=== PATIENT | female | born 1940 | race Caucasian/White ===

== ENCOUNTER → 2017-09-12 | Outpatient (CLI) | payer MEDICARE, OTHER ==
[~2017-09-12] MED LIST: ACET-2267 PO; AMIN1TAB PO; AMIT25TA9; AMOX-97 PO; ASPI-586 PO; ATOR40TA70 PO; CLOP75TA28 PO; FLT05NA16; METO-272; METO-352 PO; PILO5TAB PO; PRD50T PO; RANI150T15 PO; RIVA20TA PO; RNT150T PO; [UNRECOGNIZED DRUG - OTHER]
[2017-09-12 07:18] LABS: MEAN PLATELET VOLUME 9.1 FL (7.4-10.4); RED BLOOD COUNT 3.9 10^6/uL (4.35-5.85); WHITE BLOOD COUNT 9.9 10^3/uL (4.3-11.0)
[2017-09-12 07:42] LABS: ALANINE AMINOTRANSFERASE 10 U/L (0-55); ALBUMIN 3.8 GM/DL (3.2-4.5); ANION GAP 8 MMOL/L (5-14); ASPARTATE AMINO TRANSFERASE 17 U/L (5-34); BILIRUBIN,DIRECT 0.3 MG/DL (0.0-0.3); BILIRUBIN,INDIRECT 0.5 MG/DL; BILIRUBIN,TOTAL 0.8 MG/DL (0.1-1.0); BLOOD UREA NITROGEN 14 MG/DL (7-18); BUN/CREATININE RATIO 19; CALCIUM 9.1 MG/DL (8.5-10.1); CARBON DIOXIDE 27 MMOL/L (21-32); CHLORIDE 101 MMOL/L (98-107); CHOLESTEROL 182 MG/DL (< 200); CREATININE SERUM 0.72 MG/DL (0.60-1.30); GFR ESTIMATED > 60; GLUCOSE 86 MG/DL (70-105); MAGNESIUM 2.1 MG/DL (1.8-2.4); POTASSIUM 4.1 MMOL/L (3.6-5.0); SODIUM 136 MMOL/L (135-145); TOTAL PROTEIN 6.6 GM/DL (6.4-8.2); TRIGLYCERIDES 79 MG/DL (<150); VLDL CHOLESTEROL 16 MG/DL (5-40)
[2017-09-12 07:43] LABS: DIRECT LDL 98 MG/DL (1-129)
--- NOTE | 2017-09-12 07:44 | Diagnostic Imaging Report ---
INDICATION: Dyspnea. History of emphysema. COMPARISON: 10/09/2015 FINDINGS: Two views of the chest were obtained. The heart size is normal. The pulmonary vessels appear unremarkable. There is no pneumothorax, mediastinal widening or pleural fluid demonstrated. There are chronic findings of COPD with flattening of diaphragms. Nodular density at the right lung base is unchanged and likely represents a nipple shadow. No new or acute pulmonary parenchymal abnormality is suspected. The osseous structures appear unremarkable. IMPRESSION: Chronic findings of COPD. No acute or new cardiopulmonary abnormality seen compared to the prior study. Dictated by: Dictated on workstation # [id number]
== END ==
LOC: RAD 06:55
PROVIDERS: ATTEND Nurse Practitioner Family
DX: J43.9 Emphysema, unspecified (principal)
CPT/HCPCS: 36415; 71020; 80053; 80061; 80076; 83735; 84439; 84443; 85027

== ENCOUNTER → 2017-09-12 | Outpatient (CLI) | payer MEDICARE, OTHER | LOC: LAB 06:58 | PROVIDERS: ATTEND Internal Medicine Cardiovascular Disease | DX: R31.9 Hematuria, unspecified (principal); I48.91 Unspecified atrial fibrillation ==

== ENCOUNTER → 2017-09-19 | Outpatient (CLI) | payer MEDICARE, OTHER | LOC: RT 08:00 | PROVIDERS: ATTEND Nurse Practitioner Family | DX: J43.9 Emphysema, unspecified (principal); R06.00 Dyspnea, unspecified | CPT/HCPCS: 94060; 94726; 94729 ==

== ENCOUNTER → 2017-10-11 | Outpatient (CLI) | payer MEDICARE, OTHER ==
--- NOTE | 2017-10-11 13:35 | Diagnostic Imaging Report ---
PA and lateral views of the chest. INDICATION: Dyspnea. COPD. FINDINGS: The lungs are hyperinflated. There is a stable 8 mm calcified nodule in the right lung base. This is likely related to an old granuloma. Similarly a left lung base nodule is also stable from old exams. No focal consolidation. The heart size is normal. No effusion or pneumothorax. The mediastinum and thai appear unremarkable. IMPRESSION: COPD. No acute process. Dictated by: Dictated on workstation # [id number]
== END ==
LOC: RAD 08:59
PROVIDERS: ATTEND Nurse Practitioner Family
DX: J44.9 Chronic obstructive pulmonary disease, unspecified (principal)
CPT/HCPCS: 71020

== ENCOUNTER → 2018-03-06 | Outpatient (CLI) | payer MEDICARE, OTHER ==
[~2018-03-06] MED LIST changes: -RANI150T15 PO; +RANI150T46 PO
== END ==
LOC: LAB 08:43
PROVIDERS: ATTEND Family Medicine
DX: R19.7 Diarrhea, unspecified (principal)
CPT/HCPCS: 87045; 87046; 87324; 87449; 89055

== ENCOUNTER → 2018-03-15 | Outpatient (CLI) | payer MEDICARE, OTHER ==
[~2018-03-15] MED LIST changes: +CATHETER FLUSH 10 ML SYR IV PRN
--- NOTE | 2018-03-15 16:03 | Diagnostic Imaging Report ---
INDICATION: Chronic diarrhea and abdominal pain. EXAMINATION: The patient was administered 5.5 mCi technetium 99m Choletec and imaging over the abdomen was performed. FINDINGS: At one hour the patient ingested 8 ounces of Ensure and gallbladder ejection fraction was calculated. There is homogeneous uptake of activity by the liver. There appears to be prompt excretion of activity into the common duct and gallbladder. Normal passage of activity into the small bowel is identified. Gallbladder ejection fraction is calculated to be 78%. IMPRESSION: Normal HIDA scan and gallbladder ejection fraction. Dictated by: Dictated on workstation # [id number]
== END ==
LOC: CARD 11:31
PROVIDERS: ATTEND Family Medicine
DX: K52.9 Noninfective gastroenteritis and colitis, unspecified (principal)
CPT/HCPCS: 78227

== ENCOUNTER → 2018-04-03 | Outpatient (CLI) | payer MEDICARE, OTHER ==
[~2018-04-03] MED LIST changes: -CATHETER FLUSH 10 ML SYR IV PRN
--- NOTE | 2018-04-03 17:45 | Diagnostic Imaging Report ---
INDICATION: Foot itching. Three views of each foot were obtained. FINDINGS: There is no fracture or dislocation. Joint spaces well maintained. Articular surfaces appear smooth. IMPRESSION: Negative right and left foot. Dictated by: Dictated on workstation # [id number]
== END ==
LOC: RAD 13:00
PROVIDERS: ATTEND Family Medicine
DX: L29.8 Other pruritus (principal); Z87.2 Personal history of diseases of the skin and subcutaneous tissue

== ENCOUNTER → 2018-04-25 | Outpatient (CLI) | payer MEDICARE, OTHER | LOC: CARD 08:25 | PROVIDERS: ATTEND Nurse Practitioner Family | DX: I48.91 Unspecified atrial fibrillation (principal) | CPT/HCPCS: 93005 ==

== ENCOUNTER → 2018-06-20 | Outpatient (CLI) | payer MEDICARE, OTHER ==
--- NOTE | 2018-06-20 08:31 | Diagnostic Imaging Report ---
INDICATION: Postmenopausal screening for osteoporosis FINDINGS: This scan is considered osteopenic according to the World Health Organization guidelines. This indicates an increased risk of fracture. Treatment is advised. A followup DEXA in one year is recommended. Please refer to the detailed Bone Density report faxed separately from this report. IMPRESSION: Osteopenia with a slight increased fracture risk. Dictated by: Dictated on workstation # [id number]
--- NOTE | 2018-06-20 08:59 | Diagnostic Imaging Report ---
INDICATION: Routine screening. No prior mammograms are available for comparison. 2-D and 3-D bilateral screening mammography was performed with a Computer Aided Detection (CAD) system. FINDINGS: Both breasts are heterogeneously dense, limiting the sensitivity of mammography. There are benign parenchymal and vascular calcifications bilaterally. No mass or malignant appearing microcalcifications are seen. The axillae are unremarkable. IMPRESSION: No mammographic features suspicious for malignancy are identified. ACR BI-RADS Category 2: Benign findings. Result letter will be mailed to the patient. Note: At least 10% of breast cancer is not imaged by mammography. Dictated by: Dictated on workstation # [id number]
== END ==
LOC: RAD 07:43
PROVIDERS: ATTEND Family Medicine
DX: Z12.31 Encounter for screening mammogram for malignant neoplasm of breast (principal); Z13.820 Encounter for screening for osteoporosis; M85.88 Other specified disorders of bone density and structure, other site; M81.0 Age-related osteoporosis without current pathological fracture; Z78.0 Asymptomatic menopausal state
CPT/HCPCS: 77067; 77080

== ENCOUNTER 2018-08-17 12:02 | Observation (INO) | payer MEDICARE, OTHER ==
[~2018-08-17] VITALS: Ht 160 cm; Wt 47.6 kg
[2018-08-17] VITALS (8 sets, daily range): BP systolic 99–157; BP diastolic 45–98
[2018-08-17 12:28] LABS: BASOPHILS # (AUTO) 0.1 10^3/uL (0.0-0.1); BASOPHILS % (AUTO) 1 % (0-10); EOSINOPHILS # (AUTO) 0.2 10^3/uL (0.0-0.3); EOSINOPHILS % (AUTO) 2 % (0-10); HEMATOCRIT 35 % (35-52); HEMOGLOBIN 12.1 G/DL (11.5-16.0); LYMPHOCYTES # (AUTO) 1.7 X 10^3 (1.0-4.0); LYMPHOCYTES % (AUTO) 21 % (12-44); MEAN CORPUSCULAR HEMOGLOBIN 34 PG (25-34); MEAN CORPUSCULAR HGB CONC 35 G/DL (32-36); MEAN CORPUSCULAR VOLUME 96 FL (80-99); MONOCYTES # (AUTO) 0.8 X 10^3 (0.0-1.0); MONOCYTES % (AUTO) 10 % (0-12); NEUTROPHILS # (AUTO) 5.6 X 10^3 (1.8-7.8); NEUTROPHILS % (AUTO) 67 % (42-75); PLATELET COUNT 332 10^3/uL (130-400); RED BLOOD COUNT 3.61 10^6/uL (4.35-5.85); RED CELL DISTRIBUTION WIDTH 13.2 % (10.0-14.5); WHITE BLOOD COUNT 8.4 10^3/uL (4.3-11.0)
[2018-08-17] MEDS ORDERED: NIFE30TA2 (12:32)
[2018-08-17 12:38] LABS: INR 3.3 (0.8-1.4)
[2018-08-17 12:47] LABS: ALANINE AMINOTRANSFERASE 9 U/L (0-55); ALBUMIN 4.2 GM/DL (3.2-4.5); ALKALINE PHOSPHATASE 64 U/L (40-136); BILIRUBIN,TOTAL 0.6 MG/DL (0.1-1.0); BUN/CREATININE RATIO 14; CALCIUM 9.4 MG/DL (8.5-10.1); CARBON DIOXIDE 22 MMOL/L (21-32); CHLORIDE 97 MMOL/L (98-107); CREATININE SERUM 0.79 MG/DL (0.60-1.30); GFR ESTIMATED > 60; GLUCOSE 115 MG/DL (70-105); SODIUM 130 MMOL/L (135-145); TOTAL PROTEIN 6.9 GM/DL (6.4-8.2)
[2018-08-17 12:54] LABS: MYOGLOBIN SERUM 32.4 NG/ML (10.0-92.0)
--- NOTE | 2018-08-17 12:57 | Diagnostic Imaging Report ---
Indication: Dyspnea. Comparison: 10/11/2017. Discussion: Single portable upright view of the chest was obtained. Underlying COPD is stable. Scarring within the lung apices is stable. Stable normal heart size. Antecedent granulomatous disease is again noted, benign. No focal consolidation, pleural fluid, or pneumothorax. No osseous abnormality. Impression: 1. Stable changes of chronic lung disease. Dictated by: Dictated on workstation # [id number]
[2018-08-17] MEDS ORDERED: ASPIRIN 81 MG CHEW (CHILDREN'S ASA) PO ONE (13:00)
--- NOTE | 2018-08-17 13:00 | ED Chest Pain ---
General Chief Complaint: Cardiac/General Problems Stated Complaint: LOW HEART RATE,CARDIOVERSION YESTERDAY,HX OF A-FIB Nursing Triage Note: TO ROOM CONCERN REPORTS HR HAS BEEN IN 50'S OVER HER LOW HEART RATE. REPORTS SHE HAD A CARDIOVERSION AT [facility] YESTERDAY FOR A FIB. Nursing Sepsis Screen: No Definite Risk Source: patient, family, old records Exam Limitations: no limitations History of Present Illness Date Seen by Provider: Aug 17, 2018 Time Seen by Provider: 12:13 Initial Comments This 78 year old woman with history of atrial fibrillation presents to the ER after having electrocardioversion therapy at [facility] yesterday. She reports heart rates in the 40's and 50's overnight as well as some chest heaviness. She denies coronary artery disease. She is anticoagulated but has not taken aspirin. Her monitor worker is Dr. Argueta in [place]. Her primary care provider is Sadie Maria. She had a cardioversion in May as well. She is noted to have sinus rhythm with frequent PVCs on the monitor. Allergies and Home Medications Allergies Coded Allergies: Penicillins (Verified Allergy, Unknown, 10/09/15) fluticasone (Verified Allergy, Unknown, 10/09/15) lactase (Verified Allergy, Unknown, 10/09/15) Home Medications Acetaminophen 500 Mg Tablet, 500 MG PO Q6H, (Reported) Aspirin 81 Mg Tablet.dr, 81 MG PO DAILY, (Reported) Atorvastatin Calcium 40 Mg Tablet, 40 MG PO DAILY, (Reported) Clopidogrel Bisulfate 75 Mg Tablet, 75 MG PO DAILY, (Reported) Metoprolol Succinate 50 Mg Tab.er.24h, 50 MG PO DAILY, (Reported) Pilocarpine HCl 5 Mg Tablet, 5 MG PO TID, (Reported) Ranitidine HCl 150 Mg Tablet, 150 MG PO BID, (Reported) Rivaroxaban 20 Mg Tablet, 20 MG PO DAILY Prescribed by: GERONIMO HUGHES on 10/09/15 8468 Patient Home Medication List Home Medication List Reviewed: Yes Review of Systems Review of Systems Constitutional: no symptoms reported EENTM: No Symptoms Reported Respiratory: No Symptoms Reported Cardiovascular: See HPI Gastrointestinal: No Symptoms Reported Genitourinary: No Symptoms Reported Musculoskeletal: no symptoms reported Skin: no symptoms reported Psychiatric/Neurological: No Symptoms Reported Endocrine: No Symptoms Reported Hematologic/Lymphatic: See HPI Past Umrnvga-Kvcvcr-Wmklwl Hx Past Med/Social Hx: Reviewed and Corrections made Patient Social History Alcohol Use: Regular Use Alcohol Beverage of Choice: Beer Recreational Drug Use: No Smoking Status: Never a Smoker Former Smoker, Quit: Nov 15, 1979 Recent Foreign Travel: No Contact w/Someone Who Travel: No Recent Infectious Disease Expo: No Seasonal Allergies Seasonal Allergies: No Past Medical History Surgeries: Yes Eye Surgery, Orthopedic Respiratory: Yes COPD Currently Using CPAP: No Currently Using BIPAP: No Cardiac: Yes Atrial Fibrillation, Hypertension, Peripheral Vascular, Valvular Heart Disease Neurological: Yes TIA : No 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 0.2oz. 46.309116vh; 19.1 BMI Method:Stated General Appearance: No Apparent Distress, Thin HEENT: PERRL/EOMI, Normal ENT Inspection Neck: Normal Inspection Respiratory: Lungs Clear, Normal Breath Sounds, No Accessory Muscle Use, No Respiratory Distress Cardiovascular: No Edema, No Murmur, Irregularly Irregular Gastrointestinal: Non Tender, Soft Extremity: Normal Inspection, No Pedal Edema Neurologic/Psychiatric: Alert, Oriented x3, No Motor/Sensory Deficits, Normal Mood/Affect, child adolescent psychiatrist II-XII Norm as Tested Skin: Normal Color, Warm/Dry Progress/Results/Core Measures Results/Orders Lab Results Laboratory Tests Test 08/17/18 12:16 Range/Units White Blood Count 8.4 4.3-11.0 10^3/uL Red Blood Count 3.61 L 4.35-5.85 10^6/uL Hemoglobin 12.1 11.5-16.0 G/DL Hematocrit 35 35-52 % Mean Corpuscular Volume 96 80-99 FL Mean Corpuscular Hemoglobin 34 25-34 PG Mean Corpuscular Hemoglobin Concent 35 32-36 G/DL Red Cell Distribution Width 13.2 10.0-14.5 % Platelet Count 332 130-400 10^3/uL Mean Platelet Volume 9.0 7.4-10.4 FL Neutrophils (%) (Auto) 67 42-75 % Lymphocytes (%) (Auto) 21 12-44 % Monocytes (%) (Auto) 10 0-12 % Eosinophils (%) (Auto) 2 0-10 % Basophils (%) (Auto) 1 0-10 % Neutrophils # (Auto) 5.6 1.8-7.8 X 10^3 Lymphocytes # (Auto) 1.7 1.0-4.0 X 10^3 Monocytes # (Auto) 0.8 0.0-1.0 X 10^3 Eosinophils # (Auto) 0.2 0.0-0.3 10^3/uL Basophils # (Auto) 0.1 0.0-0.1 10^3/uL Prothrombin Time 34.0 H 12.2-14.7 SEC INR Comment 3.3 H 0.8-1.4 Activated Partial Thromboplast Time 72 H 24-35 SEC Sodium Level 130 L 135-145 MMOL/L Potassium Level 4.0 3.6-5.0 MMOL/L Chloride Level 97 L 98-107 MMOL/L Carbon Dioxide Level 22 21-32 MMOL/L Anion Gap 11 5-14 MMOL/L Blood Urea Nitrogen 11 7-18 MG/DL Creatinine 0.79 0.60-1.30 MG/DL Estimat Glomerular Filtration Rate > 60 BUN/Creatinine Ratio 14 Glucose Level 115 H 70-105 MG/DL Calcium Level 9.4 8.5-10.1 MG/DL Corrected Calcium 9.2 8.5-10.1 MG/DL Magnesium Level 2.0 1.8-2.4 MG/DL Total Bilirubin 0.6 0.1-1.0 MG/DL Aspartate Amino Transf (AST/SGOT) 23 5-34 U/L Alanine Aminotransferase (ALT/SGPT) 9 0-55 U/L Alkaline Phosphatase 64 40-136 U/L Myoglobin 32.4 10.0-92.0 NG/ML Troponin I < 0.30 <0.30 NG/ML Total Protein 6.9 6.4-8.2 GM/DL Albumin 4.2 3.2-4.5 GM/DL Free Thyroxine 1.12 0.70-1.48 NG/DL TSH [place] Testing 0.33 L 0.35-4.94 UIU/ML My Orders Orders - GERONIMO TORRES MD Cbc With Automated Diff (08/17/18 12:22) Magnesium (08/17/18 12:22) Chest 1 View, Ap/Pa Only (08/17/18 12:22) Cardiac Profile 1 (08/17/18 12:22) Comprehensive Metabolic Panel (08/17/18 12:22) Myoglobin Serum (08/17/18 12:22) Protime With Inr (08/17/18 12:22) Partial Thromboplastin Time (08/17/18 12:22) O2 (08/17/18 12:22) Monitor-Rhythm Ecg Trace Only (08/17/18 12:22) Lipid Panel (08/18/18 06:00) Saline Lock/Iv-Start (08/17/18 12:22) Thyroid Analyzer (08/17/18 12:22) Aspirin Chewable Tablet (Baby Aspirin Ch (08/17/18 13:00) Free T4 (Free Thyroxine) (08/17/18 12:16) Medications Given in ED Current Medications Medications Dose Ordered Sig/Dawit Route Start Time Stop Time Status Last Admin Dose Admin Aspirin 324 mg ONCE ONCE PO 08/17/18 13:00 08/17/18 13:01 DC 08/17/18 13:07 324 MG Vital Signs/I&O 08/17/18 08/17/18 12:02 12:50 Temp 98.0 Pulse 52 56 Resp 18 18 B/P (MAP) 129/82 (98) 114/45 (68) Pulse Ox 100 96 O2 Delivery Room Air Room Air Blood Pressure Mean: 68 Progress Progress Note : Progress Note Workup was largely unremarkable. She has mild hyponatremia. She continued to have frequent PVCs throughout her ER stay. Aspirin was given. Case was discussed with Dr. Metzger who believes patient should be admitted for observation. He requested an echocardiogram in the morning and continuation of her home medications. Patient was offered the choice to transfer to her primary cardiology team versus admission at [facility]. She much prefers admission to [facility]. Initial ECG Impression Date: Aug 17, 2018 Initial ECG Impression Time: 12:05 Initial ECG Rate: 68 Comment Sinus rhythm with frequent PVCs. No overt ST elevation or depression. No abnormal intervals or axis deviation. Diagnostic Imaging Diagonstic Imaging: Xray Plain Films/CT/US/NM/MRI: chest Comments Chest x-ray viewed by me and report reviewed. See report below: NAME: DAWSON MARQUEZ [facility] REC#: [id number] PT STATUS: REG ER : 1940 PHYSICIAN: GERONIMO TORRES MD ADMIT DATE: 08/17/18/ER Draft Date of Exam:08/17/18 CHEST 1 VIEW, AP/PA ONLY Indication: Dyspnea. Comparison: 10/11/2017. Discussion: Single portable upright view of the chest was obtained. Underlying COPD is stable. Scarring within the lung apices is stable. Stable normal heart size. Antecedent granulomatous disease is again noted, benign. No focal consolidation, pleural fluid, or pneumothorax. No osseous abnormality. Impression: 1. Stable changes of chronic lung disease. Dictated on workstation # [id number] Dict: 08/17/18 1251 Trans: 08/17/18 [address] [facility] [phone] Interpreted by: SHAILA BLOUNT MD Departure Communication (Admissions) Time/Spoke to Admitting Phy: 13:26 Dr. De La Vega Time/Spoke to Consulting Phy: 13:15 Dr. Metzger Impression Primary Impression: Chest pain Qualified Codes: R07.9 - Chest pain, unspecified Additional Impressions: Frequent PVCs Hyponatremia History of atrial fibrillation Disposition: ADMITTED INPATIENT Condition: Stable Admissions Decision to Admit Reason: Admit from ER (General) Decision to Admit/Date: Aug 17, 2018 Time/Decision to Admit Time: 13:15 Departure-Patient Inst. Referrals: SADIE MARIA MD (PCP/Family) Primary Care Physician GERONIMO TORRES MD Aug 17, 2018 13:00
[2018-08-17 13:06] LABS: TSH (THYROID ANALYZER) 0.33 UIU/ML (0.35-4.94)
[2018-08-17 13:39] LABS: FREE T4 (FREE THYROXINE) 1.12 NG/DL (0.70-1.48)
[2018-08-17] MEDS ORDERED: LOSARTAN 50 MG (COZAAR) TAB PO SCH (14:38)
[2018-08-17] MEDS: NS IV 1000 ML 1,000 ML IV SCH (14:39)
[2018-08-17] MEDS ORDERED: NIFEdipine ER 30 MG (PROCARDIA XL) TAB PO SCH (14:41)
[2018-08-17] MEDS ORDERED: ACETAMINOPHEN 325 MG TABLET PO PRN (14:45)
[2018-08-17] MEDS ORDERED: SOTA80TA PO (14:46)
[2018-08-17] MEDS ORDERED: LOSA50TA7 PO (14:46)
[2018-08-17] MEDS ORDERED: ARTHRITIS PAIN RELIEF PO PRN (15:45)
[2018-08-17] MEDS ORDERED: RIVAROXABAN 20 MG TABLET (XARELTO) PO SCH (17:00)
[2018-08-17] MEDS: SOTALOL 80 MG (BETAPACE) TAB PO SCH (20:01)
[2018-08-18] VITALS (7 sets, daily range): BP systolic 105–139; BP diastolic 53–71
[2018-08-18] MEDS: NS IV 1000 ML 1,000 ML IV SCH ×2 (00:32→07:53)
[2018-08-18 03:52] LABS: BASOPHILS % (AUTO) 1 % (0-10); EOSINOPHILS # (AUTO) 0.2 10^3/uL (0.0-0.3); EOSINOPHILS % (AUTO) 3 % (0-10); HEMATOCRIT 33 % (35-52); LYMPHOCYTES # (AUTO) 1.4 X 10^3 (1.0-4.0); LYMPHOCYTES % (AUTO) 26 % (12-44); MEAN CORPUSCULAR HEMOGLOBIN 33 PG (25-34); MEAN CORPUSCULAR HGB CONC 34 G/DL (32-36); MEAN CORPUSCULAR VOLUME 98 FL (80-99); MEAN PLATELET VOLUME 9.6 FL (7.4-10.4); MONOCYTES # (AUTO) 0.6 X 10^3 (0.0-1.0); MONOCYTES % (AUTO) 10 % (0-12); NEUTROPHILS # (AUTO) 3.3 X 10^3 (1.8-7.8); NEUTROPHILS % (AUTO) 61 % (42-75); PLATELET COUNT 235 10^3/uL (130-400); RED BLOOD COUNT 3.32 10^6/uL (4.35-5.85); RED CELL DISTRIBUTION WIDTH 13.2 % (10.0-14.5); WHITE BLOOD COUNT 5.5 10^3/uL (4.3-11.0)
[2018-08-18 04:09] LABS: BUN/CREATININE RATIO 12; CALCIUM 8.8 MG/DL (8.5-10.1); CARBON DIOXIDE 20 MMOL/L (21-32); CHLORIDE 108 MMOL/L (98-107); CHOLESTEROL 150 MG/DL (< 200); GFR ESTIMATED > 60; GLUCOSE 85 MG/DL (70-105); HDL CHOLESTEROL 49 MG/DL (40-60); POTASSIUM 3.9 MMOL/L (3.6-5.0); SODIUM 137 MMOL/L (135-145); TRIGLYCERIDES 74 MG/DL (<150); VLDL CHOLESTEROL 15 MG/DL (5-40)
[2018-08-18] MEDS: SOTALOL 80 MG (BETAPACE) TAB PO SCH (07:52)
--- NOTE | 2018-08-18 08:46 | History & Physical-Hospitalist ---
History of Present Illness HPI/Chief Complaint This is a 78-year-old white female with a history of atrial fibrillation status post cardioversion on Sunday one day prior to this presentation. This was done at [place] by Dr. Yuen The cardioversion was successful with nondenominational of sinus rhythm however the patient never felt right after it occurred. Sunday morning she woke up and was so dizzy she couldn't stand up straight and kept nearly passing out. She checked her blood pressure and pulse at home and her pulse was found to be in the 30s. Here in the emergency room she was found to be in sinus bradycardia with multiple PVCs. She relates some of her symptoms it would appear to the Procardia. This morning she is feeling much better with a stable blood pressure and a pulse around 59. Source: patient Exam Limitations: no limitations Date Seen 08/18/18 Time Seen by a Provider: 08:00 Attending Physician Edith De La Vega MD PCP Sadie Maria MD Referring Physician Date of Admission Aug 17, 2018 at 13:57 Home Medications & Allergies Home Medications Reviewed patient Home Medication Reconciliation performed by pharmacy medication reconciliations a&p technician and/or nursing. Patients Allergies have been reviewed. Allergies Allergies Coded Allergies Penicillins (Verified Allergy, Unknown, 10/09/15) fluticasone (Verified Allergy, Unknown, 10/09/15) lactase (Verified Allergy, Unknown, 10/09/15) Past Nitybvw-Iuqqyt-Frrpjs Hx Past Med/Social Hx: Reviewed Nursing Past Med/Soc Hx, Reviewed and Corrections made Patient Social History Marrital Status: single, cohabiting Employed/Student: employed ([employer] in [place]) Alcohol Use: Regular Use Number of Drinks Today: AA Alcohol Beverage of Choice: Beer (2-3 a day) Recreational Drug Use: No Smoking Status: Former Smoker Former Smoker, Quit: Nov 15, 1979 Physical Abuse Screen: No Sexual Abuse: No Recent Foreign Travel: No Contact w/other who traveled: No Recent Infectious Disease Expo: No Immunizations Up To Date Date of Pneumonia Vaccine: Aug 17, 2017 Date of Influenza Vaccine: Jul 14, 2018 Seasonal Allergies Seasonal Allergies: No Past Medical History Surgeries: Eye Surgery, Orthopedic Currently Using CPAP: No Currently Using BIPAP: No Cardiac: Atrial Fibrillation, Hypertension, Peripheral Vascular, Valvular Heart Disease Neurological: Neuropathy, TIA : No 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: No Menopausal Musculoskeletal: Rheumatoid Arthritis HEENT: Cataract History of Blood Disorders: No Adverse Reaction to Blood Burroughs: No Family History Reviewed Nursing Family Hx No Pertinent Family Hx Review of Systems Constitutional: dizziness, weakness EENTM: dental problems, other (Dry mouth) Respiratory: no symptoms reported Cardiovascular: palpitations Gastrointestinal: no symptoms reported, dysphagia Genitourinary: no symptoms reported Musculoskeletal: muscle stiffness Skin: dryness Physical Exam Physical Exam Vital Signs Vital Signs - First Documented 08/17/18 12:02 Temp 98.0 Pulse 52 Resp 18 B/P (MAP) 129/82 (98) Pulse Ox 100 O2 Delivery Room Air Capillary Refill : Less Than 3 Seconds Height, Weight, BMI Height: 5'3.00" Weight: 105lbs. 0.0oz. 47.694679rz; 18.3 BMI Method:Stated General Appearance: No Apparent Distress, WD/WN, Thin Eyes: Bilateral Eye Normal Inspection HEENT: Other (Dentures upper and lower dry mouth) Neck: Normal Inspection, Non Tender, Supple Respiratory: Chest Non Tender, Lungs Clear, Normal Breath Sounds, No Accessory Muscle Use, No Respiratory Distress Cardiovascular: Regular Rate, Rhythm, No Gallop, Systolic Murmur (High pitched 2/6), Extra Beats Gastrointestinal: Normal Bowel Sounds, No Organomegaly, No Pulsatile Mass, Non Tender, Soft Rectal: Deferred Back: Normal Inspection, No CVA Tenderness, No Vertebral Tenderness Extremity: Normal Capillary Refill, Normal Inspection, Normal Range of Motion, Non Tender, No Calf Tenderness, No Pedal Edema Neurologic/Psychiatric: Alert, Oriented x3, No Motor/Sensory Deficits, Normal Mood/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 Imaging: Reviewed Imaging Report Assessment/Plan Admission Diagnosis Bradycardia Dizziness History of a A. fib status post cardioversion Valvular heart disease Hypertension by history Scleroderma Dysphagia most likely secondary to scleroderma Peripheral neuropathy possible orthostasis The patient's Procardia's been held she's been continued on her sotalol pulse and blood pressure adequate we'll check orthostatics blood pressures and discharge planning per Dr. Ortiz. Admission Status: Observation Clinical Quality Measures DVT/VTE Risk/Contraindication: Risk Factor Score Per Nursin RFS Level Per Nursing on Admit: 1=Low/No VTE PPX Copy Copies To 1: SADIE MARIA MD, KATHLEEN M MD Aug 18, 2018 08:46
[2018-08-18] MEDS ORDERED: LOSARTAN 50 MG (COZAAR) TAB PO SCH (09:00)
[2018-08-18] MEDS ORDERED: ASPIRIN E.C. 81 MG (ECOTRIN) TAB PO SCH (09:00)
[2018-08-18] MEDS ORDERED: NIFEdipine ER 30 MG (PROCARDIA XL) TAB PO SCH (09:00)
--- NOTE | 2018-08-18 11:32 | Consultation-Cardiology ---
HPI-Cardiology Cardiology Consultation: Date of Consultation 08/18/18 Time Seen by a Provider: 11:00 Date of Admission Attending Physician Edith De La Vega MD Admitting Physician Sadie Maria MD Consulting Physician SABINO MIN MD, MA, FACP, FACC, FSCAI, CCDS HPI: Chief Complaint: CC: Low heart rate and chest discomfort 78 yo woman who underwent elec CV for A Fib with Dr Yuen at [facility] on 08/16/18. Presented to ER at this [facility] on 08/17/18 because she felt her heart rate was low. In addition, she had had a feeling of some vague chest discomfort since the elec CV. This persisted for over 24 hours and gradually faded away. Nothing made it worse or better. It was mild, burning/pressure-like, nonradiating, never experienced before and w/o recurrence. Feels good at the time of my exam and wishes to go home. Denies shortness of breath or palp or syncope or leg swelling Review of Systems-Cardiology Review of Systems Constitutional: malaise, tiredness; No weight loss, No weight gain Eyes: No vision change Ears/Nose/Throat: No ear discharge, No nasal drainage Respiratory: As described under HPI Cardiovascular: As described under HPI Gastrointestinal: No constipation, No diarrhea, No nausea, No vomiting; other ( chronic mild dysphagia) Genitourinary: No dysuria, No hematuria Musculoskeletal: back pain (chronic) Skin: No rash on exposed areas, No ulcerations on exposed areas Psychiatric/Neurological: No seizure, No focal weakness, No syncope Hematologic: No bleeding abnormalities PBC-Eiegur-Akekho Hx Patient Social History Marrital Status: single, cohabiting Employed/Student: employed ([employer] in [place]) Alcohol Use: Regular Use Recreational Drug Use: No Smoking Status: Former Smoker Recent Foreign Travel: No Recent Infectious Disease Expo: No Hospitalization with Isolation: Denies Physical Abuse Screen: No Sexual Abuse: No Immunizations Up To Date Date of Pneumonia Vaccine: Aug 17, 2017 Date of Influenza Vaccine: Jul 14, 2018 Past Medical History PMH As described under Assessment. Family Medical History Family Medical History: She does not report any fam h/o early CAD or SCD Allergies and Home Medications Allergies Coded Allergies: Penicillins (Verified Allergy, Unknown, 10/09/15) fluticasone (Verified Allergy, Unknown, 10/09/15) lactase (Verified Allergy, Unknown, 10/09/15) Home Medications Acetaminophen 500 Mg Tablet, 500 MG PO Q6H, (Reported) Losartan Potassium 50 Mg Tablet, 50 MG PO DAILY, (Reported) Rivaroxaban 20 Mg Tablet, 20 MG PO DAILY Prescribed by: GERONIMO HUGHES on 10/09/15 1556 Sotalol HCl 80 Mg Tablet, 80 MG PO BID, (Reported) Patient Home Medication List Home Medication List Reviewed: Yes Physical Exam-Cardiology Physical Exam Vital Signs/I&O 08/18/18 08/18/18 08/18/18 08/18/18 01:08 03:38 04:00 07:00 Temp 98.0 Pulse 46 59 65 Resp 17 B/P (MAP) 128/70 (89) Pulse Ox 98 99 O2 Delivery Room Air Room Air 08/18/18 08/18/18 08/18/18 08/18/18 08:00 08:00 12:00 12:00 Temp 98.7 98.2 Pulse 73 62 62 Resp 20 18 B/P (MAP) 105/53 (70) 132/71 (91) 132/71 (91) Pulse Ox 98 98 98 O2 Delivery Room Air Room Air Room Air 08/18/18 08/18/18 08/18/18 12:00 12:16 12:18 Pulse 60 60 59 Resp 18 B/P (MAP) 139/66 (90) 139/66 128/68 (88) Pulse Ox 98 98 O2 Delivery Room Air Room Air 08/18/18 00:00 Intake Total 300 ml Balance 300 ml Capillary Refill : Less Than 3 Seconds Constitutional: AAO x 3, well-developed, other (thin appearing) HEENT: PERRL, EOMI, oral hygience is good; No xanthelasmas are seen Neck: carotid pulses are 2 + bilaterally, with good upstrokes Respiratory: No accessory muscle use; other (good bilat air entry) Cardiovascular: regular rate-rhythm, S1 and S2, systolic murmur (soft NOAH at card base) Gastrointestinal: No tender; soft; No guarding, No rebound; audible bowel sounds Extremities: No clubbing, No cyanosis, No significant edema Neurologic/Psychiatric: oriented x 3, grossly intact, power is 5/5 both on sides Skin: No rash on exposed areas, No ulcerations on exposed areas Data Review Labs Laboratory Tests 08/17/18 20:15: Troponin I < 0.30 08/18/18 03:00: White Blood Count 5.5, Red Blood Count 3.32L, Hemoglobin 11.0L, Hematocrit 33L, Mean Corpuscular Volume 98, Mean Corpuscular Hemoglobin 33, Mean Corpuscular Hemoglobin Concent 34, Red Cell Distribution Width 13.2, Platelet Count 235, Mean Platelet Volume 9.6, Neutrophils (%) (Auto) 61, Lymphocytes (%) (Auto) 26, Monocytes (%) (Auto) 10, Eosinophils (%) (Auto) 3, Basophils (%) (Auto) 1, Neutrophils # (Auto) 3.3, Lymphocytes # (Auto) 1.4, Monocytes # (Auto) 0.6, Eosinophils # (Auto) 0.2, Basophils # (Auto) 0.0, Sodium Level 137, Potassium Level 3.9, Chloride Level 108H, Carbon Dioxide Level 20L, Anion Gap 9, Blood Urea Nitrogen 7, Creatinine 0.60, Estimat Glomerular Filtration Rate > 60, BUN/ Creatinine Ratio 12, Glucose Level 85, Calcium Level 8.8, Triglycerides Level 74 , Cholesterol Level 150, LDL Cholesterol Direct 92, VLDL Cholesterol 15, HDL Cholesterol 49 Laboratory Tests 08/17/18 12:16 08/18/18 03:00 A/P-Cardiology Assessment/Admission Diagnosis PAF, s/p elec cardioversion at [facility] on 08/16/18. Currently exhibiting NSR with PVCs Bradycardia, essentially asymptomatic No evidence of ACS during this admission Echo of 08/18/18: LVEF 65-70%, grade 3 diastolic dysfunction of LV, mild ( peak grad 25, mean grad 16, valve area 1.2 sq cm), mild AI, mod to severe TR, MAC w/o MS Mod pulm htn (see echo results above) H/o scleroderma with a h/o dysphagia Reports a recent stress test with Dr Yuen in [place] and states she was told it was normal Discussion and Recomendations * I had a detailed discussion with her regarding her CV issues * We advised f/u with her regular stock puller, but she wishes to establish f/u locally. We will try to assist her with that * We have advised return to ER in case of recurrent symptoms or new symptoms Clinical Quality Measures DVT/VTE Risk/Contraindication: Risk Factor Score Per Nursin RFS Level Per Nursing on Admit: 1=Low/No VTE PPX SABINO MIN MD FACP [facility] CCDS Aug 18, 2018 11:32
== END 2018-08-18 13:12 | disposition home or self-care (01) ==
LOC: EDUNIT# 12:02 → ER 12:03 → UNDOADMOB 13:57 → ICU 13:57 → UNDODISOB 08-18 13:15
PROVIDERS: ADMIT Internal Medicine; ATTEND Internal Medicine
DX: R00.1 Bradycardia, unspecified (principal); I48.0 Paroxysmal atrial fibrillation; I27.20 Pulmonary hypertension, unspecified; M34.9 Systemic sclerosis, unspecified; R13.10 Dysphagia, unspecified; Z87.891 Personal history of nicotine dependence; Z79.899 Other long term (current) drug therapy; Z79.82 Long term (current) use of aspirin; J44.9 Chronic obstructive pulmonary disease, unspecified; I10 Essential (primary) hypertension; I73.9 Peripheral vascular disease, unspecified; M06.9 Rheumatoid arthritis, unspecified; E87.1 Hypo-osmolality and hyponatremia
CPT/HCPCS: 36415; 71045; 80048; 80053; 80061; 83735; 83874; 84439; 84443; 84484; 85025; 85610; 85730; 93005; 93041; 93306

== ENCOUNTER → 2019-01-10 | Outpatient (CLI) | payer MEDICARE, OTHER ==
[~2019-01-10] MED LIST changes: +LOSA50TA63 PO; +NIFE30TA2; +SOTA80TA PO
--- NOTE | 2019-01-10 10:58 | Diagnostic Imaging Report ---
INDICATION: Aspiration. TIME OF EXAM: 10:26 AM Correlation is made with prior chest from 08/17/2018. FINDINGS: The heart size is stable. Lungs appear to be clear of acute infiltrates. No effusion or pneumothorax is identified. No definite radiopaque foreign bodies are seen. There is some hyperinflation consistent with COPD. IMPRESSION: No acute feature is detected. Dictated by: Dictated on workstation # [id number]
== END ==
LOC: RAD 10:13
PROVIDERS: ATTEND Family Medicine
DX: T17.920A Food in respiratory tract, part unspecified causing asphyxiation, initial encounter (principal)
CPT/HCPCS: 71046

== ENCOUNTER 2019-06-06 18:04 | Emergency (ER) | payer MEDICARE, OTHER | END 2019-06-06 20:41 | disposition home or self-care (01) | LOC: ER 18:04 ==

== ENCOUNTER 2019-06-10 11:35 | Day surgery (SDC) | payer MEDICARE, OTHER ==
[2019-06-10] VITALS (9 sets, daily range): BP systolic 146–183; BP diastolic 88–109
[~2019-06-10] VITALS: Ht 160 cm; Wt 51.7 kg
[~2019-06-10 11:35] MED LIST changes: +RANI-613 PO; -RANI150T46 PO; -RIVA20TA PO; +RIVA20TA2 PO; -SOTA80TA PO; +STL80T PO
[2019-06-10] MEDS ORDERED: NS IV 1000 ML 1,000 ML ONE (12:00)
[2019-06-10] MEDS ORDERED: LIDOCAINE 1% INJ 20 ML 20 ML VIAL ONE (12:00)
[2019-06-10] MEDS ORDERED: HEParin (CATH LAB) 2,000 ML IV ONE (12:01)
[2019-06-10] MEDS ORDERED: NS IV 1000 ML 1,000 ML IV SCH ×2 (12:02→14:16)
[2019-06-10 12:28] LABS: HEMOGLOBIN 12.8 G/DL (11.5-16.0); MEAN PLATELET VOLUME 9.2 FL (7.4-10.4); RED CELL DISTRIBUTION WIDTH 12.3 % (10.0-14.5); WHITE BLOOD COUNT 6.7 10^3/uL (4.3-11.0)
[2019-06-10 12:39] LABS: INR 1.8 (0.8-1.4); PROTHROMBIN TIME PATIENT 21.6 SEC (12.2-14.7)
[2019-06-10] MEDS ORDERED: GABA800T10 PO (12:44)
[2019-06-10] MEDS ORDERED: RIVA20TA PO (12:44)
[2019-06-10] MEDS ORDERED: DOCU100C37 PO (12:48)
[2019-06-10] MEDS ORDERED: DIPH25CA79 PO (12:48)
[2019-06-10] MEDS ORDERED: ASPI-586 PO (12:48)
[2019-06-10] MEDS ORDERED: ACET-2650 PO (12:48)
[2019-06-10 12:50] LABS: ALANINE AMINOTRANSFERASE < 6 U/L (0-55); ALBUMIN 4.3 GM/DL (3.2-4.5); ALKALINE PHOSPHATASE 83 U/L (40-136); BILIRUBIN,TOTAL 0.6 MG/DL (0.1-1.0); BUN/CREATININE RATIO 13; CALCIUM 9.4 MG/DL (8.5-10.1); CARBON DIOXIDE 24 MMOL/L (21-32); CHLORIDE 104 MMOL/L (98-107); CHOLESTEROL 191 MG/DL (< 200); CREATININE SERUM 0.72 MG/DL (0.60-1.30); GFR ESTIMATED > 60; GLUCOSE 81 MG/DL (70-105); HDL CHOLESTEROL 55 MG/DL (40-60); POTASSIUM 4.2 MMOL/L (3.6-5.0); SODIUM 139 MMOL/L (135-145); TOTAL PROTEIN 7.3 GM/DL (6.4-8.2); TRIGLYCERIDES 76 MG/DL (<150); VLDL CHOLESTEROL 15 MG/DL (5-40)
[2019-06-10] MEDS ORDERED: LOSA50TA63 PO (12:51)
--- NOTE | 2019-06-10 12:52 | NUR ---
SPOKE WITH PT WELL GOING THRU THE EXTERNAL MED HISTORY TO COMPLETE THE MED REC. PT WAS ABLE TO TELL HER ALL HER MEDICATIONS ALONG WITH HOW SHE TAKES EACH ONE. OTC MEDS: ACETAMINOPHEN 650M TAB PRN ASPIRIN 81M TAB DAILY DIPHENDYDRAMINE 25M HS PRN DOCUSATE 100M DAILY PRN
[2019-06-10] MEDS ORDERED: MIDAZOLAM 5 MG/5 ML (VERSED) VIAL ONE (13:29)
[2019-06-10] MEDS ORDERED: fentaNYL INJECTION 100 MCG/2 ML AMP ONE (13:30)
--- NOTE | 2019-06-10 13:53 | Cardiac Procedure Note-CS/ASA ---
Pre-Procedure Note Pre-Op Procedure Note H&P Reviewed The H&P was reviewed, patient examined and no changes noted. Date H&P Reviewed: Jun 10, 2019 Time H&P Reviewed: 13:53 Conscious Sedation Pre-Proced Time 13:53 ASA Score 3 For ASA 3 and 4: Consider anesthesia and medical clearance. Also, for patients with a history of failed moderate sedation consider anesthesia. Airway Lungs Heart ASA score ASA 1: a normal healthy patient ASA 2: a patient with a mild systemic disease (mid diabetes, controlled hypertension, obesity ASA 3: a patient with a severe systemic disease that limits activity (angina, COPD, prior Myocardial infarction) ASA 4: a patient with an incapacitating disease that is a constant threat to life (CHF, renal failure) ASA 5: a moribund patient not expected to survive 24 hrs. (ruptured aneurysm) ASA 6: a declared brain- patient whose organs are being harvested. For emergent operations, add the letter E after the classification Mallampati Classification Grade 2 Sedation Plan Analgesia, Amnesia, Plan communicated to team members, Discussed options with patient/fam, Discussed risks with patient/fam The patient is an appropriate candidate to undergo the planned procedure, sedation, and anesthesia. The patient immediately re-assessed prior to indication. SABINO MIN MD FACP FAC CCDS Jun 10, 2019 13:53
--- NOTE | 2019-06-10 14:20 | CARDIAC CATHETERIZATION ---
DATE OF SERVICE: 06/10/2019 CARDIAC CATHETERIZATION REPORT INDICATIONS: The patient is an 79-year-old lady, who has multiple coronary artery disease risk factors and who has been experiencing chest discomfort that is suggestive of new onset of angina pectoris. Cardiac catheterization was carried out today after having obtained an informed consent. PROCEDURE IN DETAIL: She was brought to the cardiac catheterization laboratory in a fasting state. Right groin was prepared and draped in the usual sterile fashion. Lidocaine 1% was used for local anesthesia. Modified Seldinger technique was used to advance a 5-Kazakh sheath in the right femoral artery, 5-Kazakh JL4 catheter was used for left coronary angiography, 5-Kazakh JR4 catheter for right coronary angiography, 5-Kazakh pigtail catheter was used for left heart catheterization and left ventricular angiography. The pigtail catheter was pulled back and then removed. Angiography of the right femoral artery was carried out through the sheath. Mynx was used to achieve hemostasis. She tolerated the procedure well. HEMODYNAMICS: Left ventricular end-diastolic pressure following coronary angiography was 13 mmHg. There was no significant pressure gradient on pullback across the aortic valve. Ascending aortic pressure was 149/87 with a mean of 111 mmHg. CORONARY ANGIOGRAPHY: Coronary calcification is seen. Left main coronary artery does not exhibit significant obstructive disease. Left anterior descending and left circumflex arteries have mild plaques. Right coronary artery is dominant and has mild plaques. LEFT VENTRICULAR ANGIOGRAPHY: Left ventricular angiography was carried out in the right anterior oblique projection. Global left ventricular systolic function is normal. No distinct regional wall motion abnormality was seen in this view. Ejection fraction is approximately 65%. There is mitral annular calcification seen. CONCLUSIONS: 1. Angiographically mild coronary artery disease. 2. Normal global left ventricular systolic function with ejection fraction of 65%. 3. Left ventricular end-diastolic pressure at the top limit of normal. DISCUSSION AND RECOMMENDATIONS: Based on results of the study, it appears appropriate to continue a conservative approach. Risk factor modification has been reviewed and outpatient followup is advised. Job ID: [id number] DocumentID: [id number] Dictated Date: 06/10/2019 14:09:06 Sharepoint Analyst Date: 06/10/2019 14:19:34 Dictated By: SABINO MIN MD, MA, FACP, FACC,
[2019-06-10] MEDS ORDERED: PRAV20TA PO (14:21)
--- NOTE | 2019-06-10 14:22 | Discharge Inst-Cardiology ---
Discharge Inst-Cardiac Problems Reviewed?: Yes Discharge Medications New Medications: Pravastatin Sodium (Pravachol) 20 Mg Tablet 20 MG PO HS for 30 Days, #30 TAB 5 Refills Continued Medications: Acetaminophen (Tylenol Arthritis) 650 Mg Tablet.er 650 MG PO Q8H PRN for PAIN-MILD, TAB Aspirin (Aspir 81) 81 Mg Tablet.dr 81 MG PO DAILY, TAB Diphenhydramine HCl (Benadryl) 25 Mg Capsule 25 MG PO HS PRN for INSOMNIA, CAP Docusate Sodium (Docusate Sodium) 100 Mg Capsule 100 MG PO DAILY PRN for CONSTIPATION-1ST LINE, CAP Gabapentin (Gabapentin) 800 Mg Tablet 800 MG PO HS Losartan Potassium (Losartan Potassium) 50 Mg Tablet 50 MG PO DAILY Rivaroxaban (Xarelto) 20 Mg Tablet 20 MG PO 1000 Sotalol HCl (Sotalol) 80 Mg Tablet 80 MG PO BID SABINO MIN MD FACP [facility] CCDS Jun 10, 2019 14:22
--- NOTE | 2019-06-10 14:23 | Discharge Inst-Post CATH ---
Discharge Inst-CATH/EP Problems Reviewed?: Yes Post Cardiac Cath/EP D/C Inst Follow Up/Plan F/u with Dr Metzger in 2 weeks ACTIVITY * Go Home directly and rest. * Limit activity of the leg (or wrist if it was used) for 7 days including aerobics, swimming, jogging, bicycling, etc. * Restrict stair-climbing for 7 days if possible, if not, climb up with your non-cath leg, then bring together on the same step. * Avoid lifting, pushing, pulling or excessive movement of the affected extremity for 7 days. * Customary sexual activity may be resumed after 2 days-use caution not to use a position that strains or causes pain to the affected extremity. * No driving for 24 hours. * NO SMOKING. * Avoid straining for bowel movements for 7 days. * Gentle walking on level ground is allowed. * Returning to work will depend on the type of procedure and the results. Your doctor will discuss this with you. CALL YOUR DOCTOR FOR ANY OF THE FOLLOWING: *If bleeding from the puncture site occurs- Apply gentle pressure to site with clean cloth and call your doctor or EMS. * If a knot or lump forms under the skin, increases in size, or causes pain. * If bruising appears to be worsening or moving further down your leg instead of disappearing. * Temperature above 101 F. CARE OF YOUR GROIN INCISION; * Bruising or purple discoloration of the skin near the puncture site is common. * You may shower only, no bathtub bathing for 5 days. Be careful to avoid slipping as your leg may feel stiff. * If a closure device was used on your femoral artery, please see the attached guide regarding care of the device and your leg. * Leave dressing on FOR 24 hours. CARE OF YOUR WRIST INCISION; * Bruising or purple discoloration of the skin near the puncture site is common. * You may shower. * DO NOT submerge wrist. * Leave dressing on FOR 24 hours. SABINO METZGER MD FACP [facility] CCDS Jun 10, 2019 14:23
[2019-06-10] MEDS ORDERED: PATIENT MAY USE OWN MEDS, ALL PO SCH (14:30)
--- NOTE | 2019-06-10 14:35 | NUR ---
PATIENT STATES NO ALLERGIES
[2019-06-10] MEDS ORDERED: amLODIPine 10 MG (NORVASC) TAB PO NR (16:00)
--- NOTE | 2019-06-10 17:05 | NUR ---
DR MIN NOTIFIED OF B/P. NO FURTHER ORDERS. STATED OK TO D/C. Addendum: 06/10/19 at 1706 by FELECIA ORR RN Amended: Links added.
== END 2019-06-10 17:50 | disposition home or self-care (01) ==
LOC: CATH 11:35 → SDC 14:35 → CATH 17:50
PROVIDERS: ATTEND Internal Medicine Cardiovascular Disease
DX: I25.10 Atherosclerotic heart disease of native coronary artery without angina pectoris (principal); I48.91 Unspecified atrial fibrillation; I65.29 Occlusion and stenosis of unspecified carotid artery; I27.0 Primary pulmonary hypertension; M79.89 Other specified soft tissue disorders; J44.9 Chronic obstructive pulmonary disease, unspecified; Z87.891 Personal history of nicotine dependence; Z79.01 Long term (current) use of anticoagulants; Z79.82 Long term (current) use of aspirin; Z79.899 Other long term (current) drug therapy; Z82.49 Family history of ischemic heart disease and other diseases of the circulatory system; Z83.6 Family history of other diseases of the respiratory system; Z84.0 Family history of diseases of the skin and subcutaneous tissue
CPT/HCPCS: 36415; 80053; 80061; 85027; 85610; 85730; 87081; 93458

== ENCOUNTER 2019-06-21 08:05 | Emergency (ER) | payer MEDICARE, OTHER ==
[~2019-06-21] VITALS: Ht 160 cm; Wt 50.8 kg
[~2019-06-21 08:05] MED LIST changes: +ACET-2650 PO; +DIPH25CA79 PO; +DOCU100C37 PO; +GABA800T10 PO; +PRAV20TA PO; +RIVA20TA PO
--- NOTE | 2019-06-21 08:51 | ED Integumentary General ---
General Chief Complaint: Skin/Wound Problems Stated Complaint: RECENT HEART CATH,BLEEDING FROM WOUND,DIZZINESS Nursing Triage Note: PT AMBULATED TO ROOM 5 PT CO OF R GROIN AREA OOZING BLOOD FROM HEART CATH APPROX 11DAYS AGO PT DENIES PAIN. PT HAS BRUISING NOTED ON R GROIN AREA AND UPPER THIGH FROM HEART CATH. NO SWELLING NOTED. Source: patient Exam Limitations: no limitations (TERE CRUZ MD) History of Present Illness Date Seen by Provider: Jun 21, 2019 Time Seen by Provider: 08:46 Initial Comments This 79-year-old white female presents with bleeding from her right femoral artery catheterization site following a cardiac catheterization a week ago. The patient had noted some bruising to the medial aspect of her thigh but had not had any bleeding from the catheterization site until this morning. The patient stated that she bled approximately an eyedrop are full during her shower. Patient has noted raised blister to the area of the catheterization puncture site. The patient's bleeding was self-limited. She is back on her L Aquinas for her A. fib. The procedure was done by Dr. Metzger. (TERE CRUZ MD) Allergies and Home Medications Allergies Coded Allergies: No Known Drug Allergies (Unverified , 06/10/19) Home Medications Acetaminophen 650 Mg Tablet.er, 650 MG PO Q8H PRN for PAIN-MILD, (Reported) Aspirin 81 Mg Tablet.dr, 81 MG PO DAILY, (Reported) Diphenhydramine HCl 25 Mg Capsule, 25 MG PO HS PRN for INSOMNIA, (Reported) Docusate Sodium 100 Mg Capsule, 100 MG PO DAILY PRN for CONSTIPATION-1ST LINE, (Reported) Gabapentin 800 Mg Tablet, 800 MG PO HS, (Reported) Losartan Potassium 50 Mg Tablet, 50 MG PO DAILY, (Reported) Pravastatin Sodium 20 Mg Tablet, 20 MG PO HS Prescribed by: SABINO METZGER on 06/10/19 1421 Rivaroxaban 20 Mg Tablet, 20 MG PO 1000, (Reported) Sotalol HCl 80 Mg Tablet, 80 MG PO BID, (Reported) Patient Home Medication List Home Medication List Reviewed: Yes (TERE CRUZ MD) Review of Systems Review of Systems Constitutional: No chills, No fever EENTM: no symptoms reported Respiratory: no symptoms reported Cardiovascular: no symptoms reported; No chest pain, No palpitations Gastrointestinal: No abdominal pain, No nausea, No vomiting Genitourinary: no symptoms reported Musculoskeletal: No back pain Skin: see HPI Psychiatric/Neurological: No Symptoms Reported Endocrine: No Symptoms Reported Hematologic/Lymphatic: No Symptoms Reported (TERE CRUZ MD) Past Vklpeic-Fesfqb-Yxtphe Hx Past Med/Social Hx: Reviewed Nursing Past Med/Soc Hx (TERE CRUZ MD) Patient Social History Alcohol Use: Regular Use Number of Drinks Today: 0 Alcohol Beverage of Choice: Beer Recreational Drug Use: No Smoking Status: Never a Smoker Type Used: Cigarettes Former Smoker, Quit: Nov 15, 1979 2nd Hand Smoke Exposure: Yes (1979 QUITE) Recent Foreign Travel: No Contact w/Someone Who Travel: No Recent Infectious Disease Expo: No Physical Abuse: No Sexual Abuse: No (TERE CRUZ MD) Immunizations Up To Date Date of Pneumonia Vaccine: Aug 17, 2017 Date of Influenza Vaccine: Jul 14, 2018 (TERE CRUZ MD) Seasonal Allergies Seasonal Allergies: No (TERE CRUZ MD) Past Medical History Surgeries: Yes Eye Surgery, Orthopedic Respiratory: Yes COPD Currently Using CPAP: No Currently Using BIPAP: No Cardiac: Yes Atrial Fibrillation, Hypertension, Peripheral Vascular, Valvular Heart Disease Neurological: Yes Neuropathy, TIA 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 Disorders: 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 Genitourinary: No Gastrointestinal: Yes (dysphagia) Gastroesophageal Reflux Musculoskeletal: Yes (scleroderma) Rheumatoid Arthritis Endocrine: No Cataract Cancer: No Psychosocial: No Integumentary: Yes (SCLERODERMA) Blood Disorders: No Adverse Reaction/Blood Tranf: No (TERE CRUZ MD) Family Medical History No Pertinent Family Hx (TERE CRUZ MD) Physical Exam Vital Signs Vital Signs - First Documented 06/21/19 08:05 Temp 97.8 Pulse 84 Resp 22 B/P (MAP) 144/85 (104) Pulse Ox 99 (CASSANDRA DUNN MD) Vital Signs Capillary Refill : Less Than 3 Seconds (TERE CRUZ MD) General Appearance: WD/WN, no apparent distress HEENT: normal ENT inspection Neck: full range of motion, normal inspection Cardiovascular: irregularly irregular Respiratory: lungs clear, normal breath sounds Gastrointestinal: normal bowel sounds, non tender Back: normal inspection Extremities: other (there is bruising present to the medial aspect of the right thigh. There is a raised blister lesion to the catheterization insertion site in the right groin.) Neurologic/Psychiatric: no motor/sensory deficits, alert, normal mood/affect Skin: ecchymosis (Ecchymosis to the medial right thigh. Raised blister at the catheter insertion site in the right groin) (TERE CRUZ MD) Progress/Results/Core Measures Results/Orders My Orders Orders - CASSANDRA DUNN MD Vancomycin Injection (Vancomycin Injecti (06/21/19 11:30) Vancomycin Injection (Vancomycin Injecti (06/21/19 12:00) (CASSANDRA DUNN MD) Vital Signs/I&O 06/21/19 08:05 Temp 97.8 Pulse 84 Resp 22 B/P (MAP) 144/85 (104) Pulse Ox 99 (CASSANDRA DUNN MD) Blood Pressure Mean: 104 Progress Progress Note : Time: 08:50 Progress Note I performed a bedside ultrasound the patient's right groin catheter insertion site. I do not see any evidence of a pulsatile mass in the area. However I do not feel that my exam was adequate. I consulted who recommended a formal ultrasound. He is contacting the r and d lab technician to see a this would be possible today on Sunday. Dr. Dunn was kind enough to assume care at 9:[address] Dao is working on getting the r and d lab technician to evaluate the patient. (TERE CRUZ MD) Departure Communication (Admissions) [id number] Dr. Dao has completed his exam. The ultrasound showed no evidence of pseudoaneurysm or arterial leak. This is therefore most likely a liquefying hematoma. She will be given a gram of vancomycin IV here and dismissed on Keflex. She is to see SABINO Moses in the office on Sunday. (CASSANDRA DUNN MD) Impression Primary Impression: right groin hematoma post cardiac angiography one week Disposition: 01 HOME, SELF-CARE Condition: Stable/Unchanged Departure-Patient Inst. Decision time for Depature: 11:30 (CASSANDRA DUNN MD) Referrals: DIXIE HERRERA MD (PCP/Family) Primary Care Physician Add. Discharge Instructions: All discharge instructions reviewed with patient and/or family. Voiced un derstanding. Take Keflex as directed. Call SABINO Moses's office Sunday morning for an appointment on Sunday. TERE CRUZ MD Jun 21, 2019 08:51 CASSANDRA DUNN MD Jun 21, 2019 11:19
--- NOTE | 2019-06-21 10:00 | NUR ---
DR SANTIAGO HERE TO SEE PT
--- NOTE | 2019-06-21 10:09 | Consultation-Cardiology ---
HPI-Cardiology Cardiology Consultation: Date of Consultation 06/21/19 Date of Admission Attending Physician Admitting Physician Sadie Maria MD Consulting Physician David RODRIGUEZ MD HPI: Time Seen by a Provider: 09:45 Chief Complaint: Bleeding at the cardiac catheterization access site This is a 79-year-old female who follows with Dr. Metzger as an outpatient. She has history of atrial fibrillation on sotalol, oral anticoagulation. She had recent coronary angiography through the right femoral artery one week ago. She noted some bruising on the medial aspect of her thigh. This morning she had a very slight bleeding from the site of catheterization. There is also a blister. No further bleeding. She denies any other cardiac complaints including chest pain, shortness of breath, syncope or near syncope. Review of Systems-Cardiology Review of Systems Constitutional: As described under HPI; No As described under HPI, No no symptoms reported, No chills, No fever, No lightheadedness Eyes: No As described under HPI, No no symptoms reported, No blindness, No blurred vision, No contact lenses, No drainage, No decreased acuity, No foreign body sensation, No pain, No vision change Ears/Nose/Throat: No As described under HPI, No no symptoms reported, No chronic hearing loss, No ear discharge, No ear pain, No nasal drainage, No ulcerations Respiratory: No no symptoms reported; As described under HPI; No As described under HPI, No cough, No orthopnea, No shortness of breath, No SOB with excertion Cardiovascular: No no symptoms reported; As described under HPI; No As described under HPI, No chest pain, No edema, No irregular heart rate, No lightheadedness, No palpitations Gastrointestinal: No no symptoms reported, No As described under HPI, No abdomen distended, No abdominal pain, No blood streaked bowels, No constipation, No diarrhea, No nausea, No vomiting, No stool coloration changes Genitourinary: No As described under HPI, No burning, No dysuria, No discharge, No frequency, No flank pain, No hematuria, No urgency : Yes : No Musculoskeletal: As describe under HPI Skin: As described under HPI; No rash, No skin related problems, No ulcerations Psychiatric/Neurological: No anxiety, No depression, No seizure, No focal weakness, No syncope Hematologic: No bleeding abnormalities IHT-Npadid-Yorexl Hx Patient Social History Alcohol Use: Regular Use Recreational Drug Use: No Smoking Status: Never a Smoker Type Used: Cigarettes 2nd Hand Smoke Exposure: Yes (1979 QUITE) Recent Foreign Travel: No Recent Infectious Disease Expo: No Hospitalization with Isolation: Denies Immunizations Up To Date Date of Pneumonia Vaccine: Aug 17, 2017 Date of Influenza Vaccine: Jul 14, 2018 Past Medical History PMH As described under Assessment. Family Medical History Family Medical History: She does not report any fam h/o early CAD or SCD Allergies and Home Medications Allergies Coded Allergies: No Known Drug Allergies (Unverified , 06/10/19) Home Medications Acetaminophen 650 Mg Tablet.er, 650 MG PO Q8H PRN for PAIN-MILD, (Reported) Aspirin 81 Mg Tablet.dr, 81 MG PO DAILY, (Reported) Diphenhydramine HCl 25 Mg Capsule, 25 MG PO HS PRN for INSOMNIA, (Reported) Docusate Sodium 100 Mg Capsule, 100 MG PO DAILY PRN for CONSTIPATION-1ST LINE, (Reported) Gabapentin 800 Mg Tablet, 800 MG PO HS, (Reported) Losartan Potassium 50 Mg Tablet, 50 MG PO DAILY, (Reported) Pravastatin Sodium 20 Mg Tablet, 20 MG PO HS Prescribed by: SABINO METZGER on 06/10/19 1421 Rivaroxaban 20 Mg Tablet, 20 MG PO 1000, (Reported) Sotalol HCl 80 Mg Tablet, 80 MG PO BID, (Reported) Patient Home Medication List Home Medication List Reviewed: Yes Physical Exam-Cardiology Physical Exam Vital Signs/I&O 06/21/19 08:05 Temp 97.8 Pulse 84 Resp 22 B/P (MAP) 144/85 (104) Pulse Ox 99 Capillary Refill : Less Than 3 Seconds Constitutional: appears stated age, AAO x 3; No apparent distress; well- developed, well-nourished HEENT: PERRL; No discharge; hearing is well preserved, oral hygience is good; No ulceration, No xanthelasmas are seen Neck: No carotid bruit; carotid pulses are 2 + bilaterally Respiratory: No accessory muscle use, No respiratory distress, No chest tender, No chest expansion is symmetric; chest is bilaterally symmetric; No lungs clear to percussion; lungs clear to auscultation; No crackles, No rhonchi, No rales, No stridor, No wheezing, No pleural rub, No other Cardiovascular: No regular rate-rhythm; irregularly irregular; No extra beats, No parasternal heave is noted, No JVD, No edema, No bradycardia, No tachycardia, No point of maximal impulse, No cardiac thrills are palpable; S1 and S2; No gallop/S3, No gallop/S4, No diastolic murmur; systolic murmur; No friction rub, No click, No other Gastrointestinal: No tender; soft; No round, No distended, No pulsatile mass, No organomegaly, No guarding, No rebound, No tenderness, No hernia, No mass; audible bowel sounds; No abnormal bowel sounds, No abdominal bruits, No spleenomegaly, No other Rectal: deferred Extremities: other (mild bruising right lower extremity, induration and slight swelling right groin. pustule. No bruit auscultated.); No clubbing, No cyanosis; no lower extremity edema bilateral; No significant edema; wound Neurologic/Psychiatric: no motor/sensory deficits, alert, normal mood/affect, oriented x 3, power is 5/5 both on sides Skin: normal color; No rash, No ulcerations A/P-Cardiology Assessment/Admission Diagnosis Recent cardiac catheterization, Mild bleeding from the cardiac catheterization access site, Persistent atrial fibrillation, Infected pustule at the site of cath access Plan This is a 79-year-old lady who had recent cardiac catheterization a week ago from right femoral artery. She is complaining of mild bruising of the right lower extremity, mild bleeding from the site of the right femoral access as well as pustule. There is no bruit however there is an induration, mild swelling and pustule. I performed a bedside ultrasound on the right groin which showed a small hematoma but no pseudoaneurysm or AV fistula. I have recommended vancomycin 1 g in the ER followed by Keflex 500 mg 3 times a day for 5 days. No further bleeding. She can continue oral anticoagulation and follow with Dr. Metzger/[facility] on Sunday. Persistent atrial fibrillation, on sotalol, Eliquis. Hypertension, continue outpatient medication. Hyperlipidemia, continue pravastatin. Thank you for your consultation. Please call me if you have any questions. Adams Rodriguez MD, FACP, FACC, FSCAI, FHRS, CCDS Interventional Cardiology Cardiac Electrophysiology Vascular Medicine and Endovascular Interventions David RODRIGUEZ MD Jun 21, 2019 10:09
[2019-06-21] MEDS ORDERED: VANCOMYCIN INJECTION 1,000 MG in NS (IVPB) 250 ML IV SCH (11:30)
[2019-06-21] MEDS ORDERED: VANCOMYCIN INJECTION 1,000 MG in NS (IVPB) 250 ML IV NR (12:00)
[2019-06-21] MEDS ORDERED: CEPH500C PO (12:25)
[2019-06-21 12:46] VITALS: BP 144/85
== END 2019-06-21 12:48 | disposition home or self-care (01) ==
LOC: EDUNIT# 08:06 → ER 08:08
DX: I97.630 Postprocedural hematoma of a circulatory system organ or structure following a cardiac catheterization (principal); M79.81 Nontraumatic hematoma of soft tissue; I48.91 Unspecified atrial fibrillation; J44.9 Chronic obstructive pulmonary disease, unspecified; I10 Essential (primary) hypertension; I73.9 Peripheral vascular disease, unspecified; G62.9 Polyneuropathy, unspecified; K21.9 Gastro-esophageal reflux disease without esophagitis; M06.9 Rheumatoid arthritis, unspecified; Z86.73 Personal history of transient ischemic attack (TIA), and cerebral infarction without residual deficits; Z95.9 Presence of cardiac and vascular implant and graft, unspecified; Z79.82 Long term (current) use of aspirin; Z87.891 Personal history of nicotine dependence
CPT/HCPCS: 96365

== ENCOUNTER 2019-08-06 10:35 | Outpatient (RCR) | payer MEDICARE, OTHER ==
[~2019-08-06 10:35] MED LIST changes: +CEPH500C PO
== END 2019-08-06 11:35 | disposition home or self-care (01) ==
PROVIDERS: ATTEND Family Medicine
DX: M34.9 Systemic sclerosis, unspecified (principal); R53.1 Weakness

== ENCOUNTER 2019-10-01 09:16 | Outpatient (RCR) | payer MEDICARE, OTHER ==
--- NOTE | 2019-10-01 10:11 | NUR ---
Pt came for Pulmonary Rehab evaluation; during walk test, pt had to stop and rest several times. She stated due to SOA and a little dizzy. Later she stated she was having left sided chest pain (sharp), while walking. Pt states she has chronic a-fibb; I asked how long this pain has been there; she stated it started earlier this past week with exertion. Pt's BP 100/50; I asked pt if she would like to go to Emergency Room; she declined. I did instruct pt to contact her level vial grinder, Dr. Metzger, to follow up with him about new symptom, she stated she would. I also instructed pt to go to E.R if symptoms persist or worsen, she stated she would. Pt rested, pain went away (she states its only with exertion). I instructed pt that we would need medical clearance from physician before starting exercise; pt to follow up with Dr. Metzger.
[2019-10-28 08:30] VITALS: BP 130/60
[2019-10-28 09:30] VITALS: BP 97/56
[2019-10-30 09:15] VITALS: BP 100/40
[2019-10-30 10:10] VITALS: BP 90/40
[2019-11-04 09:00] VITALS: BP 100/60
[2019-11-04 10:30] VITALS: BP 128/60
[2019-11-06 09:25] VITALS: BP 110/60
[2019-11-06 10:28] VITALS: BP 120/60
[2019-11-07] MEDS ORDERED: DOXY100T2 PO (17:09)
[2019-11-11 09:20] VITALS: BP 120/50
[2019-11-11 10:00] VITALS: BP 96/62
[2019-11-13 09:20] VITALS: BP 130/60
[2019-11-13 10:18] VITALS: BP 140/60
[2019-11-18 09:25] VITALS: BP 110/74
[2019-11-18 10:30] VITALS: BP 120/60
[2019-11-20 09:17] VITALS: BP 120/64
[2019-11-20 10:20] VITALS: BP 130/60
[2019-11-25 10:35] VITALS: BP 120/60
[2019-11-25 10:40] VITALS: BP 140/60
[2019-11-27 09:30] VITALS: BP 150/50
[2019-11-27 10:45] VITALS: BP 120/60
[2019-12-02 09:25] VITALS: BP 128/60
[2019-12-02 10:26] VITALS: BP 120/50
[2019-12-04 09:10] VITALS: BP 120/60
[2019-12-04 10:14] VITALS: BP 116/70
[2019-12-09 09:00] VITALS: BP 102/63
[2019-12-09 10:22] VITALS: BP 150/60
[2019-12-23 09:15] VITALS: BP 120/80
[2019-12-23 10:40] VITALS: BP 120/60
[2019-12-30 09:25] VITALS: BP 110/50
[2019-12-30 10:20] VITALS: BP 110/50
[2020-01-01 09:10] VITALS: BP 100/50
[2020-01-01 09:40] VITALS: BP 115/60
== END 2019-12-30 | disposition home or self-care (01) ==
LOC: PULM 09:16
PROVIDERS: ATTEND Nurse Practitioner Family
DX: J44.9 Chronic obstructive pulmonary disease, unspecified (principal)
CPT/HCPCS: 99211

== ENCOUNTER → 2019-10-20 | Outpatient (CLI) | payer MEDICARE, OTHER ==
[~2019-10-20] MED LIST changes: +CATHETER FLUSH 10 ML SYR IV PRN; +HOLD METFORMIN - RECEIVED CONTRAST 20 ML VIAL IV SCH; +IOHEXOL 350 MG/ML 100 ML (OMNIPAQUE 350) VIAL IV ONE; +NS 100 ML (IVPB) BAG IV ONE
[2019-10-20 14:10] LABS: BUN/CREATININE RATIO 16; CREATININE SERUM 0.76 MG/DL (0.60-1.30); GFR ESTIMATED > 60
--- NOTE | 2019-10-20 15:26 | Diagnostic Imaging Report ---
PROCEDURE: CT chest with contrast only. TECHNIQUE: Multiple contiguous axial images were obtained through the chest after administration of intravenous contrast. Auto Exposure Controls were utilized during the CT exam to meet ALARA standards for radiation dose reduction. INDICATION: Thyroid issues and right shoulder pain. COMPARISON: Correlation is made with a prior CT chest study from 03/24/2015. FINDINGS: No axillary lymphadenopathy is detected. No mediastinal or hilar lymphadenopathy is detected. No pericardial fluid is identified. There is a trace right pleural effusion. No discrete noncalcified parenchymal mass is identified. There is some scarring versus atelectasis in the posteromedial right lower lobe. The upper abdomen is unremarkable. The bony structures are nonacute. Central airways are patent. IMPRESSION: Right lower lobe scarring or atelectasis. No parenchymal mass or infiltrate is seen. No thoracic lymphadenopathy is identified. Note is made of trace right pleural effusion. Dictated by: Dictated on workstation # [id number]
--- NOTE | 2019-10-20 15:44 | NUR ---
PT CAME FOR PFT; PHYSICIAN DID ORDER A POST BRONCHODILATOR TX. PT STATED SHE DID NOT WANT TO TAKE TX, DUE TO REACTION IN PAST TO ALBUTEROL (LIGHTHEADEDNESS, DIZZY, AND WEAKNESS). ALBUTEROL WAS NOT GIVEN PER PTS REFUSAL.
== END ==
LOC: RAD 13:32
PROVIDERS: ATTEND Nurse Practitioner Family
DX: J43.8 Other emphysema (principal); I48.0 Paroxysmal atrial fibrillation; J30.9 Allergic rhinitis, unspecified; M34.9 Systemic sclerosis, unspecified
CPT/HCPCS: 36415; 71260; 82565; 84520

== ENCOUNTER → 2019-10-23 | Outpatient (CLI) | payer MEDICARE, OTHER ==
[~2019-10-23] MED LIST changes: -CATHETER FLUSH 10 ML SYR IV PRN; -HOLD METFORMIN - RECEIVED CONTRAST 20 ML VIAL IV SCH; -IOHEXOL 350 MG/ML 100 ML (OMNIPAQUE 350) VIAL IV ONE; -NS 100 ML (IVPB) BAG IV ONE
[2019-10-23 09:40] LABS: ALANINE AMINOTRANSFERASE 15 U/L (0-55); ALKALINE PHOSPHATASE 94 U/L (40-136); BILIRUBIN,TOTAL 0.6 MG/DL (0.1-1.0); BUN/CREATININE RATIO 14; CALCIUM 9.3 MG/DL (8.5-10.1); CARBON DIOXIDE 22 MMOL/L (21-32); CHLORIDE 99 MMOL/L (98-107); CREATININE SERUM 0.74 MG/DL (0.60-1.30); GFR ESTIMATED > 60; GLUCOSE 105 MG/DL (70-105); POTASSIUM 5.2 MMOL/L (3.6-5.0); SODIUM 131 MMOL/L (135-145); TOTAL PROTEIN 7.1 GM/DL (6.4-8.2)
[2019-10-23 10:00] LABS: FREE T4 (FREE THYROXINE) 0.99 NG/DL (0.70-1.48)
== END ==
LOC: LAB 08:44
PROVIDERS: ATTEND Nurse Practitioner Family
DX: E05.90 Thyrotoxicosis, unspecified without thyrotoxic crisis or storm (principal)
CPT/HCPCS: 36415; 80053; 84439; 84480

== ENCOUNTER 2019-11-07 14:49 | Emergency (ER) | payer MEDICARE, OTHER ==
[~2019-11-07] VITALS: Ht 160 cm; Wt 50.0 kg
[2019-11-07 15:27] LABS: BASOPHILS % (AUTO) 0 % (0-10); EOSINOPHILS % (AUTO) 0 % (0-10); HEMATOCRIT 34 % (35-52); HEMOGLOBIN 11.3 G/DL (11.5-16.0); LYMPHOCYTES # (AUTO) 0.4 X 10^3 (1.0-4.0); LYMPHOCYTES % (AUTO) 3 % (12-44); MEAN CORPUSCULAR HEMOGLOBIN 31 PG (25-34); MEAN CORPUSCULAR HGB CONC 34 G/DL (32-36); MEAN CORPUSCULAR VOLUME 93 FL (80-99); MEAN PLATELET VOLUME 8.7 FL (7.4-10.4); MONOCYTES # (AUTO) 0.3 X 10^3 (0.0-1.0); MONOCYTES % (AUTO) 3 % (0-12); NEUTROPHILS # (AUTO) 10.8 X 10^3 (1.8-7.8); NEUTROPHILS % (AUTO) 94 % (42-75); PLATELET COUNT 461 10^3/uL (130-400); RED CELL DISTRIBUTION WIDTH 12.3 % (10.0-14.5); WHITE BLOOD COUNT 11.5 10^3/uL (4.3-11.0)
--- NOTE | 2019-11-07 15:35 | ED Cardiac General ---
History of Present Illness General Chief Complaint: Cardiac/General Problems Stated Complaint: FEELS LIKE A-FIB Nursing Triage Note: PT PRESENTS TO ED FROM HOME WITH COMPLAINTS OF PALPITATIONS, TACHYCARDIA, BILATERAL ANKLE SWEELING, AND HYPERTENSION X 1 WEEK. PT REPROTS SHE THINKS THE STERIODS SHE RECIEVED ON 11/04/2019 MAY HAVE CAUSED SOME OF HER S/S. PT ALSO REPORTS SHE WAS RECENTLY TAKEN OF HER LOSARTAN WELL. Source: patient Exam Limitations: no limitations History of Present Illness Date Seen by Provider: Nov 07, 2019 Time Seen by Provider: 14:52 Initial Comments This 79-year-old woman presents to the emergency room anxious about her cardiac health. She has recently been experiencing increased swelling of her lower extremities which improved by the time of arrival to the ER. She also has had increased blood pressure with blood pressure 154/88 at home. She reports her heart rate was 116. She is known history of atrial fibrillation and is on Xarelto. She noted dyspnea on exertion today as well. She reports Dr. Metzger recently discontinued her losartan. She was also recently treated with a steroid taper by her reconciliation accountant. She is afebrile and has no chest pain. Review of chart notes a cardiac catheter in May of last year demonstrating mild coronary artery disease and ejection fraction of 60 percent. She does take methimazole for hyperthyroidism. Allergies and Home Medications Allergies Coded Allergies: No Known Drug Allergies (Unverified , 06/10/19) Home Medications Acetaminophen 650 Mg Tablet.er, 650 MG PO Q8H PRN for PAIN-MILD, (Reported) Aspirin 81 Mg Tablet.dr, 81 MG PO DAILY, (Reported) Cephalexin 500 Mg Capsule, 500 MG PO 3 times a day Prescribed by: CASSANDRA DUNN on 06/21/19 1225 Diphenhydramine HCl 25 Mg Capsule, 25 MG PO HS PRN for INSOMNIA, (Reported) Docusate Sodium 100 Mg Capsule, 100 MG PO DAILY PRN for CONSTIPATION-1ST LINE, (Reported) Doxycycline Hyclate 100 Mg Tablet, 100 MG PO BID Prescribed by: GERONIMO HUGHES on 11/07/19 1709 Gabapentin 800 Mg Tablet, 800 MG PO HS, (Reported) Losartan Potassium 50 Mg Tablet, 50 MG PO DAILY, (Reported) Pravastatin Sodium 20 Mg Tablet, 20 MG PO HS Prescribed by: SABINO METZGER on 06/10/19 1421 Rivaroxaban 20 Mg Tablet, 20 MG PO 1000, (Reported) Sotalol HCl 80 Mg Tablet, 80 MG PO BID, (Reported) Patient Home Medication List Home Medication List Reviewed: Yes Review of Systems Review of Systems Constitutional: no symptoms reported EENTM: No Symptoms Reported Respiratory: See HPI Cardiovascular: See HPI Gastrointestinal: No Symptoms Reported Genitourinary: No Symptoms Reported Musculoskeletal: no symptoms reported Skin: no symptoms reported Psychiatric/Neurological: No Symptoms Reported Endocrine: No Symptoms Reported Hematologic/Lymphatic: No Symptoms Reported Past Eshvamo-Odrnhk-Jqmuxo Hx Past Med/Social Hx: Reviewed Nursing Past Med/Soc Hx Patient Social History Alcohol Use: Occasionally Uses Number of Drinks Today: AA Alcohol Beverage of Choice: Beer Recreational Drug Use: No Smoking Status: Former Smoker Type Used: Cigarettes Former Smoker, Quit: Nov 15, 1979 2nd Hand Smoke Exposure: Yes (1979) Recent Foreign Travel: No Contact w/Someone Who Travel: No Recent Infectious Disease Expo: No Immunizations Up To Date Date of Pneumonia Vaccine: Jul 02, 2019 Date of Influenza Vaccine: Jun 26, 2019 Seasonal Allergies Seasonal Allergies: No Past Medical History Surgeries: Yes Eye Surgery, Orthopedic Respiratory: Yes COPD Currently Using CPAP: No Currently Using BIPAP: No Cardiac: Yes Atrial Fibrillation, Hypertension, Peripheral Vascular, Valvular Heart Disease Neurological: Yes Neuropathy, TIA 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 Disorders: No APPEALS REPRESENTATIVE History: Menopausal Genitourinary: No Gastrointestinal: Yes (dysphagia) Gastroesophageal Reflux Musculoskeletal: Yes (scleroderma) Rheumatoid Arthritis Endocrine: Yes Hyperthyroidism Cataract Cancer: No Psychosocial: No Integumentary: Yes (SCLERODERMA) Blood Disorders: No Adverse Reaction/Blood Tranf: No Family Medical History No Pertinent Family Hx Physical Exam Vital Signs Vital Signs - First Documented 11/07/19 11/07/19 15:06 17:21 Temp 37.3 Pulse 96 Resp 20 B/P (MAP) 161/95 (117) Pulse Ox 99 O2 Delivery Room Air Capillary Refill : Less Than 3 Seconds Height, Weight, BMI Height: 5'3.00" Weight: 112lbs. 0.0oz. 50.099264uv; 19.00 BMI Method:Stated General Appearance: WD/WN, Anxious, Thin HEENT: PERRL/EOMI, Normal ENT Inspection Neck: Normal Inspection Respiratory: Lungs Clear, Normal Breath Sounds, No Accessory Muscle Use, No Respiratory Distress Cardiovascular: No Edema, No Murmur, Normal Peripheral Pulses, Irregularly Irregular Extremity: Normal Inspection, Non Tender, No Pedal Edema Neurologic/Psychiatric: Alert, Oriented x3, No Motor/Sensory Deficits, vinyl hanger II- XII Norm as Tested, Other (mildly anxious) Skin: Normal Color, Warm/Dry Progress/Results/Core Measures Results/Orders Lab Results Laboratory Tests Test 11/07/19 15:14 Range/Units White Blood Count 11.5 H 4.3-11.0 10^3/uL Red Blood Count 3.60 L 4.35-5.85 10^6/uL Hemoglobin 11.3 L 11.5-16.0 G/DL Hematocrit 34 L 35-52 % Mean Corpuscular Volume 93 80-99 FL Mean Corpuscular Hemoglobin 31 25-34 PG Mean Corpuscular Hemoglobin Concent 34 32-36 G/DL Red Cell Distribution Width 12.3 10.0-14.5 % Platelet Count 461 H 130-400 10^3/uL Mean Platelet Volume 8.7 7.4-10.4 FL Neutrophils (%) (Auto) 94 H 42-75 % Lymphocytes (%) (Auto) 3 L 12-44 % Monocytes (%) (Auto) 3 0-12 % Eosinophils (%) (Auto) 0 0-10 % Basophils (%) (Auto) 0 0-10 % Neutrophils # (Auto) 10.8 H 1.8-7.8 X 10^3 Lymphocytes # (Auto) 0.4 L 1.0-4.0 X 10^3 Monocytes # (Auto) 0.3 0.0-1.0 X 10^3 Eosinophils # (Auto) 0.0 0.0-0.3 10^3/uL Basophils # (Auto) 0.0 0.0-0.1 10^3/uL Neutrophils % (Manual) 92 % Lymphocytes % (Manual) 5 % Monocytes % (Manual) 3 % Eosinophils % (Manual) 0 % Basophils % (Manual) 0 % Band Neutrophils 0 % Blood Morphology Comment NORMAL Sodium Level 130 L 135-145 MMOL/L Potassium Level 4.7 3.6-5.0 MMOL/L Chloride Level 96 L 98-107 MMOL/L Carbon Dioxide Level 23 21-32 MMOL/L Anion Gap 11 5-14 MMOL/L Blood Urea Nitrogen 14 7-18 MG/DL Creatinine 0.74 0.60-1.30 MG/DL Estimat Glomerular Filtration Rate > 60 BUN/Creatinine Ratio 19 Glucose Level 138 H 70-105 MG/DL Calcium Level 9.3 8.5-10.1 MG/DL Corrected Calcium 9.4 8.5-10.1 MG/DL Magnesium Level 1.9 1.6-2.4 MG/DL Total Bilirubin 0.5 0.1-1.0 MG/DL Aspartate Amino Transf (AST/SGOT) 21 5-34 U/L Alanine Aminotransferase (ALT/SGPT) 12 0-55 U/L Alkaline Phosphatase 95 40-136 U/L Troponin I < 0.028 <0.028 NG/ML Total Protein 7.2 6.4-8.2 GM/DL Albumin 3.9 3.2-4.5 GM/DL Thyroid Stimulating Hormone (TSH) 0.03 L 0.35-4.94 UIU/ML Free Thyroxine 1.36 0.70-1.48 NG/DL My Orders Orders - GERONIMO TORRES MD Ekg Tracing (11/07/19 14:52) Monitor-Rhythm Ecg Trace Only (11/07/19 14:52) Cbc With Automated Diff (11/07/19 15:13) Comprehensive Metabolic Panel (11/07/19 15:13) Magnesium (11/07/19 15:13) Thyroid Stimulating Hormone (11/07/19 15:13) Troponin I (11/07/19 15:13) Free T4 (Free Thyroxine) (11/07/19 15:13) Chest 1 View, Ap/Pa Only (11/07/19 15:13) Manual Differential (11/07/19 15:14) Doxycycline Hyclate Tablet (Vibramycin T (11/07/19 17:15) Vital Signs/I&O 11/07/19 11/07/19 15:06 17:21 Temp 37.3 Pulse 96 88 Resp 20 11 B/P (MAP) 161/95 (117) 146/76 Pulse Ox 99 97 O2 Delivery Room Air 2 Blood Pressure Mean: 117 Progress Progress Note : Progress Note Workup was relatively benign. Blood pressure was stable and within normal limits for most measurements. There was some question of infiltrate on the chest x-ray. There is no overt failure. Patient's lower extremity edema and actually improved prior to coming to the ER. Because of the questionable infiltrate on chest x-ray, doxycycline was initiated as an addition to her steroids as part of her COPD exacerbation treatment. Patient was given reassurance about her heart rate and blood pressure. Initial ECG Impression Date: Nov 07, 2019 Initial ECG Impression Time: 15:05 Initial ECG Rate: 91 Initial ECG Rhythm: A Fib/Flutter Initial ECG Impression: Atrial Fibrillation Comment Atrial fibrillation with no ST elevation or depression. Rate controlled. Departure Impression Primary Impression: Hypertension Qualified Codes: I10 - Essential (primary) hypertension Additional Impressions: Pulmonary infiltrate Hyperthyroidism Atrial fibrillation Qualified Codes: I48.91 - Unspecified atrial fibrillation Disposition: 01 HOME, SELF-CARE Condition: Stable Departure-Patient Inst. Decision time for Depature: 17:07 Referrals: DIXIE HERRERA MD (PCP/Family) Primary Care Physician Patient Instructions: Atrial Fibrillation Add. Discharge Instructions: Continue your usual medications as previously prescribed. Complete doxycycline as prescribed. Follow-up with your primary care provider next week. Elevate your feet when you experience swelling. Avoid checking your blood pressure too often as this may induce anxiety about high blood pressure. Return to the emergency room if you have worsening symptoms despite these measures. All discharge instructions reviewed with patient and/or family. Voiced understanding. Scripts Doxycycline Hyclate (Doxycycline Hyclate) 100 Mg Tablet 100 MG PO BID, #20 TAB 0 Refills Prov: GERONIMO TORRES MD 11/07/19 Copy Copies To 1: SABINO METZGER MD [facility] CCDS Copies To 2: DIXIE HERRERA MD, JOSHUA T MD Nov 07, 2019 15:35
[2019-11-07 15:42] LABS: ALANINE AMINOTRANSFERASE 12 U/L (0-55); ALBUMIN 3.9 GM/DL (3.2-4.5); ALKALINE PHOSPHATASE 95 U/L (40-136); BILIRUBIN,TOTAL 0.5 MG/DL (0.1-1.0); BUN/CREATININE RATIO 19; CALCIUM 9.3 MG/DL (8.5-10.1); CARBON DIOXIDE 23 MMOL/L (21-32); CHLORIDE 96 MMOL/L (98-107); CREATININE SERUM 0.74 MG/DL (0.60-1.30); GFR ESTIMATED > 60; GLUCOSE 138 MG/DL (70-105); MAGNESIUM 1.9 MG/DL (1.6-2.4); POTASSIUM 4.7 MMOL/L (3.6-5.0); SODIUM 130 MMOL/L (135-145); TOTAL PROTEIN 7.2 GM/DL (6.4-8.2)
[2019-11-07 15:48] LABS: BAND NEUTROPHILS 0 %; BASOPHILS % (MANUAL) 0 %; EOSINOPHILS % (MANUAL) 0 %; LYMPHOCYTES % (MANUAL) 5 %; MONOCYTES % (MANUAL) 3 %; NEUTROPHILS % (MANUAL) 92 %; RBC MORPH NORMAL
[2019-11-07 16:04] LABS: FREE T4 (FREE THYROXINE) 1.36 NG/DL (0.70-1.48)
--- NOTE | 2019-11-07 16:48 | Diagnostic Imaging Report ---
INDICATION: Tachycardia, palpitations, and hypertension. Frontal chest obtained at 3:27 p.m. and is compared to 06/06/2019. FINDINGS: Heart is borderline in size. There is some mild bibasilar atelectasis versus infiltrate. There are small bilateral pleural effusions, left greater than right. There is no pneumothorax. IMPRESSION: Cardiomegaly. Mild bibasilar atelectatic change versus infiltrate with small bilateral pleural effusions, left greater than right. Dictated by: Dictated on workstation # [id number]
[2019-11-07] MEDS ORDERED: DOXY100T2 PO (17:09)
[2019-11-07] MEDS ORDERED: DOXYCYCLINE 100 MG (VIBRAMYCIN) TABLET PO ONE (17:15)
[2019-11-07 17:21] VITALS: BP 146/76
== END 2019-11-07 17:21 | disposition home or self-care (01) ==
LOC: EDUNIT# 14:49 → ER 14:50
DX: I10 Essential (primary) hypertension (principal); R91.8 Other nonspecific abnormal finding of lung field; E05.90 Thyrotoxicosis, unspecified without thyrotoxic crisis or storm; I48.91 Unspecified atrial fibrillation; J44.9 Chronic obstructive pulmonary disease, unspecified; G62.9 Polyneuropathy, unspecified; K21.9 Gastro-esophageal reflux disease without esophagitis; M06.9 Rheumatoid arthritis, unspecified; Z86.73 Personal history of transient ischemic attack (TIA), and cerebral infarction without residual deficits; Z79.01 Long term (current) use of anticoagulants; Z79.82 Long term (current) use of aspirin; Z87.891 Personal history of nicotine dependence; Z77.22 Contact with and (suspected) exposure to environmental tobacco smoke (acute) (chronic)
CPT/HCPCS: 36415; 71045; 80053; 83735; 84439; 84443; 84484; 85007; 85027; 93005; 93041

== ENCOUNTER → 2019-11-11 | Outpatient (CLI) | payer MEDICARE, OTHER ==
[~2019-11-11] MED LIST changes: +DOXY100T2 PO
== END ==
LOC: LAB 13:04
PROVIDERS: ATTEND Nurse Practitioner Family
DX: E04.2 Nontoxic multinodular goiter (principal)
CPT/HCPCS: 36415; 84480

== ENCOUNTER 2020-03-21 14:30 | Emergency (ER) | payer MEDICARE, OTHER ==
[~2020-03-21] VITALS: Ht 165 cm; Wt 60.0 kg
--- NOTE | 2020-03-21 15:02 | ED Syncope ---
General Chief Complaint: Dizziness/Syncope Stated Complaint: WEAKNESS Nursing Triage Note: THE PT IS ASSISTED TO THE ROOM BY WHEELCHAIR. NO DISTRESS SEEN ON ARRIVAL. LOC IS NORMAL FOR THE PT. THE PT C/O GENERALIZED WEAKNESS. History of Present Illness Date Seen by Provider: Mar 21, 2020 Time Seen by Provider: 14:40 Initial Comments 79-year-old female presents for neuropathy in bilateral upper and lower extremities. She's had this for multiple years, her PCP recently stopped her Gabapentin and started her on Lyrica, she had an allergic reaction to the Lyrica and had to stop it. She is not taking any medication for the neuropathy and it has gotten worse. She feels weak and dizzy at times. She reports eating and drinking. She lives alone but her son assists her, as needed. She sees her PCP regularly, up to 2 times a week. She denies any falls, she uses a walker for ambulation Timing/Prior Episodes: Recent History Symptoms Prior to Episode: None Precipitating Factors: None Loss of Consciousness: No Loss of Consciousness Current Symptoms: No Blurred Vision, No Chest Pain, No Diaphoresis; Dizziness; No Headache, No Injury; Lightheadedness; No Loss of Bladder Control, No Loss of Bowel Control, No Motionless, No Nausea; Pale; No Shallow/Rapid Breathing, No Weak/Absent Pulse; Weakness (generalized) Allergies and Home Medications Allergies Coded Allergies: No Known Drug Allergies (Unverified , 06/10/19) Home Medications Acetaminophen 650 Mg Tablet.er, 650 MG PO Q8H PRN for PAIN-MILD, (Reported) Aspirin 81 Mg Tablet.dr, 81 MG PO DAILY, (Reported) Cephalexin 500 Mg Capsule, 500 MG PO 3 times a day Prescribed by: CASSANDRA DUNN on 06/21/19 1225 Diphenhydramine HCl 25 Mg Capsule, 25 MG PO HS PRN for INSOMNIA, (Reported) Docusate Sodium 100 Mg Capsule, 100 MG PO DAILY PRN for CONSTIPATION-1ST LINE, (Reported) Doxycycline Hyclate 100 Mg Tablet, 100 MG PO BID Prescribed by: GERONIMO HUGHES on 11/07/19 1709 Gabapentin 800 Mg Tablet, 800 MG PO HS, (Reported) Losartan Potassium 50 Mg Tablet, 50 MG PO DAILY, (Reported) Pravastatin Sodium 20 Mg Tablet, 20 MG PO HS Prescribed by: SABINO MIN on 06/10/19 1421 Rivaroxaban 20 Mg Tablet, 20 MG PO 1000, (Reported) Sotalol HCl 80 Mg Tablet, 80 MG PO BID, (Reported) Patient Home Medication List Home Medication List Reviewed: Yes Review of Systems Constitutional: see HPI; No fever; malaise, weakness; No weight gain, No weight loss EENTM: see HPI, no symptoms reported Respiratory: no symptoms reported, see HPI; No cough, No dyspnea on exertion, No short of breath Cardiovascular: no symptoms reported, see HPI; No chest pain, No palpitations Gastrointestinal: no symptoms reported, see HPI Genitourinary: no symptoms reported, see HPI Musculoskeletal: see HPI, muscle weakness (and numbness UEs and LEs) Skin: no symptoms reported, see HPI All Other Systems Reviewed Negative Unless Noted: Yes Past Vizyomq-Vefkev-Chucll Hx Past Med/Social Hx: Reviewed Nursing Past Med/Soc Hx Patient Social History Alcohol Beverage of Choice: Beer Type Used: Cigarettes Former Smoker, Quit: Nov 15, 1979 2nd Hand Smoke Exposure: Yes (1979 QUITE) Recent Foreign Travel: No Contact w/Someone Who Travel: No Recent Infectious Disease Expo: No Immunizations Up To Date Date of Pneumonia Vaccine: Jul 02, 2019 Date of Influenza Vaccine: Jun 26, 2019 Seasonal Allergies Seasonal Allergies: No Past Medical History Surgeries: Yes Eye Surgery, Orthopedic Respiratory: Yes COPD Currently Using CPAP: No Currently Using BIPAP: No Cardiac: Yes Atrial Fibrillation, Hypertension, Peripheral Vascular, Valvular Heart Disease Neurological: Yes Neuropathy, TIA 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 Disorders: 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 0.0oz. [id number]; 22.00 BMI Method:Stated General Appearance: No Apparent Distress, WD/WN HEENT: PERRL/EOMI, TMs Normal, Normal ENT Inspection, Pharynx Normal Neck: Full Range of Motion, Normal Inspection, Non Tender, Supple Cardiovascular: Regular Rate, Rhythm, No Edema, Normal Peripheral Pulses, Diastolic Murmur, Systolic Murmur (III/) Respiratory: Chest Non Tender, Lungs Clear, Normal Breath Sounds, No Respiratory Distress Gastrointestinal: Normal Bowel Sounds, Non Tender, Soft Back: Normal Inspection, No CVA Tenderness, No Vertebral Tenderness Extremities: Normal Capillary Refill, Normal Inspection, Normal Range of Motion, No Pedal Edema Neurologic/Psychiatric: Alert, Oriented x3, No Motor/Sensory Deficits, Normal Mood/Affect, global lead II-XII Norm as Tested Cranial Nerves: Normal Hearing, Normal Speech, PERRL Coordination/Gait: Normal Finger to Nose Motor/Sensory: No Motor Deficit, No Sensory Deficit Skin: Normal Color, Warm/Dry Progress/Results/Core Measures Results/Orders Lab Results Laboratory Tests Test 03/21/20 15:15 03/21/20 15:30 Range/Units White Blood Count 7.8 4.3-11.0 10^3/uL Red Blood Count 3.59 L 4.35-5.85 10^6/uL Hemoglobin 11.8 11.5-16.0 G/DL Hematocrit 33 L 35-52 % Mean Corpuscular Volume 93 80-99 FL Mean Corpuscular Hemoglobin 33 25-34 PG Mean Corpuscular Hemoglobin Concent 35 32-36 G/DL Red Cell Distribution Width 12.8 10.0-14.5 % Platelet Count 234 130-400 10^3/uL Mean Platelet Volume 9.3 7.4-10.4 FL Neutrophils (%) (Auto) 85 H 42-75 % Lymphocytes (%) (Auto) 6 L 12-44 % Monocytes (%) (Auto) 8 0-12 % Eosinophils (%) (Auto) 1 0-10 % Basophils (%) (Auto) 0 0-10 % Neutrophils # (Auto) 6.6 1.8-7.8 X 10^3 Lymphocytes # (Auto) 0.5 L 1.0-4.0 X 10^3 Monocytes # (Auto) 0.6 0.0-1.0 X 10^3 Eosinophils # (Auto) 0.0 0.0-0.3 10^3/uL Basophils # (Auto) 0.0 0.0-0.1 10^3/uL Neutrophils % (Manual) 87 % Lymphocytes % (Manual) 6 % Monocytes % (Manual) 6 % Eosinophils % (Manual) 1 % Blood Morphology Comment NORMAL Sodium Level 124 *L 135-145 MMOL/L Potassium Level 4.3 3.6-5.0 MMOL/L Chloride Level 92 L 98-107 MMOL/L Carbon Dioxide Level 21 21-32 MMOL/L Anion Gap 11 5-14 MMOL/L Blood Urea Nitrogen 8 7-18 MG/DL Creatinine 0.66 0.60-1.30 MG/DL Estimat Glomerular Filtration Rate > 60 BUN/Creatinine Ratio 12 Glucose Level 100 70-105 MG/DL Calcium Level 8.6 8.5-10.1 MG/DL Corrected Calcium 8.7 8.5-10.1 MG/DL Total Bilirubin 0.6 0.1-1.0 MG/DL Aspartate Amino Transf (AST/SGOT) 23 5-34 U/L Alanine Aminotransferase (ALT/SGPT) 8 0-55 U/L Alkaline Phosphatase 64 40-136 U/L Troponin I < 0.028 <0.028 NG/ML Total Protein 6.5 6.4-8.2 GM/DL Albumin 3.9 3.2-4.5 GM/DL TSH Dimmit Testing 0.85 0.35-4.94 UIU/ML Urine Color YELLOW Urine Clarity CLEAR Urine pH 7.5 5-9 Urine Specific [place] 1.010 L 1.016-1.022 Urine Protein NEGATIVE NEGATIVE Urine Glucose (UA) NEGATIVE NEGATIVE Urine Ketones NEGATIVE NEGATIVE Urine Nitrite NEGATIVE NEGATIVE Urine Bilirubin NEGATIVE NEGATIVE Urine Urobilinogen 1.0 < = 1.0 MG/DL Urine Leukocyte Esterase NEGATIVE NEGATIVE Urine RBC (Auto) NEGATIVE NEGATIVE Urine RBC NONE /HPF Urine WBC 0-2 /HPF Urine Squamous Epithelial Cells 2-5 /HPF Urine Crystals NONE /LPF Urine Bacteria TRACE /HPF Urine Casts NONE /LPF Urine Mucus NEGATIVE /LPF Urine Culture Indicated NO My Orders Orders - HERO SALEH Cbc With Automated Diff (03/21/20 14:45) Comprehensive Metabolic Panel (03/21/20 14:45) Ua Culture If Indicated (03/21/20 14:45) Ekg Tracing (03/21/20 14:45) Thyroid Analyzer (03/21/20 14:47) Troponin I (03/21/20 14:47) Ed Iv/Invasive Line Start (03/21/20 15:05) Ns Iv 500 Ml (Sodium Chloride 0.9%) (03/21/20 15:05) Manual Differential (03/21/20 15:15) Medications Given in ED Current Medications Medications Dose Ordered Sig/Dawit Route Start Time Stop Time Status Last Admin Dose Admin Sodium Chloride 500 ml @ 0 mls/hr Q0M ONCE IV 03/21/20 15:05 03/21/20 15:06 DC 03/21/20 15:45 500 MLS/HR Vital Signs/I&O 03/21/20 03/21/20 14:50 16:40 Temp 36.6 37.7 Pulse 70 70 Resp 18 18 B/P (MAP) 200/75 (116) 190/77 Pulse Ox 97 Blood Pressure Mean: 116 Progress Progress Note : Time: 14:40 Progress Note Patient seen and evaluated, will obtain labs, normal saline half a liter per IV, and EKG. 1520 lab results discussed with the patient. She is not on diuretics to explain the low sodium. She does not feel like she is having polyuria. She's not increased her water intake.IV fluids infusing. 1600 Discharge instructions and return precautions discussed. Initial ECG Impression Date: Mar 21, 2020 Initial ECG Impression Time: 15:20 Initial ECG Rate: 65 Initial ECG Rhythm: Normal Sinus Initial ECG Intervals: Normal Initial ECG Intervals SD 182; QRSD 91; QT 455; QTc 474 [place] P 76; QRS 15; T 61 Initial ECG Impression: Normal Initial ECG Comparisson: Unchanged Departure Impression Primary Impression: Peripheral neuropathy Qualified Codes: G62.9 - Polyneuropathy, unspecified Additional Impressions: Syncope Qualified Codes: R55 - Syncope and collapse Hyponatremia Disposition: 01 HOME, SELF-CARE Condition: Improved Departure-Patient Inst. Decision time for Depature: 16:00 Referrals: DIXIE MARIA MD (PCP/Family) Primary Care Physician Patient Instructions: Hyponatremia (DC) Add. Discharge Instructions: Use small amounts of salt on your foods. Limit your water intake, 4-6 oz every 2 hours, while awake. Follow up with Dr. Maria in 4-5 days, to have your labs checked and discuss medications for your neuropathy. Return to the Emergency Dept for new, urgent health care needs. All discharge instructions reviewed with patient and/or family. Voiced understanding. Copy Copies To 1: DIXIE MARIA MD, AMY ARNP Mar 21, 2020 15:02
[2020-03-21] MEDS ORDERED: NS IV 500 ML 500 ML IV ONE (15:05)
[2020-03-21 15:22] LABS: BASOPHILS % (AUTO) 0 % (0-10); EOSINOPHILS % (AUTO) 1 % (0-10); HEMATOCRIT 33 % (35-52); HEMOGLOBIN 11.8 G/DL (11.5-16.0); LYMPHOCYTES # (AUTO) 0.5 X 10^3 (1.0-4.0); LYMPHOCYTES % (AUTO) 6 % (12-44); MEAN CORPUSCULAR HEMOGLOBIN 33 PG (25-34); MEAN CORPUSCULAR HGB CONC 35 G/DL (32-36); MEAN CORPUSCULAR VOLUME 93 FL (80-99); MEAN PLATELET VOLUME 9.3 FL (7.4-10.4); MONOCYTES # (AUTO) 0.6 X 10^3 (0.0-1.0); MONOCYTES % (AUTO) 8 % (0-12); NEUTROPHILS # (AUTO) 6.6 X 10^3 (1.8-7.8); NEUTROPHILS % (AUTO) 85 % (42-75); PLATELET COUNT 234 10^3/uL (130-400); RED CELL DISTRIBUTION WIDTH 12.8 % (10.0-14.5); WHITE BLOOD COUNT 7.8 10^3/uL (4.3-11.0)
[2020-03-21 15:33] LABS: ALBUMIN 3.9 GM/DL (3.2-4.5); CHLORIDE 92 MMOL/L (98-107); POTASSIUM 4.3 MMOL/L (3.6-5.0)
[2020-03-21 15:34] LABS: CALCIUM 8.6 MG/DL (8.5-10.1)
[2020-03-21 15:35] LABS: GLUCOSE 100 MG/DL (70-105); TOTAL PROTEIN 6.5 GM/DL (6.4-8.2)
[2020-03-21 15:36] LABS: CARBON DIOXIDE 21 MMOL/L (21-32)
[2020-03-21 15:37] LABS: BILIRUBIN,TOTAL 0.6 MG/DL (0.1-1.0)
[2020-03-21 15:38] LABS: SODIUM 124 MMOL/L (135-145)
[2020-03-21 15:39] LABS: ALKALINE PHOSPHATASE 64 U/L (40-136); CREATININE SERUM 0.66 MG/DL (0.60-1.30); GFR ESTIMATED > 60
[2020-03-21 15:40] LABS: BUN/CREATININE RATIO 12
[2020-03-21 15:42] LABS: ALANINE AMINOTRANSFERASE 8 U/L (0-55)
[2020-03-21 15:52] LABS: BILIRUBIN,URINE NEGATIVE (NEGATIVE); CLARITY,URINE CLEAR; COLOR,URINE YELLOW; GLUCOSE, URINE (UA) NEGATIVE (NEGATIVE); KETONES,URINE NEGATIVE (NEGATIVE); LEUKOCYTE ESTERASE ,URINE NEGATIVE (NEGATIVE); NITRITE,URINE NEGATIVE (NEGATIVE); PH,URINE 7.5 (5-9); PROTEIN,URINE NEGATIVE (NEGATIVE)
[2020-03-21 15:53] LABS: EOSINOPHILS % (MANUAL) 1 %; LYMPHOCYTES % (MANUAL) 6 %; MONOCYTES % (MANUAL) 6 %; NEUTROPHILS % (MANUAL) 87 %; RBC MORPH NORMAL
[2020-03-21 16:00] LABS: BACTERIA,URINE TRACE /HPF; WBC,URINE 0-2 /HPF
[2020-03-21 16:03] LABS: TSH (THYROID ANALYZER) 0.85 UIU/ML (0.35-4.94)
[2020-03-21 16:40] VITALS: BP 190/77
[2020-03-22] MEDS ORDERED: TRM50T PO (12:23)
== END 2020-03-21 16:41 | disposition home or self-care (01) ==
LOC: EDUNIT# 14:30 → ER 14:30
DX: G62.9 Polyneuropathy, unspecified (principal); R55 Syncope and collapse; E87.1 Hypo-osmolality and hyponatremia; I10 Essential (primary) hypertension; I48.91 Unspecified atrial fibrillation; Z86.73 Personal history of transient ischemic attack (TIA), and cerebral infarction without residual deficits; Z79.82 Long term (current) use of aspirin; Z79.01 Long term (current) use of anticoagulants; Z87.891 Personal history of nicotine dependence
CPT/HCPCS: 36415; 80053; 81000; 84443; 84484; 85007; 85027; 93005

== ENCOUNTER 2020-03-22 07:25 | Emergency (ER) | payer MEDICARE, OTHER ==
[~2020-03-22] VITALS: Ht 160 cm; Wt 60.0 kg
[2020-03-22] MEDS ORDERED: NS IV 500 ML 500 ML IV ONE (07:55)
[2020-03-22] MEDS ORDERED: FAMOTIDINE 20MG/2ML IV (PEPCID) IV STA (07:55)
[2020-03-22] MEDS ORDERED: PANTOPRAZOLE 40 MG (PROTONIX) VIAL IV ONE (08:00)
[2020-03-22 08:06] LABS: BASOPHILS % (AUTO) 0 % (0-10); EOSINOPHILS % (AUTO) 0 % (0-10); HEMATOCRIT 37 % (35-52); HEMOGLOBIN 12.6 G/DL (11.5-16.0); LYMPHOCYTES # (AUTO) 0.5 X 10^3 (1.0-4.0); LYMPHOCYTES % (AUTO) 6 % (12-44); MEAN CORPUSCULAR HEMOGLOBIN 32 PG (25-34); MEAN CORPUSCULAR HGB CONC 35 G/DL (32-36); MEAN CORPUSCULAR VOLUME 93 FL (80-99); MEAN PLATELET VOLUME 9.2 FL (7.4-10.4); MONOCYTES # (AUTO) 0.6 X 10^3 (0.0-1.0); MONOCYTES % (AUTO) 8 % (0-12); NEUTROPHILS # (AUTO) 6.8 X 10^3 (1.8-7.8); NEUTROPHILS % (AUTO) 85 % (42-75); PLATELET COUNT 275 10^3/uL (130-400)
[2020-03-22 08:09] LABS: ALBUMIN 4.1 GM/DL (3.2-4.5); CHLORIDE 95 MMOL/L (98-107); POTASSIUM 4.3 MMOL/L (3.6-5.0); SODIUM 126 MMOL/L (135-145)
[2020-03-22 08:10] LABS: CALCIUM 8.9 MG/DL (8.5-10.1)
[2020-03-22 08:11] LABS: GLUCOSE 116 MG/DL (70-105); TOTAL PROTEIN 6.9 GM/DL (6.4-8.2)
[2020-03-22 08:12] LABS: CARBON DIOXIDE 23 MMOL/L (21-32)
[2020-03-22 08:13] LABS: BILIRUBIN,TOTAL 0.5 MG/DL (0.1-1.0)
[2020-03-22 08:14] LABS: ALKALINE PHOSPHATASE 64 U/L (40-136)
[2020-03-22 08:15] LABS: CREATININE SERUM 0.67 MG/DL (0.60-1.30); GFR ESTIMATED > 60
[2020-03-22] MEDS ORDERED: ONDANSETRON 4 MG/2 ML (SDV) Z0FRAN IVP ONE (08:15)
[2020-03-22 08:16] LABS: BUN/CREATININE RATIO 13
[2020-03-22 08:18] LABS: ALANINE AMINOTRANSFERASE 9 U/L (0-55)
--- NOTE | 2020-03-22 08:19 | ED General ---
General Chief Complaint: General Problems/Pain Stated Complaint: WEAKNESS Nursing Triage Note: PT TO RM 6 BY WHEELCHAIR WITH COMPLAINT OF WEAKNESS, GAS, AND DIFFICULTY EATING. STATES HAS BEEN GOING ON FOR MONTHS. WAS SEEN HERE YESTERDAY. Nursing Sepsis Screen: No Definite Risk Source of Information: Patient Exam Limitations: No Limitations History of Present Illness Date Seen by Provider: Mar 22, 2020 Time Seen by Provider: 07:49 Initial Comments Here with report of weakness and numbness and tingling of hands and legs. Also had difficulty with eating and states that she can't really eat well because her stomach hurts. Reports acid in her stomach. Seen yesterday for the same and workup revealed hyponatremia. Patient was given IV fluid and did a little better at discharge. Patient states that she got worse overnight especially since midnight. She states that her weakness and the numbness of her hands and legs was so bad that she started taking Tylenol every 2 hours starting at midnight. She states that she took 500 mg each time. She does not know the total dose. Previously on gabapentin and then changed to Lyrica. She had adverse reaction to Lyrica and stop that. She is unsure what that reaction was. Follows with Dr. Maria. Has not talked to her about this recently. Denies fever or chills. Timing/Duration: 1 Week, Getting Worse Severity: Moderate Modifying Factors: improves with Other (no relieving factors) Associated Systoms: No Chest Pain, No Cough, No Fever/Chills, No Shortness of Air; Weakness Allergies and Home Medications Allergies Coded Allergies: pregabalin (Verified Allergy, Unknown, 03/22/20) Home Medications Acetaminophen 650 Mg Tablet.er, 650 MG PO Q8H PRN for PAIN-MILD, (Reported) Aspirin 81 Mg Tablet.dr, 81 MG PO DAILY, (Reported) Cephalexin 500 Mg Capsule, 500 MG PO 3 times a day Prescribed by: CASSANDRA DUNN on 06/21/19 1225 Diphenhydramine HCl 25 Mg Capsule, 25 MG PO HS PRN for INSOMNIA, (Reported) Docusate Sodium 100 Mg Capsule, 100 MG PO DAILY PRN for CONSTIPATION-1ST LINE, (Reported) Doxycycline Hyclate 100 Mg Tablet, 100 MG PO BID Prescribed by: GERONIMO HUGHES on 11/07/19 1709 Gabapentin 800 Mg Tablet, 800 MG PO HS, (Reported) Losartan Potassium 50 Mg Tablet, 50 MG PO DAILY, (Reported) Pravastatin Sodium 20 Mg Tablet, 20 MG PO HS Prescribed by: SABINO MIN on 06/10/19 1421 Rivaroxaban 20 Mg Tablet, 20 MG PO 1000, (Reported) Sotalol HCl 80 Mg Tablet, 80 MG PO BID, (Reported) Patient Home Medication List Home Medication List Reviewed: Yes Review of Systems Review of Systems Constitutional: see HPI; No chills, No fever; malaise, weakness EENTM: No nose congestion, No throat pain Respiratory: No cough, No short of breath Cardiovascular: No chest pain, No edema Gastrointestinal: abdominal pain; No diarrhea; heartburn, nausea; No vomiting Genitourinary: No dysuria, No pain Musculoskeletal: No back pain; muscle weakness; No neck pain Skin: no symptoms reported Psychiatric/Neurological: Anxiety, Depressed, Weakness All Other Systems Reviewed Negative Unless Noted: Yes Past Ipzrrba-Vwnxlq-Yafcgv Hx Past Med/Social Hx: Reviewed Nursing Past Med/Soc Hx Patient Social History Alcohol Use: Denies Use Number of Drinks Today: AA Alcohol Beverage of Choice: Beer Recreational Drug Use: No Smoking Status: Former Smoker Type Used: Cigarettes Former Smoker, Quit: Nov 15, 1979 2nd Hand Smoke Exposure: Yes (1979) Recent Foreign Travel: No Contact w/Someone Who Travel: No Recent Infectious Disease Expo: No Immunizations Up To Date Tetanus Booster (TDap): Unknown Date of Pneumonia Vaccine: Jul 02, 2019 Date of Influenza Vaccine: Jun 26, 2019 Seasonal Allergies Seasonal Allergies: No Past Medical History Surgeries: Yes Eye Surgery, Orthopedic Respiratory: Yes COPD Currently Using CPAP: No Currently Using BIPAP: No Cardiac: Yes Atrial Fibrillation, Hypertension, Peripheral Vascular, Valvular Heart Disease Neurological: Yes Neuropathy, TIA 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 Genitourinary: No Gastrointestinal: Yes (dysphagia) Gastroesophageal Reflux Musculoskeletal: Yes (scleroderma) Rheumatoid Arthritis Endocrine: Yes Hyperthyroidism Cataract Cancer: No Psychosocial: No Integumentary: Yes (SCLERODERMA) Blood Disorders: No Adverse Reaction/Blood Tranf: No Family Medical History Reviewed Nursing Family Hx No Pertinent Family Hx Physical Exam Vital Signs Vital Signs - First Documented 03/22/20 07:35 Temp 36.6 Pulse 60 Resp 16 B/P (MAP) 173/62 (99) Pulse Ox 97 O2 Delivery Room Air Capillary Refill : Less Than 3 Seconds Height, Weight, BMI Height: 5'3.00" Weight: 112lbs. 0.0oz. 50.553903xm; 23.00 BMI Method:Stated General Appearance: Anxious, Mild Distress, Thin HEENT: PERRL/EOMI, Pharynx Normal Neck: Non Tender, Supple Respiratory: Lungs Clear, Normal Breath Sounds Cardiovascular: No Edema, Systolic Murmur (/6) Gastrointestinal: Non Tender, Soft Back: Normal Inspection, No CVA Tenderness, No Vertebral Tenderness Extremity: Normal Range of Motion, Non Tender Neurologic/Psychiatric: Alert, Oriented x3 Skin: Normal Color, Warm/Dry Progress/Results/Core Measures Suspected Sepsis Recent Fever Within 48 Hours: No Infection Criteria Present: None New/Unexplained Altered Menta: No Sepsis Screen: No Definite Risk SIRS Temperature: Pulse: 60 Respiratory Rate: 16 Laboratory Tests 03/22/20 07:48: White Blood Count 8.0 Blood Pressure 173 /62 Mean: 99 Laboratory Tests 03/22/20 07:48: Creatinine 0.67, Platelet Count 275, Total Bilirubin 0.5 Results/Orders Lab Results Laboratory Tests Test 03/22/20 07:48 03/22/20 09:39 Range/Units White Blood Count 8.0 4.3-11.0 10^3/uL Red Blood Count 3.94 L 4.35-5.85 10^6/uL Hemoglobin 12.6 11.5-16.0 G/DL Hematocrit 37 35-52 % Mean Corpuscular Volume 93 80-99 FL Mean Corpuscular Hemoglobin 32 25-34 PG Mean Corpuscular Hemoglobin Concent 35 32-36 G/DL Red Cell Distribution Width 13.0 10.0-14.5 % Platelet Count 275 130-400 10^3/uL Mean Platelet Volume 9.2 7.4-10.4 FL Neutrophils (%) (Auto) 85 H 42-75 % Lymphocytes (%) (Auto) 6 L 12-44 % Monocytes (%) (Auto) 8 0-12 % Eosinophils (%) (Auto) 0 0-10 % Basophils (%) (Auto) 0 0-10 % Neutrophils # (Auto) 6.8 1.8-7.8 X 10^3 Lymphocytes # (Auto) 0.5 L 1.0-4.0 X 10^3 Monocytes # (Auto) 0.6 0.0-1.0 X 10^3 Eosinophils # (Auto) 0.0 0.0-0.3 10^3/uL Basophils # (Auto) 0.0 0.0-0.1 10^3/uL Neutrophils % (Manual) 85 % Lymphocytes % (Manual) 6 % Monocytes % (Manual) 6 % Eosinophils % (Manual) 3 % Basophils % (Manual) 0 % Blood Morphology Comment NORMAL Sodium Level 126 L 135-145 MMOL/L Potassium Level 4.3 3.6-5.0 MMOL/L Chloride Level 95 L 98-107 MMOL/L Carbon Dioxide Level 23 21-32 MMOL/L Anion Gap 8 5-14 MMOL/L Blood Urea Nitrogen 9 7-18 MG/DL Creatinine 0.67 0.60-1.30 MG/DL Estimat Glomerular Filtration Rate > 60 BUN/Creatinine Ratio 13 Glucose Level 116 H 70-105 MG/DL Calcium Level 8.9 8.5-10.1 MG/DL Corrected Calcium 8.8 8.5-10.1 MG/DL Total Bilirubin 0.5 0.1-1.0 MG/DL Aspartate Amino Transf (AST/SGOT) 21 5-34 U/L Alanine Aminotransferase (ALT/SGPT) 9 0-55 U/L Alkaline Phosphatase 64 40-136 U/L C-Reactive Protein High Sensitivity 0.16 0.00-0.50 MG/DL Total Protein 6.9 6.4-8.2 GM/DL Albumin 4.1 3.2-4.5 GM/DL Salicylates Level < 5.0 L 5.0-20.0 MG/DL Acetaminophen Level 19 10-30 UG/ML Urine Color YELLOW Urine Clarity CLEAR Urine pH 6.5 5-9 Urine Specific [place] 1.010 L 1.016-1.022 Urine Protein NEGATIVE NEGATIVE Urine Glucose (UA) NEGATIVE NEGATIVE Urine Ketones NEGATIVE NEGATIVE Urine Nitrite NEGATIVE NEGATIVE Urine Bilirubin NEGATIVE NEGATIVE Urine Urobilinogen 0.2 < = 1.0 MG/DL Urine Leukocyte Esterase NEGATIVE NEGATIVE Urine RBC (Auto) TRACE-I NEGATIVE Urine RBC 0-2 /HPF Urine WBC NONE /HPF Urine Squamous Epithelial Cells 2-5 /HPF Urine Crystals NONE /LPF Urine Bacteria TRACE /HPF Urine Casts NONE /LPF Urine Mucus NEGATIVE /LPF Urine Culture Indicated NO My Orders Orders - JOVANA PALMA MD Cbc With Automated Diff (03/22/20 07:55) Comprehensive Metabolic Panel (03/22/20 07:55) Hs C Reactive Protein (03/22/20 07:55) Ua Culture If Indicated (03/22/20 07:55) Ed Iv/Invasive Line Start (03/22/20 07:55) Ns Iv 500 Ml (Sodium Chloride 0.9%) (03/22/20 07:55) Famotidine Injection (Pepcid Injection) (03/22/20 07:55) Pantoprazole Injection (Protonix Injecti (03/22/20 08:00) Ondansetron Injection (Zofran Injectio (03/22/20 08:15) Manual Differential (03/22/20 07:48) Acetaminophen (03/22/20 08:13) Salicylate (03/22/20 08:13) Ketorolac Injection (Toradol Injection) (03/22/20 11:04) Tramadol Tablet (Ultram Tablet) (03/22/20 11:15) Medications Given in ED Current Medications Medications Dose Ordered Sig/Dawit Route Start Time Stop Time Status Last Admin Dose Admin Ondansetron HCl 4 mg ONCE ONCE IVP 03/22/20 08:15 03/22/20 08:16 DC 03/22/20 08:08 4 MG Pantoprazole 40 mg ONCE ONCE IV 03/22/20 08:00 03/22/20 08:01 DC 03/22/20 08:06 40 MG Sodium Chloride 500 ml @ 0 mls/hr Q0M ONCE IV 03/22/20 07:55 03/22/20 07:57 DC 03/22/20 08:05 0 MLS/HR Vital Signs/I&O 03/22/20 07:35 Temp 36.6 Pulse 60 Resp 16 B/P (MAP) 173/62 (99) Pulse Ox 97 O2 Delivery Room Air Capillary Refill : Less Than 3 Seconds Blood Pressure Mean: 99 Progress Note : Progress Note Seen and evaluated. IV, labs, UA, and will saline 500 mL bolus, Zofran 4 mg IV, Pepcid 20 mg IV and Protonix 40 mg IV ordered. Monitor patient. We will check Tylenol and aspirin levels given her report of taking Tylenol every 2 hours. 1116: Toradol 15 mg IV and tramadol 50 mg by mouth given. 1210: Patient states that she is actually doing much better. She was able to stand with assistance and I did walk her several steps and she states that she is actually feeling better. I did talk with the patient's son. She has had problems with eating and stomach upset recently. I do believe the Protonix and Pepcid that was given earlier have helped. We discussed options for her including [id number] omeprazole which she will initiate for the next 2 weeks. They are going to try to find a new doctor here in town and he has 3 names that they are working on. I will write for prescription for tramadol as well as the recommendation for omeprazole and Tylenol as needed for pain. He was in agreement and appreciative of the evaluation and plan. Patient also and agreement with plan. Discharged home with return precautions. Patient verbalize understanding of instructions and agreement with plan. Departure Impression Primary Impression: Peripheral neuropathy Qualified Codes: G62.9 - Polyneuropathy, unspecified Additional Impression: Epigastric pain Disposition: HOME, SELF-CARE Condition: Improved Departure-Patient Inst. Decision time for Depature: 12:19 Referrals: TERE LEHMAN MD, HOLLY A MD STEVENS, RACHEL L MD (PCP/Family) Primary Care Physician KAYCE RACHEL MD Patient Instructions: Acid Reflux and Gastroesophageal Reflux Disease in Adults, Peripheral Neuropathy Add. Discharge Instructions: All discharge instructions reviewed with patient and/or family. Voiced understanding. You may take Tylenol/acetaminophen 500 mg every 6 hours as needed for pain. You may take the prescribed pain medicine every 6 hours as needed for pain but only take that if you are in more significant pain. You should continue with instructions related to the low sodium as discussed yesterday and drinking 1 Gatorade a day will likely help those symptoms quite a bit. You may take over- the-counter omeprazole 20 mg 1 tablet daily for the next 2 weeks and then reevaluate further need based on symptoms after that. Discussed this with your doctor. Return for worse pain, fever, vomiting, weakness, breathing problems or other concerns as needed. Scripts Tramadol HCl (Tramadol HCl) 50 Mg Tablet 50 MG PO Q6H PRN for PAIN-MODERATE (5-7) for 7 Days, #20 TAB 0 Refills Prov: JOVANA PALMA MD 03/22/20 JOVANA PALMA MD Mar 22, 2020 08:19
[2020-03-22 08:31] LABS: ACETAMINOPHEN 19 UG/ML (10-30); SALICYLATE < 5.0 MG/DL (5.0-20.0)
[2020-03-22 08:38] LABS: BASOPHILS % (MANUAL) 0 %; EOSINOPHILS % (MANUAL) 3 %; LYMPHOCYTES % (MANUAL) 6 %; MONOCYTES % (MANUAL) 6 %; NEUTROPHILS % (MANUAL) 85 %; RBC MORPH NORMAL
[2020-03-22 09:50] LABS: BILIRUBIN,URINE NEGATIVE (NEGATIVE); CLARITY,URINE CLEAR; COLOR,URINE YELLOW; GLUCOSE, URINE (UA) NEGATIVE (NEGATIVE); KETONES,URINE NEGATIVE (NEGATIVE); LEUKOCYTE ESTERASE ,URINE NEGATIVE (NEGATIVE); NITRITE,URINE NEGATIVE (NEGATIVE); PH,URINE 6.5 (5-9); PROTEIN,URINE NEGATIVE (NEGATIVE)
[2020-03-22 10:08] LABS: BACTERIA,URINE TRACE /HPF; RBC,URINE 0-2 /HPF
[2020-03-22] MEDS ORDERED: KETOROLAC 30 MG/ML VIAL IVP STA (11:04)
[2020-03-22] MEDS ORDERED: TRM50T PO (12:23)
[2020-03-22 12:57] VITALS: BP 145/59
== END 2020-03-22 12:57 | disposition home or self-care (01) ==
LOC: EDUNIT# 07:25 → ER 07:26
DX: G62.9 Polyneuropathy, unspecified (principal); R10.13 Epigastric pain; I48.91 Unspecified atrial fibrillation; I10 Essential (primary) hypertension; I73.9 Peripheral vascular disease, unspecified; K21.9 Gastro-esophageal reflux disease without esophagitis; Z86.73 Personal history of transient ischemic attack (TIA), and cerebral infarction without residual deficits; Z88.8 Allergy status to other drugs, medicaments and biological substances; Z79.82 Long term (current) use of aspirin; Z87.891 Personal history of nicotine dependence; Z79.01 Long term (current) use of anticoagulants
CPT/HCPCS: 36415; 80053; 80329; 81000; 85007; 85027; 86141

== ENCOUNTER 2020-03-24 05:32 | Inpatient (IN) | payer MEDICARE, OTHER ==
[~2020-03-24] VITALS: Ht 165 cm; Wt 60.5 kg
[~2020-03-24 05:32] MED LIST changes: +TRM50T PO
[2020-03-24] MEDS ORDERED: LACTATED RINGERS 1,000 ML IV ONE ×2 (05:34→05:45)
[2020-03-24] MEDS ORDERED: ONDANSETRON 4 MG/2 ML (SDV) Z0FRAN IVP ONE (05:45)
[2020-03-24 05:54] LABS: BASOPHILS % (AUTO) 0 % (0-10); EOSINOPHILS % (AUTO) 0 % (0-10); HEMATOCRIT 34 % (35-52); HEMOGLOBIN 12.2 G/DL (11.5-16.0); LYMPHOCYTES # (AUTO) 0.4 X 10^3 (1.0-4.0); LYMPHOCYTES % (AUTO) 3 % (12-44); MEAN CORPUSCULAR HEMOGLOBIN 32 PG (25-34); MEAN CORPUSCULAR HGB CONC 36 G/DL (32-36); MEAN CORPUSCULAR VOLUME 91 FL (80-99); MEAN PLATELET VOLUME 9.2 FL (7.4-10.4); MONOCYTES # (AUTO) 0.8 X 10^3 (0.0-1.0); MONOCYTES % (AUTO) 8 % (0-12); NEUTROPHILS # (AUTO) 9.5 X 10^3 (1.8-7.8); NEUTROPHILS % (AUTO) 89 % (42-75); PLATELET COUNT 265 10^3/uL (130-400); RED CELL DISTRIBUTION WIDTH 12.7 % (10.0-14.5); WHITE BLOOD COUNT 10.7 10^3/uL (4.3-11.0)
[2020-03-24 06:21] LABS: BILIRUBIN,URINE NEGATIVE (NEGATIVE); CLARITY,URINE CLEAR; COLOR,URINE YELLOW; GLUCOSE, URINE (UA) NEGATIVE (NEGATIVE); KETONES,URINE 1+ (NEGATIVE); LEUKOCYTE ESTERASE ,URINE NEGATIVE (NEGATIVE); NITRITE,URINE NEGATIVE (NEGATIVE); PROTEIN,URINE NEGATIVE (NEGATIVE)
[2020-03-24] MEDS ORDERED: NS IV 1000 ML 1,000 ML IV SCH (06:36)
[2020-03-24] MEDS ORDERED: NS IV 1000 ML 1,000 ML ONE (06:36)
[2020-03-24 06:40] LABS: BACTERIA,URINE NEGATIVE /HPF; SQUAMOUS EPITHELIAL CELL,UR 0-2 /HPF
[2020-03-24 06:41] LABS: GRANULAR CASTS,URINE RARE /LPF
[2020-03-24] MEDS ORDERED: RT-ALBUTEROL INHALER HFA (VENTOLIN HFA) 8 GM IH PRN ×2 (06:45→12:30)
[2020-03-24 06:49] LABS: INR 3.2 (0.8-1.4); PROTHROMBIN TIME PATIENT 34.3 SEC (12.2-14.7)
[2020-03-24 07:07] LABS: ALBUMIN 4.1 GM/DL (3.2-4.5)
[2020-03-24 07:08] LABS: CHLORIDE 87 MMOL/L (98-107); POTASSIUM 3.9 MMOL/L (3.6-5.0)
[2020-03-24 07:09] LABS: AMYLASE 38 U/L (25-125); CALCIUM 8.6 MG/DL (8.5-10.1)
[2020-03-24 07:10] LABS: GLUCOSE 105 MG/DL (70-105); TOTAL PROTEIN 6.8 GM/DL (6.4-8.2)
[2020-03-24 07:11] LABS: CARBON DIOXIDE 22 MMOL/L (21-32)
[2020-03-24 07:12] LABS: BILIRUBIN,TOTAL 0.7 MG/DL (0.1-1.0)
[2020-03-24 07:13] LABS: ALKALINE PHOSPHATASE 69 U/L (40-136)
[2020-03-24 07:14] LABS: CREATININE SERUM 0.61 MG/DL (0.60-1.30); GFR ESTIMATED > 60
[2020-03-24 07:15] LABS: BUN/CREATININE RATIO 15
[2020-03-24 07:17] LABS: ALANINE AMINOTRANSFERASE 12 U/L (0-55); MAGNESIUM 1.6 MG/DL (1.6-2.4); SODIUM 121 MMOL/L (135-145)
[2020-03-24 07:18] LABS: LIPASE 7 U/L (8-78)
[2020-03-24] MEDS ORDERED: RX-ALBUTEROL INHALER (PROAIR) 8.5 GM IH ONE (07:34)
[2020-03-24] MEDS ORDERED: HOLD METFORMIN - RECEIVED CONTRAST 20 ML VIAL IV SCH (07:45)
[2020-03-24] MEDS ORDERED: IOHEXOL 350 MG/ML 100 ML (OMNIPAQUE 350) VIAL IV ONE (07:45)
[2020-03-24] MEDS ORDERED: fentaNYL INJECTION 100 MCG/2 ML AMP IVP ONE (07:45)
[2020-03-24] MEDS ORDERED: NS 100 ML (IVPB) BAG IV ONE (07:45)
--- NOTE | 2020-03-24 07:50 | NUR ---
PT TESTED FOR COVID.
--- NOTE | 2020-03-24 08:20 | ED General ---
General Chief Complaint: Abdominal/GI Problems Stated Complaint: WEAKNESS,BURNING URINATION Nursing Triage Note: BIBA for diffuse abdominal pain; seen twice this week for same sx. No relief from home meds. Reports constipation and absence of passing gas with nausea. Nursing Sepsis Screen: No Definite Risk Source of Information: Patient, EMS, Family, Old Records Exam Limitations: No Limitations History of Present Illness Date Seen by Provider: Mar 24, 2020 Time Seen by Provider: 05:34 Initial Comments This 79-year-old woman presents to the emergency room with complaints of abdominal pain and weakness. She has been seen in the emergency room on March 21 and for dysuria, weakness, hyponatremia, and GI complaints. Symptoms are worse today. Pain is more intense now and she complains of no bowel movement or flatus for several days. She is afebrile. She does report a new cough in recent days and chronic shortness of breath. Allergies and Home Medications Allergies Coded Allergies: pregabalin (Verified Allergy, Unknown, 03/22/20) Home Medications Acetaminophen 325 Mg Tablet, 325-650 MG PO Q6H PRN for PAIN-MODERATE (5-7), (Reported) Amiodarone HCl 200 Mg Tablet, 200 MG PO BID, (Reported) Amlodipine Besylate 5 Mg Tablet, 5 MG PO DAILY, (Reported) Aspirin 81 Mg Tablet.dr, 81 MG PO DAILY, (Reported) Gabapentin 800 Mg Tablet, 800 MG PO HS, (Reported) Levothyroxine Sodium 50 Mcg Tablet, 50 MCG PO DAILY, (Reported) Losartan Potassium 100 Mg Tablet, 100 MG PO DAILY, (Reported) Polyethylene Glycol 3350 17 Gm Powd.pack, 17 GM PO DAILY PRN for CONSTIPATION- 2ND LINE, (Reported) Pravastatin Sodium 20 Mg Tablet, 20 MG PO HS, (Reported) Pregabalin 50 Mg Capsule, 50 MG PO BID, (Reported) Rivaroxaban 20 Mg Tablet, 20 MG PO DAILY, (Reported) Tramadol HCl 50 Mg Tablet, 50 MG PO Q6H PRN for PAIN-MODERATE (5-7), (Reported) Patient Home Medication List Home Medication List Reviewed: Yes Review of Systems Review of Systems Constitutional: see HPI, weakness EENTM: no symptoms reported Respiratory: see HPI, cough, short of breath Cardiovascular: no symptoms reported Gastrointestinal: see HPI, abdominal pain, nausea Genitourinary: see HPI Musculoskeletal: no symptoms reported Skin: no symptoms reported Psychiatric/Neurological: No Symptoms Reported Hematologic/Lymphatic: No Symptoms Reported Immunological/Allergic: no symptoms reported Past Eaztkmx-Nlatzu-Hnhyvd Hx Past Med/Social Hx: Reviewed Nursing Past Med/Soc Hx Patient Social History Alcohol Use: Denies Use Number of Drinks Today: AA Alcohol Beverage of Choice: Beer Recreational Drug Use: No Type Used: Cigarettes Former Smoker, Quit: Nov 15, 1979 2nd Hand Smoke Exposure: Yes (1979 QUITE) Recent Foreign Travel: No Contact w/Someone Who Travel: No Recent Infectious Disease Expo: No Physical Abuse: No Sexual Abuse: No Mistreated: No Fear: No Immunizations Up To Date Tetanus Booster (TDap): Unknown Date of Pneumonia Vaccine: Jul 02, 2019 Date of Influenza Vaccine: Jun 26, 2019 Seasonal Allergies Seasonal Allergies: No Past Medical History Surgeries: Yes Eye Surgery, Orthopedic Respiratory: Yes COPD Currently Using CPAP: No Currently Using BIPAP: No Cardiac: Yes Atrial Fibrillation, Hypertension, Peripheral Vascular, Valvular Heart Disease Neurological: Yes Neuropathy, TIA 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 Genitourinary: No Gastrointestinal: Yes (dysphagia) Gastroesophageal Reflux Musculoskeletal: Yes (scleroderma) Rheumatoid Arthritis Endocrine: Yes Hyperthyroidism Cataract Cancer: No Psychosocial: No Integumentary: Yes (SCLERODERMA) Blood Disorders: No Adverse Reaction/Blood Tranf: No Family Medical History No Pertinent Family Hx Physical Exam Vital Signs Vital Signs - First Documented 03/24/20 03/24/20 06:04 12:00 Temp 36.6 Pulse 67 Resp 16 B/P (MAP) 180/67 (104) Pulse Ox 93 O2 Delivery Room Air O2 Flow Rate 2.00 Capillary Refill : Less Than 3 Seconds Height, Weight, BMI Height: 5'3.00" Weight: 112lbs. 0.0oz. 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 Norm as Tested Skin: Normal Color, Warm/Dry Focused Exam Lactate Level 03/24/20 05:57: Lactic Acid Level 1.24 Lactic Acid Level Progress/Results/Core Measures Suspected Sepsis Recent Fever Within 48 Hours: No Infection Criteria Present: None New/Unexplained Altered Menta: No Sepsis Screen: No Definite Risk SIRS Temperature: Pulse: 67 Respiratory Rate: 16 Laboratory Tests 03/24/20 05:36: White Blood Count 10.7 Blood Pressure 180 /67 Mean: 104 03/24/20 05:57: Lactic Acid Level 1.24 Laboratory Tests 03/24/20 05:36: Platelet Count 265 03/24/20 06:13: Creatinine 0.61, INR Comment 3.2H, Total Bilirubin 0.7 Results/Orders Lab Results Laboratory Tests Test 03/24/20 05:36 03/24/20 05:49 03/24/20 05:57 03/24/20 06:12 Range/Units White Blood Count 10.7 4.3-11.0 10^3/uL Red Blood Count 3.77 L 4.35-5.85 10^6/uL Hemoglobin 12.2 11.5-16.0 G/DL Hematocrit 34 L 35-52 % Mean Corpuscular Volume 91 80-99 FL Mean Corpuscular Hemoglobin 32 25-34 PG Mean Corpuscular Hemoglobin Concent 36 32-36 G/DL Red Cell Distribution Width 12.7 10.0-14.5 % Platelet Count 265 130-400 10^3/uL Mean Platelet Volume 9.2 7.4-10.4 FL Neutrophils (%) (Auto) 89 H 42-75 % Lymphocytes (%) (Auto) 3 L 12-44 % Monocytes (%) (Auto) 8 0-12 % Eosinophils (%) (Auto) 0 0-10 % Basophils (%) (Auto) 0 0-10 % Neutrophils # (Auto) 9.5 H 1.8-7.8 X 10^3 Lymphocytes # (Auto) 0.4 L 1.0-4.0 X 10^3 Monocytes # (Auto) 0.8 0.0-1.0 X 10^3 Eosinophils # (Auto) 0.0 0.0-0.3 10^3/uL Basophils # (Auto) 0.0 0.0-0.1 10^3/uL B-Type Natriuretic Peptide 189.5 H <100.0 PG/ML Urine Color YELLOW Urine Clarity CLEAR Urine pH 7.0 5-9 Urine Specific Mccarr 1.015 L 1.016-1.022 Urine Protein NEGATIVE NEGATIVE Urine Glucose (UA) NEGATIVE NEGATIVE Urine Ketones 1+ H NEGATIVE Urine Nitrite NEGATIVE NEGATIVE Urine Bilirubin NEGATIVE NEGATIVE Urine Urobilinogen 1.0 < = 1.0 MG/DL Urine Leukocyte Esterase NEGATIVE NEGATIVE Urine RBC (Auto) NEGATIVE NEGATIVE Urine RBC NONE /HPF Urine WBC NONE /HPF Urine Squamous Epithelial Cells 0-2 /HPF Urine Crystals NONE /LPF Urine Bacteria NEGATIVE /HPF Urine Casts PRESENT /LPF Urine Granular Casts RARE /LPF Urine Mucus NEGATIVE /LPF Urine Culture Indicated NO Lactic Acid Level 1.24 0.50-2.00 MMOL/L C-Reactive Protein High Sensitivity 0.24 0.00-0.50 MG/DL Test 03/24/20 06:13 03/24/20 07:50 03/24/20 16:15 Range/Units Prothrombin Time 34.3 H 12.2-14.7 SEC INR Comment 3.2 H 0.8-1.4 Activated Partial Thromboplast Time 49 H 24-35 SEC Sodium Level 121 *L 123 *L 135-145 MMOL/L Potassium Level 3.9 3.6-5.0 MMOL/L Chloride Level 87 L 98-107 MMOL/L Carbon Dioxide Level 22 21-32 MMOL/L Anion Gap 12 5-14 MMOL/L Blood Urea Nitrogen 9 7-18 MG/DL Creatinine 0.61 0.60-1.30 MG/DL Estimat Glomerular Filtration Rate > 60 BUN/Creatinine Ratio 15 Glucose Level 105 70-105 MG/DL Calcium Level 8.6 8.5-10.1 MG/DL Corrected Calcium 8.5 8.5-10.1 MG/DL Magnesium Level 1.6 1.6-2.4 MG/DL Total Bilirubin 0.7 0.1-1.0 MG/DL Aspartate Amino Transf (AST/SGOT) 25 5-34 U/L Alanine Aminotransferase (ALT/SGPT) 12 0-55 U/L Alkaline Phosphatase 69 40-136 U/L Total Protein 6.8 6.4-8.2 GM/DL Albumin 4.1 3.2-4.5 GM/DL Amylase Level 38 25-125 U/L Lipase 7 L 8-78 U/L Coronavirus (COVID-19)(PCR) Negative Negative Thyroid Stimulating Hormone (TSH) 1.17 0.35-4.94 UIU/ML Micro Results Microbiology 03/24/20 Influenza Types A,B Antigen (TATY) - Final, Complete My Orders Orders - GERONIMO TORRES MD Ns Iv 1000 Ml (Sodium Chloride 0.9%) (03/24/20 06:36) Ns Iv 1000 Ml (Sodium Chloride 0.9%) (03/24/20 06:36) Albuterol Inhaler (Ventolin Hfa) (03/24/20 06:45) Ct Chest/Abdomen/Pelvis W (03/24/20 07:29) Iohexol Injection (Omnipaque 350 Mg/Ml 1 (03/24/20 07:45) Received Contrast (Hold Metformin- Contr (03/24/20 07:45) Ns (Ivpb) (Sodium Chloride 0.9% Ivpb Bag (03/24/20 07:45) Fentanyl Injection (Sublimaze Injection (03/24/20 07:45) Rx-Albuterol Inhaler (Rx-Proair) (03/24/20 07:34) Influenza A And B Antigens (03/24/20 07:36) Hs C Reactive Protein (03/24/20 07:36) Coronavirus Sars-Cov-2 So 2018 (03/24/20 07:36) Medications Given in ED Current Medications Medications Dose Ordered Sig/Dawit Route Start Time Stop Time Status Last Admin Dose Admin Fentanyl Citrate 25 mcg ONCE ONCE IVP 03/24/20 07:45 03/24/20 07:46 DC 03/24/20 07:50 25 MCG Iohexol 100 ml ONCE ONCE IV 03/24/20 07:45 03/24/20 07:46 DC 03/24/20 08:27 80 ML Sodium Chloride 100 ml ONCE ONCE IV 03/24/20 07:45 03/24/20 07:46 DC 03/24/20 08:28 80 ML Vital Signs/I&O 03/24/20 03/24/20 03/24/20 03/24/20 12:00 12:12 12:55 13:03 Temp 36.1 Pulse 70 70 64 Resp 15 22 B/P (MAP) 134/90 200/87 Pulse Ox 98 97 O2 Delivery Nasal Cannula Nasal Cannula Nasal Cannula O2 Flow Rate 2.00 2.00 2.00 03/24/20 16:00 Temp 36.7 Pulse 70 Resp 20 B/P (MAP) 172/70 (104) Pulse Ox 97 O2 Delivery Nasal Cannula O2 Flow Rate 1.00 Capillary Refill : Less Than 3 Seconds Blood Pressure Mean: 104 Progress Note : Time: 09:28 Progress Note This 79-year-old woman was worked up extensively and found to have hyponatremia. A liter of IV normal saline is being provided. She was found to be hypoxic and nasal cannula oxygen was provided. CT demonstrated pleural effusions. No source of infection was identified. There was some question about gallbladder disease on the CT scan but CRP and WBC do not suggest infection. Patient is also not febrile. Patient did report a new cough and hall virus testing and influenza testing were performed. MDI was given for wheezing. ECG Initial ECG Impression Date: Mar 24, 2020 Initial ECG Impression Time: 06:13 Initial ECG Rate: 68 Initial ECG Rhythm: Normal Sinus Initial ECG Intervals: Normal Initial ECG Impression: Normal Comment Normal sinus rhythm with no ST elevation or depression. No abnormal intervals or axis deviation. Diagnostic Imaging Diagonstic Imaging: CT Plain Films/CT/US/NM/MRI: chest, abdomen, pelvis Comments CT chest, abdomen and pelvis viewed by me and report reviewed. See report below: NAME: DAWSON MARQUEZ [facility] REC#: [id number] PT STATUS: REG ER : 1940 PHYSICIAN: GERONIMO TORRES MD ADMIT DATE: 03/24/20/ER Signed Date of Exam:03/24/20 CT CHEST/ABDOMEN/PELVIS W PROCEDURE: CT chest, abdomen, and pelvis with contrast. TECHNIQUE: Multiple contiguous axial images were obtained through the chest, abdomen, and pelvis after the administration of intravenous contrast. Auto Exposure Controls were utilized during the CT exam to meet ALARA standards for radiation dose reduction. INDICATION: Weakness, urinary tract infection. COMPARISON: 10/20/2019. FINDINGS: No significant adenopathy within the chest. Moderate background vascular calcifications. No aneurysmal dilatation of the thoracic aorta. The heart is mildly enlarged. No significant pericardial effusion. Moderate dependently layering pleural effusions are noted bilaterally with adjacent atelectasis. Mild background emphysematous changes. No pneumothorax. The trachea is patent. No acute osseous abnormality within the chest. Calcified hepatic granuloma; otherwise, the liver is unremarkable. Calcified splenic granuloma; otherwise, the spleen is unremarkable. The adrenal glands are unremarkable. The gallbladder is mildly distended. There is suggestion of possible gallbladder wall thickening. The pancreas is unremarkable. The kidneys are unremarkable. Advanced vascular calcifications within the abdominal aorta and its branch vessels without aneurysmal dilatation of the abdominal aorta. The appendix is unremarkable. A Ogden catheter is present within the decompressed urinary bladder. The uterus and adnexal structures are unremarkable for age. No bowel obstruction or pneumatosis. No significant adenopathy, free air, or free fluid within the abdomen or pelvis. Scattered osseous degenerative changes without acute osseous abnormality. IMPRESSION: Moderate sized bilateral pleural effusions with adjacent atelectasis. Questionable gallbladder wall thickening. If there is clinical concern for the gallbladder or for acute cholecystitis, a right upper quadrant ultrasound would be recommended. Mild background emphysematous changes. Evidence of chronic granulomatous disease. Additional findings as above. Dictated by: Dictated on workstation # [id number] Dict: 03/24/2040 Trans: 03/24/20 0851 [id number] Interpreted by: OCTAVIO CLARKE MD Electronically signed by: OCTAVIO CLARKE MD 03/24/20 0851 Departure Communication (Admissions) Time/Spoke to Admitting Phy: 09:46 Dr. Tinsley Impression Primary Impression: Generalized abdominal pain Additional Impressions: Hyponatremia Hypoxia Pleural effusion Hypertension Qualified Codes: I10 - Essential (primary) hypertension Cough COPD exacerbation Disposition: ADMITTED INPATIENT Condition: Improved Admissions Decision to Admit Reason: Admit from ER (General) Decision to Admit/Date: Mar 24, 2020 Time/Decision to Admit Time: 06:30 Departure-Patient Inst. Referrals: DIXIE HERRERA MD (PCP/Family) Primary Care Physician Copy Copies To 1: DIXIE HERRERA MD, JOSHUA T MD Mar 24, 2020 08:20
--- NOTE | 2020-03-24 08:50 | Diagnostic Imaging Report ---
PROCEDURE: CT chest, abdomen, and pelvis with contrast. TECHNIQUE: Multiple contiguous axial images were obtained through the chest, abdomen, and pelvis after the administration of intravenous contrast. Auto Exposure Controls were utilized during the CT exam to meet ALARA standards for radiation dose reduction. INDICATION: Weakness, urinary tract infection. COMPARISON: 10/20/2019. FINDINGS: No significant adenopathy within the chest. Moderate background vascular calcifications. No aneurysmal dilatation of the thoracic aorta. The heart is mildly enlarged. No significant pericardial effusion. Moderate dependently layering pleural effusions are noted bilaterally with adjacent atelectasis. Mild background emphysematous changes. No pneumothorax. The trachea is patent. No acute osseous abnormality within the chest. Calcified hepatic granuloma; otherwise, the liver is unremarkable. Calcified splenic granuloma; otherwise, the spleen is unremarkable. The adrenal glands are unremarkable. The gallbladder is mildly distended. There is suggestion of possible gallbladder wall thickening. The pancreas is unremarkable. The kidneys are unremarkable. Advanced vascular calcifications within the abdominal aorta and its branch vessels without aneurysmal dilatation of the abdominal aorta. The appendix is unremarkable. A Ogden catheter is present within the decompressed urinary bladder. The uterus and adnexal structures are unremarkable for age. No bowel obstruction or pneumatosis. No significant adenopathy, free air, or free fluid within the abdomen or pelvis. Scattered osseous degenerative changes without acute osseous abnormality. IMPRESSION: Moderate sized bilateral pleural effusions with adjacent atelectasis. Questionable gallbladder wall thickening. If there is clinical concern for the gallbladder or for acute cholecystitis, a right upper quadrant ultrasound would be recommended. Mild background emphysematous changes. Evidence of chronic granulomatous disease. Additional findings as above. Dictated by: Dictated on workstation # [id number]
--- NOTE | 2020-03-24 10:46 | NUR ---
[facility] STATES THAT 4TH FLOOR HAS TO CALL IN STAFF BEFORE PT CAN GO UP STAIRS.
--- NOTE | 2020-03-24 10:52 | NUR ---
REPORT CALLED TO TI ET SHE STATES SHE WILL CALL WHEN THE OTHER STAFF ARRIVES.
--- NOTE | 2020-03-24 11:03 | NUR ---
PT NOTIFIED OF PENDING ADMIT AND THAT I WILL TAKE HER UPSTAIRS WHEN MORE STAFF ARRIVE.
--- NOTE | 2020-03-24 12:10 | NUR ---
Dawson Marquez admitted to room 425-1, with an admitting diagnosis of hyponatremia, on 03/24/20 from AM via , accompanied by .DAWSON MARQUEZ introduced to surroundings, call light, bed controls, phone, TV, temperature control, lights, meal times, smoking policy, visitor policy, side rail policy, bathrooms and showers. Patient Rights given to patient in the handbook.DAWSON MARQUEZ verbalizes understanding that [facility] is not responsible for the loss or damage to any personal effects or valuables that are kept in the patients posession during their hospitalization. DAWSON MARQUEZ verbalizes understanding of Interdisciplinary Patient Education. Patient and/or family were informed about the Rapid Response Team and its purpose.
[2020-03-24 12:12] VITALS: BP 200/87
[2020-03-24] MEDS ORDERED: ONDANSETRON 4 MG/2 ML (SDV) Z0FRAN IV PRN ×2 (12:30→17:00)
--- NOTE | 2020-03-24 12:58 | NUR ---
Patient's blood pressure rechecked at this time, 177/76
[2020-03-24] MEDS: NS IV 1000 ML 1,000 ML IV SCH ×3 (13:24→20:28)
[2020-03-24] MEDS ORDERED: LEVO-129 PO (15:38)
[2020-03-24] MEDS ORDERED: LOSA100T57 PO (15:38)
[2020-03-24] MEDS ORDERED: PRAV20TA3 PO (15:38)
[2020-03-24] MEDS ORDERED: POLY17PO6 PO (15:38)
[2020-03-24] MEDS ORDERED: TRAM50TA3 PO (15:38)
[2020-03-24] MEDS ORDERED: ACET325T49 PO (15:38)
[2020-03-24] MEDS ORDERED: AMIO200T4 PO (15:38)
[2020-03-24] MEDS ORDERED: PREG50CA65 PO (15:47)
[2020-03-24] MEDS ORDERED: AMLO5TAB9 PO (15:47)
--- NOTE | 2020-03-24 15:47 | NUR ---
NURSE NOTIFIED ME THAT THERE WAS A MED LIST ON THE CLEAN AREA OUTSIDE OF THE PATIENTS ROOM- I WENT OVER THE LIST AND WENT THRU THE EXT MED HISTORY TO COMPLETE THE MED REC THERE WERE MEDICATIONS LISTED ON THE LIST (PROAIR AND TRELEGY) THAT [facility] DOES NOT HAVE ON FILE. I TRIED TO CALL THE PATIENTS ROOM PHONE 3X AND CALLED THE CELL PHONE # WE HAVE ON FILE AND GOT NO ANSWER FROM EITHER. I AM LEAVING THOSE 2 OFF THE MED REC UNTIL I CAN SPEAK WITH THE PT. OTC MEDS: ASPIRIN 81 TYLENOL MIRALAX Addendum: 03/25/20 at 1453 by LAURA MUKHERJEE CPhT I WAS ABLE TO SPEAK WITH THE PT, SHE LET ME KNOW I SHOULD CONTACT HER SON (MARILIN) HE TAKES CARE OF ALL HER MEDICATIONS. EVERYTHING I HAD ON THE MED REC WAS CORRECT AND MARILIN LET ME KNOW SHE DOES NOT USE THE INHALERS Addendum: 03/25/20 at 1456 by LAURA MUKHERJEE CPhT ALSO THE PT IS NOT TAKING LYRICA- SHE HAD AN ALLERGIC REACTION
[2020-03-24 16:00] VITALS: BP 172/70
--- NOTE | 2020-03-24 16:33 | NUR ---
LAB NOTIFIED THIS RN OF CRITICAL SODIUM OF [address] DIAMOND NOTIFIED AT 1634. NO FURTHER ORDERS AT THIS TIME.
[2020-03-24] MEDS ORDERED: ONDANSETRON 4 MG (ZOFRAN) ORAL DISSOLVE TAB PO PRN (17:00)
[2020-03-24] MEDS ORDERED: polyethylene glycoL POWDER 17 GM (MIRALAX) PACK PO PRN (17:00)
[2020-03-24] MEDS ORDERED: MELATONIN 3 MG TABLET PO PRN (17:00)
[2020-03-24] MEDS ORDERED: ACETAMINOPHEN 325 MG TABLET PO PRN (17:00)
[2020-03-24] MEDS ORDERED: ANTACID SUSP 30 ML UDC (MYLANTA) PO PRN (17:00)
[2020-03-24] MEDS ORDERED: hydrALAZINE (APESOLINE) 20 MG/ML VIAL IV PRN (17:15)
[2020-03-24 20:00] VITALS: BP 122/66
[2020-03-24] MEDS: SENNOSIDES 8.6 MG (SENOKOT) TAB PO SCH (20:27)
[2020-03-24] MEDS: AMIODARONE 200 MG (CORDARONE) TAB PO SCH (20:27)
[2020-03-24] MEDS: DOCUSATE SODIUM 100 MG (COLACE) CAP PO SCH (20:27)
--- NOTE | 2020-03-24 20:56 | History & Physical-Hospitalist ---
History of Present Illness HPI/Chief Complaint Jazmine Finley is an 79 year old female with PMH HTN, HLD, CAD, hypothyroidism, paroxysmal atrial fibrillation on Xarelto, who presented with weakness. She reports that her weakness has been going on for months. She reports that she has been feeling more short of breath lately. She also reports cough. She denies any fevers and chills. She denies any orthopnea and PND. She feels like she is not strong enough to return home. She denies abdominal pain. She reports nausea, but no vomiting. She reports palpitations. She denies leg swelling. She reports that she has been having "sodium problems recently". Source: patient Exam Limitations: no limitations Date Seen 03/24/20 Time Seen by a Provider: 16:00 Attending Physician Chyna Diamond MD PCP Sadie Maria MD Referring Physician Date of Admission Mar 24, 2020 at 10:00 Home Medications & Allergies Home Medications Reviewed patient Home Medication Reconciliation performed by pharmacy medication reconciliations marine electronics technician and/or nursing. Patients Allergies have been reviewed. Allergies Allergies Coded Allergies pregabalin (Verified Allergy, Unknown, 03/22/20) Past Dycbann-Icqmsi-Iwvume Hx Past Med/Social Hx: Reviewed Nursing Past Med/Soc Hx Patient Social History Alcohol Use: Denies Use Number of Drinks Today: AA Alcohol Beverage of Choice: Beer Recreational Drug Use: No Former Smoker, Quit: Nov 15, 1979 Type Used: Cigarettes 2nd Hand Smoke Exposure: Yes (1979 QUITE) Recent Foreign Travel: No Contact w/other who traveled: No Recent Infectious Disease Expo: No Immunizations Up To Date Tetanus Booster (TDap): Unknown Date of Pneumonia Vaccine: Mar 24, 2018 Date of Influenza Vaccine: Jun 26, 2019 Seasonal Allergies Seasonal Allergies: No Past Medical History Surgeries: Eye Surgery, Orthopedic Currently Using CPAP: No Currently Using BIPAP: No Cardiac: Atrial Fibrillation, Hypertension, Peripheral Vascular, Valvular Heart Disease Neurological: Neuropathy, TIA 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: No Menopausal Gastrointestinal: Gastroesophageal Reflux Musculoskeletal: Rheumatoid Arthritis Endocrine: Hyperthyroidism HEENT: Cataract History of Blood Disorders: No Adverse Reaction to Blood Burroughs: No Family History No Pertinent Family Hx Review of Systems Constitutional: weakness EENTM: no symptoms reported Respiratory: cough, short of breath Cardiovascular: palpitations Gastrointestinal: nausea Genitourinary: no symptoms reported Musculoskeletal: no symptoms reported Skin: no symptoms reported Psychiatric/Neurological: No Symptoms Reported Physical Exam Physical Exam Vital Signs Vital Signs - First Documented 03/24/20 03/24/20 06:04 12:00 Temp 36.6 Pulse 67 Resp 16 B/P (MAP) 180/67 (104) Pulse Ox 93 O2 Delivery Room Air O2 Flow Rate 2.00 Capillary Refill : Less Than 3 Seconds Height, Weight, BMI Height: 5'3.00" Weight: 112lbs. 0.0oz. 50.558503ty; 17.85 BMI Method:Stated General Appearance: No Apparent Distress, Chronically ill HEENT: PERRL/EOMI, Pharynx Normal Neck: Normal Inspection, Supple Respiratory: No Respiratory Distress, Decreased Breath Sounds Cardiovascular: Regular Rate, Rhythm, No Edema, Systolic Murmur (Blowing) Gastrointestinal: Normal Bowel Sounds, Non Tender, Soft Extremity: Normal Inspection, Non Tender, No Pedal Edema Neurologic/Psychiatric: Alert, Oriented x3, No Motor/Sensory Deficits, Normal Mood/Affect Skin: Normal Color, Warm/Dry Results Results/Procedures Labs Laboratory Tests 03/24/20 05:36 03/24/20 06:13 03/24/20 16:15 Patient resulted labs reviewed. Imaging: Reviewed Imaging Report Assessment/Plan Admission Diagnosis Hyponatremia Admission Status: Inpatient Order (span 2 midnights) Reason for Inpatient Admission: Hyponatremia and weakness requiring further treatment and likely placement Assessment and Plan Hyponatremia -Hypovolemic vs euvolemic -Started on normal saline, continue -Sodium 121 on arrival, repeat increased to 123 -Urine studies pending -TSH normal -Fluid restriction 1L -Repeat BMP tomorrow morning Pleural effusions Systolic murmur -CT with moderate bilateral pleural effusions -BNP 189 -Obtain echocardiogram HTN -Continue amlodipine and losartan AFib -Continue amiodarone and Xarelto Hypothyroidism -Continue Synthroid DVT Prophylaxis: already receiving therapeutic anticoagulation Diagnosis/Problems Diagnosis/Problems (1) Hyponatremia Status: Acute (2) Pleural effusion Status: Acute (3) Hypertension Status: Acute Qualifiers: Hypertension type: essential hypertension Qualified Codes: I10 - Essential (primary) hypertension (4) Atrial fibrillation Status: Acute Clinical Quality Measures DVT/VTE Risk/Contraindication: Risk Factor Score Per Nursin RFS Level Per Nursing on Admit: 4+=Very High CHYNA DIAMOND MD Mar 24, 2020 20:56
[2020-03-24] MEDS ORDERED: NON-FORMULARY MEDICATION 1 EA EA (Pravastatin Sodium 20 MG) PO SCH (21:00)
[2020-03-25 00:47] VITALS: BP 128/62
[2020-03-25] MEDS: NS IV 1000 ML 1,000 ML IV SCH ×2 (03:08→11:04)
[2020-03-25 04:35] VITALS: BP 136/63
[2020-03-25] MEDS: LEVOTHYROXINE 50 MCG (LEVOTHROID) TAB PO SCH (06:02)
[2020-03-25 07:28] LABS: BASOPHILS % (AUTO) 0 % (0-10); EOSINOPHILS % (AUTO) 0 % (0-10); HEMATOCRIT 32 % (35-52); HEMOGLOBIN 11.2 G/DL (11.5-16.0); LYMPHOCYTES # (AUTO) 0.4 X 10^3 (1.0-4.0); LYMPHOCYTES % (AUTO) 4 % (12-44); MEAN CORPUSCULAR HEMOGLOBIN 33 PG (25-34); MEAN CORPUSCULAR HGB CONC 35 G/DL (32-36); MEAN CORPUSCULAR VOLUME 93 FL (80-99); MEAN PLATELET VOLUME 9.3 FL (7.4-10.4); MONOCYTES # (AUTO) 0.8 X 10^3 (0.0-1.0); MONOCYTES % (AUTO) 8 % (0-12); NEUTROPHILS # (AUTO) 8.3 X 10^3 (1.8-7.8); NEUTROPHILS % (AUTO) 88 % (42-75); PLATELET COUNT 248 10^3/uL (130-400); RED CELL DISTRIBUTION WIDTH 12.9 % (10.0-14.5); WHITE BLOOD COUNT 9.5 10^3/uL (4.3-11.0)
[2020-03-25] MEDS: LOSARTAN 100 MG (COZAAR) TABLET PO SCH (07:31)
[2020-03-25] MEDS: ASPIRIN E.C. 81 MG (ECOTRIN) TAB PO SCH (07:31)
[2020-03-25] MEDS: DOCUSATE SODIUM 100 MG (COLACE) CAP PO SCH ×2 (07:31→20:44)
[2020-03-25] MEDS: AMIODARONE 200 MG (CORDARONE) TAB PO SCH ×2 (07:32→20:44)
[2020-03-25] MEDS: RIVAROXABAN 20 MG TABLET (XARELTO) PO SCH (07:34)
[2020-03-25] MEDS: SENNOSIDES 8.6 MG (SENOKOT) TAB PO SCH ×2 (07:35→20:44)
[2020-03-25 07:45] VITALS: BP 179/77
[2020-03-25 08:00] LABS: BUN/CREATININE RATIO 9; CALCIUM 7.9 MG/DL (8.5-10.1); CARBON DIOXIDE 19 MMOL/L (21-32); CHLORIDE 101 MMOL/L (98-107); CREATININE SERUM 0.56 MG/DL (0.60-1.30); GFR ESTIMATED > 60; GLUCOSE 84 MG/DL (70-105); MAGNESIUM 2.3 MG/DL (1.6-2.4); POTASSIUM 3.8 MMOL/L (3.6-5.0); SODIUM 131 MMOL/L (135-145)
[2020-03-25 08:13] LABS: BAND NEUTROPHILS 0 %; BASOPHILS % (MANUAL) 0 %; EOSINOPHILS % (MANUAL) 0 %; LYMPHOCYTES % (MANUAL) 4 %; MONOCYTES % (MANUAL) 7 %; NEUTROPHILS % (MANUAL) 89 %; RBC MORPH NORMAL
[2020-03-25] MEDS ORDERED: hydrALAZINE (APRESOLINE) 25 MG TAB PO ONE (08:30)
[2020-03-25] MEDS ORDERED: amLODIPine 5 MG (NORVASC) TAB PO SCH (09:00)
--- NOTE | 2020-03-25 10:12 | Physical Therapy Evaluation ---
PT Evaluation-General Medical Diagnosis Admission Date Mar 24, 2020 at 10:00 Medical Diagnosis: abdominal pain/ hyponatremia Onset Date: Mar 24, 2020 Therapy Diagnosis Therapy Diagnosis: debility Height/Weight Height (Feet): 5 Height (Inches): 3.00 Weight (Pounds): 112 Weight (Ounces): 0.0 Precautions Precautions/Isolations: Fall Prevention, Standard Precautions Weight Bear Status Right Lower Extremity: Right Weight Bearing/Tolerated Left Lower Extremity: Left Weight Bearing/Tolerated Referral Physician: Alvina Reason for Referral: Evaluation/Treatment Medical History Pertinent Medical History: Atrial Fib, CAD, COPD, HTN, PVD, Rheumatoid Arthritis Current History ER secondary to abdominal pain Reviewed History: Yes Social History Home: Single Level Current Living Status: Alone Entry Into Home: Stairs With Railing PT Steps Into Home: 3 Prior Prior Level of Function SCALE: Activities may be completed with or without assistive devices. 2-Lriumwurwr-kcpzrec completes the activity by him/herself with no assistance from a helper. 5-Set-up or Clean-up Assistance-helper sets up or cleans up; patient completes activity. [place] assists only prior to or following the activity. 4-Supervision or Touching Assistance-helper provides verbal cues and/or touching/steadying and/or contact guard assistance as patient completes activity. Assistance may be provided throughout the activity or intermittently. 3-Partial/Moderate Assistance-helper does LESS THAN HALF the effort. [place] lifts, holds or supports trunk or limbs, but provides less than half the effort. 2-Substantial/Maximal Assistance-helper does MORE THAN HALF the effort. [place] lifts or holds trunk or limbs and provides more than half the effort. 5-Abnzimtml-fvqgrg does ALL the effort. Patient does none of the effort to complete the activity. Or, the assistance of 2 or more helpers is required for the patient to complete the activity. If activity was not attempted, code reason: 7-Patient Refused. 9-Not Applicable-not attempted and the patient did not perform the activity before the current illness, exacerbation or injury. 10-Not Attempted due to Environmental Limitations-(lack of equipment, weather restraints, etc.). 88-Not Attempted due to Medical Conditions or Safety Concerns. Bed Mobility: 6 Transfers (B,C,W/C): 6 Gait: 6 Stairs: 6 Indoor Mobility (Ambulation): Independent Stairs: Independent Prior Devices Use: Walker PT Evaluation-Current Subjective Patient agrees to PT. She reports she if feeling better today. Pain Numeric Pain Scale: 0-No Pain Location: No Pain Reported Objective Patient Orientation: Person, Time, Situation Attachments: IV ROM/Strength ROM Lower Extremities bilateral LE WFL Strength Lower Extremities 3+5 grossly bilateral LE Integumentary/Posture Integumentary refer to nursing notes Bladder Incontinence: Yes Posture WFL Neuromuscular (Tone, Coordination, Reflexes) grossly intact Sensory Vision: Wears Glasses Hearing: Impaired Sensation Right Lower Extremit: Intact Sensation Left Lower Extremity: Intact Transfers Roll Left to Right (QC): 5 Lying to Sitting/Side of Bed(Q: 5 Sit to Stand (QC): 5 Chair/Gqu-cj-Mazah Xfer(QC): 5 Toilet Transfer (QC): 5 Gait Does the Patient Walk?: Yes Mode of Locomotion: Walk Anticipated Mode of Locomotion: Walk Walk 10 feet (QC): 5 Walk 50 ft with 2 Turns(QC): 5 Walk 150 ft (QC): 5 Distance: 300' Gait Assistive Device: FWW Comments/Gait Description slow, steady with no deviation Wheelchair Training Does the Pt Use a Wheelchair?: No Balance Sitting Static: Normal Sitting Dynamic: Normal Standing Static: Good Standing Dynamic: Good Assessment/Needs 79 y.o. female, will be seen short term by skilled PT to address functional strength and mobility to improve current LOF to safely return to home at maximum LOF. Rehab Potential: Fair PT Short Term Goals Short Term Goals Time Frame: Mar 27, 2020 Roll Left & Right: 6 Sit to lyin Lying to sitting on side of be: 6 Sit to stand: 6 Chair/dsu-ju-edegk transfer: 6 Toilet transfer: 6 Walk 10 feet: 6 Walk 50 feet with two turns: 6 Walk 150 feet: 6 PT Plan Problem List Problem List: Activity Tolerance, Functional Strength, Balance, Gait Treatment/Plan Treatment Plan: Continue Plan of Care Treatment Plan: Bed Mobility, Education, Functional Activity Leon, Functional Strength, Gait, Safety, Therapeutic Exercise, Transfers Treatment Duration: Mar 27, 2020 Frequency: 3 times per week Estimated Hrs Per Day: .25 hour per day Patient and/or Family Agrees t: Yes Discharge Recommendations Therapy Discharge Recommendati: Post Acute PT (home health) Time/GCodes Time In: 921 Time Out: 951 Total Billed Treatment Time: 30 Total Billed Treatment 1 visit EVModC 15 min FA 15 min CONNOR KNOX PT Mar 25, 2020 10:12
--- NOTE | 2020-03-25 11:07 | NUR ---
"RD ASSESSMENT PMHx: HTN; HLD; CAD; hypothyroidism; afib; GERD; RA PT INTERACTION: Pt was awake and pleasant during consult for MST score. Pt states current appetite is good, though it was poor prior to admit. Note avg PO intake 25% x2meal, per chart review. Pt states following a regular diet at home, and has some issues with swallowing food. Pt states some recent issues with nausea and constipation, and that her last BM was 6/8. Note pt currently on bowel regimen of colace BID; and senna BID, per chart review. Pt states no recent wt changes. Note recent 4# wt gain x5mon, per chart review. Note unable to fully visually assess pt as pt was covered in blankets. Note pt has BMI 19.1, which at her age is classified as Underweight. Though pt has low BMI, given diet hx and wt hx, pt does not meet criteria for malnutrition per ASPEN guidelines. ABNORMAL NUTRITION-RELATED LAB VALUES LOW: Na 131; BUN 5; cr 0.56; Ca 7.9 HIGH: Est. kcal needs: 6587-4029 kcal | 30-35 kcal/kg Est. Pro needs: 52-62 g Pro | 1.0-1.2 g Pro/kg PES STATEMENT: Inadequate oral intake (NI-2.1) related to nausea | constipation as evidenced by pt interview | avg PO intake 25% x2meal Underweight (NC-3.1) related to inadequate energy intake as evidenced by BMI 19.1 INTERVENTION: Continue with current diet order of Clear Liquid diet. Encouraged pt to eat when able. Cannot recommend nutrition supplementation at this time, due to fluid restriction. Will continue to follow and reassess as pt needs, intake, and status change. MONITOR/EVALUATE: PO Intake; Plan of Care; Hydration Status; Weight Status; Lab Values Ross Awad, MS, RD, LD"
--- NOTE | 2020-03-25 11:21 | Progress Note - Hospitalist ---
Subjective HPI/CC On Admission Date Seen by Provider: Mar 25, 2020 Time Seen by Provider: 09:50 Jazmine Finley is an 79 year old female with PMH HTN, HLD, CAD, hypothyroidism, paroxysmal atrial fibrillation on Xarelto, who presented with weakness. She reports that her weakness has been going on for months. She reports that she has been feeling more short of breath lately. She also reports cough. She denies any fevers and chills. She denies any orthopnea and PND. She feels like she is not strong enough to return home. She denies abdominal pain. She reports nausea, but no vomiting. She reports palpitations. She denies leg swelling. She reports that she has been having "sodium problems recently". Subjective/Events-last exam She reports that she is feeling better today. She reports having some confusion. She says that her weakness is better. She denies any shortness of breath or cough. She denies any fevers or chills. She denies any chest pain. She has no other complaints or concerns. When asked if she had been told about a heart murmur, she is aware of this and says that her teletype mechanic had talked about replacing one of her heart valves but it was not severe enough to need the procedure at that point. Focused Exam Lactate Level 03/24/20 05:57: Lactic Acid Level 1.24 Objective Exam Vital Signs Vital Signs Date Time Temp Pulse Resp B/P (MAP) Pulse Ox O2 Delivery O2 Flow Rate FiO2 03/25/20 08:24 Nasal Cannula 2.00 03/25/20 08:00 98 03/25/20 07:45 36.9 68 20 179/77 (111) Capillary Refill : Less Than 3 SecondsLess Than 3 Seconds General Appearance: No Apparent Distress, Chronically ill Respiratory: Lungs Clear, Normal Breath Sounds, No Respiratory Distress Cardiovascular: Regular Rate, Rhythm, No Edema, No Murmur Gastrointestinal: Normal Bowel Sounds, Non Tender, Soft Extremity: Normal Inspection, Non Tender, No Pedal Edema Neurologic/Psychiatric: Alert, Normal Mood/Affect, Motor Weakness Skin: Normal Color, Warm/Dry Results/Procedures Lab Laboratory Tests 03/24/20 16:15 03/25/20 07:16 Patient resulted labs reviewed. Imaging: Reviewed Imaging Report Assessment/Plan Assessment and Plan Assess & Plan/Chief Complaint Hyponatremia -Appears to be mainly hypovolemic with good response to fluid resuscitation -Sodium 121 on arrival, improved to 131 today -Urine studies pending -TSH normal -Fluid restriction 1L -Continue normal saline at decreased rate Pleural effusions Systolic murmur, likely aortic stenosis -CT with moderate bilateral pleural effusions -BNP 189 -Obtain echocardiogram HTN -Continue losartan -Increase amlodipine -Add hydralazine AFib -Continue amiodarone and Xarelto Hypothyroidism -Continue Synthroid DVT Prophylaxis: already receiving therapeutic anticoagulation Diagnosis/Problems Diagnosis/Problems (1) Hyponatremia Status: Acute (2) Pleural effusion Status: Acute (3) Hypertension Status: Acute Qualifiers: Hypertension type: essential hypertension Qualified Codes: I10 - Essential (primary) hypertension (4) Atrial fibrillation Status: Acute (5) Debility Status: Acute Clinical Quality Measures DVT/VTE Risk/Contraindication: Risk Factor Score Per Nursin RFS Level Per Nursing on Admit: 4+=Very High CHYNA DIAMOND MD Mar 25, 2020 11:21
[2020-03-25] MEDS: amLODIPine 5 MG (NORVASC) TAB PO SCH (11:23)
--- NOTE | 2020-03-25 11:23 | NUR ---
LOWER DOSE WAS GIVEN TO ADD TO THIS AM DOSE TO EQUAL DESIRED DOSE OF 10 MG
--- NOTE | 2020-03-25 11:34 | NUR ---
IRF Evaluation Order received to evaluate patient for the ARU. Chart review complete and it appears patient is completing bed mobility, transferring and ambulating (300ft, RW) with set-up/SBA; therefore, patient does not require intensive therapies. Dr. Tinsley notified of denial. Thank you for this referral.
--- NOTE | 2020-03-25 12:15 | Occupational Therapy Eval ---
OT Evaluation-General/PLF Medical Diagnosis Admission Date Mar 24, 2020 at 10:00 Medical Diagnosis: abdominal pain/ hyponatremia Onset Date: Mar 24, 2020 Therapy Diagnosis Therapy Diagnosis: Weakness Height/Weight Height (Feet): 5 Height (Inches): 3.00 Weight (Pounds): 112 Weight (Ounces): 0.0 Precautions Precautions/Isolations: Fall Prevention, Standard Precautions Referral Physician: Alvina Referral Reason: Activity Tolerance, Self Care, Evaluation/Treatment, Strengthening/ROM Medical History Pertinent Medical History: Atrial Fib, CAD, COPD, GERD, HTN, PVD, Rheumatoid Arthritis Reviewed History: Yes Social History Home: Single Level Current Living Status: Alone Entry Into Home: Stairs With Railing Steps Into Home: 3 ADL-Prior Level of Function SCALE: Activities may be completed with or without assistive devices. 1-Noevkumzws-azljjds completes the activity by him/herself with no assistance f rom a helper. 5-Set-up or Clean-up Assistance-helper sets up or cleans up; patient completes activity. [place] assists only prior to or following the activity. 4-Supervision or Touching Assistance-helper provides verbal cues and/or touching/steadying and/or contact guard assistance as patient completes activity. Assistance may be provided throughout the activity or intermittently. 3-Partial/Moderate Assistance-helper does LESS THAN HALF the effort. [place] lifts, holds or supports trunk or limbs, but provides less than half the effort. 2-Substantial/Maximal Assistance-helper does MORE THAN HALF the effort. [place] lifts or holds trunk or limbs and provides more than half the effort. 7-Bndofkebu-twlafb does ALL the effort. Patient does none of the effort to complete the activity. Or, the assistance of 2 or more helpers is required for the patient to complete the activity. If activity was not attempted, code reason: 7-Patient Refused. 9-Not Applicable-not attempted and the patient did not perform the activity before the current illness, exacerbation or injury. 10-Not Attempted due to Environmental Limitations-(lack of equipment, weather restraints, etc.). 88-Not Attempted due to Medical Conditions or Safety Concerns. ADL PLOF Comments Pt. reports that she was receiving in home therapy, but no other services. Pt. states that she is getting set up for 24 hour care, and has paperwork to fill out. When OT asks what this means, she is able to verbalize that she has the "insurance" for someone to cook and clean for her. Pt. slightly confused. 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 Reports that she was independent with daily skills. She has a 4 wheeled walker, but would like a 2 wheeled walker. Self Care: Independent (per pt.) Functional Cognition: Unknown DME/Equipment: Bath Chair, Shower OT Current Status Subjective Pt. reports no pain, but that she is weak. Appearance Pt. up in chair. Agrees to work with OT. Mental Status/Objective Patient Orientation: Person, Place Attachments: IV, Oxygen Current Glasses/Contacts: Yes Hand Dominance: Right Upper Extremity ROM WFL with limitation at shoulder level. ADL-Treatment Shower/Bathe Self (QC): 4 (CGA in stance and cues for sequencing for sponge bath. Declined showering stating she wasn't ready yet. OT washed hair with shampoo cap.) On/Off Footwear (QC): 4 (SBA to doff/don slipper socks.) Other Treatments Pt. requires cues to sequence next step during tasks. Requires encouragement. Becomes slightly confused after bathing and attempts to put sock on nasal ca nnula. Pt. catches herself and states, "now why do I do that?" Pt. is in chair with feet elevated and warm blankets applied. All needs met. Education OT Patient Education: Correct positioning, Modified ADL techniques, Progress toward Goal/Update tx plan, Purpose of tx/functional activities, Reviewed precautions, Rehab process, Transfer techniques Teaching Recipient: Patient Teaching Methods: Demonstration, Discussion Response to Teaching: Verbalize Understanding, Return Demonstration, Reinforcement Needed OT [facility] Goals Cinder Crusher Operator Goals Time Frame: Apr 01, 2020 Eating (QC): 6 Oral Hygiene (QC): 6 Toileting Hygiene (QC): 4 Shower/Bathe Self (QC): 4 Upper Body Dressing (QC): 5 Lower Body Dressing (QC): 5 On/Off Footwear (QC): 5 Additional Goals: 1-Demonstrate ADL Tasks, 2-Verbalize Understanding, 3-ImproveStrength/Leon 1=Demonstrate adherence to instructed precautions during ADL tasks. 2=Patient will verbalize/demonstrate understanding of assistive devices/modifications for ADL. 3=Patient will improve strength/tolerance for activity to enable patient to perform ADL's. OT Education/Plan Problem List/Assessment Assessment: Decreased Activ Tolerance, Impaired I ADL's, Impaired Self-Care Skills Discharge Recommendations Plan/Recommendations: Continue POC Therapy Discharge Recommendati: Post Acute OT Treatment Plan/Plan of Care Treatment,Training & Education: Yes Patient would benefit from OT for education, treatment and training to promote independence in ADL's, mobility, safety and/or upper extremity function for ADL's. Plan of Care: ADL Retraining, Functional Mobility, UE Funct Exercise/Act Treatment Duration: Apr 01, 2020 Frequency: 5 times per week Estimated Hrs Per Day: .25 hour per day Agreement: Yes Rehab Potential: Fair Time/GCodes Start Time: 10:05 Stop Time: 10:35 Total Time Billed (hr/min): 30 Billed Treatment Time 1, EVM x 15minutes, ADL x 15minutes MORRIS WHITE OT Mar 25, 2020 12:15
--- NOTE | 2020-03-25 12:18 | NUR ---
HYDRALAZINE 25 MG GIVEN FOR INCREASED BLOOD PRESSURE.
[2020-03-25 12:47] VITALS: BP 186/76
[2020-03-25] MEDS: hydrALAZINE (APRESOLINE) 25 MG TAB PO SCH ×2 (14:31→22:04)
[2020-03-25] MEDS ORDERED: AMLO10TA7 PO (14:32)
--- NOTE | 2020-03-25 14:37 | D/C HH Face to Face Order ---
D/C Face to Face Orders Reconcile Patient Problems Problems Reviewed?: Yes Instructions for Patient Via PHARMAJET, Patient Instructions/FollowUp: Take medications as prescribed. Participate in therapies. Follow-up with your primary care physician. Physician to follow Patient: Sadie Maria Discharge Diet for Home: No Restrictions Patient Data-Allergies,Ht & Wt Patient Allergies: Coded Allergies: pregabalin (Verified Allergy, Unknown, 03/22/20) Height (Feet): 5 Height (Inches): 3.00 Weight (Pounds): 112 Weight (Ounces): 0.0 Home Health Need/Face to Face Date of Face to Face: Mar 25, 2020 Clinical Findings: Generalized weakness and fatigue, Muscle weakness I have seen Pt oujj-qn-njlb: Yes Discharged To: Home Diagnosis/Conditions: Hyponatremia, Debility Problems/Diagnosis/Condition: (1) Debility Patient is Homebound due to: Muscle weakness Homebound Status Due to the above stated illness, injury or surgical procedure (medical condition or diagnosis) and associated clinical findings, the patient is homebound because of his/her inability to leave home except with aid of a supportive device and/or person AND leaving the home requires a considerable and taxing effort or is medically contraindicated. Pt req the following assistanc: Aid of another person Home Health Nursing Orders Home Health Services Order: Nursing Services, Digital Pre Press Operator-Evaluate & Treat, Physical Therapy-Evaluate & Treat Home Health Infusion Therapy Line Start Date: Mar 24, 2020 Therapy Orders Therapy Orders: OT (must have SN or PT order), Physical Therapy Therapy Specific Orders: Gait training, Increase strength/endurance Certify Stmt I certify that this patient is under my care and that I, a nurse practitioner or a physician; a logistics assistant working with me, had a face to face encounter that - meets the physician face to face encounter requirements with this patient as dated. CHYNA DIAMOND MD Mar 25, 2020 14:37
--- NOTE | 2020-03-25 14:47 | NUR ---
CM DISCHARGE PLANNING: Patient will likely discharge to home tomorrow with home health care. Visited with patient about this POC. She reports that she would like to be able to stay at the hospital because of the level of support she is receiving here. She reports that she still feels slightly dizzy. We discussed senior living facilities et this choice was offered to her as a second option. She reports that she does not want to do that. She is in agreement for HHC when she is discharged from the hospital.
--- NOTE | 2020-03-25 15:32 | NUR ---
Pt is Quaker. provided prayer margi Communion and notified Fr Mcknight for anointing.
[2020-03-25 15:53] VITALS: BP 143/90
[2020-03-25 19:43] VITALS: BP 136/86
[2020-03-26] VITALS: BP 142/57
[2020-03-26] MEDS: NS IV 1000 ML 1,000 ML IV SCH (00:45)
[2020-03-26 04:00] VITALS: BP 161/61
[2020-03-26] MEDS: LEVOTHYROXINE 50 MCG (LEVOTHROID) TAB PO SCH (06:11)
[2020-03-26] MEDS: hydrALAZINE (APRESOLINE) 25 MG TAB PO SCH ×2 (06:17→13:32)
[2020-03-26] MEDS: BISACODYL 10 MG SUPP (DULCOLAX) PR PRN ×2 (06:18→08:26)
[2020-03-26 08:00] VITALS: BP 175/81
--- NOTE | 2020-03-26 08:14 | NUR ---
CM FINALIZED DISCHARGE PLAN: Patient will likely discharge to home today with [facility]. She has elected [facility] for her home health care needs. She requests Physical et Occupational therapies d/t continued weakness. She also reports that she is constipated this morning et is hopeful for an enema so that her bowels will be cleared before she goes home. She denies any other needs or concerns at this time. She has been in communication with her son et has notified him of dismissal today. I left a message on his cell phone yesterday evening but have not had a return phone call from him.
[2020-03-26] MEDS: ASPIRIN E.C. 81 MG (ECOTRIN) TAB PO SCH (08:26)
[2020-03-26] MEDS: amLODIPine 5 MG (NORVASC) TAB PO SCH (08:26)
[2020-03-26] MEDS: DOCUSATE SODIUM 100 MG (COLACE) CAP PO SCH (08:26)
[2020-03-26] MEDS: LOSARTAN 100 MG (COZAAR) TABLET PO SCH (08:26)
[2020-03-26] MEDS: RIVAROXABAN 20 MG TABLET (XARELTO) PO SCH (08:26)
[2020-03-26] MEDS: SENNOSIDES 8.6 MG (SENOKOT) TAB PO SCH (08:26)
[2020-03-26] MEDS: AMIODARONE 200 MG (CORDARONE) TAB PO SCH (08:27)
--- NOTE | 2020-03-26 10:05 | Physical Therapy Daily Note ---
PT Daily Note-Current Subjective Patient agrees to PT. Mental Status Patient Orientation: Person, Time, Situation Attachments: IV Transfers SCALE: Activities may be completed with or without assistive devices. 0-Sxlqpnivuc-zxtbmsr completes the activity by him/herself with no assistance from a helper. 5-Set-up or Clean-up Assistance-helper sets up or cleans up; patient completes activity. [place] assists only prior to or following the activity. 4-Supervision or Touching Assistance-helper provides verbal cues and/or touching/steadying and/or contact guard assistance as patient completes activity. Assistance may be provided throughout the activity or intermittently. 3-Partial/Moderate Assistance-helper does LESS THAN HALF the effort. [place] lifts, holds or supports trunk or limbs, but provides less than half the effort. 2-Substantial/Maximal Assistance-helper does MORE THAN HALF the effort. [place] lifts or holds trunk or limbs and provides more than half the effort. 9-Mcyebivub-swhcbc does ALL the effort. Patient does none of the effort to complete the activity. Or, the assistance of 2 or more helpers is required for the patient to complete the activity. If activity was not attempted, code reason: 7-Patient Refused. 9-Not Applicable-not attempted and the patient did not perform the activity before the current illness, exacerbation or injury. 10-Not Attempted due to Environmental Limitations-(lack of equipment, weather restraints, etc.). 88-Not Attempted due to Medical Conditions or Safety Concerns. Roll Left & Right (QC): 6 Lying to Sitting/Side of Bed(Q: 6 Sit to Stand (QC): 6 Chair/Szf-ct-Rgmva Xfer(QC): 6 Weight Bearing Right Lower Extremity: Right Weight Bearing/Tolerated Left Lower Extremity: Left Weight Bearing/Tolerated Gait Training Does the Patient Walk?: Yes Distance: 600' Walk 10 feet (QC): 6 Walk 50 ft with 2 Turns(QC): 6 Walk 150 ft (QC): 6 Gait Assistive Device: FWW safe and functional with no deviation Assessment Patient is up in recliner with warm blanket for comfort. Patient is currently at independent PLOF with all gross motor skills. PT to dismiss patient from services and nursing to continue with ambulating in hallway PRN. PT Short Term Goals Short Term Goals Time Frame: Mar 27, 2020 Roll Left & Right: 6 Sit to lyin Lying to sitting on side of be: 6 Sit to stand: 6 Chair/qbo-ek-cexsr transfer: 6 Toilet transfer: 6 Walk 10 feet: 6 Walk 50 feet with two turns: 6 Walk 150 feet: 6 PT Plan Treatment/Plan Treatment Plan: Discontinue PT, goals met Treatment Plan: Bed Mobility, Education, Functional Activity Leon, Functional Strength, Gait, Safety, Therapeutic Exercise, Transfers Treatment Duration: Mar 27, 2020 Frequency: 3 times per week Estimated Hrs Per Day: .25 hour per day Patient and/or Family Agrees t: Yes Time/GCodes Time In: 943 Time Out: 956 Total Billed Treatment Time: 13 Total Billed Treatment 1 visit FA 13 min CONNOR KNOX PT Mar 26, 2020 10:05
[2020-03-26 10:46] LABS: CHLORIDE 102 MMOL/L (98-107); POTASSIUM 3.5 MMOL/L (3.6-5.0); SODIUM 132 MMOL/L (135-145)
[2020-03-26 10:47] LABS: CALCIUM 8.1 MG/DL (8.5-10.1)
[2020-03-26 10:48] LABS: GLUCOSE 94 MG/DL (70-105)
[2020-03-26 10:49] LABS: CARBON DIOXIDE 22 MMOL/L (21-32)
[2020-03-26 10:52] LABS: BUN/CREATININE RATIO 10; GFR ESTIMATED > 60
--- NOTE | 2020-03-26 11:07 | Occupational Ther Daily Note ---
OT Current Status-Daily Note Subjective Pt seated in recliner, agreeable to OT Tx. Pt reports she doesn't think her AC is working at home and states concerns. ADL-Treatment Therapy Code Descriptions/Definitions Functional [place] Measure: 0=Not Assessed/NA 4=Minimal Assistance 1=Total Assistance 5=Supervision or Setup 2=Maximal Assistance 6=Modified [place] 3=Moderate Assistance 7=Complete IndependenceSCALE: Activities may be completed with or without assistive devices. 3-Bitgcccsng-ppjbkji completes the activity by him/herself with no assistance from a helper. 5-Set-up or Clean-up Assistance-helper sets up or cleans up; patient completes activity. [place] assists only prior to or following the activity. 4-Supervision or Touching Assistance-helper provides verbal cues and/or touching/steadying and/or contact guard assistance as patient completes activi ty. Assistance may be provided throughout the activity or intermittently. 3-Partial/Moderate Assistance-helper does LESS THAN HALF the effort. [place] lifts, holds or supports trunk or limbs, but provides less than half the effort. 2-Substantial/Maximal Assistance-helper does MORE THAN HALF the effort. [place] lifts or holds trunk or limbs and provides more than half the effort. 4-Bqwtcssri-dimutm does ALL the effort. Patient does none of the effort to complete the activity. Or, the assistance of 2 or more helpers is required for the patient to complete the activity. If activity was not attempted, code reason: 7-Patient Refused. 9-Not Applicable-not attempted and the patient did not perform the activity before the current illness, exacerbation or injury. 10-Not Attempted due to Environmental Limitations-(lack of equipment, weather restraints, etc.). 88-Not Attempted due to Medical Conditions or Safety Concerns. Oral Hygiene (QC): 4 (Pt able to brush dentures with set up. Min verbal cues for sequencing.) Other Treatment Pt seated in recliner, agreeable to OT Tx with focus on ADLS. OT gathered ADL supplies and set up on tray table. Pt washed her face with set up at recliner level, then brushed her dentures. Pt required min verbal cues for sequencing of task. OT cleaned up post ADL tx. Pt seated in recliner, call light in reach and all needs met post tx. Education OT Patient Education: Correct positioning, Energy conservation, Exercise program, Modified ADL techniques, Progress toward Goal/Update tx plan, Purpose of tx/functional activities Teaching Recipient: Patient Teaching Methods: Discussion Response to Teaching: Verbalize Understanding OT Fdc Goals Fdc Goals Time Frame: Apr 01, 2020 Eating (QC): 6 Oral Hygiene (QC): 6 Toileting Hygiene (QC): 4 Shower/Bathe Self (QC): 4 Upper Body Dressing (QC): 5 Lower Body Dressing (QC): 5 On/Off Footwear (QC): 5 Additional Goals: 1-Demonstrate ADL Tasks, 2-Verbalize Understanding, 3- ImproveStrength/Leon 1=Demonstrate adherence to instructed precautions during ADL tasks. 2=Patient will verbalize/demonstrate understanding of assistive devices/modifications for ADL. 3=Patient will improve strength/tolerance for activity to enable patient to perform ADL's. OT Education/Plan Problem List/Assessment Assessment: Decreased Activ Tolerance, Decreased UE Strength, Impaired I ADL's, Impaired Self-Care Skills Discharge Recommendations Plan/Recommendations: Continue POC Treatment Plan/Plan of Care Patient would benefit from OT for education, treatment and training to promote independence in ADL's, mobility, safety and/or upper extremity function for ADL's. Plan of Care: ADL Retraining, Functional Mobility, UE Funct Exercise/Act Treatment Duration: Apr 01, 2020 Frequency: 5 times per week Estimated Hrs Per Day: .25 hour per day Agreement: Yes Rehab Potential: Fair Time/GCodes Start Time: 10:25 Stop Time: 10:38 Total Time Billed (hr/min): 13 Billed Treatment Time 1, ADL WAQAR DEL CID OT Mar 26, 2020 11:07
[2020-03-26 11:55] VITALS: BP 175/81
[2020-03-26 12:03] VITALS: BP 148/65
--- NOTE | 2020-03-26 14:37 | Discharge Summary ---
Discharge Summary Hospital Course Was the Problem List Reviewed?: Yes Problems/Dx: (1) Hyponatremia Status: Acute (2) Pleural effusion Status: Acute (3) Hypertension Status: Acute Qualifiers: Qualified Codes: I10 - Essential (primary) hypertension (4) Atrial fibrillation Status: Acute (5) Debility Status: Acute (6) Aortic stenosis Qualifiers: Qualified Codes: I35.0 - Nonrheumatic aortic (valve) stenosis Hospital Course Date of Admission: Mar 24, 2020 at 10:00 Admission Diagnosis : hyponatremia Family Physician/Provider: Sadie Maria MD Date of Discharge: 03/26/20 Discharge Diagnosis: hyponatremia Hospital Course: Jazmine Finley is an 79-year-old female who presented with weakness and was admitted with hyponatremia. Her sodium on arrival is 121. She was started on IV fluid resuscitation with normal saline and her sodium level improved. On discharge her sodium level increased to 132. Her hyponatremia was thought to be due to hypovolemia. Her CT scan on arrival showed bilateral pleural effusions. She did not require any supplemental oxygen. Her workup revealed moderate to severe aortic stenosis by echocardiogram. This was a known finding and she follows with Dr. Yuen in [place]. She should follow-up with her director physical a couple weeks. She plans to establish care with a new primary care physician, Dr. De Paz. Labs and Pending Lab Test: Laboratory Tests 03/26/20 05:29: Glucometer 89 03/26/20 10:30: Sodium Level 132L, Potassium Level 3.5L, Chloride Level 102, Carbon Dioxide Level 22, Anion Gap 8, Blood Urea Nitrogen 6L, Creatinine 0.60, Estimat Glomerular Filtration Rate > 60, BUN/Creatinine Ratio 10, Glucose Level 94, Calcium Level 8.1L Microbiology 03/24/20 Influenza Types A,B Antigen (TATY) - Final, Complete 03/24/20 Blood Culture - Preliminary, Resulted No growth Home Meds Active Amlodipine Besylate 10 Mg Tablet 10 Mg PO DAILY 90 Days Reported Miralax (Polyethylene Glycol 3350) 17 Gm Powd.pack 17 Gm PO DAILY PRN Pravastatin Sodium 20 Mg Tablet 20 Mg PO HS Amiodarone HCl 200 Mg Tablet 200 Mg PO BID Euthyrox (Levothyroxine Sodium) 50 Mcg Tablet 50 Mcg PO DAILY Losartan Potassium 100 Mg Tablet 100 Mg PO DAILY Tramadol HCl 50 Mg Tablet 50 Mg PO Q6H PRN Acetaminophen 325 Mg Tablet 325-650 Mg PO Q6H PRN Aspir 81 (Aspirin) 81 Mg Tablet. 81 Mg PO DAILY Xarelto (Rivaroxaban) 20 Mg Tablet 20 Mg PO DAILY Gabapentin 800 Mg Tablet 800 Mg PO HS Assessment/Pt Instructions Take medications as prescribed. Follow-up with your director physical for urinary aortic stenosis. Establish care with a new primary care physician, Dr. De Paz. Discharge Planning: <30 minutes discharge planning Discharge Instructions Discharge Diet: No Restrictions Activity as Tolerated: Yes Discharge Physical Examination Vital Signs Vital Signs Date Time Temp Pulse Resp B/P (MAP) Pulse Ox O2 Delivery O2 Flow Rate FiO2 03/26/20 13:02 76 03/26/20 12:03 36.5 19 148/65 (92) 95 Room Air 03/26/20 11:43 2.00 General Appearance: No Apparent Distress, Chronically ill HEENT: PERRL/EOMI, Pharynx Normal Respiratory: Lungs Clear, Normal Breath Sounds, No Respiratory Distress Cardiovascular: Regular Rate, Rhythm, Systolic Murmur Gastrointestinal: Normal Bowel Sounds, Non Tender, Soft Extremity: Normal Inspection, Non Tender, No Pedal Edema Skin: Normal Color, Warm/Dry Neurologic/Psychiatric: Alert, Oriented x3, Normal Mood/Affect, Motor Weakness Allergies: Coded Allergies: pregabalin (Verified Allergy, Unknown, 03/22/20) Copy Copies To 1: BRIA DE PAZ MD Discharge Summary Date of Admission Mar 24, 2020 at 10:00 Date of Discharge Mar 26, 2020 at 14:22 Discharge Date: Mar 26, 2020 Discharge Time: 14:22 Admission Diagnosis Hyponatremia Discharge Diagnosis Hyponatremia (1) Hyponatremia Status: Acute (2) Pleural effusion Status: Acute (3) Hypertension Status: Acute Qualifiers: Qualified Codes: I10 - Essential (primary) hypertension (4) Atrial fibrillation Status: Acute (5) Debility Status: Acute Clinical Quality Measures DVT/VTE Risk/Contraindication: Risk Factor Score Per Nursin RFS Level Per Nursing on Admit: 4+=Very High CHYNA DIAMOND MD Mar 26, 2020 14:37
== END 2020-03-26 14:22 | disposition home health service (06) | DRG 641 ==
LOC: EDUNIT# 05:32 → ER 05:34 → 4TH 10:00
PROVIDERS: ADMIT Internal Medicine; ATTEND Internal Medicine
DX: E87.1 Hypo-osmolality and hyponatremia (principal); J90 Pleural effusion, not elsewhere classified; J44.1 Chronic obstructive pulmonary disease with (acute) exacerbation; E86.1 Hypovolemia; I35.0 Nonrheumatic aortic (valve) stenosis; I10 Essential (primary) hypertension; E78.5 Hyperlipidemia, unspecified; I25.10 Atherosclerotic heart disease of native coronary artery without angina pectoris; I48.0 Paroxysmal atrial fibrillation; E03.9 Hypothyroidism, unspecified; R09.02 Hypoxemia; K59.00 Constipation, unspecified; I73.9 Peripheral vascular disease, unspecified; G62.9 Polyneuropathy, unspecified; K21.9 Gastro-esophageal reflux disease without esophagitis; R13.10 Dysphagia, unspecified; M34.9 Systemic sclerosis, unspecified; M06.9 Rheumatoid arthritis, unspecified; Z79.01 Long term (current) use of anticoagulants; Z87.891 Personal history of nicotine dependence; Z86.73 Personal history of transient ischemic attack (TIA), and cerebral infarction without residual deficits
CPT/HCPCS: 36415; 71260; 74177; 80048; 80053; 80329; 81000; 82150; 82570; 82962; 83605; 83690; 83735; 83880; 83935; 84295; 84300; 84443; 85007; 85025; 85027; 85610; 85730; 86141; 87040; 87635; 87804; 93005; 93041; 93306; 96361; 96374; 96375

== ENCOUNTER 2020-05-10 14:10 | Inpatient (IN) | payer MEDICARE, OTHER ==
[~2020-05-10] VITALS: Ht 160 cm; Wt 72.3 kg
[2020-05-10] VITALS (18 sets, daily range): BP systolic 61–153; BP diastolic 23–56
[~2020-05-10 14:10] MED LIST changes: +ACET325T49 PO; +AMIO200T4 PO; +AMLO10TA7 PO; +AMLO5TAB9 PO; +LEVO-129 PO; +LOSA100T57 PO; +POLY17PO6 PO; +PRAV20TA3 PO; +PREG50CA65 PO; +TRAM50TA3 PO
--- NOTE | 2020-05-10 14:23 | ED General ---
General Stated Complaint: AMS Source of Information: EMS, Longterm Records Exam Limitations: No Limitations History of Present Illness Date Seen by Provider: May 10, 2020 Time Seen by Provider: 14:20 Initial Comments To ER by EMS from [facility] with reports of altered mental status and hypoxia. She was fine at lunchtime, up walking around and ate lunch normally. Nursing staff found all or in her room minimally responsive with a brief period of apnea. EMS arrived and found oxygen saturation to be 60% on room air, she was placed on a nonrebreather with increased to 100%. She just finished antibiotics for a pneumonia 2-3 days ago. Follow-up with Dr. Argueta from cardiology in [place] in regards to moderate to severe aortic stenosis. history of atrial fibrillation for which she is on Eliquis. COPD, recurrent right pleural effusion. Timing/Duration: 1-2 Days Severity: Moderate Associated Systoms: Shortness of Air Allergies and Home Medications Allergies Coded Allergies: pregabalin (Verified Allergy, Unknown, 03/22/20) Home Medications Acetaminophen 325 Mg Tablet, 325-650 MG PO Q6H PRN for PAIN-MODERATE (5-7), (Reported) Amiodarone HCl 200 Mg Tablet, 200 MG PO BID, (Reported) Amlodipine Besylate 10 Mg Tablet, 10 MG PO DAILY Prescribed by: CHYNA DIAMOND on 03/25/20 1432 Aspirin 81 Mg Tablet.dr, 81 MG PO DAILY, (Reported) Gabapentin 800 Mg Tablet, 800 MG PO HS, (Reported) Levothyroxine Sodium 50 Mcg Tablet, 50 MCG PO DAILY, (Reported) Losartan Potassium 100 Mg Tablet, 100 MG PO DAILY, (Reported) Polyethylene Glycol 3350 17 Gm Powd.pack, 17 GM PO DAILY PRN for CONSTIPATION- 2ND LINE, (Reported) Pravastatin Sodium 20 Mg Tablet, 20 MG PO HS, (Reported) Rivaroxaban 20 Mg Tablet, 20 MG PO DAILY, (Reported) Tramadol HCl 50 Mg Tablet, 50 MG PO Q6H PRN for PAIN-MODERATE (5-7), (Reported) Patient Home Medication List Home Medication List Reviewed: Yes Review of Systems Review of Systems Constitutional: see HPI EENTM: see HPI Respiratory: see HPI, dyspnea on exertion, short of breath Cardiovascular: no symptoms reported Genitourinary: no symptoms reported Musculoskeletal: no symptoms reported Skin: no symptoms reported Psychiatric/Neurological: No Symptoms Reported Hematologic/Lymphatic: No Symptoms Reported Past Pdisrgj-Lcfiwi-Qjlbri Hx Patient Social History Alcohol Beverage of Choice: Beer Type Used: Cigarettes Former Smoker, Quit: Nov 15, 1979 2nd Hand Smoke Exposure: Yes (1979 QUITE) Immunizations Up To Date Tetanus Booster (TDap): Unknown Date of Pneumonia Vaccine: Mar 24, 2018 Date of Influenza Vaccine: Jun 26, 2019 Seasonal Allergies Seasonal Allergies: No Past Medical History Surgeries: Yes Eye Surgery, Orthopedic Respiratory: Yes COPD Currently Using CPAP: No Currently Using BIPAP: No Cardiac: Yes Atrial Fibrillation, Hypertension, Peripheral Vascular, Valvular Heart Disease Neurological: Yes Neuropathy, TIA 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 Disorders: No FUR DRUMMER History: Menopausal Genitourinary: No Gastrointestinal: Yes (dysphagia) Gastroesophageal Reflux Musculoskeletal: Yes (scleroderma) Rheumatoid Arthritis Endocrine: Yes Hyperthyroidism Cataract Cancer: No Psychosocial: No Integumentary: Yes (SCLERODERMA) Blood Disorders: No Adverse Reaction/Blood Tranf: No Family Medical History No Pertinent Family Hx Physical Exam Vital Signs Vital Signs - First Documented 05/10/20 14:12 Temp 36.5 Pulse 72 Resp 38 B/P (MAP) 153/56 (88) Pulse Ox 100 O2 Delivery Non Rebreather O2 Flow Rate 10.00 Capillary Refill : Height, Weight, BMI Height: 5'3.00" Weight: 112lbs. 0.0oz. 50.300546kx; 17.85 BMI Method:Stated General Appearance: Chronically ill, Moderate Distress (moaning, tachypneic), Severe Distress Eyes: Bilateral Eye Normal Inspection, Bilateral Eye PERRL HEENT: PERRL/EOMI Neck: Full Range of Motion, Normal Inspection Respiratory: No Accessory Muscle Use, No Respiratory Distress, Crackles Cardiovascular: Regular Rate, Rhythm, Normal Peripheral Pulses Gastrointestinal: Normal Bowel Sounds, Non Tender, Soft Extremity: Normal Capillary Refill, Pedal Edema (2+ bilateral lower extremities) Focused Exam Lactate Level 05/10/20 14:20: Lactic Acid Level Laboratory Tests Test 05/10/20 14:20 Progress/Results/Core Measures Suspected Sepsis SIRS Temperature: Pulse: Respiratory Rate: Laboratory Tests 05/10/20 14:20: White Blood Count 12.5H Blood Pressure / Mean: 05/10/20 14:20: Laboratory Tests 05/10/20 14:20: Platelet Count 545H Results/Orders Lab Results Laboratory Tests Test 05/10/20 14:20 Range/Units White Blood Count 12.5 H 4.3-11.0 10^3/uL Red Blood Count 2.63 L 4.35-5.85 10^6/uL Hemoglobin 8.2 L 11.5-16.0 G/DL Hematocrit 25 L 35-52 % Mean Corpuscular Volume 94 80-99 FL Mean Corpuscular Hemoglobin 31 25-34 PG Mean Corpuscular Hemoglobin Concent 33 32-36 G/DL Red Cell Distribution Width 14.1 10.0-14.5 % Platelet Count 545 H 130-400 10^3/uL Mean Platelet Volume 8.7 7.4-10.4 FL Neutrophils (%) (Auto) 74 42-75 % Lymphocytes (%) (Auto) 14 12-44 % Monocytes (%) (Auto) 11 0-12 % Eosinophils (%) (Auto) 1 0-10 % Basophils (%) (Auto) 0 0-10 % Neutrophils # (Auto) 9.3 H 1.8-7.8 X 10^3 Lymphocytes # (Auto) 1.7 1.0-4.0 X 10^3 Monocytes # (Auto) 1.4 H 0.0-1.0 X 10^3 Eosinophils # (Auto) 0.1 0.0-0.3 10^3/uL Basophils # (Auto) 0.0 0.0-0.1 10^3/uL My Orders Orders - ADY WIGGINS APRN Cbc With Automated Diff (05/10/20 14:17) Comprehensive Metabolic Panel (05/10/20 14:17) Protime With Inr (05/10/20 14:17) Ct Head Wo (05/10/20 14:17) Chest 1 View, Ap/Pa Only (05/10/20 14:17) Blood Culture (05/10/20 14:17) Lactic Acid Analyzer (05/10/20 14:17) BNP (05/10/20 14:17) Ekg Tracing (05/10/20 14:17) Ua Culture If Indicated (05/10/20 14:17) Morphine Injection (Morphine Injection (05/10/20 14:28) Palliative Care Consult (05/10/20 14:32) Vital Signs/I&O 05/10/20 14:12 Temp 36.5 Pulse 72 Resp 38 B/P (MAP) 153/56 (88) Pulse Ox 100 O2 Delivery Non Rebreather O2 Flow Rate 10.00 Capillary Refill : Departure Communication (Admissions) 1430-spoke with the patient's son about wishes given her distress and possible need for ventilator but her advanced age and multiple comorbidities. Advised him that if she goes on the ventilator she will not likely come off of it. All are comfortable he'll be here to see her shortly. Impression Primary Impression: Respiratory distress Additional Impression: Aortic stenosis Qualified Codes: I35.0 - Nonrheumatic aortic (valve) stenosis Disposition: ADMITTED INPATIENT Condition: Critical Admissions Decision to Admit Reason: Admit from ER (General) Decision to Admit/Date: May 10, 2020 Time/Decision to Admit Time: 14:32 Departure-Patient Inst. Referrals: DIXIE HERRERA MD (PCP/Family) Primary Care Physician ADY WIGGINS APRN May 10, 2020 14:22
[2020-05-10] MEDS ORDERED: morphine INJ 10 MG/ML 1ML (SYR OR VIAL) IVP STA ×4 (14:28→16:28)
[2020-05-10 14:35] LABS: BASOPHILS % (AUTO) 0 % (0-10); EOSINOPHILS # (AUTO) 0.1 10^3/uL (0.0-0.3); EOSINOPHILS % (AUTO) 1 % (0-10); HEMATOCRIT 25 % (35-52); HEMOGLOBIN 8.2 G/DL (11.5-16.0); LYMPHOCYTES # (AUTO) 1.7 X 10^3 (1.0-4.0); LYMPHOCYTES % (AUTO) 14 % (12-44); MEAN CORPUSCULAR HEMOGLOBIN 31 PG (25-34); MEAN CORPUSCULAR HGB CONC 33 G/DL (32-36); MEAN CORPUSCULAR VOLUME 94 FL (80-99); MEAN PLATELET VOLUME 8.7 FL (7.4-10.4); MONOCYTES # (AUTO) 1.4 X 10^3 (0.0-1.0); MONOCYTES % (AUTO) 11 % (0-12); NEUTROPHILS # (AUTO) 9.3 X 10^3 (1.8-7.8); NEUTROPHILS % (AUTO) 74 % (42-75); PLATELET COUNT 545 10^3/uL (130-400); RED CELL DISTRIBUTION WIDTH 14.1 % (10.0-14.5); WHITE BLOOD COUNT 12.5 10^3/uL (4.3-11.0)
[2020-05-10 14:46] LABS: BILIRUBIN,URINE NEGATIVE (NEGATIVE); CLARITY,URINE CLEAR; COLOR,URINE YELLOW; GLUCOSE, URINE (UA) NEGATIVE (NEGATIVE); KETONES,URINE NEGATIVE (NEGATIVE); LEUKOCYTE ESTERASE ,URINE TRACE (NEGATIVE); NITRITE,URINE NEGATIVE (NEGATIVE); PROTEIN,URINE NEGATIVE (NEGATIVE)
[2020-05-10 14:50] LABS: ALBUMIN 3.1 GM/DL (3.2-4.5); CHLORIDE 96 MMOL/L (98-107); INR 2.8 (0.8-1.4); POTASSIUM 4.1 MMOL/L (3.6-5.0); PROTHROMBIN TIME PATIENT 29.5 SEC (12.2-14.7); SODIUM 128 MMOL/L (135-145)
[2020-05-10 14:51] LABS: CALCIUM 8.2 MG/DL (8.5-10.1)
[2020-05-10 14:52] LABS: GLUCOSE 186 MG/DL (70-105)
[2020-05-10 14:53] LABS: TOTAL PROTEIN 5.8 GM/DL (6.4-8.2)
[2020-05-10 14:54] LABS: BILIRUBIN,TOTAL 0.5 MG/DL (0.1-1.0); CARBON DIOXIDE 18 MMOL/L (21-32)
[2020-05-10 14:56] LABS: ALKALINE PHOSPHATASE 113 U/L (40-136); CREATININE SERUM 0.77 MG/DL (0.60-1.30); GFR ESTIMATED > 60
[2020-05-10 14:57] LABS: BUN/CREATININE RATIO 16
[2020-05-10 14:59] LABS: ALANINE AMINOTRANSFERASE 37 U/L (0-55)
[2020-05-10 15:01] LABS: AMORPHOUS SEDIMENT,UR FEW AMOR URATES /LPF; BACTERIA,URINE TRACE /HPF; WBC,URINE 0-2 /HPF
[2020-05-10] MEDS ORDERED: HOLD METFORMIN - RECEIVED CONTRAST 20 ML VIAL IV SCH (15:30)
[2020-05-10] MEDS ORDERED: IOHEXOL 350 MG/ML 100 ML (OMNIPAQUE 350) VIAL IV ONE (15:30)
[2020-05-10] MEDS ORDERED: CATHETER FLUSH 10 ML SYR IV PRN (15:30)
--- NOTE | 2020-05-10 15:49 | History & Physical-Hospitalist ---
History of Present Illness HPI/Chief Complaint Pt is an 79yoCF with a PMH of aortic stenosis, COPD, CAD with recent stenting, HTN, HLD, hypothyroidism, paroxysmal atrial fibrillation on chronic anticoagulation who presented to the ER due to hypoxia. She is unable to provide much history and onlyanswered a few yes or no questions for me. She told me she was sick and that she was not having pain. Otherwise all history obtained from family and records. She was apparently in her normal state this morning (ambulatory and alert and oriented x4). She spoke to her son and then had lunch. Sometime after lunch they found her in her room minimallyresponsive. There was c oncern for an episode of apnea as well. EMS was summoned and she was found to have oxygen saturations in the 60%. She was placed on a nonrebreather which brought her oxygen saturations up. She was taken for CT head as she is on Xarelto. Source: patient Date Seen 05/10/20 Time Seen by a Provider: 15:40 Attending Physician Mimi Marrufo Rachel L MD Referring Physician Date of Admission Home Medications & Allergies Home Medications Reviewed patient Home Medication Reconciliation performed by pharmacy medication reconciliations pm technician and/or nursing. Patients Allergies have been reviewed. Allergies Allergies Coded Allergies pregabalin (Verified Allergy, Unknown, 03/22/20) Past Ftfondu-Vinveh-Qamgae Hx Past Med/Social Hx: Reviewed Nursing Past Med/Soc Hx Patient Social History Alcohol Use: Denies Use Alcohol Beverage of Choice: Beer Recreational Drug Use: No Smoking Status: Former Smoker Former Smoker, Quit: Nov 15, 1979 Type Used: Cigarettes 2nd Hand Smoke Exposure: Yes (1979 QUITE) Recent Foreign Travel: No Contact w/other who traveled: No Recent Infectious Disease Expo: No Immunizations Up To Date Tetanus Booster (TDap): Unknown Date of Pneumonia Vaccine: Mar 24, 2018 Date of Influenza Vaccine: Jun 26, 2019 Seasonal Allergies Seasonal Allergies: No Past Medical History Surgeries: Eye Surgery, Orthopedic Currently Using CPAP: No Currently Using BIPAP: No Cardiac: Atrial Fibrillation, Hypertension, Peripheral Vascular, Valvular Heart Disease Neurological: Neuropathy, TIA 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: No Menopausal Gastrointestinal: Gastroesophageal Reflux Musculoskeletal: Rheumatoid Arthritis Endocrine: Hyperthyroidism HEENT: Cataract History of Blood Disorders: No Adverse Reaction to Blood Burroughs: No Family History No Pertinent Family Hx Physical Exam Physical Exam Vital Signs Vital Signs - First Documented 05/10/20 05/10/20 14:12 20:00 Temp 36.5 Pulse 72 Resp 38 B/P (MAP) 153/56 (88) Pulse Ox 100 O2 Delivery Non Rebreather O2 Flow Rate 10.00 FiO2 50 Capillary Refill : Less Than 3 Seconds Height, Weight, BMI Height: 5'3.00" Weight: 112lbs. 0.0oz. 50.503297ta; 23.00 BMI Method:Stated Results Results/Procedures Labs Laboratory Tests 05/12/20 03:30 05/13/20 03:29 05/13/20 16:25 Patient resulted labs reviewed. Assessment/Plan Admission Diagnosis Acute Hypoxic Respiratory Failure Admission Status: Inpatient Order (span 2 midnights) Reason for Inpatient Admission: see below Assessment and Plan Acute Hypoxic Respiratory Failure Recently treated pneumonia Etiology unclear at this time CT Head pending CT Chest/Abd/Pelvis ordered Troponin pending Procal pending CAD Aortic Stenosis Son reports she recently had a stent placed by Dr Yuen Will need to resume DAPT when CT results back COPD Resume home inhalers MAT protocol Anemia New onset Hemoglobin 11-12 last month MIMI MARRUFO MD May 10, 2020 15:49
[2020-05-10] MEDS ORDERED: PANTOPRAZOLE 40 MG (PROTONIX) VIAL IV ONE (16:30)
--- NOTE | 2020-05-10 16:33 | Diagnostic Imaging Report ---
INDICATION: Shortness of air. COMPARISON: 11/07/2019 FINDINGS: Single frontal radiographic view of the chest was obtained and demonstrates mild bibasilar pleural effusions. There is asymmetric prominent opacity within the right base, which is partially obscured, but measures 3.8 cm in diameter. There is no pneumothorax on either side. Cardiac silhouette and pulmonary vasculature are within normal limits. Calcified aortic atherosclerosis is noted. Osseous structures show no gross acute abnormalities. IMPRESSION: 1. Persistent mild bilateral pleural effusions. 2. Asymmetric rounded atelectasis versus partially obscured mass in the right base. Dictated by: Dictated on workstation # [id number]
--- OUTSIDE RECORDS SUMMARY | 2020-05-10 16:36 | XMS REPORT | Continuity of Care Document ---
Demographics Preferred Language Unknown Marital Status Unknown Adventist Affiliation Unknown Race Unknown Ethnic Group Unknown Author Organization Unknown Address Unknown Phone Unavailable Allergies Active Description Code Type Severity Reaction Onset Reported/Identified Relationship to Patient Clinical Status Yes ALBUTEROL SULFATE SEVERE DIZZINESS Yes ALBUTEROL SULFATE SEVERE SEVERE Yes DICYCLOMINE SEVERE OTHER Yes DICYCLOMINE SEVERE SEVERE Yes FLONASE ALLERGY RELIEF UNKNOWN UNKNOWN Yes PENICILLINS UNKNOWN UNKNOWN Yes PREDNISONE UNKNOWN DIZZINESS Yes PREDNISONE UNKNOWN UNKNOWN Yes [id number] REDUCTASE INHIBITORS UNKNOWN GI PROBLEMS - DIARRH Yes [id number] REDUCTASE INHIBITORS UNKNOWN UNKNOWN Yes fluticasone [id number] Drug Aller gy Unknown N/A 10/09/2015 Yes Lactase [id number] Drug Allergy Unknown N/A 10/09/2015 Yes Penicillins [id number] Drug Aller gy Unknown N/A 10/09/2015 Yes No Known Drug Allergies [id number] Drug Allergy Unknown N/A 06/10/2019 Yes pregabalin [id number] Drug Allerg y Unknown N/A 03/22/2020 Medications There is no data. Problems Date Dx Coded Attending Type Code Diagnosis Diagnosed By 09/13/1134 DIXIE HERRERA MD Ot M34.9 SYSTEMIC SCLEROSIS, UNSPECIFIED 09/13/1134 DIXIE HERRERA MD Ot R53.1 WEAKNESS 09/25/2010 Ot 784.2 09/25/2010 Ot 786.50 09/25/2010 Ot 789.06 09/25/2010 Ot E946.6 11/20/2014 Ot 285.9 11/20/2014 Ot 401.9 11/20/2014 Ot 786.09 11/20/2014 Ot 401.9 11/20/2014 Ot 786.09 11/24/2014 Ot 285.9 11/24/2014 Ot 401.9 11/24/2014 Ot 786.09 11/24/2014 Ot 401.9 11/24/2014 Ot 786.09 01/08/2015 Ot 787.20 02/03/2015 CHRYSTALBAKAYLIE DO, MICHAEL D Ot 780.79 02/03/2015 DEFSYLVIABAKAYLIE DO, MICHAEL D Ot 786.05 02/03/2015 TARANFENBAUGH DO, MICHAEL D Ot 786.50 03/13/2015 DEFFENBAUGH DO, MICHAEL D Ot 780.79 03/13/2015 DEFFENBAUGH DO, MICHAEL D Ot 786.05 03/13/2015 CHRYSTALBAUGH DO, MICHAEL D Ot 786.50 03/13/2015 TARANFENBAUGH DO, MICHAEL D Ot 787.99 03/24/2015 Ot 285.9 03/24/2015 Ot 401.9 03/24/2015 Ot 786.09 03/24/2015 Ot 401.9 03/24/2015 Ot 786.09 03/24/2015 CHRYSTALBAKAYLIE DO, MICHAEL D Ot 440.20 03/24/2015 Ot 787.20 03/24/2015 CHRYSTALBAKAYLIE DO, MICHAEL D Ot 780.79 03/24/2015 TARANFENBAUGH DO, MICHAEL D Ot 786.05 03/24/2015 TARANFENBAUGH DO, MICHAEL D Ot 786.50 03/24/2015 TARANFENBAUGH DO, MICHAEL D Ot 780.79 03/24/2015 CHRYSTALBAUGH DO, MICHAEL D Ot 786.05 03/24/2015 TARANFENBAUGH DO, MICHAEL D Ot 786.50 03/24/2015 CHRYSTALBAUGH DO, MICHAEL D Ot 787.99 03/29/2015 CHRYSTALBAKAYLIE DO, MICHAEL D Ot 780.79 03/29/2015 CHRYSTALBAKAYLIE DO, MICHAEL D Ot 786.05 03/29/2015 TARANFENBAUGH DO, MICHAEL D Ot 786.50 04/15/2015 SILVIANO SHRESTHA DO Ot 492. 8 04/15/2015 SILVIANO SHRESTHA DO Ot 710. 1 05/31/2015 YELENA MA MD Ot 710. 1 05/31/2015 YELENA MA MD Ot 786. 05 10/04/2015 Ot 285.9 10/04/2015 Ot 401.9 10/04/2015 Ot 786.09 10/04/2015 Ot 401.9 10/04/2015 Ot 786.09 10/04/2015 KEVIN DO, MICHAEL D Ot 440.20 10/04/2015 Ot 787.20 10/04/2015 KEVIN DO, MICHAEL D Ot 780.79 10/04/2015 KEVIN DO, MICHAEL D Ot 786.05 10/04/2015 KEVIN DO, MICHAEL D Ot 786.50 10/04/2015 KEVIN DO, MICHAEL D Ot 780.79 10/04/2015 KEVIN DO, MICHAEL D Ot 786.05 10/04/2015 KEVIN DO, MICHAEL D Ot 786.50 10/04/2015 KEVIN DO, MICHAEL D Ot 787.99 10/04/2015 SILVIANO SHRESTHA DO Ot 492. 8 10/04/2015 SILVIANO SHRESTHA DO Ot 710. 1 10/04/2015 YELENA MA MD Ot 710. 1 10/04/2015 YELENA MA MD Ot 786. 05 10/09/2015 GERONIMO TORRES MD Ot F17.211 NICOTINE DEPENDENCE, CIGARETTES, IN [place] 10/09/2015 GERONIMO TORRES MD Ot I48.91 UNSPECIFIED ATRIAL FIBRILLATION 10/09/2015 GERONIMO TORRES MD Ot M34.9 SYSTEMIC SCLEROSIS, UNSPECIFIED 10/09/2015 GERONIMO TORRES MD Ot R07.89 OTHER CHEST PAIN 10/09/2015 GERONIMO TORRES MD Ot R20.2 PARESTHESIA OF SKIN 10/09/2015 GERONIMO TORRES MD Ot Z79.02 COUNSELOR/ART THERAPIST (CURRENT) USE OF ANTITHROMBOTI 10/09/2015 GERONIMO TORRES MD Ot Z79.82 COUNSELOR/ART THERAPIST (CURRENT) USE OF ASPIRIN 10/24/2015 SANDRA DOMINGUEZ MD Ot G45. 9 TRANSIENT CEREBRAL ISCHEMIC ATTACK, UNSP 10/24/2015 SANDRA DOMINGUEZ MD Ot Z79. 01 COUNSELOR/ART THERAPIST (CURRENT) USE OF ANTICOAGULANT 10/26/2015 DIXIE HERRERA MD Ot M34.9 12/01/2015 LYDIA CHAVARRIA, TANK Lee Ot R07.9 03/06/2016 DIXIE HERRERA MD Ot M62.81 MUSCLE WEAKNESS (GENERALIZED) 03/06/2016 JAVIER CHAVARRIA, DIXIE L Ot M79.604 PAIN IN RIGHT LEG 03/06/2016 JAVIER CHAVARRIA, DIXIE Ybarra Ot M79.605 PAIN IN LEFT LEG 03/09/2016 JAVIER CHAVARRIA, DIXIE Ybarra Ot M62.81 MUSCLE WEAKNESS (GENERALIZED) 03/09/2016 JAVIER CHAVARRIA, DIXIE Ybarra Ot M79.604 PAIN IN RIGHT LEG 03/09/2016 JAVIER CHAVARRIA, DIXIE Ybarra Ot M79.605 PAIN IN LEFT LEG 08/07/2017 DIXIE HERRERA A 401.0 MALIGNANT ESSENTIAL HYPERTENSION 08/07/2017 DIXIE HERRERA A I10 ESSENTIAL (PRIMARY) HYPERTENSION 08/07/2017 DIXIE HERRERA W 272.4 OTHER AND UNSPECIFIED HYPERLIPIDEMIA 08/07/2017 DIXIE HERRERA A 401.0 MALIGNANT ESSENTIAL HYPERTENSION 08/07/2017 DIXIE HERRERA W E78.5 HYPERLIPIDEMIA, UNSPECIFIED 08/07/2017 DIXIE HERRERA A I10 ESSENTIAL (PRIMARY) HYPERTENSION 08/07/2017 DIXIE HERRERA W 272.4 OTHER AND UNSPECIFIED HYPERLIPIDEMIA 08/07/2017 DIXIE HERRERA A 401.0 MALIGNANT ESSENTIAL HYPERTENSION 08/07/2017 DIXIE HERRERA W 427.31 ATRIAL FIBRILLATION 08/07/2017 DIXIE HERRERA W E78.5 HYPERLIPIDEMIA, UNSPECIFIED 08/07/2017 DIXIE HERRERA A I10 ESSENTIAL (PRIMARY) HYPERTENSION 08/07/2017 DIXIE HERRERA W I48.0 PAROXYSMAL ATRIAL FIBRILLATION 08/07/2017 W 272.4 OTHE R AND UNSPECIFIED HYPERLIPIDEMIA 08/07/2017 A 401.0 FIOR GNANT ESSENTIAL HYPERTENSION 08/07/2017 W 427.31 ATR IAL FIBRILLATION 08/07/2017 W 696.1 OTHE R PSORIASIS 08/07/2017 W 715.16 OST EOARTHROSIS, LOCALIZED, PRIMARY, INVOLVING LOWER LEG 08/07/2017 W E78.5 HYPE RLIPIDEMIA, UNSPECIFIED 08/07/2017 A I10 ESSENT IAL (PRIMARY) HYPERTENSION 08/07/2017 W I48.0 PARO XYSMAL ATRIAL FIBRILLATION 08/07/2017 W L40.0 PSOR IASIS VULGARIS 08/07/2017 W M17.11 UNI LATERAL PRIMARY OSTEOARTHRITIS, RIGHT KNEE 08/07/2017 DIXIE HERRERA W 272.4 OTHER AND UNSPECIFIED HYPERLIPIDEMIA 08/07/2017 DIXIE HERRERA A 401.0 MALIGNANT ESSENTIAL HYPERTENSION 08/07/2017 CHRIS HERRERAHEL Doretha 427.31 ATRIAL FIBRILLATION 08/07/2017 CHRIS HERRERAARIANNA Coyne E78.5 HYPERLIPIDEMIA, UNSPECIFIED 08/07/2017 DIXIE HERRERA I10 ESSENTIAL (PRIMARY) HYPERTENSION 08/07/2017 DIXIE HERRERA Doretha I48.0 PAROXYSMAL ATRIAL FIBRILLATION 09/12/2017 MICHAEL BROWN DO Ot 440.20 ATHEROSCLEROSIS MCGRATH ARTERIES EXTREMIT 09/12/2017 Ot 787.20 DYS PHAGIA, UNSPECIFIED 09/12/2017 KEVIN BOWERS MICHAEL D Ot 780.79 OTH MALAISE FATIGUE 09/12/2017 JENNY BROWN DORY D Ot 786.05 SHORTNESS OF BREATH 09/12/2017 JENNY BROWN DORY D Ot 786.50 CHEST PAIN NOS 09/12/2017 JENNY BROWN DORY D Ot 780.79 OTH MALAISE FATIGUE 09/12/2017 JENNY BROWN DORY D Ot 786.05 SHORTNESS OF BREATH 09/12/2017 KEVIN BOWERS MICHAEL D Ot 786.50 CHEST PAIN NOS 09/12/2017 KEVIN BOWERS MICHAEL D Ot 787.99 OTHER GI SYSTEM SYMPTOMS 09/12/2017 SILVIANO SHRESTHA DO Ot 492. 8 EMPHYSEMA NEC 09/12/2017 SILVIANO SHRESTHA DO Ot 710. 1 SYSTEMIC SCLEROSIS 09/12/2017 YELENA MA MD Ot 710. 1 SYSTEMIC SCLEROSIS 09/12/2017 YELENA MA MD Ot 786. 05 SHORTNESS OF BREATH 09/12/2017 DIXIE HERRERA MD Ot M34.9 SYSTEMIC SCLEROSIS, UNSPECIFIED 09/12/2017 LYDIA CHAVARRIA, TANK Lee Ot R07.9 CHEST PAIN, UNSPECIFIED 09/12/2017 CRYS HUMPHREY APRN Ot E78.2 MIXED HYPERLIPIDEMIA 09/12/2017 CRYS HUMPHREY APRN Ot I49.9 CARDIAC ARRHYTHMIA, UNSPECIFIED 09/13/2017 PRECIOUS ARROYO DO Ot I48.91 UNSPECIFIED ATRIAL FIBRILLATION 09/13/2017 PRECIOUS ARROYO DO Ot R31 .9 HEMATURIA, UNSPECIFIED 10/05/2017 KAM, CRYS E TURN SEWER Ot J43.9 EMPHYSEMA, UNSPECIFIED 10/10/2017 KAM, CRYS E TURN SEWER Ot J43.9 EMPHYSEMA, UNSPECIFIED 10/10/2017 KAM, CRYS E TURN SEWER Ot R06.00 DYSPNEA, UNSPECIFIED 10/31/2017 A 564.1 IRRI TABLE BOWEL SYNDROME 10/31/2017 A K58.9 IRRI TABLE BOWEL SYNDROME WITHOUT DIARRHEA 11/01/2017 KAM, CRYS E TURN SEWER Ot J44.9 CHRONIC OBSTRUCTIVE PULMONARY DISEASE, U 01/04/2018 KAM, CRYS E TURN SEWER Ot J43.9 EMPHYSEMA, UNSPECIFIED 01/04/2018 KAM, CRYS E TURN SEWER Ot R06.00 DYSPNEA, UNSPECIFIED 01/08/2018 KAM, CRYS E TURN SEWER Ot J43.9 EMPHYSEMA, UNSPECIFIED 01/08/2018 KAM, CRYS E TURN SEWER Ot R06.00 DYSPNEA, UNSPECIFIED 01/15/2018 KAM, CRYS E TURN SEWER Ot J43.9 EMPHYSEMA, UNSPECIFIED 01/15/2018 KAM, CRYS E TURN SEWER Ot R06.00 DYSPNEA, UNSPECIFIED 01/17/2018 KAM, CRYS E TURN SEWER Ot J43.9 EMPHYSEMA, UNSPECIFIED 01/17/2018 KAM, CRYS E TURN SEWER Ot R06.00 DYSPNEA, UNSPECIFIED 01/22/2018 KAM, CRYS E TURN SEWER Ot J43.9 EMPHYSEMA, UNSPECIFIED 01/22/2018 KAM, CRYS E TURN SEWER Ot R06.00 DYSPNEA, UNSPECIFIED 01/24/2018 KAM, CRYS E TURN SEWER Ot J43.9 EMPHYSEMA, UNSPECIFIED 01/24/2018 KAM, CRYS E TURN SEWER Ot R06.00 DYSPNEA, UNSPECIFIED 01/29/2018 KAM, CRYS E TURN SEWER Ot J43.9 EMPHYSEMA, UNSPECIFIED 01/29/2018 KAM, CRYS E TURN SEWER Ot R06.00 DYSPNEA, UNSPECIFIED 01/31/2018 KAM, CRYS E TURN SEWER Ot J43.9 EMPHYSEMA, UNSPECIFIED 01/31/2018 KAM, CRYS E TURN SEWER Ot R06.00 DYSPNEA, UNSPECIFIED 01/31/2018 KAM, CRYS E TURN SEWER Ot J43.9 EMPHYSEMA, UNSPECIFIED 01/31/2018 KAM, CRYS E TURN SEWER Ot R06.00 DYSPNEA, UNSPECIFIED 02/07/2018 KAM, CRYS E TURN SEWER Ot J43.9 EMPHYSEMA, UNSPECIFIED 02/07/2018 KAM, CRYS E TURN SEWER Ot R06.00 DYSPNEA, UNSPECIFIED 02/12/2018 KAM CRYS E TURN SEWER Ot J43.9 EMPHYSEMA, UNSPECIFIED 02/12/2018 KAM CRYS E TURN SEWER Ot R06.00 DYSPNEA, UNSPECIFIED 02/24/2018 KAM CRYS E TURN SEWER Ot J43.9 EMPHYSEMA, UNSPECIFIED 02/24/2018 KAM CRYS E TURN SEWER Ot R06.00 DYSPNEA, UNSPECIFIED 02/25/2018 KAM CRYS E TURN SEWER Ot J43.9 EMPHYSEMA, UNSPECIFIED 02/25/2018 KAM CRYS E TURN SEWER Ot R06.00 DYSPNEA, UNSPECIFIED 03/05/2018 JAVIER, DIXIE W 401.0 MALIGNANT ESSENTIAL HYPERTENSION 03/05/2018 HERRERA, DIXIE A 787.91 DIARRHEA 03/05/2018 HERRERA, DIXIE W I10 ESSENTIAL (PRIMARY) HYPERTENSION 03/05/2018 HERRERA, DIXIE A R19.7 DIARRHEA, UNSPECIFIED 03/05/2018 HERRERA, DIXIE W 244.9 UNSPECIFIED HYPOTHYROIDISM 03/05/2018 HERRERA, DIXIE W 401.0 MALIGNANT ESSENTIAL HYPERTENSION 03/05/2018 HERRERA, DIXIE A 787.91 DIARRHEA 03/05/2018 HERRERA, DIXIE W E03.9 HYPOTHYROIDISM, UNSPECIFIED 03/05/2018 HERRERA, DIXIE W I10 ESSENTIAL (PRIMARY) HYPERTENSION 03/05/2018 HERRERA, DIXIE A R19.7 DIARRHEA, UNSPECIFIED 03/05/2018 HERRERA, DIXIE W 244.9 UNSPECIFIED HYPOTHYROIDISM 03/05/2018 HERRERA, DIXIE W 401.0 MALIGNANT ESSENTIAL HYPERTENSION 03/05/2018 HERRERA, DIXIE A 787.91 DIARRHEA 03/05/2018 HERRERA, DIXIE W E03.9 HYPOTHYROIDISM, UNSPECIFIED 03/05/2018 HERRERA, DIXIE W I10 ESSENTIAL (PRIMARY) HYPERTENSION 03/05/2018 HERRERA, DIXIE A R19.7 DIARRHEA, UNSPECIFIED 03/05/2018 W 244.9 UNSP ECIFIED HYPOTHYROIDISM 03/05/2018 W 401.0 FIOR GNANT ESSENTIAL HYPERTENSION 03/05/2018 A 787.91 CATY RRHEA 03/05/2018 W E03.9 HYPO THYROIDISM, UNSPECIFIED 03/05/2018 W I10 ESSENT IAL (PRIMARY) HYPERTENSION 03/05/2018 A R19.7 DIAR JACOBO, UNSPECIFIED 03/05/2018 JAVIER, DIXIE W 244.9 UNSPECIFIED HYPOTHYROIDISM 03/05/2018 HERRERA, DIXIE W 401.0 MALIGNANT ESSENTIAL HYPERTENSION 03/05/2018 HERRERA, DIXIE A 787.91 DIARRHEA 03/05/2018 HERRERA, DIXIE W E03.9 HYPOTHYROIDISM, UNSPECIFIED 03/05/2018 HERRERA, DIXIE W I10 ESSENTIAL (PRIMARY) HYPERTENSION 03/05/2018 HERRERA, DIXIE A R19.7 DIARRHEA, UNSPECIFIED 03/06/2018 HERRERA, DIXIE A 787.91 DIARRHEA 03/06/2018 HERRERA, DIXIE A R19.7 DIARRHEA, UNSPECIFIED 03/06/2018 HERRERA, DIXIE A 787.91 DIARRHEA 03/06/2018 HERRERA, DIXIE A R19.7 DIARRHEA, UNSPECIFIED 03/07/2018 JAVIER CHAVARRIA, DIXIE L Ot R19.7 DIARRHEA, UNSPECIFIED 03/18/2018 JAVIER CHAVARRIA, DIXIE L Ot K52.9 NONINFECTIVE GASTROENTERITIS AND COLITIS 03/27/2018 JAVIER CHAVARRIA, DIXIE L Ot R19.7 DIARRHEA, UNSPECIFIED 04/02/2018 HERRERA, DIXIE A 696.1 OTHER PSORIASIS 04/02/2018 HERRERA, DIXIE W 729.5 PAIN IN LIMB 04/02/2018 HERRERA, DIXIE W 782.3 EDEMA 04/02/2018 HERRERA, DIXIE A L40.0 PSORIASIS VULGARIS 04/02/2018 HERRERA, DIXIE W M79.673 PAIN IN UNSPECIFIED FOOT 04/02/2018 HERRERA, DIXIE W R60.0 LOCALIZED EDEMA 04/02/2018 JAVIER DIXIE A 696.1 OTHER PSORIASIS 04/02/2018 JAVIER DIXIE W 729.5 PAIN IN LIMB 04/02/2018 HERRERA, DIXIE W 782.3 EDEMA 04/02/2018 HERRERA, DIXIE W 787.91 DIARRHEA 04/02/2018 HERRERA, DIXIE W K52.9 NONINFECTIVE GASTROENTERITIS AND COLITIS, UNSPECIFIED 04/02/2018 DIXIE HERRERA A L40.0 PSORIASIS VULGARIS 04/02/2018 DIXIE HERRERA W M79.673 PAIN IN UNSPECIFIED FOOT 04/02/2018 DIXIE HERRERA W R60.0 LOCALIZED EDEMA 04/02/2018 DIXIE HERRERA A 696.1 OTHER PSORIASIS 04/02/2018 CHRIS HERRERAHEL W 729.5 PAIN IN LIMB 04/02/2018 CHRIS HERRERAHEL W 782.3 EDEMA 04/02/2018 JAVIER, DIXIE W 787.91 DIARRHEA 04/02/2018 DIXIE HERRERA W K52.9 NONINFECTIVE GASTROENTERITIS AND COLITIS, UNSPECIFIED 04/02/2018 DIXIE HERRERA A L40.0 PSORIASIS VULGARIS 04/02/2018 DIXIE HERRERA W M79.673 PAIN IN UNSPECIFIED FOOT 04/02/2018 DIXIE HERRERA W R60.0 LOCALIZED EDEMA 04/02/2018 DIXIE HERRERA A 696.1 OTHER PSORIASIS 04/02/2018 DIXIE HERRERA W 729.5 PAIN IN LIMB 04/02/2018 CHRIS HERRERAHEL W 782.3 EDEMA 04/02/2018 JAVIER, DIXIE W 787.91 DIARRHEA 04/02/2018 CHRIS HERRERAHEL W 794.5 NONSPECIFIC ABNORMAL RESULTS OF FUNCTION STUDY OF THYROID 04/02/2018 DIXIE HERRERA W K52.9 NONINFECTIVE GASTROENTERITIS AND COLITIS, UNSPECIFIED 04/02/2018 DIXIE HERRERA A L40.0 PSORIASIS VULGARIS 04/02/2018 DIXIE HERRERA W M79.673 PAIN IN UNSPECIFIED FOOT 04/02/2018 DIXIE HERRERA W R60.0 LOCALIZED EDEMA 04/02/2018 DIXIE HERRERA W R94.6 ABNORMAL RESULTS OF THYROID FUNCTION STUDIES 04/02/2018 A 696.1 OTHE R PSORIASIS 04/02/2018 W 729.5 PAIN IN LIMB 04/02/2018 W 782.3 EDEMA 04/02/2018 W 787.91 CATY RRHEA 04/02/2018 W 794.5 NONS PECIFIC ABNORMAL RESULTS OF FUNCTION STUDY OF THYROID 04/02/2018 W K52.9 GALILEO NFECTIVE GASTROENTERITIS AND COLITIS, UNSPECIFIED 04/02/2018 A L40.0 PSOR IASIS VULGARIS 04/02/2018 W M79.673 PA IN IN UNSPECIFIED FOOT 04/02/2018 W R60.0 LOCA LIZED EDEMA 04/02/2018 W R94.6 ABNO RMAL RESULTS OF THYROID FUNCTION STUDIES 04/02/2018 CHRIS HERRERAHEL A 696.1 OTHER PSORIASIS 04/02/2018 DIXIE HERRERA W 729.5 PAIN IN LIMB 04/02/2018 DIXIE HERRERA W 782.3 EDEMA 04/02/2018 DIXIE HERRERA W 787.91 DIARRHEA 04/02/2018 DIXIE HERRERA W 794.5 NONSPECIFIC ABNORMAL RESULTS OF FUNCTION STUDY OF THYROID 04/02/2018 DIXIE HERRERA W K52.9 NONINFECTIVE GASTROENTERITIS AND COLITIS, UNSPECIFIED 04/02/2018 HERRERACHRISDIXIE A L40.0 PSORIASIS VULGARIS 04/02/2018 DIXIE HERRERA W M79.673 PAIN IN UNSPECIFIED FOOT 04/02/2018 CHRIS HERRERAHEL W R60.0 LOCALIZED EDEMA 04/02/2018 DIXIE HERRERA W R94.6 ABNORMAL RESULTS OF THYROID FUNCTION STUDIES 04/04/2018 DIXIE HERRERA MD L Ot L29.8 OTHER PRURITUS 04/04/2018 DIXIE HERRERA MD L Ot Z87.2 PERSONAL HISTORY OF DISEASES OF THE SKIN 04/05/2018 DIXIE HERRERA MD L Ot K52.9 NONINFECTIVE GASTROENTERITIS AND COLITIS 04/23/2018 DIXIE HERRERA MD L Ot L29.8 OTHER PRURITUS 04/23/2018 DIXIE HERRERA MD L Ot Z87.2 PERSONAL HISTORY OF DISEASES OF THE SKIN 04/30/2018 CRYS JACKSON TURN SEWER Ot I48.91 UNSPECIFIED ATRIAL FIBRILLATION 05/08/2018 W 356.9 UNSP ECIFIED IDIOPATHIC PERIPHERAL NEUROPATHY 05/08/2018 A 427.32 ATR IAL FLUTTER 05/08/2018 W 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 05/08/2018 A 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 ROBINA ATRIAL FIBRILLATION 06/04/2018 W 272.4 OTHE R AND UNSPECIFIED HYPERLIPIDEMIA 06/04/2018 W 401.0 FIOR GNANT ESSENTIAL HYPERTENSION 06/04/2018 W 427.31 ATR IAL FIBRILLATION 06/04/2018 W E78.5 HYPE RLIPIDEMIA, UNSPECIFIED 06/04/2018 W I10 ESSENT IAL (PRIMARY) HYPERTENSION 06/04/2018 W I48.0 PARO XYSMAL ATRIAL FIBRILLATION 06/21/2018 DIXIE HERRERA MD Ot M81.0 AGE-RELATED OSTEOPOROSIS W/O CURRENT PAT 06/21/2018 DIXIE HERRERA MD Ot M85.88 OT DISRD OF BONE DENSITY AND STRUCTURE, 06/21/2018 DIXIE HERRERA MD Ot Z12.31 ENCNTR SCREEN MAMMOGRAM FOR MALIGNANT NE 06/21/2018 DIXIE HERRERA MD Ot Z13.820 ENCOUNTER FOR SCREENING FOR OSTEOPOROSIS 06/21/2018 DIXIE HERRERA MD Ot Z78.0 ASYMPTOMATIC MENOPAUSAL STATE 06/26/2018 DIXIE HERRERA MD Ot M81.0 AGE-RELATED OSTEOPOROSIS W/O CURRENT PAT 06/26/2018 DIXIE HERRERA MD Ot M85.88 OT DISRD OF BONE DENSITY AND STRUCTURE, 06/26/2018 DIXIE HERRERA MD Ot Z12.31 ENCNTR SCREEN MAMMOGRAM FOR MALIGNANT NE 06/26/2018 DIXIE HERRERA MD Ot Z13.820 ENCOUNTER FOR SCREENING FOR OSTEOPOROSIS 06/26/2018 DIXIE HERRERA MD Ot Z78.0 ASYMPTOMATIC MENOPAUSAL STATE 07/10/2018 DIXIE HERRERA MD Ot M81.0 AGE-RELATED OSTEOPOROSIS W/O CURRENT PAT 07/10/2018 DIXIE HERRERA MD Ot M85.88 OT DISRD OF BONE DENSITY AND STRUCTURE, 07/10/2018 DIXIE HERRERA MD Ot Z12.31 ENCNTR SCREEN MAMMOGRAM FOR MALIGNANT NE 07/10/2018 DIXIE HERRERA MD Ot Z13.820 ENCOUNTER FOR SCREENING FOR OSTEOPOROSIS 07/10/2018 DIXIE HERRERA MD Ot Z78.0 ASYMPTOMATIC MENOPAUSAL STATE 07/22/2018 W 427.32 ATR IAL FLUTTER 07/22/2018 W 496 CHRONI C AIRWAY OBSTRUCTION, NOT ELSEWHERE CLASSIFIED 07/22/2018 W 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 ATRIAL FIBRILLATION 07/22/2018 W 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, UNSPECIFIED 08/17/2018 MICHAEL BROWN DO Ot 440.20 ATHEROSCLEROSIS MCGRATH ARTERIES EXTREMIT 08/17/2018 Ot 787.20 DYS PHAGIA, UNSPECIFIED 08/17/2018 KEVIN BOWERSJENNYRY D Ot 780.79 OTH MALAISE FATIGUE 08/17/2018 DEFFENBAKAYLIE BOWERS, MICHAEL D Ot 786.05 SHORTNESS OF BREATH 08/17/2018 DEFFENBAKAYLIE DOJENNYRY D Ot 786.50 CHEST PAIN NOS 08/17/2018 TARANFENBAKAYLIE DOJENNYRY D Ot 780.79 OTH MALAISE FATIGUE 08/17/2018 TARANFENBAKAYLIE DOJENNYRY D Ot 786.05 SHORTNESS OF BREATH 08/17/2018 DEFFENBAUGH DO, MICHAEL D Ot 786.50 CHEST PAIN NOS 08/17/2018 TARANFENBAJENNY LOTT DORY D Ot 787.99 OTHER GI SYSTEM SYMPTOMS 08/17/2018 SILVIANO SHRESTHA DO Ot 492. 8 EMPHYSEMA NEC 08/17/2018 SILVIANO SHRESTHA DO Ot 710. 1 SYSTEMIC SCLEROSIS 08/17/2018 ANIL CHAVARRIA, YELENA Romero Ot 710. 1 SYSTEMIC SCLEROSIS 08/17/2018 ANIL CHAVARRIA, YELENA Romero Ot 786. 05 SHORTNESS OF BREATH 08/17/2018 JAVIER CHAVARRIA, DIXIE Ybarra Ot M34.9 SYSTEMIC SCLEROSIS, UNSPECIFIED 08/17/2018 LYDIA CHAVARRIA, TANK Lee Ot R07.9 CHEST PAIN, UNSPECIFIED 08/17/2018 CRYS HUMPHREY TURN SEWER Ot J43.9 EMPHYSEMA, UNSPECIFIED 08/17/2018 CRYS HUMPHREY TURN SEWER Ot R06.00 DYSPNEA, UNSPECIFIED 08/17/2018 CRYS HUMPHREY TURN SEWER Ot J43.9 EMPHYSEMA, UNSPECIFIED 08/17/2018 LANGEVIN DO, PRECIOUS Ot I48.91 UNSPECIFIED ATRIAL FIBRILLATION 08/17/2018 LANGEVIN DO, PRECIOUS Ot R31 .9 HEMATURIA, UNSPECIFIED 08/17/2018 CRYS HUMPHREY TURN SEWER Ot J44.9 CHRONIC OBSTRUCTIVE PULMONARY DISEASE, U 08/17/2018 CRYS HUMPHREY APRN Ot J43.9 EMPHYSEMA, UNSPECIFIED 08/17/2018 CRYS HUMPHREY APRN Ot R06.00 DYSPNEA, UNSPECIFIED 08/17/2018 JAVIER CHAVARRIA, DIXIE Ybarra Ot R19.7 DIARRHEA, UNSPECIFIED 08/17/2018 JAVIER CHAVARRIA, DIXIE Ybarra Ot K52.9 NONINFECTIVE GASTROENTERITIS AND COLITIS 08/17/2018 DIXIE HERRERA MD Ot L29.8 OTHER PRURITUS 08/17/2018 DIXIE HERRERA MD, Ot Z87.2 PERSONAL HISTORY OF DISEASES OF THE SKIN 08/17/2018 CRYS JACKSON VIC Ot I48.91 UNSPECIFIED ATRIAL FIBRILLATION 08/17/2018 DIXIE HERRERA MD Ot M81.0 AGE-RELATED OSTEOPOROSIS W/O CURRENT PAT 08/17/2018 DIXIE HERRERA MD, Ot M85.88 OTH DISRD OF BONE DENSITY AND STRUCTURE, 08/17/2018 DIXIE HERRERA MD Ot Z12.31 ENCNTR SCREEN MAMMOGRAM FOR MALIGNANT NE 08/17/2018 DIXIE HERRERA MD, Ot Z13.820 ENCOUNTER FOR SCREENING FOR OSTEOPOROSIS 08/17/2018 DIXIE HERRERA MD Ot Z78.0 ASYMPTOMATIC MENOPAUSAL STATE 08/18/2018 SUMMER SCHULER MD Ot E87.1 HYPO-OSMOLALITY AND HYPONATREMIA 08/18/2018 SUMMER SCHULER MD Ot I10 ESSENTIAL (PRIMARY) HYPERTENSION 08/18/2018 SUMMER SCHULER MD Ot I27.20 PULMONARY HYPERTENSION, UNSPECIFIED 08/18/2018 SUMMER SCHULER MD Ot I48.0 PAROXYSMAL ATRIAL FIBRILLATION 08/18/2018 SUMMER SCHULER MD Ot I73.9 PERIPHERAL VASCULAR DISEASE, UNSPECIFIED 08/18/2018 SUMMER SCHULER MD Ot J44.9 CHRONIC OBSTRUCTIVE PULMONARY DISEASE, U 08/18/2018 SUMMER SCHULER MD Ot M06.9 RHEUMATOID ARTHRITIS, UNSPECIFIED 08/18/2018 SUMMER SCHULER MD, Ot M34.9 SYSTEMIC SCLEROSIS, UNSPECIFIED 08/18/2018 SUMMER SCHULER MD Ot R00.1 BRADYCARDIA, UNSPECIFIED 08/18/2018 SUMMER SCHULER MD Ot R13.10 DYSPHAGIA, UNSPECIFIED 08/18/2018 SUMMER SCHULER MD Ot Z79.82 USP (CURRENT) USE OF ASPIRIN 08/18/2018 SUMMER SCHULER MD Ot Z79.899 OTHER USP (CURRENT) DRUG THERAPY 08/18/2018 SUMMER SCHULER MD, Ot Z87.891 PERSONAL HISTORY OF NICOTINE DEPENDENCE 01/01/2019 DIXIE HERRERA W 401.0 MALIGNANT ESSENTIAL HYPERTENSION 01/01/2019 DIXIE HERRERA W 780.93 MEMORY LOSS 01/01/2019 DIXIE HERRERA W I10 ESSENTIAL (PRIMARY) HYPERTENSION 01/01/2019 DIXIE HERRERA W R41.3 OTHER AMNESIA 01/01/2019 DIXIE HERRERA W 244.9 UNSPECIFIED HYPOTHYROIDISM 01/01/2019 DIXIE HERRERA W 401.0 MALIGNANT ESSENTIAL HYPERTENSION 01/01/2019 DIXIE HERRERA W 780.93 MEMORY LOSS 01/01/2019 DIXIE HERRERA W E03.9 HYPOTHYROIDISM, UNSPECIFIED 01/01/2019 DIXIE HERRERA W I10 ESSENTIAL (PRIMARY) HYPERTENSION 01/01/2019 DIXIE HERRERA W R41.3 OTHER AMNESIA 01/01/2019 W 244.9 UNSP ECIFIED HYPOTHYROIDISM 01/01/2019 W 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 01/01/2019 W 401.0 FIOR GNANT ESSENTIAL HYPERTENSION 01/01/2019 W 728.3 OTHE R SPECIFIC MUSCLE DISORDERS 01/01/2019 W 780.93 MEM ORY LOSS 01/01/2019 W 924.00 CON TUSION OF THIGH 01/01/2019 W E03.9 HYPO THYROIDISM, UNSPECIFIED 01/01/2019 W I10 ESSENT IAL (PRIMARY) HYPERTENSION 01/01/2019 W M62.89 OTH ER SPECIFIED DISORDERS OF MUSCLE 01/01/2019 W M79.89 OTH ER SPECIFIED SOFT TISSUE DISORDERS 01/01/2019 W R41.3 OTHE R AMNESIA 01/01/2019 W S70.10XA C ONTUSION OF UNSPECIFIED THIGH, INITIAL ENCOUNTER 01/01/2019 CHRIS HERRERAHEL W 244.9 UNSPECIFIED HYPOTHYROIDISM 01/01/2019 DIXIE HERRERA W 401.0 MALIGNANT ESSENTIAL HYPERTENSION 01/01/2019 DIXIE HERRERA W 780.93 MEMORY LOSS 01/01/2019 DIXIE HERRERA W E03.9 HYPOTHYROIDISM, UNSPECIFIED 01/01/2019 DIXIE HERRERA W I10 ESSENTIAL (PRIMARY) HYPERTENSION 01/01/2019 DIXIE HERRERA W R41.3 OTHER AMNESIA 01/08/2019 DXIIE HERRERA W 728.3 OTHER SPECIFIC MUSCLE DISORDERS 01/08/2019 CHRIS HERRERAHEL W 924.00 CONTUSION OF THIGH 01/08/2019 DIXIE HERRERA W M62.89 OTHER SPECIFIED DISORDERS OF MUSCLE 01/08/2019 DIXIE HERRERA W S70.10X A CONTUSION OF UNSPECIFIED THIGH, INITIAL ENCOUNTER 01/08/2019 HERRERADIXIE W 728.3 OTHER SPECIFIC MUSCLE DISORDERS 01/08/2019 DIXIE HERRERA W 924.00 CONTUSION OF THIGH 01/08/2019 DIXIE HERRERA W M62.89 OTHER SPECIFIED DISORDERS OF MUSCLE 01/08/2019 DIXIE HERRERA Doretha S70.10X A CONTUSION OF UNSPECIFIED THIGH, INITIAL ENCOUNTER 01/10/2019 JAVIER CHAVARRIA, DIXIE Ybarra Ot T17.920A FOOD IN RESP TRACT, PART UNSP CAUSING 02/03/2019 DIXIE HERRERA MD Ot T17.920A FOOD IN RESP TRACT, PART UNSP CAUSING 06/06/2019 JOVANA PALMA MD, Ot G62.9 POLYNEUROPATHY, UNSPECIFIED 06/06/2019 JOVANA PALMA MD, Ot I10 ESSENTIAL (PRIMARY) HYPERTENSION 06/06/2019 JOVANA PALMA MD, Ot I48.2 CHRONIC ATRIAL FIBRILLATION 06/06/2019 JOVANA PALMA MD, Ot J44.9 CHRONIC OBSTRUCTIVE PULMONARY DISEASE, U 06/06/2019 JOVANA PALMA MD, Ot M06.9 RHEUMATOID ARTHRITIS, UNSPECIFIED 06/06/2019 JOVANA PALMA MD, Ot R07.9 CHEST PAIN, UNSPECIFIED 06/06/2019 JOVANA PALMA MD Ot Z79.01 USP (CURRENT) USE OF ANTICOAGULANT 06/06/2019 JOVANA PALMA MD Ot Z86.73 PRSNL HX OF TIA (TIA), AND CEREB INFRC W 06/06/2019 JOVANA PALMA MD, Ot Z87.891 PERSONAL HISTORY OF NICOTINE DEPENDENCE 06/06/2019 JOVANA PALMA MD, Ot Z88.0 ALLERGY STATUS TO PENICILLIN 06/06/2019 JOVANA PALMA MD, Ot Z88.8 ALLERGY STATUS TO OTH DRUG/MEDS/BIOL SUB 06/10/2019 JOVANA PALMA MD, Ot G62.9 POLYNEUROPATHY, UNSPECIFIED 06/10/2019 JOVANA PALMA MD Ot I10 ESSENTIAL (PRIMARY) HYPERTENSION 06/10/2019 JOVANA PALMA MD Ot I48.2 CHRONIC ATRIAL FIBRILLATION 06/10/2019 JOVANA PALMA MD Ot J44.9 CHRONIC OBSTRUCTIVE PULMONARY DISEASE, U 06/10/2019 JOVANA PALMA MD, Ot M06.9 RHEUMATOID ARTHRITIS, UNSPECIFIED 06/10/2019 JOVANA PALMA MD Ot R07.9 CHEST PAIN, UNSPECIFIED 06/10/2019 JOVANA PALMA MD Ot Z79.01 COUNSELOR/ART THERAPIST (CURRENT) USE OF ANTICOAGULANT 06/10/2019 JOVANA PALMA MD Ot Z86.73 PRSNL HX OF TIA (TIA), AND CEREB INFRC W 06/10/2019 JOVANA PALMA MD, Ot Z87.891 PERSONAL HISTORY OF NICOTINE DEPENDENCE 06/10/2019 JOVANA PALMA MD, Ot Z88.0 ALLERGY STATUS TO PENICILLIN 06/10/2019 JOVANA PLAMA MD, Ot Z88.8 ALLERGY STATUS TO OTH DRUG/MEDS/BIOL SUB 06/10/2019 CRYS HUMPHREY TURN SEWER Ot J43.9 EMPHYSEMA, UNSPECIFIED 06/10/2019 CRYS HUMPHREY TURN SEWER Ot R06.00 DYSPNEA, UNSPECIFIED 06/10/2019 CRYS HUMPHREY TURN SEWER Ot J43.9 EMPHYSEMA, UNSPECIFIED 06/10/2019 CRYS HUMPHREY TURN SEWER Ot R06.00 DYSPNEA, UNSPECIFIED 06/10/2019 MECHELLE CHAVARRIA FACC, SABINO FACP CCDS Ot I25.10 ATHSCL HEART DISEASE OF [place] CORONARY 06/10/2019 MECHELLE CHAVARRIA FACC, ALI FACP CCDS Ot I27.0 PRIMARY PULMONARY HYPERTENSION 06/10/2019 MECHELLE CHAVARRIA FACC, ALI FACP CCDS Ot I48.91 UNSPECIFIED ATRIAL FIBRILLATION 06/10/2019 MECHELLE CHAVARRIA FACC, ALI FACP CCDS Ot I65.29 OCCLUSION AND STENOSIS OF UNSPECIFIED CA 06/10/2019 MECHELLE CHAVARRIA FACC, ALI FACP CCDS Ot J44.9 CHRONIC OBSTRUCTIVE PULMONARY DISEASE, U 06/10/2019 MECHELLE CHAVARRIA FACC, ALI FACP CCDS Ot M79.89 OTHER SPECIFIED SOFT TISSUE DISORDERS 06/10/2019 MECHELLE CHAVARRIA FACC, SABINO FACP CCDS Ot Z79.01 USP (CURRENT) USE OF ANTICOAGULANT 06/10/2019 MECHELLE CHAVARRIA FACC, ALI FACP CCDS Ot Z79.82 USP (CURRENT) USE OF ASPIRIN 06/10/2019 MECHELLE CHAVARRIA FACC, ALI FACP CCDS Ot Z79.899 OTHER USP (CURRENT) DRUG THERAPY 06/10/2019 MECHELLE CHAVARRIA FACC, ALI FACP CCDS Ot Z82.49 FAMILY HX OF ISCHEM HEART DIS AND OTH DI 06/10/2019 MECHELLE CHAVARRIA FACC, ALI FACP CCDS Ot Z83.6 FAMILY HISTORY OF OTHER DISEASES OF THE 06/10/2019 MECHELLE CHAVARRIA FACC, ALI FACP CCDS Ot Z84.0 FAMILY HISTORY OF DISEASES OF THE SKIN, 06/10/2019 MECHELLE CHAVARRIA FACC, ALI FACP CCDS Ot Z87.891 PERSONAL HISTORY OF NICOTINE DEPENDENCE 06/13/2019 MECHELLE CHAVARRIA FACC, ALI FACP CCDS Ot I25.10 ATHSCL HEART DISEASE OF [place] CORONARY 06/13/2019 MECHELLE CHAVARRIA FACC, ALI FACP CCDS Ot I27.0 PRIMARY PULMONARY HYPERTENSION 06/13/2019 MECHELLE CHAVARRIA FACC, ALI FACP CCDS Ot I48.91 UNSPECIFIED ATRIAL FIBRILLATION 06/13/2019 MECHELLE CHAVARRIA FACC, ALI FACP CCDS Ot I65.29 OCCLUSION AND STENOSIS OF UNSPECIFIED CA 06/13/2019 MECHELLE CHAVARRIA FACC, ALI FACP CCDS Ot J44.9 CHRONIC OBSTRUCTIVE PULMONARY DISEASE, U 06/13/2019 MECHELLE CHAVARRIA FACC, ALI FACP CCDS Ot M79.89 OTHER SPECIFIED SOFT TISSUE DISORDERS 06/13/2019 MECHELLE CHAVARRIA FACC, ALI FACP CCDS Ot Z79.01 USP (CURRENT) USE OF ANTICOAGULANT 06/13/2019 MECHELLE CHAVARRIA FACC, ALI FACP CCDS Ot Z79.82 USP (CURRENT) USE OF ASPIRIN 06/13/2019 MECHELLE CHAVARRIA FACC, ALI FACP CCDS Ot Z79.899 OTHER USP (CURRENT) DRUG THERAPY 06/13/2019 MECHELLE CHAVARRIA FACC, ALI FACP CCDS Ot Z82.49 FAMILY HX OF ISCHEM HEART DIS AND OTH DI 06/13/2019 MECHELLE CHAVARRIA FACC, ALI FACP CCDS Ot Z83.6 FAMILY HISTORY OF OTHER DISEASES OF THE 06/13/2019 MECHELLE CHAVARRIA FACC, ALI FACP CCDS Ot Z84.0 FAMILY HISTORY OF DISEASES OF THE SKIN, 06/13/2019 MECHELLE CHAVARRIA FAC, SABINO ZENG CCDS Ot Z87.891 PERSONAL HISTORY OF NICOTINE DEPENDENCE 06/17/2019 DIXIE HERRERA W 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 06/17/2019 DIXIE HERRERA W 242.90 THYROTOXICOSIS WITHOUT MENTION OF GOITER OR OTHER CAUSE, AND WITHOUT MENTION OF THYROTOXIC CRISIS OR STORM 06/17/2019 DIXIE HERRERA W E04.1 NONTOXIC SINGLE THYROID NODULE 06/17/2019 DIXIE HERRERA W E05.90 THYROTOXICOSIS, UNSPECIFIED WITHOUT THYROTOXIC CRISIS OR STORM 06/17/2019 DIXIE HERRERA W 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 06/17/2019 DIXIE HERRERA W 242.90 THYROTOXICOSIS WITHOUT MENTION OF GOITER OR OTHER CAUSE, AND WITHOUT MENTION OF THYROTOXIC CRISIS OR STORM 06/17/2019 DIXIE HERRERA W 998.11 HEMORRHAGE COMPLICATING A PROCEDURE 06/17/2019 DIXIE HERRERA W E04.1 NONTOXIC SINGLE THYROID NODULE 06/17/2019 DIXIE HERRERA W E05.90 THYROTOXICOSIS, UNSPECIFIED WITHOUT THYROTOXIC CRISIS OR STORM 06/17/2019 DIXIE HERRERA W I97.610 POSTPROCEDURAL HEMORRHAGE AND HEMATOMA OF A CIRCULATORY SYSTEM ORGAN OR STRUCTURE FOLLOWING A CARDIAC CATHETERIZATION 06/17/2019 DIXIE HERRERA W 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 06/17/2019 DIXIE HERRERA W 242.90 THYROTOXICOSIS WITHOUT MENTION OF GOITER OR OTHER CAUSE, AND WITHOUT MENTION OF THYROTOXIC CRISIS OR STORM 06/17/2019 DIXIE HERRERA W 998.11 HEMORRHAGE COMPLICATING A PROCEDURE 06/17/2019 DIXIE HERRERA W E04.1 NONTOXIC SINGLE THYROID NODULE 06/17/2019 DIXIE HERRERA W E05.90 THYROTOXICOSIS, UNSPECIFIED WITHOUT THYROTOXIC CRISIS OR STORM 06/17/2019 DIXIE HERRERA W I97.610 POSTPROCEDURAL HEMORRHAGE AND HEMATOMA OF A CIRCULATORY SYSTEM ORGAN OR STRUCTURE FOLLOWING A CARDIAC CATHETERIZATION 06/17/2019 DIXIE HERRERA W 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 06/17/2019 DIXIE HERRERA W 242.90 THYROTOXICOSIS WITHOUT MENTION OF GOITER OR OTHER CAUSE, AND WITHOUT MENTION OF THYROTOXIC CRISIS OR STORM 06/17/2019 DIXIE HERRERA W 998.11 HEMORRHAGE COMPLICATING A PROCEDURE 06/17/2019 DIXIE HERRERA W E04.1 NONTOXIC SINGLE THYROID NODULE 06/17/2019 DIXIE HERRERA W E05.90 THYROTOXICOSIS, UNSPECIFIED WITHOUT THYROTOXIC CRISIS OR STORM 06/17/2019 DIXIE HERRERA W I97.610 POSTPROCEDURAL HEMORRHAGE AND HEMATOMA OF A CIRCULATORY SYSTEM ORGAN OR STRUCTURE FOLLOWING A CARDIAC CATHETERIZATION 06/18/2019 DIXIE HERRERA W 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 06/18/2019 DIXIE HERRERA W E04.1 NONTOXIC SINGLE THYROID NODULE 06/18/2019 DIXIE HERRERA W 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 06/18/2019 DIXIE HERRERA W 242.90 THYROTOXICOSIS WITHOUT MENTION OF GOITER OR OTHER CAUSE, AND WITHOUT MENTION OF THYROTOXIC CRISIS OR STORM 06/18/2019 DIXIE HERRERA W E04.1 NONTOXIC SINGLE THYROID NODULE 06/18/2019 DIXIE HERRERA W E05.90 THYROTOXICOSIS, UNSPECIFIED WITHOUT THYROTOXIC CRISIS OR STORM 06/18/2019 DIXIE HERRERA W 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 9 POLYNEUROPATHY, UNSPECIFIED 06/21/2019 TERE CRUZ MD Ot I10 ESSENTIAL (PRIMARY) HYPERTENSION 06/21/2019 TEER CRUZ MD Ot I48. 91 UNSPECIFIED ATRIAL FIBRILLATION 06/21/2019 TERE CRUZ MD Ot I73. 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 9 CHRONIC OBSTRUCTIVE PULMONARY DISEASE, U 06/21/2019 TERE CRUZ MD Ot K21. 9 GASTRO-ESOPHAGEAL REFLUX DISEASE WITHOUT 06/21/2019 TERE CRUZ MD Ot M06. 9 RHEUMATOID ARTHRITIS, UNSPECIFIED 06/21/2019 TERE CRUZ MD Ot M79. 81 NONTRAUMATIC HEMATOMA OF SOFT TISSUE 06/21/2019 TERE CRUZ MD Ot Z79. 82 COUNSELOR/ART THERAPIST (CURRENT) USE OF ASPIRIN 06/21/2019 TERE CRUZ MD Ot Z86. 73 PRSNL HX OF TIA (TIA), AND CEREB INFRC W 06/21/2019 TERE CRUZ MD Ot Z87.891 PERSONAL HISTORY OF NICOTINE DEPENDENCE 06/21/2019 TERE CRUZ MD Ot Z95. 9 PRESENCE OF CARDIAC AND VASCULAR IMPLANT 07/01/2019 DIXIE HERRERA W 710.1 SYSTEMIC SCLEROSIS 07/01/2019 DIXIE HERRERA W M34.9 SYSTEMIC SCLEROSIS, UNSPECIFIED 07/01/2019 DIXIE HERRERA W 710.1 SYSTEMIC SCLEROSIS 07/01/2019 DIXIE HERRERA W M34.9 SYSTEMIC SCLEROSIS, UNSPECIFIED 07/01/2019 DIXIE HERRERA W 242.90 THYROTOXICOSIS WITHOUT MENTION OF GOITER OR OTHER CAUSE, AND WITHOUT MENTION OF THYROTOXIC CRISIS OR STORM 07/01/2019 DIXIE HERRERA W 710.1 SYSTEMIC SCLEROSIS 07/01/2019 DIXIE HERRERA W E05.90 THYROTOXICOSIS, UNSPECIFIED WITHOUT THYROTOXIC CRISIS OR STORM 07/01/2019 DIXIE HERRERA W M34.9 SYSTEMIC SCLEROSIS, UNSPECIFIED 07/01/2019 DIXIE HERRERA W 242.90 THYROTOXICOSIS WITHOUT MENTION OF GOITER OR OTHER CAUSE, AND WITHOUT MENTION OF THYROTOXIC CRISIS OR STORM 07/01/2019 DIXIE HERRERA W 710.1 SYSTEMIC SCLEROSIS 07/01/2019 DIXIE HERRERA W E05.90 THYROTOXICOSIS, UNSPECIFIED WITHOUT THYROTOXIC CRISIS OR STORM 07/01/2019 DIXIE HERRERA W M34.9 SYSTEMIC SCLEROSIS, UNSPECIFIED 07/01/2019 DIXIE HERRERA W 241.1 NONTOXIC MULTINODULAR GOITER 07/01/2019 DIXIE HERRERA W 242.90 THYROTOXICOSIS WITHOUT MENTION OF GOITER OR OTHER CAUSE, AND WITHOUT MENTION OF THYROTOXIC CRISIS OR STORM 07/01/2019 DIXIE HERRERA W 710.1 SYSTEMIC SCLEROSIS 07/01/2019 JAVIER DIXIE W 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 07/01/2019 CHRIS HERRERAHEL W E05.90 THYROTOXICOSIS, UNSPECIFIED WITHOUT THYROTOXIC CRISIS OR STORM 07/01/2019 JAVIER DIXIE W M34.9 SYSTEMIC SCLEROSIS, UNSPECIFIED 07/01/2019 HERRERA, DIXIE W 241.1 NONTOXIC MULTINODULAR GOITER 07/01/2019 JAVIER DIXIE W 242.90 THYROTOXICOSIS WITHOUT MENTION OF GOITER OR OTHER CAUSE, AND WITHOUT MENTION OF THYROTOXIC CRISIS OR STORM 07/01/2019 DIXIE HERRERA W 710.1 SYSTEMIC SCLEROSIS 07/01/2019 DIXIE HERRERA W 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 07/01/2019 CHRIS HERRERAHEL W E05.90 THYROTOXICOSIS, UNSPECIFIED WITHOUT THYROTOXIC CRISIS OR STORM 07/01/2019 DIXIE HERRERA W M34.9 SYSTEMIC SCLEROSIS, UNSPECIFIED 07/01/2019 DIXIE HERRERA W 241.1 NONTOXIC MULTINODULAR GOITER 07/01/2019 CHRIS HERRERAHEL W 242.90 THYROTOXICOSIS WITHOUT MENTION OF GOITER OR OTHER CAUSE, AND WITHOUT MENTION OF THYROTOXIC CRISIS OR STORM 07/01/2019 DIXIE HERRERA W 710.1 SYSTEMIC SCLEROSIS 07/01/2019 CHRIS HERRERAHEL W 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 07/01/2019 JAVIER DIXIE W E05.90 THYROTOXICOSIS, UNSPECIFIED WITHOUT THYROTOXIC CRISIS OR STORM 07/01/2019 DIXIE HERRERA W M34.9 SYSTEMIC SCLEROSIS, UNSPECIFIED 07/01/2019 JAVIER DIXIE W 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 07/01/2019 JAVIER DIXIE W 241.1 NONTOXIC MULTINODULAR GOITER 07/01/2019 HERRERA, DIXIE W 242.90 THYROTOXICOSIS WITHOUT MENTION OF GOITER OR OTHER CAUSE, AND WITHOUT MENTION OF THYROTOXIC CRISIS OR STORM 07/01/2019 DIXIE HERRERA W 710.1 SYSTEMIC SCLEROSIS 07/01/2019 JAIVER DIXIE W 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 07/01/2019 DIXIE HERRERA W E04.1 NONTOXIC SINGLE THYROID NODULE 07/01/2019 CHRIS HERRERAHEL W E05.90 THYROTOXICOSIS, UNSPECIFIED WITHOUT THYROTOXIC CRISIS OR STORM 07/01/2019 DIXIE HERRERA M34.9 SYSTEMIC SCLEROSIS, UNSPECIFIED 07/01/2019 HERRERACHRISDIXIE W 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 07/01/2019 HERRERA, DIXIE W 241.1 NONTOXIC MULTINODULAR GOITER 07/01/2019 HERRERA, DIXIE W 242.90 THYROTOXICOSIS WITHOUT MENTION OF GOITER OR OTHER CAUSE, AND WITHOUT MENTION OF THYROTOXIC CRISIS OR STORM 07/01/2019 HERRERADIXIE DAVID W 710.1 SYSTEMIC SCLEROSIS 07/01/2019 HERRERADIXIE DAVID W 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 07/01/2019 HERRERADIXIE DAVID W E04.1 NONTOXIC SINGLE THYROID NODULE 07/01/2019 HERRERA, DIXIE W E05.90 THYROTOXICOSIS, UNSPECIFIED WITHOUT THYROTOXIC CRISIS OR STORM 07/01/2019 DIXIE HERRERA W M34.9 SYSTEMIC SCLEROSIS, UNSPECIFIED 07/24/2019 JAVIER CHAVARRIA, DIXIE L Ot M34.9 SYSTEMIC SCLEROSIS, UNSPECIFIED 07/24/2019 JAVIER CHAVARRIA, DIXIE L Ot R53.1 WEAKNESS 08/06/2019 JAVIER CHAVARRIA, DIXIE L Ot M34.9 SYSTEMIC SCLEROSIS, UNSPECIFIED 08/06/2019 JAVIER CHAVARRIA, DIXIE L Ot R53.1 WEAKNESS 08/11/2019 JAVIER CHAVARRIA, DIXIE L Ot M34.9 SYSTEMIC SCLEROSIS, UNSPECIFIED 08/11/2019 JAVIER CHAVARRIA, DIXIE L Ot R53.1 WEAKNESS 09/24/2019 MICHAEL BROWN DO Ot 440.20 ATHEROSCLEROSIS [place] ARTERIES EXTREMIT 09/24/2019 Ot 787.20 DYS PHAGIA, UNSPECIFIED 09/24/2019 MICHAEL BROWN DO Ot 780.79 OTH MALAISE FATIGUE 09/24/2019 MICHAEL BROWN DO Ot 786.05 SHORTNESS OF BREATH 09/24/2019 MICHAEL BROWN DO Ot 786.50 CHEST PAIN NOS 09/24/2019 MICHAEL BROWN DO Ot 780.79 OTH MALAISE FATIGUE 09/24/2019 MICHAEL BROWN DO Ot 786.05 SHORTNESS OF BREATH 09/24/2019 MICHAEL BROWN DO Ot 786.50 CHEST PAIN NOS 09/24/2019 MICHAEL BROWN DO Ot 787.99 OTHER GI SYSTEM SYMPTOMS 09/24/2019 SILVIANO SHRESTHA DO Ot 492. 8 EMPHYSEMA NEC 09/24/2019 SILVIANO SHRESTHA DO Ot 710. 1 SYSTEMIC SCLEROSIS 09/24/2019 YELENA MA MD Ot 710. 1 SYSTEMIC SCLEROSIS 09/24/2019 YELENA MA MD Ot 786. 05 SHORTNESS OF BREATH 09/24/2019 JAVIER CHAVARRIA, DIXIE Ybarra Ot M34.9 SYSTEMIC SCLEROSIS, UNSPECIFIED 09/24/2019 LYDIA CHAVARRIA, TANK Lee Ot R07.9 CHEST PAIN, UNSPECIFIED 09/24/2019 CRYS HUMPHREY TURN SEWER Ot J43.9 EMPHYSEMA, UNSPECIFIED 09/24/2019 CRYS HUMPHREY TURN SEWER Ot R06.00 DYSPNEA, UNSPECIFIED 09/24/2019 CRYS HUMPHREY TURN SEWER Ot J43.9 EMPHYSEMA, UNSPECIFIED 09/24/2019 LANGEVIN DO, PRECIOUS Ot I48.91 UNSPECIFIED ATRIAL FIBRILLATION 09/24/2019 LANGEVIN DO, PRECIOUS Ot R31 .9 HEMATURIA, UNSPECIFIED 09/24/2019 CRYS HUMPHREY TURN SEWER Ot J44.9 CHRONIC OBSTRUCTIVE PULMONARY DISEASE, U 09/24/2019 CRYS HUMPHREY TURN SEWER Ot J43.9 EMPHYSEMA, UNSPECIFIED 09/24/2019 CRYS HUMPHREY TURN SEWER Ot R06.00 DYSPNEA, UNSPECIFIED 09/24/2019 JAVIER CHAVARRIA, DIXIE Ybarra Ot R19.7 DIARRHEA, UNSPECIFIED 09/24/2019 JAVIER CHAVARRIA, DIXIE Ybarra Ot K52.9 NONINFECTIVE GASTROENTERITIS AND COLITIS 09/24/2019 DIXIE HERRERA MD Ot L29.8 OTHER PRURITUS 09/24/2019 JAVIER CHAVARRIA, DIXIE Ybarra Ot Z87.2 PERSONAL HISTORY OF DISEASES OF THE SKIN 09/24/2019 CRYS JACKSON APRN Ot I48.91 UNSPECIFIED ATRIAL FIBRILLATION 09/24/2019 DIXIE HERRERA MD Ot M81.0 AGE-RELATED OSTEOPOROSIS W/O CURRENT PAT 09/24/2019 DIXIE HERRERA MD Ot M85.88 OT DISRD OF BONE DENSITY AND STRUCTURE, 09/24/2019 DIXIE HERRERA MD, Ot Z12.31 ENCNTR SCREEN MAMMOGRAM FOR MALIGNANT NE 09/24/2019 DIXIE HERRERA MD, Ot Z13.820 ENCOUNTER FOR SCREENING FOR OSTEOPOROSIS 09/24/2019 DIXIE HERRERA MD Ot Z78.0 ASYMPTOMATIC MENOPAUSAL STATE 09/24/2019 DIXIE HERRERA MD, Ot T17.920A FOOD IN RESP TRACT, PART UNSP CAUSING 10/10/2019 CRYS HUMPHREY TURN SEWER Ot J44.9 CHRONIC OBSTRUCTIVE PULMONARY DISEASE, U 10/21/2019 CRYS HUMPHREY TURN SEWER Ot I48.0 PAROXYSMAL ATRIAL FIBRILLATION 10/21/2019 CRYS HUMPHREY TURN SEWER Ot J30.9 ALLERGIC RHINITIS, UNSPECIFIED 10/21/2019 CRYS HUMPHREY TURN SEWER Ot J43.8 OTHER EMPHYSEMA 10/21/2019 CRYS HUMPHREY TURN SEWER Ot M34.9 SYSTEMIC SCLEROSIS, UNSPECIFIED 10/23/2019 DEFFENBAMICHAEL LOTT DO Ot 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 8 EMPHYSEMA NEC 10/23/2019 SILVIANO SHRESTHA DO Ot 710. 1 SYSTEMIC SCLEROSIS 10/23/2019 YELENA MA MD Ot 710. 1 SYSTEMIC SCLEROSIS 10/23/2019 YELENA MA MD Ot 786. 05 SHORTNESS OF BREATH 10/23/2019 DIXIE HERRERA MD L Ot M34.9 SYSTEMIC SCLEROSIS, UNSPECIFIED 10/23/2019 LYDIA CHAVARRIA, TANK Lee Ot R07.9 CHEST PAIN, UNSPECIFIED 10/23/2019 CRYS HUMPHREY APRN Ot J43.9 EMPHYSEMA, UNSPECIFIED 10/23/2019 CRYS HUMPHREY APRN Ot R06.00 DYSPNEA, UNSPECIFIED 10/23/2019 CRYS HUMPHREY APRN Ot J43.9 EMPHYSEMA, UNSPECIFIED 10/23/2019 LANGEVIN DO, PRECIOUS Ot I48.91 UNSPECIFIED ATRIAL FIBRILLATION 10/23/2019 LANGEVIN DO, PRECIOUS Ot R31 .9 HEMATURIA, UNSPECIFIED 10/23/2019 CRYS HUMPHREY APRN Ot J44.9 CHRONIC OBSTRUCTIVE PULMONARY DISEASE, U 10/23/2019 CRYS HUMPHREY APRN Ot J43.9 EMPHYSEMA, UNSPECIFIED 10/23/2019 CRYS HUMPHREY APRN Ot R06.00 DYSPNEA, UNSPECIFIED 10/23/2019 JAVIER CHAVARRIA, DIXIE Ybarra Ot R19.7 DIARRHEA, UNSPECIFIED 10/23/2019 JAVIER CHAVARRIA, DIXIE Ybarra Ot K52.9 NONINFECTIVE GASTROENTERITIS AND COLITIS 10/23/2019 DIXIE HERRERA MD Ot L29.8 OTHER PRURITUS 10/23/2019 DIXIE HERRERA MD, Ot Z87.2 PERSONAL HISTORY OF DISEASES OF THE SKIN 10/23/2019 CRYS JACKSON APRN Ot I48.91 UNSPECIFIED ATRIAL FIBRILLATION 10/23/2019 DIXIE HERRERA MD Ot M81.0 AGE-RELATED OSTEOPOROSIS W/O CURRENT PAT 10/23/2019 DIXIE HERRERA MD Ot M85.88 OT DISRD OF BONE DENSITY AND STRUCTURE, 10/23/2019 DIXIE HERRERA MD Ot Z12.31 ENCNTR SCREEN MAMMOGRAM FOR MALIGNANT NE 10/23/2019 DIXIE HERRERA MD, Ot Z13.820 ENCOUNTER FOR SCREENING FOR OSTEOPOROSIS 10/23/2019 DIXIE HERRERA MD Ot Z78.0 ASYMPTOMATIC MENOPAUSAL STATE 10/23/2019 DIXIE HERRERA MD, Ot T17.920A FOOD IN RESP TRACT, PART UNSP CAUSING 10/23/2019 CRYS HUMPHREY APRN Ot I48.0 PAROXYSMAL ATRIAL FIBRILLATION 10/23/2019 CRYS HUMPHREY TURN SEWER Ot J30.9 ALLERGIC RHINITIS, UNSPECIFIED 10/23/2019 KAMCRYS BENTLEY TURN SEWER Ot J43.8 OTHER EMPHYSEMA 10/23/2019 CRYS HUMPHREY TURN SEWER Ot M34.9 SYSTEMIC SCLEROSIS, UNSPECIFIED 10/23/2019 KAMCRYS BENTLEY TURN SEWER Ot J44.9 CHRONIC OBSTRUCTIVE PULMONARY DISEASE, U 10/26/2019 AKILAH PRETTY TURN SEWER Ot E05.90 THYROTOXICOSIS, UNSP WITHOUT THYROTOXIC 10/28/2019 KAMLUISA BENTLEYINE Jesus TURN SEWER Ot J44.9 CHRONIC OBSTRUCTIVE PULMONARY DISEASE, U 10/28/2019 KAMCRYS BENTLEY TURN SEWER Ot J44.9 CHRONIC OBSTRUCTIVE PULMONARY DISEASE, U 10/30/2019 KAMCRYS BENTLEY TURN SEWER Ot J44.9 CHRONIC OBSTRUCTIVE PULMONARY DISEASE, U 11/04/2019 KAMCRYS BENTLEY TURN SEWER Ot J44.9 CHRONIC OBSTRUCTIVE PULMONARY DISEASE, U 11/05/2019 CRYS HUMPHREY TURN SEWER Ot J44.9 CHRONIC OBSTRUCTIVE PULMONARY DISEASE, U 11/06/2019 CRYS HUMPHREY TURN SEWER Ot J44.9 CHRONIC OBSTRUCTIVE PULMONARY DISEASE, U 11/07/2019 GERONIMO TORRES MD Ot E05.90 THYROTOXICOSIS, UNSP WITHOUT THYROTOXIC 11/07/2019 GERONIMO TORRES MD Ot G62.9 POLYNEUROPATHY, UNSPECIFIED 11/07/2019 GERONIMO TORRES MD Ot I10 ESSENTIAL (PRIMARY) HYPERTENSION 11/07/2019 GERONIMO TORRES MD Ot I48.91 UNSPECIFIED ATRIAL FIBRILLATION 11/07/2019 GERONIMO TORRES MD, Ot J44.9 CHRONIC OBSTRUCTIVE PULMONARY DISEASE, U 11/07/2019 GERONIMO TORRES MD Ot K21.9 GASTRO-ESOPHAGEAL REFLUX DISEASE WITHOUT 11/07/2019 GERONIMO TORRES MD Ot M06.9 RHEUMATOID ARTHRITIS, UNSPECIFIED 11/07/2019 GERONIMO TORRES MD Ot R91.8 OTHER NONSPECIFIC ABNORMAL FINDING OF [place] 11/07/2019 GERONIMO TORRES MD Ot Z77.22 CNTCT W AND EXPSR TO ENVIRON TOBACCO SMO 11/07/2019 GERONIMO TORRES MD, Ot Z79.01 USP (CURRENT) USE OF ANTICOAGULANT 11/07/2019 GERONIMO TORRES MD Ot Z79.82 COUNSELOR/ART THERAPIST (CURRENT) USE OF ASPIRIN 11/07/2019 GERONIMO TORRES MD, Ot Z86.73 PRSNL HX OF TIA (TIA), AND CEREB INFRC W 11/07/2019 GERONIMO TORRES MD, Ot Z87.891 PERSONAL HISTORY OF NICOTINE DEPENDENCE 11/10/2019 GERONIMO TORRES MD Ot E05.90 THYROTOXICOSIS, UNSP WITHOUT THYROTOXIC 11/10/2019 GERONIMO TORRES MD, Ot G62.9 POLYNEUROPATHY, UNSPECIFIED 11/10/2019 GERONIMO TORRES MD, Ot I10 ESSENTIAL (PRIMARY) HYPERTENSION 11/10/2019 GERONIMO TORRES MD Ot I48.91 UNSPECIFIED ATRIAL FIBRILLATION 11/10/2019 GERONIMO TORRES MD Ot J44.9 CHRONIC OBSTRUCTIVE PULMONARY DISEASE, U 11/10/2019 GERONIMO TORRES MD, Ot K21.9 GASTRO-ESOPHAGEAL REFLUX DISEASE WITHOUT 11/10/2019 GERONIMO TORRES MD Ot M06.9 RHEUMATOID ARTHRITIS, UNSPECIFIED 11/10/2019 GERONIMO TORRES MD Ot R91.8 OTHER NONSPECIFIC ABNORMAL FINDING OF [place] 11/10/2019 GERONIMO TORRES MD, Ot Z77.22 CNTCT W AND EXPSR TO ENVIRON TOBACCO SMO 11/10/2019 GERONIMO TORRES MD Ot Z79.01 USP (CURRENT) USE OF ANTICOAGULANT 11/10/2019 GERONIMO TORRES MD Ot Z79.82 COUNSELOR/ART THERAPIST (CURRENT) USE OF ASPIRIN 11/10/2019 GERONIMO TORRES MD, Ot Z86.73 PRSNL HX OF TIA (TIA), AND CEREB INFRC W 11/10/2019 GERONIMO TORRES MD Ot Z87.891 PERSONAL HISTORY OF NICOTINE DEPENDENCE 11/10/2019 CRYS HUMPHREY APRN Ot I48.0 PAROXYSMAL ATRIAL FIBRILLATION 11/10/2019 CRYS HUMPHREY APRN Ot J30.9 ALLERGIC RHINITIS, UNSPECIFIED 11/10/2019 CRYS HUMPHREY APRN Ot J43.8 OTHER EMPHYSEMA 11/10/2019 CRYS HUMPHREY APRN Ot M34.9 SYSTEMIC SCLEROSIS, UNSPECIFIED 11/11/2019 CRYS HUMPHREY APRN Ot J44.9 CHRONIC OBSTRUCTIVE PULMONARY DISEASE, U 11/11/2019 CRYS HUMPHREY APRN Ot J44.9 CHRONIC OBSTRUCTIVE PULMONARY DISEASE, U 11/12/2019 AKILAH PRETTY TURN SEWER Ot E05.90 THYROTOXICOSIS, UNSP WITHOUT THYROTOXIC 11/12/2019 Ot 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 11/13/2019 CRYS HUMPHREY APRN Ot J44.9 CHRONIC OBSTRUCTIVE PULMONARY DISEASE, U 11/14/2019 GERONIMO TORRES MD Ot E05.90 THYROTOXICOSIS, UNSP WITHOUT THYROTOXIC 11/14/2019 GERONIMO TORRES MD, Ot G62.9 POLYNEUROPATHY, UNSPECIFIED 11/14/2019 GERONIMO TORRES MD Ot I10 ESSENTIAL (PRIMARY) HYPERTENSION 11/14/2019 GERONIMO TORRES MD Ot I48.91 UNSPECIFIED ATRIAL FIBRILLATION 11/14/2019 GERONIMO TORRES MD, Ot J44.9 CHRONIC OBSTRUCTIVE PULMONARY DISEASE, U 11/14/2019 GERONIMO TORRES MD, Ot K21.9 GASTRO-ESOPHAGEAL REFLUX DISEASE WITHOUT 11/14/2019 GERONIMO TORRES MD Ot M06.9 RHEUMATOID ARTHRITIS, UNSPECIFIED 11/14/2019 GERONIMO TORRES MD Ot R91.8 OTHER NONSPECIFIC ABNORMAL FINDING OF [place] 11/14/2019 GERONIMO TORRES MD, Ot Z77.22 CNTCT W AND EXPSR TO ENVIRON TOBACCO SMO 11/14/2019 GERONIMO TORRES MD, Ot Z79.01 USP (CURRENT) USE OF ANTICOAGULANT 11/14/2019 GERONIMO TORRES MD, Ot Z79.82 USP (CURRENT) USE OF ASPIRIN 11/14/2019 GERONIMO TORRES MD, Ot Z86.73 PRSNL HX OF TIA (TIA), AND CEREB INFRC W 11/14/2019 GERONIMO TORRES MD Ot Z87.891 PERSONAL HISTORY OF NICOTINE DEPENDENCE 11/18/2019 CRYS HUMPHREY TURN SEWER Ot J44.9 CHRONIC OBSTRUCTIVE PULMONARY DISEASE, U 11/20/2019 CRYS HUMPHREY TURN SEWER Ot J44.9 CHRONIC OBSTRUCTIVE PULMONARY DISEASE, U 11/25/2019 CRYS HUMPHREY TURN SEWER Ot J44.9 CHRONIC OBSTRUCTIVE PULMONARY DISEASE, U 11/27/2019 CRYS HUMPHREY TURN SEWER Ot J44.9 CHRONIC OBSTRUCTIVE PULMONARY DISEASE, U 12/02/2019 CRYS HUMPHREY TURN SEWER Ot J44.9 CHRONIC OBSTRUCTIVE PULMONARY DISEASE, U 12/04/2019 KAMCRYS BENTLEY TURN SEWER Ot J44.9 CHRONIC OBSTRUCTIVE PULMONARY DISEASE, U 12/09/2019 CRYS HUMPHREY TURN SEWER Ot J44.9 CHRONIC OBSTRUCTIVE PULMONARY DISEASE, U 12/09/2019 Ot 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 12/23/2019 CRYS HUMPHREY TURN SEWER Ot J44.9 CHRONIC OBSTRUCTIVE PULMONARY DISEASE, U 12/30/2019 CRYS HUMPHREY TURN SEWER Ot J44.9 CHRONIC OBSTRUCTIVE PULMONARY DISEASE, U 12/30/2019 CRYS HUMPHREY TURN SEWER Ot J44.9 CHRONIC OBSTRUCTIVE PULMONARY DISEASE, U 01/01/2020 CRYS HUMPHREY TURN SEWER Ot J44.9 CHRONIC OBSTRUCTIVE PULMONARY DISEASE, U 03/21/2020 DELFINO, HERO SKIING TEACHER Ot E87.1 HYPO- OSMOLALITY AND HYPONATREMIA 03/21/2020 DELFINO HERO SKIING TEACHER Ot G62.9 POLYNEUROPATHY, UNSPECIFIED 03/21/2020 DELFINO, HERO SKIING TEACHER Ot I10 ESSENTIAL (PRIMARY) HYPERTENSION 03/21/2020 DELFINO, HERO SKIING TEACHER Ot I48.91 UNSPECIFIED ATRIAL FIBRILLATION 03/21/2020 DELFINO HERO SKIING TEACHER Ot R53.1 WEAKNESS 03/21/2020 HERO SALEHP Ot R55 SYNCOPE AND COLLAPSE 03/21/2020 HERO SALEH SKIING TEACHER Ot Z79.01 COUNSELOR/ART THERAPIST (CURRENT) USE OF ANTICOAGULANT 03/21/2020 DELFINO, HERO SKIING TEACHER Ot Z79.82 USP (CURRENT) USE OF ASPIRIN 03/21/2020 DELFINO, HERO SKIING TEACHER Ot Z86.73 PRSNL HX OF TIA (TIA), AND CEREB INFRC W 03/21/2020 DELFINO, HERO SKIING TEACHER Ot Z87.891 PERSONAL HISTORY OF NICOTINE DEPENDENCE 03/22/2020 CRYS HUMPHREY APRN Ot J43.9 EMPHYSEMA, UNSPECIFIED 03/22/2020 CRYS HUMPHREY APRN Ot R06.00 DYSPNEA, UNSPECIFIED 03/22/2020 Ot 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, U 03/22/2020 JOVANA PALMA MD, Ot G62.9 POLYNEUROPATHY, UNSPECIFIED 03/22/2020 JOVANA PALMA MD Ot I10 ESSENTIAL (PRIMARY) HYPERTENSION 03/22/2020 JOVANA PALMA MD Ot I48.91 UNSPECIFIED ATRIAL FIBRILLATION 03/22/2020 JOVANA PALMA MD Ot I73.9 PERIPHERAL VASCULAR DISEASE, UNSPECIFIED 03/22/2020 JOVANA PALMA MD, Ot K21.9 GASTRO-ESOPHAGEAL REFLUX DISEASE WITHOUT 03/22/2020 JOVANA PALMA MD Ot R10.13 EPIGASTRIC PAIN 03/22/2020 JOVANA PALMA MD Ot R53.1 WEAKNESS 03/22/2020 JOVANA PALMA MD, Ot Z79.01 USP (CURRENT) USE OF ANTICOAGULANT 03/22/2020 JOVANA PALMA MD Ot Z79.82 USP (CURRENT) USE OF ASPIRIN 03/22/2020 JOVANA PALMA MD Ot Z86.73 PRSNL HX OF TIA (TIA), AND CEREB INFRC W 03/22/2020 JOVANA PALMA MD, Ot Z87.891 PERSONAL HISTORY OF NICOTINE DEPENDENCE 03/22/2020 JOVANA PALMA MD, Ot Z88.8 ALLERGY STATUS TO OT DRUG/MEDS/BIOL SUB 03/24/2020 DELFINOHEROP Ot E87.1 HYPO- OSMOLALITY AND HYPONATREMIA 03/24/2020 DELFINOHERO Lee Ot G62.9 POLYNEUROPATHY, UNSPECIFIED 03/24/2020 DELFINOHERO LeeP Ot I10 ESSENTIAL (PRIMARY) HYPERTENSION 03/24/2020 DELFINOHERO LeeP Ot I48.91 UNSPECIFIED ATRIAL FIBRILLATION 03/24/2020 DELFINOHEROP Ot R53.1 WEAKNESS 03/24/2020 DELFINO, HERO YEP Ot R55 SYNCOPE AND COLLAPSE 03/24/2020 HERO SALEH Ot Z79.01 COUNSELOR/ART THERAPIST (CURRENT) USE OF ANTICOAGULANT 03/24/2020 DELFINO HERO DILL Ot Z79.82 COUNSELOR/ART THERAPIST (CURRENT) USE OF ASPIRIN 03/24/2020 DELFINO HERO DILL Ot Z86.73 PRSNL HX OF TIA (TIA), AND CEREB INFRC W 03/24/2020 DELFINO HERO DILL Ot Z87.891 PERSONAL HISTORY OF NICOTINE DEPENDENCE 03/26/2020 CHYNA DIAMOND MD Ot E03. 9 HYPOTHYROIDISM, UNSPECIFIED 03/26/2020 CHYNA DIAMOND MD Ot E78. 5 HYPERLIPIDEMIA, UNSPECIFIED 03/26/2020 CHYNA DIAMOND MD Ot E86. 1 HYPOVOLEMIA 03/26/2020 CHYNA DIAMOND MD Ot E87. 1 HYPO-OSMOLALITY AND HYPONATREMIA 03/26/2020 CHYNA DIAMOND MD Ot G62. 9 POLYNEUROPATHY, UNSPECIFIED 03/26/2020 CHYNA DIAMOND MD Ot I10 ESSENTIAL (PRIMARY) HYPERTENSION 03/26/2020 CHYNA DIAMOND MD Ot I25. 10 ATHSCL HEART DISEASE OF [place] CORONARY 03/26/2020 CHYNA DIAMOND MD Ot I35. 0 NONRHEUMATIC AORTIC (VALVE) STENOSIS 03/26/2020 CHYNA DIAMOND MD Ot I48. 0 PAROXYSMAL ATRIAL FIBRILLATION 03/26/2020 CHYNA DIAMOND MD Ot I73. 9 PERIPHERAL VASCULAR DISEASE, UNSPECIFIED 03/26/2020 CHYNA DIAMOND MD Ot J44. 1 CHRONIC OBSTRUCTIVE PULMONARY DISEASE W 03/26/2020 CHYNA DIAMOND MD Ot J90 PLEURAL EFFUSION, NOT ELSEWHERE CLASSIFI 03/26/2020 CHYNA DIAMOND MD Ot K21. 9 GASTRO-ESOPHAGEAL REFLUX DISEASE WITHOUT 03/26/2020 CHYNA DIAMOND MD Ot K59. 00 CONSTIPATION, UNSPECIFIED 03/26/2020 CHYNA DIAMOND MD Ot M06. 9 RHEUMATOID ARTHRITIS, UNSPECIFIED 03/26/2020 CHYNA DIAMOND MD Ot M34. 9 SYSTEMIC SCLEROSIS, UNSPECIFIED 03/26/2020 CHYNA DIAMOND MD Ot R05 COUGH 03/26/2020 CHYNA DIAMOND MD Ot R09. 02 HYPOXEMIA 03/26/2020 CHYNA DIAMOND MD Ot R13. 10 DYSPHAGIA, UNSPECIFIED 03/26/2020 CHYNA DIAMOND MD Ot R41. 0 DISORIENTATION, UNSPECIFIED 03/26/2020 CHYNA DIAMOND MD Ot R53. 1 WEAKNESS 03/26/2020 CHYNA DIAMOND MD Ot Z20.828 CONTACT W AND EXPOSURE TO OTH VIRAL COMM 03/26/2020 CHYNA DIAMOND MD Ot Z79. 01 USP (CURRENT) USE OF ANTICOAGULANT 03/26/2020 CHYNA DIAMOND MD Ot Z86. 73 PRSNL HX OF TIA (TIA), AND CEREB INFRC W 03/26/2020 CHYNA DIAMOND MD Ot Z87.891 PERSONAL HISTORY OF NICOTINE DEPENDENCE 03/30/2020 DELFINO, HERO SKIING TEACHER Ot E87.1 HYPO- OSMOLALITY AND HYPONATREMIA 03/30/2020 DELFINO, HERO SKIING TEACHER Ot G62.9 POLYNEUROPATHY, UNSPECIFIED 03/30/2020 DELFINO, HERO SKIING TEACHER Ot I10 ESSENTIAL (PRIMARY) HYPERTENSION 03/30/2020 DELFINO, HERO SKIING TEACHER Ot I48.91 UNSPECIFIED ATRIAL FIBRILLATION 03/30/2020 DELFINO, HERO SKIING TEACHER Ot R53.1 WEAKNESS 03/30/2020 DELFINO, HERO SKIING TEACHER Ot R55 SYNCOPE AND COLLAPSE 03/30/2020 DELFINO, HERO SKIING TEACHER Ot Z79.01 USP (CURRENT) USE OF ANTICOAGULANT 03/30/2020 DELFINO, HERO SKIING TEACHER Ot Z79.82 COUNSELOR/ART THERAPIST (CURRENT) USE OF ASPIRIN 03/30/2020 DELFINO, HERO SKIING TEACHER Ot Z86.73 PRSNL HX OF TIA (TIA), AND CEREB INFRC W 03/30/2020 DELFINO, HERO SKIING TEACHER Ot Z87.891 PERSONAL HISTORY OF NICOTINE DEPENDENCE 03/31/2020 JOVANA PALMA MD Ot G62.9 POLYNEUROPATHY, UNSPECIFIED 03/31/2020 JOVANA PALMA MD Ot I10 ESSENTIAL (PRIMARY) HYPERTENSION 03/31/2020 JOVANA PALMA MD Ot I48.91 UNSPECIFIED ATRIAL FIBRILLATION 03/31/2020 JOVANA PALMA MD Ot I73.9 PERIPHERAL VASCULAR DISEASE, UNSPECIFIED 03/31/2020 JOVANA PALMA MD Ot K21.9 GASTRO-ESOPHAGEAL REFLUX DISEASE WITHOUT 03/31/2020 JOVANA PALMA MD Ot R10.13 EPIGASTRIC PAIN 03/31/2020 JOVANA PALMA MD, Ot R53.1 WEAKNESS 03/31/2020 JOVANA PALMA MD, Ot Z79.01 COUNSELOR/ART THERAPIST (CURRENT) USE OF ANTICOAGULANT 03/31/2020 JOVANA PALMA MD Ot Z79.82 COUNSELOR/ART THERAPIST (CURRENT) USE OF ASPIRIN 03/31/2020 JOVANA PALMA MD, Ot Z86.73 PRSNL HX OF TIA (TIA), AND CEREB INFRC W 03/31/2020 JOVANA PALMA MD, Ot Z87.891 PERSONAL HISTORY OF NICOTINE DEPENDENCE 03/31/2020 JOVANA PALMA MD, Ot Z88.8 ALLERGY STATUS TO OTH DRUG/MEDS/BIOL SUB 04/21/2020 W E03.8 Othe r specified hypothyroidism Renee Madison 04/21/2020 W I10 Essent ial (primary) hypertension Renee Madison 04/21/2020 W I25.10 CAD (coronary artery disease) Renee Madison 04/21/2020 W I50.9 CHF (congestive heart failure) Renee Madison 04/21/2020 W J44.9 COPD (chronic obstructive pulmonary disease) Renee Madison 04/21/2020 W E03.8 Othe r specified hypothyroidism Renee Madison 04/21/2020 W I10 Essent ial (primary) hypertension Renee Madison 04/21/2020 W I25.10 CAD (coronary artery disease) Renee Madison 04/21/2020 W I50.9 CHF (congestive heart failure) Renee Madison 04/21/2020 W J44.9 COPD (chronic obstructive pulmonary disease) Renee Madison 05/03/2020 W Z09 Hospit al discharge follow-up Renee Madison 05/06/2020 W Z09 Hospit al discharge follow-up Renee Madison Procedures There is no data. Results Test Result Range Thyroid Stimulating Hormone - 01/31/17 1 5:35 TSH 0.36 mIU/mL 0.32-5.00 Lipid Panel - 08/07/17 10:33 C/HDL 3.5 3.7-6.7 Cholesterol 172 mg/dL 100-240 HDL 49 mg/dL 30-85 LDL-Calculated 105 mg/dL 0-100 Trig 91 mg/dL 35-160 VLDL 18 mg/dL 0-42 Automated blood complete blood count (he mogram) panel - 09/12/17 07:11 Blood leukocytes automated count (number/volume) 9.9 10*3/uL 4.3-11.0 Blood erythrocytes automated count (number/volume) 3.90 10*6/uL 4.35-5.85 Venous blood hemoglobin measurement (mass/volume) 12.8 g/dL 11.5-16.0 Blood hematocrit (volume fraction) 37 % 35-52 Automated erythrocyte mean corpuscular volume 96 [ foz_us] 80-99 Automated erythrocyte mean corpuscular h emoglobin (mass per erythrocyte) 33 pg 25-34 Automated erythrocyte mean corpuscular h emoglobin concentration measurement (mass/volume) 34 g/dL 32-36 Automated erythrocyte distribution width ratio 12. 0 % 10.0- 14.5 Automated blood platelet count (count/volume) 314 10*3/uL 130-400 Automated blood platelet mean volume measurement 9.1 [foz_us] 7.4-10.4 Comprehensive metabolic panel - 09/12/17 07:11 Serum or plasma sodium measurement (moles/volume) 136 mmol/L 135-145 Serum or plasma potassium measurement (moles/volume) 4.1 mmol/L 3.6-5.0 Serum or plasma chloride measurement (moles/volume) 101 mmol/L 98-107 Carbon dioxide 27 mmol/L 21-32 Serum or plasma anion gap determination (moles/volume) 8 mmol/L 5-14 Serum or plasma urea nitrogen measurement (mass/volume ) 14 mg/dL 7-18 Serum or plasma creatinine measurement (mass/volume) 0.72 mg/dL 0.60-1.30 Serum or plasma urea nitrogen/creatinine mass ratio 19 NRG Serum or plasma creatinine measurement w ith calculation of estimated glomerular filtration rate > NRG Serum or plasma glucose measurement (mass/volume) 86 mg/dL 70-105 Serum or plasma calcium measurement (mass/volume) 9.1 mg/dL 8.5-10.1 Serum or plasma total bilirubin measurement (mass/volu me) 0.8 mg/dL 0.1-1.0 Serum or plasma alkaline phosphatase azar surement (enzymatic activity/volume) 57 U/L 40-136 Serum or plasma aspartate aminotransfera se measurement (enzymatic activity/volume) 17 U/L 5-34 Serum or plasma alanine aminotransferase measurement (enzymatic activity/volume) 10 U/L 0-55 Serum or plasma protein measurement (mass/volume) 6.6 g/dL 6.4-8.2 Serum or plasma albumin measurement (mass/volume) 3.8 g/dL 3.2-4.5 Liver function panel (serum or plasma al k phos, alb, total and direct bili, total protein, ALT, AST) - 09/12/17 07:11 Bilirubin direct 0.3 mg/dL 0.0-0.3 Serum or plasma indirect bilirubin measurement (mass/v olume) 0.5 mg/dL NRG Magnesium - 09/12/17 07:11 Magnesium 2.1 mg/dL 1.8-2.4 Lipid 1996 panel - 09/12/17 07:11 Serum or plasma triglyceride measurement (mass/volume) 79 mg/dL <150 Serum or plasma cholesterol measurement (mass/volume) 182 mg/dL < 200 Serum or plasma cholesterol in HDL measurement (mass/v olume) 64 mg/dL 40-60 Cholesterol in LDL [mass/volume] in serum or plasma by direct assay 98 mg/dL 1-129 Serum or plasma cholesterol in VLDL measurement (mass/ volume) 16 mg/dL 5-40 Serum or plasma thyroxine (T4) free lissett urement (mass/volume) - 09/12/17 07:11 Serum or plasma thyroxine (T4) free measurement (mass/ volume) 1.05 ng/dL 0.70-1.48 Serum or plasma thyrotropin measurement by detection limit <=0.05 miu/l (units/volume) - 09/12/17 07:11 Serum or plasma thyrotropin measurement by detection limit <=0.05 miu/l (units/volume) 0.19 u[iU]/mL 0.35-4.94 Thyroid Stimulating Hormone - 03/05/18 1 4:30 TSH 0.22 mIU/mL 0.32-5.00 Stool leukocytes detection by light micr oscopy - 03/06/18 08:30 FECAL WBC RESULTS FEW WBC'S OBSERVED ON DIRECT SME AR NRG FECAL NOTE FECAL LEUKOCYTES MAY BE INTE RMITTENTLY PRESENT OR NRG FECAL NOTE UNEVENLY DISTRIBUTED IN STOO L SPECIMENS, AND WBC NRG FECAL NOTE MORPHOLOGY DEGRADES DURING TRANSPORT NRG FECAL NOTE NOTE: NRG C DIFFICILE AG + TOXIN A/B. - 03/06/18 0 8:30 RESULTS NEGATIVE FOR ANTIGEN AND TOXIN A/B [facility] Stool bacteria identification by culture - 03/06/18 08:30 Stool bacteria identification by culture N2 NRG Free T3 - 04/02/18 10:00 Free T3 2.40 pg/ml 1.45-3.48 EKG - 06/06/18 12:51 EKG Complete Complete blood count (CBC) with automate d white blood cell (WBC) differential - 08/17/18 12:16 Blood leukocytes automated count (number/volume) 8.4 10*3/uL 4.3-11.0 Blood erythrocytes automated count (number/volume) 3.61 10*6/uL 4.35-5.85 Venous blood hemoglobin measurement (mass/volume) 12.1 g/dL 11.5-16.0 Blood hematocrit (volume fraction) 35 % 35-52 Automated erythrocyte mean corpuscular volume 96 [ foz_us] 80-99 Automated erythrocyte mean corpuscular h emoglobin (mass per erythrocyte) 34 pg 25-34 Automated erythrocyte mean corpuscular h emoglobin concentration measurement (mass/volume) 35 g/dL 32-36 Automated erythrocyte distribution width ratio 13. 2 % 10.0- 14.5 Automated blood platelet count (count/volume) 332 10*3/uL 130-400 Automated blood platelet mean volume measurement 9.0 [foz_us] 7.4-10.4 Automated blood neutrophils/100 leukocytes 67 % 42-75 Automated blood lymphocytes/100 leukocytes 21 % 12-44 Blood monocytes/100 leukocytes 10 % 0-12 Automated blood eosinophils/100 leukocytes 2 % 0-10 Automated blood basophils/100 leukocytes 1 % 0-10 Blood neutrophils automated count (number/volume) 5.6 10*3 1.8-7.8 Blood lymphocytes automated count (number/volume) 1.7 10*3 1.0-4.0 Blood monocytes automated count (number/volume) 0. 8 10*3 0.0-1.0 Automated eosinophil count 0.2 10*3/uL 0 .0-0.3 Automated blood basophil count (count/volume) 0.1 10*3/uL 0.0-0.1 PT panel in platelet poor plasma by coag ulation assay - 08/17/18 12:16 Prothrombin time (PT) in platelet poor plasma by coagu lation assay 34.0 s 12.2-14.7 INR in platelet poor plasma or blood by coagulation as say 3.3 0.8-1.4 Activated partial thromboplastin time (a PTT) in platelet poor plasma bycoagulation assay - 08/17/18 12:16 Activated partial thromboplastin time (a PTT) in platelet poor plasma bycoagulation assay 72 s 24-35 Comprehensive metabolic panel - 08/17/18 12:16 Serum or plasma sodium measurement (moles/volume) 130 mmol/L 135-145 Serum or plasma potassium measurement (moles/volume) 4.0 mmol/L 3.6-5.0 Serum or plasma chloride measurement (moles/volume) 97 mmol/L 98-107 Carbon dioxide 22 mmol/L 21-32 Serum or plasma anion gap determination (moles/volume) 11 mmol/L 5-14 Serum or plasma urea nitrogen measurement (mass/volume ) 11 mg/dL 7-18 Serum or plasma creatinine measurement (mass/volume) 0.79 mg/dL 0.60-1.30 Serum or plasma urea nitrogen/creatinine mass ratio 14 NRG Serum or plasma creatinine measurement w ith calculation of estimated glomerular filtration rate > NRG Serum or plasma glucose measurement (mass/volume) 115 mg/dL 70-105 Serum or plasma calcium measurement (mass/volume) 9.4 mg/dL 8.5-10.1 Serum or plasma total bilirubin measurement (mass/volu me) 0.6 mg/dL 0.1-1.0 Serum or plasma alkaline phosphatase azar surement (enzymatic activity/volume) 64 U/L 40-136 Serum or plasma aspartate aminotransfera se measurement (enzymatic activity/volume) 23 U/L 5-34 Serum or plasma alanine aminotransferase measurement (enzymatic activity/volume) 9 U/L 0-55 Serum or plasma protein measurement (mass/volume) 6.9 g/dL 6.4-8.2 Serum or plasma albumin measurement (mass/volume) 4.2 g/dL 3.2-4.5 CALCIUM CORRECTED 9.2 mg/dL 8.5-10.1 Magnesium - 08/17/18 12:16 Magnesium 2.0 mg/dL 1.8-2.4 Serum or plasma troponin i.cardiac measu rement (mass/volume) - 08/17/18 12:16 Serum or plasma troponin i.cardiac measurement (mass/v olume) < ng/mL <0.30 Myoglobin, serum - 08/17/18 12:16 Myoglobin, serum 32.4 ng/mL 10.0-92.0 Serum or plasma thyroxine (T4) free lissett urement (mass/volume) - 08/17/18 12:16 Serum or plasma thyroxine (T4) free measurement (mass/ volume) 1.12 ng/dL 0.70-1.48 Serum or plasma thyrotropin measurement by detection limit <=0.05 miu/l (units/volume) - 08/17/18 12:16 Serum or plasma thyrotropin measurement by detection limit <=0.05 miu/l (units/volume) 0.33 u[iU]/mL 0.35-4.94 Serum or plasma troponin i.cardiac measu rement (mass/volume) - 08/17/18 20:15 Serum or plasma troponin i.cardiac measurement (mass/v olume) < ng/mL <0.30 Complete blood count (CBC) with automate d white blood cell (WBC) differential - 08/18/18 03:00 Blood leukocytes automated count (number/volume) 5.5 10*3/uL 4.3-11.0 Blood erythrocytes automated count (number/volume) 3.32 10*6/uL 4.35-5.85 Venous blood hemoglobin measurement (mass/volume) 11.0 g/dL 11.5-16.0 Blood hematocrit (volume fraction) 33 % 35-52 Automated erythrocyte mean corpuscular volume 98 [ foz_us] 80-99 Automated erythrocyte mean corpuscular h emoglobin (mass per erythrocyte) 33 pg 25-34 Automated erythrocyte mean corpuscular h emoglobin concentration measurement (mass/volume) 34 g/dL 32-36 Automated erythrocyte distribution width ratio 13. 2 % 10.0- 14.5 Automated blood platelet count (count/volume) 235 10*3/uL 130-400 Automated blood platelet mean volume measurement 9.6 [foz_us] 7.4-10.4 Automated blood neutrophils/100 leukocytes 61 % 42-75 Automated blood lymphocytes/100 leukocytes 26 % 12-44 Blood monocytes/100 leukocytes 10 % 0-12 Automated blood eosinophils/100 leukocytes 3 % 0-10 Automated blood basophils/100 leukocytes 1 % 0-10 Blood neutrophils automated count (number/volume) 3.3 10*3 1.8-7.8 Blood lymphocytes automated count (number/volume) 1.4 10*3 1.0-4.0 Blood monocytes automated count (number/volume) 0. 6 10*3 0.0-1.0 Automated eosinophil count 0.2 10*3/uL 0 .0-0.3 Automated blood basophil count (count/volume) 0.0 10*3/uL 0.0-0.1 Whole blood basic metabolic panel - 01/30 03:00 Serum or plasma sodium measurement (moles/volume) 137 mmol/L 135-145 Serum or plasma potassium measurement (moles/volume) 3.9 mmol/L 3.6-5.0 Serum or plasma chloride measurement (moles/volume) 108 mmol/L 98-107 Carbon dioxide 20 mmol/L 21-32 Serum or plasma anion gap determination (moles/volume) 9 mmol/L 5-14 Serum or plasma urea nitrogen measurement (mass/volume ) 7 mg/dL 7-18 Serum or plasma creatinine measurement (mass/volume) 0.60 mg/dL 0.60-1.30 Serum or plasma urea nitrogen/creatinine mass ratio 12 NRG Serum or plasma creatinine measurement w ith calculation of estimated glomerular filtration rate > NRG Serum or plasma glucose measurement (mass/volume) 85 mg/dL 70-105 Serum or plasma calcium measurement (mass/volume) 8.8 mg/dL 8.5-10.1 Lipid 1996 panel - 08/18/18 03:00 Serum or plasma triglyceride measurement (mass/volume) 74 mg/dL <150 Serum or plasma cholesterol measurement (mass/volume) 150 mg/dL < 200 Serum or plasma cholesterol in HDL measurement (mass/v olume) 49 mg/dL 40-60 Cholesterol in LDL [mass/volume] in serum or plasma by direct assay 92 mg/dL 1-129 Serum or plasma cholesterol in VLDL measurement (mass/ volume) 15 mg/dL 5-40 Total T3 - 01/01/19 10:50 Total T3 0.76 ng/mL 0.58-1.59 Complete blood count (CBC) with automate d white blood cell (WBC) differential - 06/06/19 18:12 Blood leukocytes automated count (number/volume) 7.9 10*3/uL 4.3-11.0 Blood erythrocytes automated count (number/volume) 3.90 10*6/uL 4.35-5.85 Venous blood hemoglobin measurement (mass/volume) 12.7 g/dL 11.5-16.0 Blood hematocrit (volume fraction) 38 % 35-52 Automated erythrocyte mean corpuscular volume 96 [ foz_us] 80-99 Automated erythrocyte mean corpuscular h emoglobin (mass per erythrocyte) 33 pg 25-34 Automated erythrocyte mean corpuscular h emoglobin concentration measurement (mass/volume) 34 g/dL 32-36 Automated erythrocyte distribution width ratio 12. 1 % 10.0- 14.5 Automated blood platelet count (count/volume) 299 10*3/uL 130-400 Automated blood platelet mean volume measurement 10.0 [foz_us] 7.4-10.4 Automated blood neutrophils/100 leukocytes 60 % 42-75 Automated blood lymphocytes/100 leukocytes 27 % 12-44 Blood monocytes/100 leukocytes 8 % 0-12 Automated blood eosinophils/100 leukocytes 5 % 0-10 Automated blood basophils/100 leukocytes 1 % 0-10 Blood neutrophils automated count (number/volume) 4.7 10*3 1.8-7.8 Blood lymphocytes automated count (number/volume) 2.1 10*3 1.0-4.0 Blood monocytes automated count (number/volume) 0. 6 10*3 0.0-1.0 Automated eosinophil count 0.4 10*3/uL 0 .0-0.3 Automated blood basophil count (count/volume) 0.1 10*3/uL 0.0-0.1 PT panel in platelet poor plasma by coag ulation assay - 06/06/19 18:12 Prothrombin time (PT) in platelet poor plasma by coagu lation assay 30.2 s 12.2-14.7 INR in platelet poor plasma or blood by coagulation as say 2.7 0.8-1.4 Activated partial thromboplastin time (a PTT) in platelet poor plasma bycoagulation assay - 06/06/19 18:12 Activated partial thromboplastin time (a PTT) in platelet poor plasma bycoagulation assay 50 s 24-35 Comprehensive metabolic panel - 06/06/19 18:12 Serum or plasma sodium measurement (moles/volume) 137 mmol/L 135-145 Serum or plasma potassium measurement (moles/volume) 4.6 mmol/L 3.6-5.0 Serum or plasma chloride measurement (moles/volume) 103 mmol/L 98-107 Carbon dioxide 24 mmol/L 21-32 Serum or plasma anion gap determination (moles/volume) 10 mmol/L 5-14 Serum or plasma urea nitrogen measurement (mass/volume ) 12 mg/dL 7-18 Serum or plasma creatinine measurement (mass/volume) 0.75 mg/dL 0.60-1.30 Serum or plasma urea nitrogen/creatinine mass ratio 16 NRG Serum or plasma creatinine measurement w ith calculation of estimated glomerular filtration rate > NRG Serum or plasma glucose measurement (mass/volume) 118 mg/dL 70-105 Serum or plasma calcium measurement (mass/volume) 9.2 mg/dL 8.5-10.1 Serum or plasma total bilirubin measurement (mass/volu me) 0.4 mg/dL 0.1-1.0 Serum or plasma alkaline phosphatase azar surement (enzymatic activity/volume) 90 U/L 40-136 Serum or plasma aspartate aminotransfera se measurement (enzymatic activity/volume) 24 U/L 5-34 Serum or plasma alanine aminotransferase measurement (enzymatic activity/volume) < U/L 0-55 Serum or plasma protein measurement (mass/volume) 7.3 g/dL 6.4-8.2 Serum or plasma albumin measurement (mass/volume) 4.0 g/dL 3.2-4.5 CALCIUM CORRECTED 9.2 mg/dL 8.5-10.1 Magnesium - 06/06/19 18:12 Magnesium 1.5 mg/dL 1.6-2.4 Serum or plasma troponin i.cardiac measu rement (mass/volume) - 06/06/19 18:12 Serum or plasma troponin i.cardiac measurement (mass/v olume) < ng/mL <0.028 Myoglobin, serum - 06/06/19 18:12 Myoglobin, serum 59.7 ng/mL 10.0-92.0 Serum or plasma lithium measurement (mol es/volume) - 06/06/19 18:12 BNP PT 385.6 pg/mL <100.0 Automated blood complete blood count (he mogram) panel - 06/10/19 12:15 Blood leukocytes automated count (number/volume) 6.7 10*3/uL 4.3-11.0 Blood erythrocytes automated count (number/volume) 4.01 10*6/uL 4.35-5.85 Venous blood hemoglobin measurement (mass/volume) 12.8 g/dL 11.5-16.0 Blood hematocrit (volume fraction) 39 % 35-52 Automated erythrocyte mean corpuscular volume 96 [ foz_us] 80-99 Automated erythrocyte mean corpuscular h emoglobin (mass per erythrocyte) 32 pg 25-34 Automated erythrocyte mean corpuscular h emoglobin concentration measurement (mass/volume) 33 g/dL 32-36 Automated erythrocyte distribution width ratio 12. 3 % 10.0- 14.5 Automated blood platelet count (count/volume) 290 10*3/uL 130-400 Automated blood platelet mean volume measurement 9.2 [foz_us] 7.4-10.4 PT panel in platelet poor plasma by coag ulation assay - 06/10/19 12:15 Prothrombin time (PT) in platelet poor plasma by coagu lation assay 21.6 s 12.2-14.7 INR in platelet poor plasma or blood by coagulation as say 1.8 0.8-1.4 Activated partial thromboplastin time (a PTT) in platelet poor plasma bycoagulation assay - 06/10/19 12:15 Activated partial thromboplastin time (a PTT) in platelet poor plasma bycoagulation assay 47 s 24-35 Comprehensive metabolic panel - 06/10/19 12:15 Serum or plasma sodium measurement (moles/volume) 139 mmol/L 135-145 Serum or plasma potassium measurement (moles/volume) 4.2 mmol/L 3.6-5.0 Serum or plasma chloride measurement (moles/volume) 104 mmol/L 98-107 Carbon dioxide 24 mmol/L 21-32 Serum or plasma anion gap determination (moles/volume) 11 mmol/L 5-14 Serum or plasma urea nitrogen measurement (mass/volume ) 9 mg/dL 7-18 Serum or plasma creatinine measurement (mass/volume) 0.72 mg/dL 0.60-1.30 Serum or plasma urea nitrogen/creatinine mass ratio 13 NRG Serum or plasma creatinine measurement w ith calculation of estimated glomerular filtration rate > NRG Serum or plasma glucose measurement (mass/volume) 81 mg/dL 70-105 Serum or plasma calcium measurement (mass/volume) 9.4 mg/dL 8.5-10.1 Serum or plasma total bilirubin measurement (mass/volu me) 0.6 mg/dL 0.1-1.0 Serum or plasma alkaline phosphatase azar surement (enzymatic activity/volume) 83 U/L 40-136 Serum or plasma aspartate aminotransfera se measurement (enzymatic activity/volume) 17 U/L 5-34 Serum or plasma alanine aminotransferase measurement (enzymatic activity/volume) < U/L 0-55 Serum or plasma protein measurement (mass/volume) 7.3 g/dL 6.4-8.2 Serum or plasma albumin measurement (mass/volume) 4.3 g/dL 3.2-4.5 CALCIUM CORRECTED 9.2 mg/dL 8.5-10.1 Lipid 1996 panel - 06/10/19 12:15 Serum or plasma triglyceride measurement (mass/volume) 76 mg/dL <150 Serum or plasma cholesterol measurement (mass/volume) 191 mg/dL < 200 Serum or plasma cholesterol in HDL measurement (mass/v olume) 55 mg/dL 40-60 Cholesterol in LDL [mass/volume] in serum or plasma by direct assay 129 mg/dL 1-129 Serum or plasma cholesterol in VLDL measurement (mass/ volume) 15 mg/dL 5-40 Methicillin resistant Staphylococcus aur eus (MRSA) screening culture - 06/10/19 12:15 Methicillin resistant Staphylococcus aureus (MRSA) scr eening culture NEG NRG Comprehensive metabolic panel - 10/23/19 08:52 Serum or plasma sodium measurement (moles/volume) 131 mmol/L 135-145 Serum or plasma potassium measurement (moles/volume) 5.2 mmol/L 3.6-5.0 Serum or plasma chloride measurement (moles/volume) 99 mmol/L 98-107 Carbon dioxide 22 mmol/L 21-32 Serum or plasma anion gap determination (moles/volume) 10 mmol/L 5-14 Serum or plasma urea nitrogen measurement (mass/volume ) 10 mg/dL 7-18 Serum or plasma creatinine measurement (mass/volume) 0.74 mg/dL 0.60-1.30 Serum or plasma urea nitrogen/creatinine mass ratio 14 NRG Serum or plasma creatinine measurement w ith calculation of estimated glomerular filtration rate > NRG Serum or plasma glucose measurement (mass/volume) 105 mg/dL 70-105 Serum or plasma calcium measurement (mass/volume) 9.3 mg/dL 8.5-10.1 Serum or plasma total bilirubin measurement (mass/volu me) 0.6 mg/dL 0.1-1.0 Serum or plasma alkaline phosphatase azar surement (enzymatic activity/volume) 94 U/L 40-136 Serum or plasma aspartate aminotransfera se measurement (enzymatic activity/volume) 24 U/L 5-34 Serum or plasma alanine aminotransferase measurement (enzymatic activity/volume) 15 U/L 0-55 Serum or plasma protein measurement (mass/volume) 7.1 g/dL 6.4-8.2 Serum or plasma albumin measurement (mass/volume) 4.0 g/dL 3.2-4.5 CALCIUM CORRECTED 9.3 mg/dL 8.5-10.1 Serum or plasma thyroxine (T4) free lissett urement (mass/volume) - 10/23/19 08:52 Serum or plasma thyroxine (T4) free measurement (mass/ volume) 0.99 ng/dL 0.70-1.48 TRIIODOTHYRONINE TOTAL T3 - 10/23/19 08: 52 TRIIODOTHYRONINE T3 TOTAL 0.73 % 0.60 -1.80 TRIIODOTHYRONINE TOTAL T3 - 11/07/19 15: 10 TRIIODOTHYRONINE T3 TOTAL 0.65 % 0.60 -1.80 Complete blood count (CBC) with automate d white blood cell (WBC) differential - 11/07/19 15:14 Blood leukocytes automated count (number/volume) 11.5 10*3/uL 4.3-11.0 Blood erythrocytes automated count (number/volume) 3.60 10*6/uL 4.35-5.85 Venous blood hemoglobin measurement (mass/volume) 11.3 g/dL 11.5-16.0 Blood hematocrit (volume fraction) 34 % 35-52 Automated erythrocyte mean corpuscular volume 93 [ foz_us] 80-99 Automated erythrocyte mean corpuscular h emoglobin (mass per erythrocyte) 31 pg 25-34 Automated erythrocyte mean corpuscular h emoglobin concentration measurement (mass/volume) 34 g/dL 32-36 Automated erythrocyte distribution width ratio 12. 3 % 10.0- 14.5 Automated blood platelet count (count/volume) 461 10*3/uL 130-400 Automated blood platelet mean volume measurement 8.7 [foz_us] 7.4-10.4 Automated blood neutrophils/100 leukocytes 94 % 42-75 Automated blood lymphocytes/100 leukocytes 3 % 12-44 Blood monocytes/100 leukocytes 3 % 0-12 Automated blood eosinophils/100 leukocytes 0 % 0-10 Automated blood basophils/100 leukocytes 0 % 0-10 Blood neutrophils automated count (number/volume) 10.8 10*3 1.8-7.8 Blood lymphocytes automated count (number/volume) 0.4 10*3 1.0-4.0 Blood monocytes automated count (number/volume) 0. 3 10*3 0.0-1.0 Automated eosinophil count 0.0 10*3/uL 0 .0-0.3 Automated blood basophil count (count/volume) 0.0 10*3/uL 0.0-0.1 Comprehensive metabolic panel - 11/07/19 15:14 Serum or plasma sodium measurement (moles/volume) 130 mmol/L 135-145 Serum or plasma potassium measurement (moles/volume) 4.7 mmol/L 3.6-5.0 Serum or plasma chloride measurement (moles/volume) 96 mmol/L 98-107 Carbon dioxide 23 mmol/L 21-32 Serum or plasma anion gap determination (moles/volume) 11 mmol/L 5-14 Serum or plasma urea nitrogen measurement (mass/volume ) 14 mg/dL 7-18 Serum or plasma creatinine measurement (mass/volume) 0.74 mg/dL 0.60-1.30 Serum or plasma urea nitrogen/creatinine mass ratio 19 NRG Serum or plasma creatinine measurement w ith calculation of estimated glomerular filtration rate > NRG Serum or plasma glucose measurement (mass/volume) 138 mg/dL 70-105 Serum or plasma calcium measurement (mass/volume) 9.3 mg/dL 8.5-10.1 Serum or plasma total bilirubin measurement (mass/volu me) 0.5 mg/dL 0.1-1.0 Serum or plasma alkaline phosphatase azar surement (enzymatic activity/volume) 95 U/L 40-136 Serum or plasma aspartate aminotransfera se measurement (enzymatic activity/volume) 21 U/L 5-34 Serum or plasma alanine aminotransferase measurement (enzymatic activity/volume) 12 U/L 0-55 Serum or plasma protein measurement (mass/volume) 7.2 g/dL 6.4-8.2 Serum or plasma albumin measurement (mass/volume) 3.9 g/dL 3.2-4.5 CALCIUM CORRECTED 9.4 mg/dL 8.5-10.1 Magnesium - 11/07/19 15:14 Magnesium 1.9 mg/dL 1.6-2.4 Manual absolute plasma cell count - 10/16 02/01 15:14 Blood monocytes/100 leukocytes 3 % NRG Manual blood segmented neutrophils/100 leukocytes 92 % NRG Blood band neutrophils/100 leukocytes 0 % NRG Manual blood lymphocytes/100 leukocytes 5 % NRG Manual eosinophils/100 leukocytes in nose 0 % NRG Manual blood basophils/100 leukocytes 0 % NRG Blood erythrocyte morphology finding identification NORMAL NRG Serum or plasma troponin i.cardiac measu rement (mass/volume) - 11/07/19 15:14 Serum or plasma troponin i.cardiac measurement (mass/v olume) < ng/mL <0.028 THYROID STIMULATING HORMONE - 11/07/19 1 5:14 THYROID STIMULATING HORMONE 0.03 u[iU]/mL 0.35-4.94 Serum or plasma thyroxine (T4) free [place]iss[place] urement (mass/volume) - 11/07/19 15:14 Serum or plasma thyroxine (T4) free measurement (mass/ volume) 1.36 ng/dL 0.70-1.48 Triiodothyronine (T3) - 12/02/19 16:46 Triiodothyronine (T3) 72 ng/dL 71-180 Thyroid Stimulating Hormone - 12/02/19 1 6:46 TSH 7.39 mIU/mL 0.32-5.00 Total T3 - 12/02/19 16:46 TRIIODOTHYRONINE (T3) 72 NG/DL 71-180 Thyroid Stimulating Hormone - 03/10/20 0 9:45 TSH 0.47 mIU/mL 0.32-5.00 Free T4 - 03/10/20 09:45 Free T4 1.57 ng/dL 0.81-1.61 Free T3 - 03/10/20 09:45 T3, FREE, DIALYSIS, LC/MS-MS 1.86 PG/ML Complete blood count (CBC) with automate d white blood cell (WBC) differential - 03/21/20 15:15 Blood leukocytes automated count (number/volume) 7.8 10*3/uL 4.3-11.0 Blood erythrocytes automated count (number/volume) 3.59 10*6/uL 4.35-5.85 Venous blood hemoglobin measurement (mass/volume) 11.8 g/dL 11.5-16.0 Blood hematocrit (volume fraction) 33 % 35-52 Automated erythrocyte mean corpuscular volume 93 [ foz_us] 80-99 Automated erythrocyte mean corpuscular h emoglobin (mass per erythrocyte) 33 pg 25-34 Automated erythrocyte mean corpuscular h emoglobin concentration measurement (mass/volume) 35 g/dL 32-36 Automated erythrocyte distribution width ratio 12. 8 % 10.0- 14.5 Automated blood platelet count (count/volume) 234 10*3/uL 130-400 Automated blood platelet mean volume measurement 9.3 [foz_us] 7.4-10.4 Automated blood neutrophils/100 leukocytes 85 % 42-75 Automated blood lymphocytes/100 leukocytes 6 % 12-44 Blood monocytes/100 leukocytes 8 % 0-12 Automated blood eosinophils/100 leukocytes 1 % 0-10 Automated blood basophils/100 leukocytes 0 % 0-10 Blood neutrophils automated count (number/volume) 6.6 10*3 1.8-7.8 Blood lymphocytes automated count (number/volume) 0.5 10*3 1.0-4.0 Blood monocytes automated count (number/volume) 0. 6 10*3 0.0-1.0 Automated eosinophil count 0.0 10*3/uL 0 .0-0.3 Automated blood basophil count (count/volume) 0.0 10*3/uL 0.0-0.1 Comprehensive metabolic panel - 03/21/20 15:15 Serum or plasma sodium measurement (moles/volume) 124 mmol/L 135-145 Serum or plasma potassium measurement (moles/volume) 4.3 mmol/L 3.6-5.0 Serum or plasma chloride measurement (moles/volume) 92 mmol/L 98-107 Carbon dioxide 21 mmol/L 21-32 Serum or plasma anion gap determination (moles/volume) 11 mmol/L 5-14 Serum or plasma urea nitrogen measurement (mass/volume ) 8 mg/dL 7-18 Serum or plasma creatinine measurement (mass/volume) 0.66 mg/dL 0.60-1.30 Serum or plasma urea nitrogen/creatinine mass ratio 12 NRG Serum or plasma creatinine measurement w ith calculation of estimated glomerular filtration rate > NRG Serum or plasma glucose measurement (mass/volume) 100 mg/dL 70-105 Serum or plasma calcium measurement (mass/volume) 8.6 mg/dL 8.5-10.1 Serum or plasma total bilirubin measurement (mass/volu me) 0.6 mg/dL 0.1-1.0 Serum or plasma alkaline phosphatase azar surement (enzymatic activity/volume) 64 U/L 40-136 Serum or plasma aspartate aminotransfera se measurement (enzymatic activity/volume) 23 U/L 5-34 Serum or plasma alanine aminotransferase measurement (enzymatic activity/volume) 8 U/L 0-55 Serum or plasma protein measurement (mass/volume) 6.5 g/dL 6.4-8.2 Serum or plasma albumin measurement (mass/volume) 3.9 g/dL 3.2-4.5 CALCIUM CORRECTED 8.7 mg/dL 8.5-10.1 Serum or plasma troponin i.cardiac measu rement (mass/volume) - 03/21/20 15:15 Serum or plasma troponin i.cardiac measurement (mass/v olume) < ng/mL <0.028 Manual absolute plasma cell count - 05/03 15:15 Blood monocytes/100 leukocytes 6 % NRG Manual blood segmented neutrophils/100 leukocytes 87 % NRG Manual blood lymphocytes/100 leukocytes 6 % NRG Manual eosinophils/100 leukocytes in nose 1 % NRG Blood erythrocyte morphology finding identification NORMAL NRG Serum or plasma thyrotropin measurement by detection limit <=0.05 miu/l (units/volume) - 03/21/20 15:15 Serum or plasma thyrotropin measurement by detection limit <=0.05 miu/l (units/volume) 0.85 u[iU]/mL 0.35-4.94 Complete urinalysis with reflex to cultu re - 03/21/20 15:30 Urine color determination YELLOW NRG Urine clarity determination CLEAR NR G Urine pH measurement by test strip 7.5 5-9 Specific gravity of urine by test strip 1.010 1.016-1.022 Urine protein assay by test strip, semi-quantitative NEGATIVE NEGATIVE Urine glucose detection by automated test strip NE GATIVE NEGATIVE Erythrocytes detection in urine sediment by light micr oscopy NEGATIVE NEGATIVE Urine ketones detection by automated test strip NE GATIVE NEGATIVE Urine nitrite detection by test strip NEGATIVE NEGATIVE Urine total bilirubin detection by test strip NEGA TIVE NEGATIVE Urine urobilinogen measurement by automated test strip (mass/volume) 1.0 mg/dL < = 1.0 Urine leukocyte esterase detection by dipstick NEG ATIVE NEGATIVE Automated urine sediment erythrocyte cou nt by microscopy (number/high power field) NONE NRG Automated urine sediment leukocyte count by microscopy (number/high power field) [HPF] NRG Bacteria detection in urine sediment by light microsco py TRACE NRG Squamous epithelial cells detection in u rine sediment by light microscopy 2-5 NRG Crystals detection in urine sediment by light microsco py NONE NRG Casts detection in urine sediment by light microscopy NONE NRG Mucus detection in urine sediment by light microscopy NEGATIVE NRG Complete urinalysis with reflex to culture NO NRG Complete blood count (CBC) with automate d white blood cell (WBC) differential - 03/22/20 07:48 Blood leukocytes automated count (number/volume) 8.0 10*3/uL 4.3-11.0 Blood erythrocytes automated count (number/volume) 3.94 10*6/uL 4.35-5.85 Venous blood hemoglobin measurement (mass/volume) 12.6 g/dL 11.5-16.0 Blood hematocrit (volume fraction) 37 % 35-52 Automated erythrocyte mean corpuscular volume 93 [ foz_us] 80-99 Automated erythrocyte mean corpuscular h emoglobin (mass per erythrocyte) 32 pg 25-34 Automated erythrocyte mean corpuscular h emoglobin concentration measurement (mass/volume) 35 g/dL 32-36 Automated erythrocyte distribution width ratio 13. 0 % 10.0- 14.5 Automated blood platelet count (count/volume) 275 10*3/uL 130-400 Automated blood platelet mean volume measurement 9.2 [foz_us] 7.4-10.4 Automated blood neutrophils/100 leukocytes 85 % 42-75 Automated blood lymphocytes/100 leukocytes 6 % 12-44 Blood monocytes/100 leukocytes 8 % 0-12 Automated blood eosinophils/100 leukocytes 0 % 0-10 Automated blood basophils/100 leukocytes 0 % 0-10 Blood neutrophils automated count (number/volume) 6.8 10*3 1.8-7.8 Blood lymphocytes automated count (number/volume) 0.5 10*3 1.0-4.0 Blood monocytes automated count (number/volume) 0. 6 10*3 0.0-1.0 Automated eosinophil count 0.0 10*3/uL 0 .0-0.3 Automated blood basophil count (count/volume) 0.0 10*3/uL 0.0-0.1 Comprehensive metabolic panel - 03/22/20 07:48 Serum or plasma sodium measurement (moles/volume) 126 mmol/L 135-145 Serum or plasma potassium measurement (moles/volume) 4.3 mmol/L 3.6-5.0 Serum or plasma chloride measurement (moles/volume) 95 mmol/L 98-107 Carbon dioxide 23 mmol/L 21-32 Serum or plasma anion gap determination (moles/volume) 8 mmol/L 5-14 Serum or plasma urea nitrogen measurement (mass/volume ) 9 mg/dL 7-18 Serum or plasma creatinine measurement (mass/volume) 0.67 mg/dL 0.60-1.30 Serum or plasma urea nitrogen/creatinine mass ratio 13 NRG Serum or plasma creatinine measurement w ith calculation of estimated glomerular filtration rate > NRG Serum or plasma glucose measurement (mass/volume) 116 mg/dL 70-105 Serum or plasma calcium measurement (mass/volume) 8.9 mg/dL 8.5-10.1 Serum or plasma total bilirubin measurement (mass/volu me) 0.5 mg/dL 0.1-1.0 Serum or plasma alkaline phosphatase azar surement (enzymatic activity/volume) 64 U/L 40-136 Serum or plasma aspartate aminotransfera se measurement (enzymatic activity/volume) 21 U/L 5-34 Serum or plasma alanine aminotransferase measurement (enzymatic activity/volume) 9 U/L 0-55 Serum or plasma protein measurement (mass/volume) 6.9 g/dL 6.4-8.2 Serum or plasma albumin measurement (mass/volume) 4.1 g/dL 3.2-4.5 CALCIUM CORRECTED 8.8 mg/dL 8.5-10.1 Serum or plasma C reactive protein measu rement (mass/volume) - 03/22/20 07:48 Serum or plasma C reactive protein measurement (mass/v olume) 0.16 mg/dL 0.00-0.50 Serum or plasma salicylates measurement (mass/volume) - 03/22/20 07:48 Serum or plasma salicylates measurement (mass/volume) < mg/dL 5.0-20.0 Serum or plasma acetaminophen measuremen t (mass/volume) - 03/22/20 07:48 Serum or plasma acetaminophen measurement (mass/volume ) 19 ug/mL 10-30 Manual absolute plasma cell count - 06/03 07:48 Blood monocytes/100 leukocytes 6 % NRG Manual blood segmented neutrophils/100 leukocytes 85 % NRG Manual blood lymphocytes/100 leukocytes 6 % NRG Manual eosinophils/100 leukocytes in nose 3 % NRG Manual blood basophils/100 leukocytes 0 % NRG Blood erythrocyte morphology finding identification NORMAL NRG Urine creatinine measurement (mass/volum e) - 03/24/20 00:25 Urine creatinine measurement (mass/volume) 24 mg/d L 30-125 Urine osmolality - 03/24/20 00:25 Urine osmolality 191 % 250-1200 SODIUM URINE RANDOM - 03/24/20 00:25 [id number] 26 % NRG Complete blood count (CBC) with automate d white blood cell (WBC) differential - 03/24/20 05:36 Blood leukocytes automated count (number/volume) 10.7 10*3/uL 4.3-11.0 Blood erythrocytes automated count (number/volume) 3.77 10*6/uL 4.35-5.85 Venous blood hemoglobin measurement (mass/volume) 12.2 g/dL 11.5-16.0 Blood hematocrit (volume fraction) 34 % 35-52 Automated erythrocyte mean corpuscular volume 91 [ foz_us] 80-99 Automated erythrocyte mean corpuscular h emoglobin (mass per erythrocyte) 32 pg 25-34 Automated erythrocyte mean corpuscular h emoglobin concentration measurement (mass/volume) 36 g/dL 32-36 Automated erythrocyte distribution width ratio 12. 7 % 10.0- 14.5 Automated blood platelet count (count/volume) 265 10*3/uL 130-400 Automated blood platelet mean volume measurement 9.2 [foz_us] 7.4-10.4 Automated blood neutrophils/100 leukocytes 89 % 42-75 Automated blood lymphocytes/100 leukocytes 3 % 12-44 Blood monocytes/100 leukocytes 8 % 0-12 Automated blood eosinophils/100 leukocytes 0 % 0-10 Automated blood basophils/100 leukocytes 0 % 0-10 Blood neutrophils automated count (number/volume) 9.5 10*3 1.8-7.8 Blood lymphocytes automated count (number/volume) 0.4 10*3 1.0-4.0 Blood monocytes automated count (number/volume) 0. 8 10*3 0.0-1.0 Automated eosinophil count 0.0 10*3/uL 0 .0-0.3 Automated blood basophil count (count/volume) 0.0 10*3/uL 0.0-0.1 Serum or plasma lithium measurement (mol es/volume) - 03/24/20 05:36 BNP PT 189.5 pg/mL <100.0 Complete urinalysis with reflex to cultu re - 03/24/20 05:49 Urine color determination YELLOW NRG Urine clarity determination CLEAR NR G Urine pH measurement by test strip 7.0 5-9 Specific gravity of urine by test strip 1.015 1.016-1.022 Urine protein assay by test strip, semi-quantitative NEGATIVE NEGATIVE Urine glucose detection by automated test strip NE GATIVE NEGATIVE Erythrocytes detection in urine sediment by light micr oscopy NEGATIVE NEGATIVE Urine ketones detection by automated test strip 1+ NEGATIVE Urine nitrite detection by test strip NEGATIVE NEGATIVE Urine total bilirubin detection by test strip NEGA TIVE NEGATIVE Urine urobilinogen measurement by automated test strip (mass/volume) 1.0 mg/dL < = 1.0 Urine leukocyte esterase detection by dipstick NEG ATIVE NEGATIVE Automated urine sediment erythrocyte cou nt by microscopy (number/high power field) NONE NRG Automated urine sediment leukocyte count by microscopy (number/high power field) NONE NRG Bacteria detection in urine sediment by light microsco py NEGATIVE NRG Squamous epithelial cells detection in u rine sediment by light microscopy 0-2 NRG Crystals detection in urine sediment by light microsco py NONE NRG Casts detection in urine sediment by light microscopy PRESENT NRG Mucus detection in urine sediment by light microscopy NEGATIVE NRG Complete urinalysis with reflex to culture NO NRG Granular casts detection in urine sediment by light mi croscopy RARE NRG Blood lactic acid measurement (moles/vol ume) - 03/24/20 05:57 Blood lactic acid measurement (moles/volume) 1.24 mmol/L 0.50-2.00 Bacterial blood culture - 03/24/20 05:57 QUANTITY OF GROWTH . NRG Bacterial blood culture [id number] NRG Serum or plasma C reactive protein measu rement (mass/volume) - 03/24/20 06:12 Serum or plasma C reactive protein measurement (mass/v olume) 0.24 mg/dL 0.00-0.50 PT panel in platelet poor plasma by coag ulation assay - 03/24/20 06:13 Prothrombin time (PT) in platelet poor plasma by coagu lation assay 34.3 s 12.2-14.7 INR in platelet poor plasma or blood by coagulation as say 3.2 0.8-1.4 Activated partial thromboplastin time (a PTT) in platelet poor plasma bycoagulation assay - 03/24/20 06:13 Activated partial thromboplastin time (a PTT) in platelet poor plasma bycoagulation assay 49 s 24-35 Comprehensive metabolic panel - 03/24/20 06:13 Serum or plasma sodium measurement (moles/volume) 121 mmol/L 135-145 Serum or plasma potassium measurement (moles/volume) 3.9 mmol/L 3.6-5.0 Serum or plasma chloride measurement (moles/volume) 87 mmol/L 98-107 Carbon dioxide 22 mmol/L 21-32 Serum or plasma anion gap determination (moles/volume) 12 mmol/L 5-14 Serum or plasma urea nitrogen measurement (mass/volume ) 9 mg/dL 7-18 Serum or plasma creatinine measurement (mass/volume) 0.61 mg/dL 0.60-1.30 Serum or plasma urea nitrogen/creatinine mass ratio 15 NRG Serum or plasma creatinine measurement w ith calculation of estimated glomerular filtration rate > NRG Serum or plasma glucose measurement (mass/volume) 105 mg/dL 70-105 Serum or plasma calcium measurement (mass/volume) 8.6 mg/dL 8.5-10.1 Serum or plasma total bilirubin measurement (mass/volu me) 0.7 mg/dL 0.1-1.0 Serum or plasma alkaline phosphatase azar surement (enzymatic activity/volume) 69 U/L 40-136 Serum or plasma aspartate aminotransfera se measurement (enzymatic activity/volume) 25 U/L 5-34 Serum or plasma alanine aminotransferase measurement (enzymatic activity/volume) 12 U/L 0-55 Serum or plasma protein measurement (mass/volume) 6.8 g/dL 6.4-8.2 Serum or plasma albumin measurement (mass/volume) 4.1 g/dL 3.2-4.5 CALCIUM CORRECTED 8.5 mg/dL 8.5-10.1 Magnesium - 03/24/20 06:13 Magnesium 1.6 mg/dL 1.6-2.4 Serum or plasma amylase measurement (enz ymatic activity/volume) - 03/24/20 06:13 Serum or plasma amylase measurement (enzymatic activit y/volume) 38 U/L 25-125 Lipase - 03/24/20 06:13 Lipase 7 U/L 8-78 Bacterial blood culture - 03/24/20 06:13 Bacterial blood culture NG [facility] Influenza virus A and B antigen detectio n - 03/24/20 07:50 FLU RESULT NEGATIVE FOR INFLUENZA A AND B ANTIGENS BY IA NR Coronavirus SARS-CoV-2 SO 2019 - 0 07:50 Coronavirus Ab [Units/volume] in Serum Negative Negative Serum or plasma sodium measurement (mole s/volume) - 03/24/20 16:15 Serum or plasma sodium measurement (moles/volume) 123 mmol/L 135-145 THYROID STIMULATING HORMONE - 03/24/20 1 6:15 THYROID STIMULATING HORMONE 1.17 u[iU]/mL 0.35-4.94 Blood CBC with ordered manual differenti al panel - 03/25/20 07:16 Blood leukocytes automated count (number/volume) 9.5 10*3/uL 4.3-11.0 Blood erythrocytes automated count (number/volume) 3.41 10*6/uL 4.35-5.85 Venous blood hemoglobin measurement (mass/volume) 11.2 g/dL 11.5-16.0 Blood hematocrit (volume fraction) 32 % 35-52 Automated erythrocyte mean corpuscular volume 93 [ foz_us] 80-99 Automated erythrocyte mean corpuscular h emoglobin (mass per erythrocyte) 33 pg 25-34 Automated erythrocyte mean corpuscular h emoglobin concentration measurement (mass/volume) 35 g/dL 32-36 Automated erythrocyte distribution width ratio 12. 9 % 10.0- 14.5 Automated blood platelet count (count/volume) 248 10*3/uL 130-400 Automated blood platelet mean volume measurement 9.3 [foz_us] 7.4-10.4 Automated blood neutrophils/100 leukocytes 88 % 42-75 Automated blood lymphocytes/100 leukocytes 4 % 12-44 Blood monocytes/100 leukocytes 7 % [facility] Automated blood eosinophils/100 leukocytes 0 % 0-10 Automated blood basophils/100 leukocytes 0 % 0-10 Blood neutrophils automated count (number/volume) 8.3 10*3 1.8-7.8 Blood lymphocytes automated count (number/volume) 0.4 10*3 1.0-4.0 Blood monocytes automated count (number/volume) 0. 8 10*3 0.0-1.0 Automated eosinophil count 0.0 10*3/uL 0 .0-0.3 Automated blood basophil count (count/volume) 0.0 10*3/uL 0.0-0.1 Manual blood segmented neutrophils/100 leukocytes 89 % NRG Blood band neutrophils/100 leukocytes 0 % NRG Manual blood lymphocytes/100 leukocytes 4 % NRG Manual eosinophils/100 leukocytes in nose 0 % NRG Manual blood basophils/100 leukocytes 0 % NRG Blood erythrocyte morphology finding identification NORMAL NRG Whole blood basic metabolic panel - 03/15 11/03 07:16 Serum or plasma sodium measurement (moles/volume) 131 mmol/L 135-145 Serum or plasma potassium measurement (moles/volume) 3.8 mmol/L 3.6-5.0 Serum or plasma chloride measurement (moles/volume) 101 mmol/L 98-107 Carbon dioxide 19 mmol/L 21-32 Serum or plasma anion gap determination (moles/volume) 11 mmol/L 5-14 Serum or plasma urea nitrogen measurement (mass/volume ) 5 mg/dL 7-18 Serum or plasma creatinine measurement (mass/volume) 0.56 mg/dL 0.60-1.30 Serum or plasma urea nitrogen/creatinine mass ratio 9 NRG Serum or plasma creatinine measurement w ith calculation of estimated glomerular filtration rate > NRG Serum or plasma glucose measurement (mass/volume) 84 mg/dL 70-105 Serum or plasma calcium measurement (mass/volume) 7.9 mg/dL 8.5-10.1 Magnesium - 03/25/20 07:16 Magnesium 2.3 mg/dL 1.6-2.4 Capillary blood glucose measurement by g lucometer (mass/volume) - 03/26/20 05:29 Capillary blood glucose measurement by glucometer (mas s/volume) 89 mg/dL 70-110 Whole blood basic metabolic panel - 03/15 12/04 10:30 Serum or plasma sodium measurement (moles/volume) 132 mmol/L 135-145 Serum or plasma potassium measurement (moles/volume) 3.5 mmol/L 3.6-5.0 Serum or plasma chloride measurement (moles/volume) 102 mmol/L 98-107 Carbon dioxide 22 mmol/L 21-32 Serum or plasma anion gap determination (moles/volume) 8 mmol/L 5-14 Serum or plasma urea nitrogen measurement (mass/volume ) 6 mg/dL 7-18 Serum or plasma creatinine measurement (mass/volume) 0.60 mg/dL 0.60-1.30 Serum or plasma urea nitrogen/creatinine mass ratio 10 NRG Serum or plasma creatinine measurement w ith calculation of estimated glomerular filtration rate > NRG Serum or plasma glucose measurement (mass/volume) 94 mg/dL 70-105 Serum or plasma calcium measurement (mass/volume) 8.1 mg/dL 8.5-10.1 Complete blood count (CBC) with automate d white blood cell (WBC) differential - 05/10/20 14:20 Blood leukocytes automated count (number/volume) 12.5 10*3/uL 4.3-11.0 Blood erythrocytes automated count (number/volume) 2.63 10*6/uL 4.35-5.85 Venous blood hemoglobin measurement (mass/volume) 8.2 g/dL 11.5-16.0 Blood hematocrit (volume fraction) 25 % 35-52 Automated erythrocyte mean corpuscular volume 94 [ foz_us] 80-99 Automated erythrocyte mean corpuscular h emoglobin (mass per erythrocyte) 31 pg 25-34 Automated erythrocyte mean corpuscular h emoglobin concentration measurement (mass/volume) 33 g/dL 32-36 Automated erythrocyte distribution width ratio 14. 1 % 10.0- 14.5 Automated blood platelet count (count/volume) 545 10*3/uL 130-400 Automated blood platelet mean volume measurement 8.7 [foz_us] 7.4-10.4 Automated blood neutrophils/100 leukocytes 74 % 42-75 Automated blood lymphocytes/100 leukocytes 14 % 12-44 Blood monocytes/100 leukocytes 11 % 0-12 Automated blood eosinophils/100 leukocytes 1 % 0-10 Automated blood basophils/100 leukocytes 0 % 0-10 Blood neutrophils automated count (number/volume) 9.3 10*3 1.8-7.8 Blood lymphocytes automated count (number/volume) 1.7 10*3 1.0-4.0 Blood monocytes automated count (number/volume) 1. 4 10*3 0.0-1.0 Automated eosinophil count 0.1 10*3/uL 0 .0-0.3 Automated blood basophil count (count/volume) 0.0 10*3/uL 0.0-0.1 Comprehensive metabolic panel - 05/10/20 14:20 Serum or plasma sodium measurement (moles/volume) 128 mmol/L 135-145 Serum or plasma potassium measurement (moles/volume) 4.1 mmol/L 3.6-5.0 Serum or plasma chloride measurement (moles/volume) 96 mmol/L 98-107 Carbon dioxide 18 mmol/L 21-32 Serum or plasma anion gap determination (moles/volume) 14 mmol/L 5-14 Serum or plasma urea nitrogen measurement (mass/volume ) 12 mg/dL 7-18 Serum or plasma creatinine measurement (mass/volume) 0.77 mg/dL 0.60-1.30 Serum or plasma urea nitrogen/creatinine mass ratio 16 NRG Serum or plasma creatinine measurement w ith calculation of estimated glomerular filtration rate > NRG Serum or plasma glucose measurement (mass/volume) 186 mg/dL 70-105 Serum or plasma calcium measurement (mass/volume) 8.2 mg/dL 8.5-10.1 Serum or plasma total bilirubin measurement (mass/volu me) 0.5 mg/dL 0.1-1.0 Serum or plasma alkaline phosphatase azar surement (enzymatic activity/volume) 113 U/L 40-136 Serum or plasma aspartate aminotransfera se measurement (enzymatic activity/volume) 67 U/L 5-34 Serum or plasma alanine aminotransferase measurement (enzymatic activity/volume) 37 U/L 0-55 Serum or plasma protein measurement (mass/volume) 5.8 g/dL 6.4-8.2 Serum or plasma albumin measurement (mass/volume) 3.1 g/dL 3.2-4.5 CALCIUM CORRECTED 8.9 mg/dL 8.5-10.1 PT panel in platelet poor plasma by coag ulation assay - 05/10/20 14:20 Prothrombin time (PT) in platelet poor plasma by coagu lation assay 29.5 s 12.2-14.7 INR in platelet poor plasma or blood by coagulation as say 2.8 0.8-1.4 Blood lactic acid measurement (moles/vol ume) - 05/10/20 14:20 Blood lactic acid measurement (moles/volume) 2.33 mmol/L 0.50-2.00 Complete urinalysis with reflex to cultu re - 05/10/20 14:20 Urine color determination YELLOW NRG Urine clarity determination CLEAR NR G Urine pH measurement by test strip 6.0 5-9 Specific gravity of urine by test strip 1.010 1.016-1.022 Urine protein assay by test strip, semi-quantitative NEGATIVE NEGATIVE Urine glucose detection by automated test strip NE GATIVE NEGATIVE Erythrocytes detection in urine sediment by light micr oscopy NEGATIVE NEGATIVE Urine ketones detection by automated test strip NE GATIVE NEGATIVE Urine nitrite detection by test strip NEGATIVE NEGATIVE Urine total bilirubin detection by test strip NEGA TIVE NEGATIVE Urine urobilinogen measurement by automated test strip (mass/volume) 0.2 mg/dL < = 1.0 Urine leukocyte esterase detection by dipstick TRA CE NEGATIVE Automated urine sediment erythrocyte cou nt by microscopy (number/high power field) NONE NRG Automated urine sediment leukocyte count by microscopy (number/high power field) [HPF] NRG Bacteria detection in urine sediment by light microsco py TRACE NRG Crystals detection in urine sediment by light microsco py PRESENT NRG Casts detection in urine sediment by light microscopy PRESENT NRG Mucus detection in urine sediment by light microscopy NEGATIVE NRG Complete urinalysis with reflex to culture NO NRG Amorphous sediment detection in urine sediment by ligh t microscopy FEW DEVIN URATES NRG Hyaline casts detection in urine sediment by light efra roscopy 5-10 NRG Serum or plasma lithium measurement (mol es/volume) - 05/10/20 14:20 BNP PT 186.2 pg/mL <100.0 Serum or plasma troponin i.cardiac measu rement (mass/volume) - 05/10/20 14:20 Serum or plasma troponin i.cardiac measurement (mass/v olume) < ng/mL <0.028 Encounters ACCT No. Visit Date/Time Discharge Status Pt. Type Provider Facility Loc./Unit Complaint [id number] 12/05/2019 00:06:00 Document Registration [id number] 03/24/2020 10:00:00 020 14:22:00 DIS Outpatient LOBO CHAVARRIA, CHYNA Hernandez [facility] [address] 4TH ABDOMINAL PAIN;HYPONATR EMIA [id number] 03/22/2020 07:26:00 12:57:00 DIS Emergency LOUIE CHAVARRIA, JOVANA Mansfield [facility] [address] ER WEAKNESS [id number] 03/21/2020 14:30:00 16:41:00 DIS Emergency DELFINOHERO [facility] [address] ER WEAKNESS [id number] 10/01/2019 09:16:00 00:01:00 DIS Outpatient CRYS HUMPHREY TURN SEWER [facility] [address] PULM COPD [id number] 11/07/2019 14:50:00 17:21:00 DIS Emergency MELISSA CHAVARRIA, GERONIMO Reyes [facility] [address] ER FEELS LIKE A-FI B [id number] 10/23/2019 08:44:00 23:59:59 CLS Outpatient AKILAH PRETTY TURN SEWER [facility] [address] LAB HYPERTHYROIDISM [id number] 10/20/2019 13:32:00 23:59:59 CLS Outpatient CRYS HUMPHREY APRN [facility] [address] RAD COPD,ATRIAL FIB ,ALLERGIC RHINITIS,DYSPNEA [id number] 08/06/2019 10:35:00 11:35:00 DIS Outpatient JAVIER CHAVARRIA, DIXIE Ybarra [facility] [address] REHAB GENERALIZED WEAKNESS A ND SYSTEMIC SCLEROSIS [id number] 06/21/2019 08:08:00 12:48:00 DIS Emergency NANCY CHAVARRIA, TERE Johnson [facility] [address] ER RECENT HEART CATH,BLEED ING FROM WOUND,DIZZINESS [id number] 06/10/2019 11:35:00 17:50:00 DIS Outpatient MECHELLE CHAVARRIA FACC, SABINO ZENG CC DS [facility] [address] CATH ANGINA,SOB,FATIGUE,COPD [id number] 06/06/2019 18:04:00 20:41:00 DIS Emergency JOVANA PALMA MD [facility] [address] ER CHEST PAINS [id number] 01/10/2019 10:13:00 03/29/2 019 23:59:59 CLS Outpatient DIXIE HERRERA MD [facility] [address] RAD ASPIRATION [id number] 08/17/2018 14:09:00 13:12:00 DIS Inpatient GANGA CHAVARRIA, SUMMER Hernandez [facility] [address] ICU CHEST PAIN;GABOQ UENT PVCS,HX AFIB [id number] 06/20/2018 07:43:00 018 23:59:59 CLS Outpatient DIXIE HERRERA MD [facility] [address] RAD LEFT SCREEN BREAST CA, OSTEOPOROSIS [id number] 06/14/2018 11:13:00 23:59:59 CLS Preadmit CRYS HUMPHREY APRN [facility] [address] RAD ALLERGIC RHINIT IS,COPD, DYSPNEA,EMPHYSEMA [id number] 06/04/2018 14:34:00 23:59:59 CLS Preadmit DIXIE HERRERA MD [facility] [address] RAD SCREENING /OSTEOPOROSIS [id number] 04/25/2018 08:25:00 018 23:59:59 CLS Outpatient CRYS JACKSON APRN [facility] [address] CARD ATRIAL FIBRILLA TION [id number] 04/03/2018 13:00:00 018 23:59:59 CLS Outpatient DIXIE HERRERA MD [facility] [address] RAD FOOT PAIN, SWELLING [id number] 03/15/2018 11:31:00 23:59:59 CLS Outpatient DIXIE HERRERA MD [facility] [address] CARD CHRONIC DIARRHEA ABD P AIN [id number] 03/06/2018 08:43:00 23:59:59 CLS Outpatient DIXIE HERRERA MD [facility] [address] LAB R19.7 [id number] 02/25/2018 09:30:00 23:59:59 CLS Preadmit CRYS HUMPHREY APRN [facility] [address] PULM COPD [id number] 01/17/2018 10:00:00 00:01:00 DIS Outpatient CRYS HUMPHREY TURN SEWER [facility] [address] PULM COPD [id number] 10/11/2017 08:59:00 017 23:59:59 CLS Outpatient CRYS HUMPHREY TURN SEWER [facility] [address] RAD J44.9 R06.00 J4 3.9 [id number] 10/04/2017 15:00:00 017 23:59:59 CLS Preadmit CRYS HUMPHREY TURN SEWER [facility] [address] RAD COPD J44.9 [id number] 09/19/2017 08:00:00 017 23:59:59 CLS Outpatient CRYS HUMPHREY TURN SEWER [facility] [address] RT J44.9 COPD [id number] 09/12/2017 06:58:00 017 23:59:59 CLS Outpatient PRECIOUS ARROYO DO [facility] [address] LAB A-FIB [id number] 09/12/2017 06:55:00 017 23:59:59 CLS Outpatient CRYS HUMPHREY TURN SEWER [facility] [address] RAD J44.9 R06.00 J4 3.9 [id number] 03/09/2016 11:15:00 016 13:50:00 DIS Outpatient JAVIER CHAVARRIA, DIXIE Ybarra [facility] [address] REHAB BILATERAL LE PAIN/WEAK NESS [id number] 11/03/2015 10:21:00 016 23:59:59 CLS Outpatient LYDIA CHAVARRIA, TANK Lee [facility] [address] CARD CP [id number] 10/24/2015 20:09:00 016 21:12:00 DIS Emergency SANDRA DOMINGUEZ MD [facility] [address] ER POSS REPEAT MINI-STROKE (SAME SYMPTOMS) [id number] 10/09/2015 10:39:00 015 16:08:00 DIS Emergency MELISSA CHAVARRIA, GERONIMO Reyes [facility] [address] ER NUMBNESS/CHEST PAIN [id number] 10/04/2015 10:44:00 23:59:59 CLS Outpatient DIXIE HERRERA MD [facility] [address] LAB SCHLERODERMA PROGRESSI VE [id number] 05/06/2015 12:38:00 23:59:59 CLS Outpatient YELENA MA MD [facility] [address] CARD SOB,SCLERODERMA [id number] 03/24/2015 12:12:00 23:59:59 CLS Outpatient SILVIANO SHRESTHA DO [facility] [address] RAD SHORTNESS OF BREATH [id number] 01/27/2015 08:51:00 23:59:59 CLS Outpatient MICHAEL BROWN DO [facility] [address] RT SOB,CP [id number] 01/25/2015 13:02:00 23:59:59 CLS Outpatient MICHAEL BROWN DO [facility] [address] CARD SOB, CHEST PAIN , WEAKNESS [id number] 11/24/2014 12:39:00 23:59:59 CLS Outpatient MICHAEL BROWN DO [facility] [address] RAD CLAUDICATION [id number] 05/10/2020 15:38:[address] Inpatient MIMI HERNANDEZ MD [facility] [address] ICU AMS [id number] 12/31/2019 09:30:00 Document Registration [id number] 11/12/2019 01:37:00 Document Registration [id number] 01/08/2015 17:38:00 Document Registration [id number] 11/20/2014 12:40:00 Document Registration [id number] 12/28/2010 07:22:00 Document Registration [id number] 12/23/2010 10:45:00 Document Registration [id number] 09/25/2010 21:45:00 Document Registration [id number] 04/27/2010 07:54:00 Document Registration [id number] 03/17/2020 14:32:00 03/17/2020 23:59 :00 DIS Outpatient DIXIE HERRERA [id number] 03/15/2020 16:53:00 03/15/2020 23:59 :00 DIS Outpatient Pamela Fowlerela [id number] 03/10/2020 13:34:00 03/10/2020 23:59 :00 DIS Outpatient DIXIE HERRERA [id number] 03/10/2020 10:51:00 03/10/2020 23:59 :00 DIS Outpatient DIXIE HERRERA [id number] 12/22/2019 17:24:00 12/22/2019 23:59 :00 DIS Outpatient Delores Fowler [id number] 12/14/2019 10:54:00 12/14/2019 23:59 :00 DIS Outpatient Rodrigo Solis [id number] 12/02/2019 17:34:00 12/02/2019 23:59 :00 DIS Outpatient DIXIE HERRERA [id number] 12/02/2019 16:45:00 12/02/2019 23:59 :00 DIS Outpatient DIXIE HERRERA [id number] 10/13/2019 00:00:00 10/13/2019 23:59 :00 DIS Outpatient HENRIETTA OLIVER [id number] 07/01/2019 10:00:00 07/01/2019 23:59: 00 DIS Outpatient DIXIE HERRERA [id number] 06/18/2019 12:29:00 06/18/2019 23:59: 00 DIS Outpatient DIXIE HERRERA [id number] 06/18/2019 12:28:00 06/18/2019 23:59: 00 DIS Outpatient DIXIE HERRERA [id number] 06/17/2019 15:00:00 06/17/2019 23:59: 00 DIS Outpatient DIXIE HERRERA [id number] 01/08/2019 12:28:00 01/08/2019 23:59: 00 DIS Outpatient DIXIE HERRERA [id number] 01/01/2019 11:44:00 01/01/2019 23:59: 00 DIS Outpatient DIXIE HERRERA [id number] 10/29/2018 08:41:00 10/29/2018 23:59: 00 DIS Outpatient MICHELA CARMICHAEL [id number] 07/04/2018 10:08:00 07/04/2018 23:59: 00 DIS Outpatient Ramesh Pisano [id number] 06/06/2018 12:45:00 06/06/2018 23:59: 00 DIS Outpatient HERRERA DIXIE [id number] 04/02/2018 12:13:00 04/02/2018 23:59: 00 DIS Outpatient DIXIE HERRERA [id number] 03/06/2018 09:20:00 03/06/2018 23:59: 00 DIS Outpatient DIXIE HERRERA [id number] 03/05/2018 16:59:00 03/05/2018 23:59: 00 DIS Outpatient DIXIE HERRERA [id number] 08/07/2017 10:32:00 08/07/2017 23:59: 00 DIS Outpatient DIXIE HERRERA [id number] 01/31/2017 15:35:00 01/31/2017 23:59: 00 DIS Outpatient DIXIE HERRERA [id number] 01/01/2019 10:29:00 Document Registration [id number] 07/22/2018 09:30:00 Document Registration [id number] 06/04/2018 13:50:00 Document Registration [id number] 05/08/2018 13:00:00 Document Registration [id number] 04/02/2018 10:00:00 Document Registration [id number] 03/05/2018 14:10:00 Document Registration [id number] 10/31/2017 14:50:00 Document Registration [id number] 08/07/2017 15:00:00 Document Registration [id number] 04/09/2020 09:44:17 04/09/2020 23:59:5 9 CLS Outpatient [id number] 03/05/2018 16:59:00 Document Registration [id number] 03/29/2018 19:20:00 03/29/2018 23:59: 59 CLS Outpatient [facility]
--- NOTE | 2020-05-10 16:56 | Diagnostic Imaging Report ---
PROCEDURE: CT head without contrast. TECHNIQUE: Multiple contiguous axial images were obtained through the brain without the use of intravenous contrast. Auto Exposure Controls were utilized during the CT exam to meet ALARA standards for radiation dose reduction. INDICATION: Altered mental status 10/24/2015. FINDINGS: Stable cerebral volume loss and chronic microvascular changes are present. There is a new and/or increasing senescent calcifications in the left basal ganglia and the left anterior periventricular white matter. There is no focus of acute ischemia or hemorrhage. There is no midline shift, mass effect, or extra-axial fluid collection. There is no mass. The bony calvarium, paranasal sinuses and mastoids are clear. IMPRESSION: No acute intracranial abnormality. Report was called to the Emergency Room. Dictated by: Dictated on workstation # [id number]
--- NOTE | 2020-05-10 17:02 | Diagnostic Imaging Report ---
PROCEDURE: CT chest, abdomen, and pelvis with contrast. TECHNIQUE: Multiple contiguous axial images were obtained through the chest, abdomen, and pelvis after the administration of intravenous contrast. Auto Exposure Controls were utilized during the CT exam to meet ALARA standards for radiation dose reduction. INDICATION: Found down, mental status changes, confusion. COMPARISON: None. CT CHEST: Moderate-sized bilateral pleural effusions are present with dependent atelectasis. There is no focal infiltrate. No pneumothorax is identified. The heart is slightly enlarged. There is atherosclerotic disease seen throughout the coronary system. There is advanced calcifications involving the mitral and aortic valves. There is no pericardial effusion. Central airways are grossly normal. Osseous structures are age-appropriate. IMPRESSION: 1. Moderate bilateral pleural effusions with dependent atelectasis 2. Coronary artery, aortic and mitral valve disease. CT ABDOMEN AND PELVIS. Advanced atherosclerosis is seen throughout the abdominal aorta and the origins of the visceral branch vessels. There is no aneurysm. Suspect a degree of stenosis involving the bilateral renal arteries and SMA. No obvious solid organ or bowel ischemia is identified. The gallbladder retroperitoneum is grossly unremarkable. The uterus is intact. Distal ureters and urinary bladder are unremarkable. There is a Ogden catheter within the lumen of the bladder. The visualized osseous structures are grossly unremarkable. There are no acute fractures. IMPRESSION: 1. Advanced atherosclerotic disease. Stenosis is suspected involving the origin of the SMA and bilateral renal arteries. Please note, the study is limited due to motion number. 2. No solid organ or bowel ischemia. 3. No CT evidence for acute trauma within the abdomen or pelvis. Dictated by: Dictated on workstation # [id number]
--- NOTE | 2020-05-10 17:56 | Consultation - Surgery ---
History of Present Illness History of Present Illness Patient Consulted On(fernanda/time) 05/10/20 17:51 Time Seen by Provider: 17:34 History of Present Illness Surgery asked to consult regarding abdominal pain and anemia. HPI per IM: Pt is an 79yoCF with a PMH of aortic stenosis, COPD, CAD with rec ent stenting, HTN, HLD, hypothyroidism, paroxysmal atrial fibrillation on chronic anticoagulation who presented to the ER due to hypoxia. She is unable to provide much history and onlyanswered a few yes or no questions for me. She told me she was sick and that she was not having pain. Otherwise all history obtained from family and records. She was apparently in her normal state this morning (ambulatory and alert and oriented x4). She spoke to her son and then had lunch. Sometime after lunch they found her in her room minimallyresponsive. There was concern for an episode of apnea as well. EMS was summoned and she was found to have oxygen saturations in the 60%. She was placed on a nonrebreather which brought her oxygen saturations up. She was taken for CT head as she is on Xarelto. HPI per ED: To ER by EMS from half-way with reports of altered mental status and hypoxia. She was fine at lunchtime, up walking around and ate lunch normally. Nursing staff found all or in her room minimally responsive with a b rief period of apnea. EMS arrived and found oxygen saturation to be 60% on room air, she was placed on a nonrebreather with increased to 100%. She just finished antibiotics for a pneumonia 2-3 days ago. Follow-up with Dr. Argueta from cardiology in [place] in regards to moderate to severe aortic stenosis. history of atrial fibrillation for which she is on Eliquis. COPD, recurrent right pleural effusion. Timing/Duration: 1-2 Days Severity: Moderate Associated Systoms: Shortness of Air When I spoke to pt up in ICU she could barely answer questions because of the pain and constant moaning, did get a lot of info from the son who is at bedside. Has never had pain like this before and no hx of anemia. No hx of melena, hematochezia, hematemesis. Allergies and Home Medications Allergies Coded Allergies: pregabalin (Verified Allergy, Unknown, 03/22/20) Home Medications Acetaminophen 325 Mg Tablet, 325-650 MG PO Q6H PRN for PAIN-MODERATE (5-7), (Reported) Amiodarone HCl 200 Mg Tablet, 200 MG PO BID, (Reported) Amlodipine Besylate 10 Mg Tablet, 10 MG PO DAILY Prescribed by: CHYNA DIAMOND on 03/25/20 1432 Aspirin 81 Mg Tablet.dr, 81 MG PO DAILY, (Reported) Gabapentin 800 Mg Tablet, 800 MG PO HS, (Reported) Levothyroxine Sodium 50 Mcg Tablet, 50 MCG PO DAILY, (Reported) Losartan Potassium 100 Mg Tablet, 100 MG PO DAILY, (Reported) Polyethylene Glycol 3350 17 Gm Powd.pack, 17 GM PO DAILY PRN for CONSTIPATION- 2ND LINE, (Reported) Pravastatin Sodium 20 Mg Tablet, 20 MG PO HS, (Reported) Rivaroxaban 20 Mg Tablet, 20 MG PO DAILY, (Reported) Tramadol HCl 50 Mg Tablet, 50 MG PO Q6H PRN for PAIN-MODERATE (5-7), (Reported) Patient Home Medication List Home Medication List Reviewed: Yes Past Icnjgqh-[id number]-Axgxqo Hx Patient Social History Alcohol Use: Denies Use Number of Drinks Today: AA Recreational Drug Use: No Smoking Status: Former Smoker Former Smoker, Quit: Nov 15, 1979 Type Used: Cigarettes 2nd Hand Smoke Exposure: Yes (1979) Recent Foreign Travel: No Contact w/Someone Who Travel: No Recent Infectious Disease Expo: No Immunizations Up To Date Tetanus Booster (TDap): Unknown Date of Pneumonia Vaccine: Mar 24, 2018 Date of Influenza Vaccine: Jun 26, 2019 Seasonal Allergies Seasonal Allergies: No Surgeries History of Surgeries: Yes Surgeries: Eye Surgery, Orthopedic Respiratory History of Respiratory Disorde: Yes (b/l pleural effusions with hx of thoracentesis) Respiratory Disorders: COPD Cardiovascular History of Cardiac Disorders: Yes Cardiac Disorders: Atrial Fibrillation, Hypertension, Peripheral Vascular, Valvular Heart Disease Neurological History of Neurological Disord: Yes Neurological Disorders: Neuropathy, TIA 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 System : No Hx 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 Disorders: No [employer] History: Menopausal Genitourinary History of Genitourinary Disor: No Gastrointestinal History of Gastrointestinal Di: Yes (dysphagia) Gastrointestinal Disorders: Gastroesophageal Reflux Musculoskeletal History of Musculoskeletal Dis: Yes (scleroderma) Musculoskeletal Disorders: Rheumatoid Arthritis Endocrine History of Endocrine Disorders: Yes Endocrine Disorders: Hyperthyroidism HEENT HEENT Disorders: Cataract Cancer History of Cancer: No Psychosocial History of Psychiatric Problem: No Integumentary History of Skin or Integumenta: Yes (SCLERODERMA) Blood Transfusions History of Blood Disorders: No Adverse Reaction to a Blood Tr: No Family Medical History Significant Family History: Heart Disease (mother had afib), Stroke (mother of stroke) Review of Systems-General Constitutional: No chills, No diaphoresis; malaise, weakness EENTM: No blurred vision, No double vision, No mouth pain, No mouth swelling, No epistaxis Respiratory: cough, dyspnea on exertion; No hemoptysis; short of breath Cardiovascular: No chest pain; palpitations Gastrointestinal: abdominal pain; No jaundice; nausea; No vomiting Genitourinary: No dysuria, No frequency, No hematuria Musculoskeletal: joint pain, joint swelling, muscle pain, muscle stiffness Skin: No change in color, No change in hair/nails Psychiatric/Neurological: Denies Anxiety, Denies Depressed, Denies Seizure, Denies Tingling Other pt takes blood thinners and bleeds and bruises easily Physical Exam-General Problems Physical Exam Vital Signs Vital Signs - First Documented 05/10/20 14:12 Temp 36.5 Pulse 72 Resp 38 B/P (MAP) 153/56 (88) Pulse Ox 100 O2 Delivery Non Rebreather O2 Flow Rate 10.00 Capillary Refill : Less Than 3 Seconds General Appearance: severe distress, thin Eyes: Bilateral Eye PERRL, Bilateral Eye EOMI HEENT: No scleral icterus (R), No scleral icterus (L); other (edentulous) Neck: non-tender, supple Respiratory: respiratory distress, decreased breath sounds (at bases), accessory muscle use, crackles, wheezing Cardiovascular: bradycardia, systolic murmur Gastrointestinal: no organomegaly, distended, guarding, rebound, tenderness Back: no CVA tenderness, no vertebral tenderness Extremities: no pedal edema, no calf tenderness, normal capillary refill Neurologic/Psychiatric: alert, other (can't get pt to be still long enough to get good exam) Skin: ecchymosis (arms and legs), pallor Lymphatic: no adenopathy (neck, axilla or groin) Data Review Labs Laboratory Tests 05/10/20 14:20: White Blood Count 12.5H, Red Blood Count 2.63L, Hemoglobin 8.2L, Hematocrit 25L, Mean Corpuscular Volume 94, Mean Corpuscular Hemoglobin 31, Mean Corpuscular Hemoglobin Concent 33, Red Cell Distribution Width 14.1, Platelet Count 545H, Mean Platelet Volume 8.7, Neutrophils (%) (Auto) 74, Lymphocytes (%) (Auto) 14, Monocytes (%) (Auto) 11, Eosinophils (%) (Auto) 1, Basophils (%) (Auto) 0, Neutrophils # (Auto) 9.3H, Lymphocytes # (Auto) 1.7, Monocytes # (Auto) 1.4H, Eosinophils # (Auto) 0.1, Basophils # (Auto) 0.0, Prothrombin Time 29.5H, INR Comment 2.8H, Urine Color YELLOW, Urine Clarity CLEAR, Urine pH 6.0, Urine Specific [place] 1.010L, Urine Protein NEGATIVE, Urine Glucose (UA) NEGATIVE, Urine Ketones NEGATIVE, Urine Nitrite NEGATIVE, Urine Bilirubin NEGATIVE, Urine Urobilinogen 0.2, Urine Leukocyte Esterase TRACEH, Urine RBC (Auto) NEGATIVE, Urine RBC NONE, Urine WBC 0-2, Urine Crystals PRESENTH, Urine Amorphous Sediment FEW DEVIN URATESH, Urine Bacteria TRACE, Urine Casts PRESENT, Urine Hyaline Casts 5-10H, Urine Mucus NEGATIVE, Urine Culture Indicated NO, Sodium Level 128L, Pota ssium Level 4.1, Chloride Level 96L, Carbon Dioxide Level 18L, Anion Gap 14, Blood Urea Nitrogen 12, Creatinine 0.77, Estimat Glomerular Filtration Rate > 60, BUN/Creatinine Ratio 16, Glucose Level 186H, Lactic Acid Level 2.33*H, Calcium Level 8.2L, Corrected Calcium 8.9, Total Bilirubin 0.5, Aspartate Amino Transf (AST/SGOT) 67H, Alanine Aminotransferase (ALT/SGPT) 37, Alkaline Phos phatase 113, Troponin I < 0.028, B-Type Natriuretic Peptide 186.2H, Total Protein 5.8L, Albumin 3.1L, Procalcitonin 0.05 05/10/20 16:37: Lactic Acid Level 1.51 Radiology Date of Exam:05/10/20 CT CHEST/ABDOMEN/PELVIS W PROCEDURE: CT chest, abdomen, and pelvis with contrast. TECHNIQUE: Multiple contiguous axial images were obtained through the chest, abdomen, and pelvis after the administration of intravenous contrast. Auto Exposure Controls were utilized during the CT exam to meet ALARA standards for radiation dose reduction. INDICATION: Found down, mental status changes, confusion. COMPARISON: None. CT CHEST: Moderate-sized bilateral pleural effusions are present with dependent atelectasis. There is no focal infiltrate. No pneumothorax is identified. The heart is slightly enlarged. There is atherosclerotic disease seen throughout the coronary system. There is advanced calcifications involving the mitral and aortic valves. There is no pericardial effusion. Central airways are grossly normal. Osseous structures are age-appropriate. IMPRESSION: 1. Moderate bilateral pleural effusions with dependent atelectasis 2. Coronary artery, aortic and mitral valve disease. CT ABDOMEN AND PELVIS. Advanced atherosclerosis is seen throughout the abdominal aorta and the origins of the visceral branch vessels. There is no aneurysm. Suspect a degree of stenosis involving the bilateral renal arteries and SMA. No obvious solid organ or bowel ischemia is identified. The gallbladder retroperitoneum is grossly unremarkable. The uterus is intact. Distal ureters and urinary bladder are unremarkable. There is a Ogden catheter within the lumen of the bladder. The visualized osseous structures are grossly unremarkable. There are no acute fractures. IMPRESSION: 1. Advanced atherosclerotic disease. Stenosis is suspected involving the origin of the SMA and bilateral renal arteries. Please note, the study is limited due to motion number. 2. No solid organ or bowel ischemia. 3. No CT evidence for acute trauma within the abdomen or pelvis. Dictated by: Dictated on workstation # [id number] Dict: 05/10/20 1647 Trans: 05/10/20 1703 [facility] [id number] Interpreted by: RAFFI DONALDSON Electronically signed by: RAFFI DONALDSON 05/10/20 2933 Assessment/Plan Assessment/Plan Assessment/Plan Severe Abd pain Hypoxia Hx of Afib and aortic stenosis Pt's pain is uncontrollable and I am concerned about the possibility of ischemic bowel. Gastric ulcer with perforation or bleeding is less likely because CT does not show any free air of free fluid. I discussed with her son and asked pt what she wanted; we can wait and see if anything changes, do nothing or go to surgery. She is at increased risk of bleeding and complications because she has still been taking Xarelto; along with normal risks of surgery including but not limited to pain, infection, scar and damage to bowel. Both son and pt want procedure because the pain is so bad and nothing is helping. She has not eaten since breakfast and will get consent for Diagnostic Laparoscopy, possible laparotomy and possible bowel resection. All questions answered to their satisfaction. Clinical Quality Measures DVT/VTE Risk/Contraindication: Risk Factor Score Per Nursin RFS Level Per Nursing on Admit: 4+=Very High SHEILA KATE DO May 10, 2020 17:56
[2020-05-10] MEDS ORDERED: BUP/EPI 0.5% 1:200,000 (MARCAINE) 10ML VIAL IJ ONE (18:21)
[2020-05-10] MEDS: LACTATED RINGERS 1,000 ML IV PRN ×2 (19:00→19:51)
[2020-05-10] MEDS ORDERED: fentaNYL INJECTION 100 MCG/2 ML AMP ONE (19:01)
[2020-05-10] MEDS ORDERED: SUCCINYLCHOLINE INJ 100 MG/5 ML SYR ONE (19:06)
[2020-05-10] MEDS ORDERED: ETOMIDATE IV SOLN 20 MG/10 ML VIAL ONE (19:06)
[2020-05-10] MEDS ORDERED: ceFAZolin INJECTION 1,000 MG ONE (19:10)
[2020-05-10] MEDS ORDERED: ATROPINE INJ 0.4 MG/ML SDV ONE ×2 (19:15→21:10)
[2020-05-10] MEDS ORDERED: ceFAZolin INJECTION 1,000 MG in WATER (STERILE) FOR INJECTION 10 ML IV NR (19:45)
--- OUTSIDE RECORDS SUMMARY | 2020-05-10 19:46 | XMS REPORT | Continuity of Care Document ---
Demographics Preferred Language Unknown Marital Status Unknown Church Affiliation Unknown Race Unknown Ethnic Group Unknown [...] UNKNOWN DIZZINESS Yes PREDNISONE UNKNOWN UNKNOWN Yes PLWABSP-OPO-ROK REDUCTASE INHIBITORS UNKNOWN GI PROBLEMS - DIARRH Yes [id number] REDUCTASE INHIBITORS UNKNOWN UNKNOWN Yes fluticasone [id number] Drug Aller gy Unknown N/A 10/09/2015 Yes Lactase [id number] Drug Allergy Unknown N/A 10/09/2015 Yes Penicillins [id number] Drug Aller gy Unknown N/A 10/09/2015 Yes No Known Drug Allergies [id number] Drug Allergy Unknown N/A 06/10/2019 Yes pregabalin [id number] Drug Allerg y Unknown N/A 03/22/2020 Medications [...] SKIN 10/09/2015 GERONIMO TORRES MD Ot Z79.02 ECONOMIC RESEARCH ANALYST (CURRENT) USE OF ANTITHROMBOTI 10/09/2015 GERONIMO TORRES MD Ot Z79.82 ECONOMIC RESEARCH ANALYST (CURRENT) USE OF ASPIRIN 10/24/2015 SANDRA DOMINGUEZ MD Ot G45. 9 TRANSIENT CEREBRAL ISCHEMIC ATTACK, UNSP 10/24/2015 SANDRA DOMINGUEZ MD Ot Z79. 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 09/12/2017 Ot 787.20 DYS PHAG[place], [...] .9 HEMATURIA, UNSPECIFIED 10/05/2017 KAM, CRYS E CHRONIC SPECIALIST Ot J43.9 EMPHYSEMA, UNSPECIFIED 10/10/2017 KAM, CRYS E CHRONIC SPECIALIST Ot J43.9 EMPHYSEMA, UNSPECIFIED 10/10/2017 KAM, CRYS E CHRONIC SPECIALIST Ot R06.00 DYSPNEA, UNSPECIFIED 10/31/2017 A 564.1 IRRI TABLE BOWEL SYNDROME 10/31/2017 A K58.9 IRRI TABLE BOWEL SYNDROME WITHOUT DIARRHEA 11/01/2017 KAM, CRYS E CHRONIC SPECIALIST Ot J44.9 CHRONIC OBSTRUCTIVE PULMONARY DISEASE, U 01/04/2018 KAM, CRYS E CHRONIC SPECIALIST Ot J43.9 EMPHYSEMA, UNSPECIFIED 01/04/2018 KAM, CRYS E CHRONIC SPECIALIST Ot R06.00 DYSPNEA, UNSPECIFIED 01/08/2018 KAM, CRYS E CHRONIC SPECIALIST Ot J43.9 EMPHYSEMA, UNSPECIFIED 01/08/2018 KAM, CRYS E CHRONIC SPECIALIST Ot R06.00 DYSPNEA, UNSPECIFIED 01/15/2018 KAM, CRYS E CHRONIC SPECIALIST Ot J43.9 EMPHYSEMA, UNSPECIFIED 01/15/2018 KAM, CRYS E CHRONIC SPECIALIST Ot R06.00 DYSPNEA, UNSPECIFIED 01/17/2018 KAM, CRYS E CHRONIC SPECIALIST Ot J43.9 EMPHYSEMA, UNSPECIFIED 01/17/2018 KAM, CRYS E CHRONIC SPECIALIST Ot R06.00 DYSPNEA, UNSPECIFIED 01/22/2018 KAM, CRYS E CHRONIC SPECIALIST Ot J43.9 EMPHYSEMA, UNSPECIFIED 01/22/2018 KAM, CRYS E CHRONIC SPECIALIST Ot R06.00 DYSPNEA, UNSPECIFIED 01/24/2018 KAM, CRYS E CHRONIC SPECIALIST Ot J43.9 EMPHYSEMA, UNSPECIFIED 01/24/2018 KAM, CRYS E CHRONIC SPECIALIST Ot R06.00 DYSPNEA, UNSPECIFIED 01/29/2018 KAM, CRYS E CHRONIC SPECIALIST Ot J43.9 EMPHYSEMA, UNSPECIFIED 01/29/2018 KAM, CRYS E CHRONIC SPECIALIST Ot R06.00 DYSPNEA, UNSPECIFIED 01/31/2018 KAM, CRYS E CHRONIC SPECIALIST Ot J43.9 EMPHYSEMA, UNSPECIFIED 01/31/2018 KAM, CRYS E CHRONIC SPECIALIST Ot R06.00 DYSPNEA, UNSPECIFIED 01/31/2018 KAM, CRYS E CHRONIC SPECIALIST Ot J43.9 EMPHYSEMA, UNSPECIFIED 01/31/2018 KAM, CRYS E CHRONIC SPECIALIST Ot R06.00 DYSPNEA, UNSPECIFIED 02/07/2018 KAM, CRYS E CHRONIC SPECIALIST Ot J43.9 EMPHYSEMA, UNSPECIFIED 02/07/2018 KAM, CRYS E CHRONIC SPECIALIST Ot R06.00 DYSPNEA, UNSPECIFIED 02/12/2018 KAM CRYS E CHRONIC SPECIALIST Ot J43.9 EMPHYSEMA, UNSPECIFIED 02/12/2018 KAM CRYS E CHRONIC SPECIALIST Ot R06.00 DYSPNEA, UNSPECIFIED 02/24/2018 KAM CRYS E CHRONIC SPECIALIST Ot J43.9 EMPHYSEMA, UNSPECIFIED 02/24/2018 KAM CRYS E CHRONIC SPECIALIST Ot R06.00 DYSPNEA, UNSPECIFIED 02/25/2018 KAM CRYS E CHRONIC SPECIALIST Ot J43.9 EMPHYSEMA, UNSPECIFIED 02/25/2018 KAM CRYS E CHRONIC SPECIALIST Ot R06.00 DYSPNEA, UNSPECIFIED 03/05/2018 JAVIER, DIXIE [...] W 729.5 PAIN IN LIMB 04/02/2018 DIXIE HERRREA W 782.3 EDEMA 04/02/2018 DIXIE HERRERA W [...] DISEASES OF THE SKIN 04/30/2018 CRYS JACKSON CHRONIC SPECIALIST Ot I48.91 UNSPECIFIED ATRIAL FIBRILLATION 05/08/2018 W 356.9 UNSP ECIFIED IDIOPATHIC PERIPHERAL NEUROPATHY 05/08/2018 A 427.32 ATR IAL FLUTTER 05/08/2018 W 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 05/08/2018 A 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 WORKER ROBINA ATRIAL FIBRILLATION 06/04/2018 W 272.4 OTHE [...] OBSTRUCTION, NOT ELSEWHERE CLASSIFIED 07/22/2018 W 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 WORKER ROBINA ATRIAL FIBRILLATION 07/22/2018 W J44.9 POWDER WORKER ROBINA OBSTRUCTIVE PULMONARY DISEASE, UNSPECIFIED 08/17/2018 MICHAEL BROWN DO Ot 440.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 08/17/2018 Ot 787.20 DYS PHAGIA, [...] R07.9 CHEST PAIN, UNSPECIFIED 08/17/2018 CRYS HUMPHREY CHRONIC SPECIALIST Ot J43.9 EMPHYSEMA, UNSPECIFIED 08/17/2018 CRYS HUMPHREY CHRONIC SPECIALIST Ot R06.00 DYSPNEA, UNSPECIFIED 08/17/2018 CRYS HUMPHREY CHRONIC SPECIALIST Ot J43.9 EMPHYSEMA, UNSPECIFIED 08/17/2018 LANGEVIN DO, PRECIOUS Ot I48.91 UNSPECIFIED ATRIAL FIBRILLATION 08/17/2018 LANGEVIN DO, PRECIOUS Ot R31 .9 HEMATURIA, UNSPECIFIED 08/17/2018 CRYS HUMPHREY CHRONIC SPECIALIST Ot J44.9 CHRONIC OBSTRUCTIVE PULMONARY DISEASE, U [...] UNSPECIFIED 08/18/2018 SUMMER SCHULER MD Ot Z79.82 MCC (CURRENT) USE OF ASPIRIN 08/18/2018 SUMMER SCHULER MD Ot Z79.899 OTHER MCC (CURRENT) DRUG THERAPY 08/18/2018 SUMMER SCHULER MD, [...] DIXIE HERRERA W R41.3 OTHER AMNESIA 01/08/2019 DIXIE HERRERA W 728.3 OTHER SPECIFIC MUSCLE DISORDERS [...] UNSPECIFIED 06/06/2019 JOVANA PALMA MD Ot Z79.01 MCC (CURRENT) USE OF ANTICOAGULANT 06/06/2019 JOVANA PALMA [...] UNSPECIFIED 06/10/2019 JOVANA PALMA MD Ot Z79.01 ECONOMIC RESEARCH ANALYST (CURRENT) USE OF ANTICOAGULANT 06/10/2019 JOVANA PALMA MD Ot Z86.73 PRSNL HX OF TIA (TIA), AND CEREB INFRC W 06/10/2019 JOVANA PALMA MD, Ot Z87.891 PERSONAL HISTORY OF NICOTINE DEPENDENCE 06/10/2019 JOVANA PALMA MD, Ot Z88.0 ALLERGY STATUS TO PENICILLIN 06/10/2019 JOVANA PALMA MD, Ot Z88.8 ALLERGY STATUS TO OTH DRUG/MEDS/BIOL SUB 06/10/2019 CRYS HUMPHREY CHRONIC SPECIALIST Ot J43.9 EMPHYSEMA, UNSPECIFIED 06/10/2019 CRYS HUMPHREY CHRONIC SPECIALIST Ot R06.00 DYSPNEA, UNSPECIFIED 06/10/2019 CRYS HUMPHREY CHRONIC SPECIALIST Ot J43.9 EMPHYSEMA, UNSPECIFIED 06/10/2019 CRYS HUMPHREY CHRONIC SPECIALIST Ot R06.00 DYSPNEA, UNSPECIFIED 06/10/2019 MECHELLE CHAVARRIA FACC, SABINO FACP CCDS Ot I25.10 ATHSCL HEART DISEASE OF [place] CORONARY 06/10/2019 MECHELLE CHAVARRIA FACC, ALI FACP [...] CHAVARRIA FACC, SABINO FACP CCDS Ot Z79.01 MCC (CURRENT) USE OF ANTICOAGULANT 06/10/2019 MECHELLE CHAVARRIA FACC, ALI FACP CCDS Ot Z79.82 MCC (CURRENT) USE OF ASPIRIN 06/10/2019 MECHELLE CHAVARRIA FACC, ALI FACP CCDS Ot Z79.899 OTHER MCC (CURRENT) DRUG THERAPY 06/10/2019 MECHELLE CHAVARRIA FACC, [...] CCDS Ot I25.10 ATHSCL HEART DISEASE OF [place] CORONARY 06/13/2019 MECHELLE CHAVARRIA FACC, ALI FACP [...] CHAVARRIA FACC, ALI FACP CCDS Ot Z79.01 MCC (CURRENT) USE OF ANTICOAGULANT 06/13/2019 MECHELLE CHAVARRIA FACC, ALI FACP CCDS Ot Z79.82 MCC (CURRENT) USE OF ASPIRIN 06/13/2019 MECHELLE CHAVARRIA FACC, ALI FACP CCDS Ot Z79.899 OTHER MCC (CURRENT) DRUG THERAPY 06/13/2019 MECHELLE CHAVARRIA FACC, [...] MD Ot I10 ESSENTIAL (PRIMARY) HYPERTENSION 06/21/2019 TERE CRUZ MD Ot I48. 91 UNSPECIFIED ATRIAL [...] 06/21/2019 TERE CRUZ MD Ot Z79. 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 09/24/2019 Ot 787.20 DYS PHAGIA, [...] R07.9 CHEST PAIN, UNSPECIFIED 09/24/2019 CRYS HUMPHREY CHRONIC SPECIALIST Ot J43.9 EMPHYSEMA, UNSPECIFIED 09/24/2019 CRYS HUMPHREY CHRONIC SPECIALIST Ot R06.00 DYSPNEA, UNSPECIFIED 09/24/2019 CRYS HUMPHREY CHRONIC SPECIALIST Ot J43.9 EMPHYSEMA, UNSPECIFIED 09/24/2019 LANGEVIN DO, PRECIOUS Ot I48.91 UNSPECIFIED ATRIAL FIBRILLATION 09/24/2019 LANGEVIN DO, PRECIOUS Ot R31 .9 HEMATURIA, UNSPECIFIED 09/24/2019 CRYS HUMPHREY CHRONIC SPECIALIST Ot J44.9 CHRONIC OBSTRUCTIVE PULMONARY DISEASE, U 09/24/2019 CRYS HUMPHREY CHRONIC SPECIALIST Ot J43.9 EMPHYSEMA, UNSPECIFIED 09/24/2019 CRYS HUMPHREY CHRONIC SPECIALIST Ot R06.00 DYSPNEA, UNSPECIFIED 09/24/2019 JAVIER CHAVARRIA, [...] TRACT, PART UNSP CAUSING 10/10/2019 CRYS HUMPHREY CHRONIC SPECIALIST Ot J44.9 CHRONIC OBSTRUCTIVE PULMONARY DISEASE, U 10/21/2019 CRYS HUMPHREY CHRONIC SPECIALIST Ot I48.0 PAROXYSMAL ATRIAL FIBRILLATION 10/21/2019 CRYS HUMPHREY CHRONIC SPECIALIST Ot J30.9 ALLERGIC RHINITIS, UNSPECIFIED 10/21/2019 CRYS HUMPHREY CHRONIC SPECIALIST Ot J43.8 OTHER EMPHYSEMA 10/21/2019 CRYS HUMPHREY CHRONIC SPECIALIST Ot M34.9 SYSTEMIC SCLEROSIS, UNSPECIFIED 10/23/2019 DEFFENBAMICHAEL LOTT DO Ot 440.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 10/23/2019 Ot 787.20 DYS PHAGIA, [...] I48.0 PAROXYSMAL ATRIAL FIBRILLATION 10/23/2019 CRYS HUMPHREY CHRONIC SPECIALIST Ot J30.9 ALLERGIC RHINITIS, UNSPECIFIED 10/23/2019 KAMCRYS BENTLEY CHRONIC SPECIALIST Ot J43.8 OTHER EMPHYSEMA 10/23/2019 CRYS HUMPHREY CHRONIC SPECIALIST Ot M34.9 SYSTEMIC SCLEROSIS, UNSPECIFIED 10/23/2019 KAMCRYS BENTLEY CHRONIC SPECIALIST Ot J44.9 CHRONIC OBSTRUCTIVE PULMONARY DISEASE, U 10/26/2019 AKILAH PRETTY CHRONIC SPECIALIST Ot E05.90 THYROTOXICOSIS, UNSP WITHOUT THYROTOXIC 10/28/2019 KAMLUISA BENTLEYINE Jesus CHRONIC SPECIALIST Ot J44.9 CHRONIC OBSTRUCTIVE PULMONARY DISEASE, U 10/28/2019 KAMCRYS BENTLEY CHRONIC SPECIALIST Ot J44.9 CHRONIC OBSTRUCTIVE PULMONARY DISEASE, U 10/30/2019 KAMCRYS BENTLEY CHRONIC SPECIALIST Ot J44.9 CHRONIC OBSTRUCTIVE PULMONARY DISEASE, U 11/04/2019 KAMCRYS BENTLEY CHRONIC SPECIALIST Ot J44.9 CHRONIC OBSTRUCTIVE PULMONARY DISEASE, U 11/05/2019 CRYS HUMPHREY CHRONIC SPECIALIST Ot J44.9 CHRONIC OBSTRUCTIVE PULMONARY DISEASE, U 11/06/2019 CRYS HUMPHREY CHRONIC SPECIALIST Ot J44.9 CHRONIC OBSTRUCTIVE PULMONARY DISEASE, U [...] SMO 11/07/2019 GERONIMO TORRES MD, Ot Z79.01 MCC (CURRENT) USE OF ANTICOAGULANT 11/07/2019 GERONIMO TORRES MD Ot Z79.82 ECONOMIC RESEARCH ANALYST (CURRENT) USE OF ASPIRIN 11/07/2019 GERONIMO TORRES [...] SMO 11/10/2019 GERONIMO TORRES MD Ot Z79.01 MCC (CURRENT) USE OF ANTICOAGULANT 11/10/2019 GERONIMO TORRES MD Ot Z79.82 ECONOMIC RESEARCH ANALYST (CURRENT) USE OF ASPIRIN 11/10/2019 GERONIMO TORRES [...] OBSTRUCTIVE PULMONARY DISEASE, U 11/12/2019 AKILAH PRETTY CHRONIC SPECIALIST Ot E05.90 THYROTOXICOSIS, UNSP WITHOUT THYROTOXIC 11/12/2019 [...] SMO 11/14/2019 GERONIMO TORRES MD, Ot Z79.01 MCC (CURRENT) USE OF ANTICOAGULANT 11/14/2019 GERONIMO TORRES MD, Ot Z79.82 MCC (CURRENT) USE OF ASPIRIN 11/14/2019 GERONIMO TORRES MD, Ot Z86.73 PRSNL HX OF TIA (TIA), AND CEREB INFRC W 11/14/2019 GERONIMO TORRES MD Ot Z87.891 PERSONAL HISTORY OF NICOTINE DEPENDENCE 11/18/2019 CRYS HUMPHREY CHRONIC SPECIALIST Ot J44.9 CHRONIC OBSTRUCTIVE PULMONARY DISEASE, U 11/20/2019 CRYS HUMPHREY CHRONIC SPECIALIST Ot J44.9 CHRONIC OBSTRUCTIVE PULMONARY DISEASE, U 11/25/2019 CRYS HUMPHREY CHRONIC SPECIALIST Ot J44.9 CHRONIC OBSTRUCTIVE PULMONARY DISEASE, U 11/27/2019 CRYS HUMPHREY CHRONIC SPECIALIST Ot J44.9 CHRONIC OBSTRUCTIVE PULMONARY DISEASE, U 12/02/2019 CRYS HUMPHREY CHRONIC SPECIALIST Ot J44.9 CHRONIC OBSTRUCTIVE PULMONARY DISEASE, U 12/04/2019 KAMCRYS BENTLEY CHRONIC SPECIALIST Ot J44.9 CHRONIC OBSTRUCTIVE PULMONARY DISEASE, U 12/09/2019 CRYS HUMPHREY CHRONIC SPECIALIST Ot J44.9 CHRONIC OBSTRUCTIVE PULMONARY DISEASE, U 12/09/2019 Ot 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 12/23/2019 CRYS HUMPHREY CHRONIC SPECIALIST Ot J44.9 CHRONIC OBSTRUCTIVE PULMONARY DISEASE, U 12/30/2019 CRYS HUMPHREY CHRONIC SPECIALIST Ot J44.9 CHRONIC OBSTRUCTIVE PULMONARY DISEASE, U 12/30/2019 CRYS HUMPHREY CHRONIC SPECIALIST Ot J44.9 CHRONIC OBSTRUCTIVE PULMONARY DISEASE, U 01/01/2020 CRYS HUMPHREY CHRONIC SPECIALIST Ot J44.9 CHRONIC OBSTRUCTIVE PULMONARY DISEASE, U 03/21/2020 DELFINO, HERO ORIENTAL RUG STRETCHER Ot E87.1 HYPO- OSMOLALITY AND HYPONATREMIA 03/21/2020 DELFINO HERO ORIENTAL RUG STRETCHER Ot G62.9 POLYNEUROPATHY, UNSPECIFIED 03/21/2020 DELFINO, HERO ORIENTAL RUG STRETCHER Ot I10 ESSENTIAL (PRIMARY) HYPERTENSION 03/21/2020 DELFINO, HERO ORIENTAL RUG STRETCHER Ot I48.91 UNSPECIFIED ATRIAL FIBRILLATION 03/21/2020 DELFINO HERO ORIENTAL RUG STRETCHER Ot R53.1 WEAKNESS 03/21/2020 HERO SALEHP Ot R55 SYNCOPE AND COLLAPSE 03/21/2020 HERO SALEH ORIENTAL RUG STRETCHER Ot Z79.01 ECONOMIC RESEARCH ANALYST (CURRENT) USE OF ANTICOAGULANT 03/21/2020 DELFINO, HERO ORIENTAL RUG STRETCHER Ot Z79.82 MCC (CURRENT) USE OF ASPIRIN 03/21/2020 DELFINO, HERO ORIENTAL RUG STRETCHER Ot Z86.73 PRSNL HX OF TIA (TIA), AND CEREB INFRC W 03/21/2020 DELFINO, HERO ORIENTAL RUG STRETCHER Ot Z87.891 PERSONAL HISTORY OF NICOTINE DEPENDENCE 03/22/2020 CRYS HUMPHREY APRN Ot J43.9 EMPHYSEMA, UNSPECIFIED 03/22/2020 CRYS HUMPHREY APRN Ot R06.00 DYSPNEA, UNSPECIFIED 03/22/2020 Ot J44.9 POWDER WORKER ROBINA OBSTRUCTIVE PULMONARY DISEASE, U 03/22/2020 JOVANA [...] WEAKNESS 03/22/2020 JOVANA PALMA MD, Ot Z79.01 MCC (CURRENT) USE OF ANTICOAGULANT 03/22/2020 JOVANA PALMA MD Ot Z79.82 MCC (CURRENT) USE OF ASPIRIN 03/22/2020 JOVANA PALMA [...] AND COLLAPSE 03/24/2020 HERO SALEH Ot Z79.01 ECONOMIC RESEARCH ANALYST (CURRENT) USE OF ANTICOAGULANT 03/24/2020 DELFINO HERO DILL Ot Z79.82 ECONOMIC RESEARCH ANALYST (CURRENT) USE OF ASPIRIN 03/24/2020 DELFINO HERO [...] Ot I25. 10 ATHSCL HEART DISEASE OF [place] CORONARY 03/26/2020 CHYNA DIAMOND MD Ot I35. [...] 03/26/2020 CHYNA DIAMOND MD Ot Z79. 01 MCC (CURRENT) USE OF ANTICOAGULANT 03/26/2020 CHYNA DIAMOND MD Ot Z86. 73 PRSNL HX OF TIA (TIA), AND CEREB INFRC W 03/26/2020 CHYNA DIAMOND MD Ot Z87.891 PERSONAL HISTORY OF NICOTINE DEPENDENCE 03/30/2020 DELFINO, HREO ORIENTAL RUG STRETCHER Ot E87.1 HYPO- OSMOLALITY AND HYPONATREMIA 03/30/2020 DELFINO, HERO ORIENTAL RUG STRETCHER Ot G62.9 POLYNEUROPATHY, UNSPECIFIED 03/30/2020 DELFINO, HERO ORIENTAL RUG STRETCHER Ot I10 ESSENTIAL (PRIMARY) HYPERTENSION 03/30/2020 DELFINO, HERO ORIENTAL RUG STRETCHER Ot I48.91 UNSPECIFIED ATRIAL FIBRILLATION 03/30/2020 DELFINO, HERO ORIENTAL RUG STRETCHER Ot R53.1 WEAKNESS 03/30/2020 DELFINO, HERO ORIENTAL RUG STRETCHER Ot R55 SYNCOPE AND COLLAPSE 03/30/2020 DELFINO, HERO ORIENTAL RUG STRETCHER Ot Z79.01 MCC (CURRENT) USE OF ANTICOAGULANT 03/30/2020 DELFINO, HERO ORIENTAL RUG STRETCHER Ot Z79.82 ECONOMIC RESEARCH ANALYST (CURRENT) USE OF ASPIRIN 03/30/2020 DELFINO, HERO ORIENTAL RUG STRETCHER Ot Z86.73 PRSNL HX OF TIA (TIA), AND CEREB INFRC W 03/30/2020 DELFINO, HERO ORIENTAL RUG STRETCHER Ot Z87.891 PERSONAL HISTORY OF NICOTINE DEPENDENCE [...] WEAKNESS 03/31/2020 JOVANA PALMA MD, Ot Z79.01 ECONOMIC RESEARCH ANALYST (CURRENT) USE OF ANTICOAGULANT 03/31/2020 JOVANA PALMA MD Ot Z79.82 ECONOMIC RESEARCH ANALYST (CURRENT) USE OF ASPIRIN 03/31/2020 JOVANA PALMA [...] RESULTS NEGATIVE FOR ANTIGEN AND TOXIN A/B [facility] Stool bacteria identification by culture - 03/06/18 [...] 250-1200 SODIUM URINE RANDOM - 03/24/20 00:25 [id number] 26 % NRG Complete blood count (CBC) [...] OF GROWTH . NRG Bacterial blood culture [id number] NRG Serum or plasma C reactive protein [...] - 03/24/20 06:13 Bacterial blood culture NG [facility] Influenza virus A and B antigen detectio [...] % 12-44 Blood monocytes/100 leukocytes 7 % [facility] Automated blood eosinophils/100 leukocytes 0 % 0-10 [...] i.cardiac measurement (mass/v olume) < ng/mL <0.028 PROCALCITONIN (PCT) - 05/10/20 14:20 PROCALCITONIN (PCT) 0.05 ng/mL <0.10 Serum or plasma lactate measurement (mol es/volume) - 05/10/20 16:37 Serum or plasma lactate measurement (moles/volume) 1.51 mmol/L 0.50-2.00 Encounters ACCT No. Visit Date/Time Discharge Status Pt. Type Provider Facility Loc./Unit Complaint [id number] 12/05/2019 00:06:00 Document Registration [id number] 03/24/2020 10:00:00 14:22:00 DIS Outpatient LOBO CHAVARRIA, CHYNA Hernandez [facility] 4TH ABDOMINAL PAIN;HYPONATR EMIA [id number] 03/22/2020 07:26:00 12:57:00 DIS Emergency JOVANA PALMA MD [facility] ER WEAKNESS [id number] 03/21/2020 14:30:00 16:41:00 DIS Emergency HERO SALEH [facility] ER WEAKNESS [id number] 10/01/2019 09:16:00 00:01:00 DIS Outpatient CRYS HUMPHREY APRN [facility] PULM COPD [id number] 11/07/2019 14:50:00 17:21:00 DIS Emergency MELISSA CHAVARRIA, GERONIMO Reyes [facility] ER FEELS LIKE A-FI B [id number] 10/23/2019 08:44:00 23:59:59 CLS Outpatient AKILAH PRETTY CHRONIC SPECIALIST [facility] LAB HYPERTHYROIDISM [id number] 10/20/2019 13:32:00 23:59:59 CLS Outpatient CRYS HUMPHREY APRN [facility] RAD COPD,ATRIAL FIB ,ALLERGIC RHINITIS,DYSPNEA [id number] 08/06/2019 10:35:00 11:35:00 DIS Outpatient DIXIE HERRERA MD [facility] REHAB GENERALIZED WEAKNESS A ND SYSTEMIC SCLEROSIS [id number] 06/21/2019 08:08:00 12:48:00 DIS Emergency NANCY CHAVARRIA, TERE Johnson [facility] ER RECENT HEART CATH,BLEED ING FROM WOUND,DIZZINESS [id number] 06/10/2019 11:35:00 17:50:00 DIS Outpatient MECHELLE CHAVARRIA FACC, SABINO ZENG CC DS [facility] CATH ANGINA,SOB,FATIGUE,COPD [id number] 06/06/2019 18:04:00 019 20:41:00 DIS Emergency LOUIE CHAVARRIA, JOVANA [place] [facility] ER CHEST PAINS [id number] 01/10/2019 10:13:00 019 23:59:59 CLS Outpatient DIXIE HERRERA MD [facility] RAD ASPIRATION [id number] 08/17/2018 14:09:00 018 13:12:00 DIS Inpatient GANGA CHAVARRIA, SUMMER Hernandez [facility] ICU CHEST PAIN;FREQ UENT PVCS,HX AFIB [id number] 06/20/2018 07:43:00 23:59:59 CLS Outpatient DIXIE HERRERA MD [facility] RAD LEFT SCREEN BREAST CA, OSTEOPOROSIS [id number] 06/14/2018 11:13:00 018 23:59:59 CLS Preadmit CRYS HUMPHREY APRN [facility] RAD ALLERGIC RHINIT IS,COPD, DYSPNEA,EMPHYSEMA [id number] 06/04/2018 14:34:00 018 23:59:59 CLS Preadmit DIXIE HERRERA MD [facility] RAD SCREENING /OSTEOPOROSIS [id number] 04/25/2018 08:25:00 018 23:59:59 CLS Outpatient CRYS JACKSON CHRONIC SPECIALIST [facility] CARD ATRIAL FIBRILLA TION [id number] 04/03/2018 13:00:00 018 23:59:59 CLS Outpatient DIXIE HERRERA MD [facility] RAD FOOT PAIN, SWELLING [id number] 03/15/2018 11:31:00 018 23:59:59 CLS Outpatient DIXIE HERRERA MD [facility] CARD CHRONIC DIARRHEA ABD P AIN [id number] 03/06/2018 08:43:00 23:59:59 CLS Outpatient DIXIE HERRERA MD [facility] LAB R19.7 [id number] 02/25/2018 09:30:00 018 23:59:59 CLS Preadmit KAM, CRYS E CHRONIC SPECIALIST [facility] PULM COPD [id number] 01/17/2018 10:00:00 018 00:01:00 DIS Outpatient KAM, CRYS E CHRONIC SPECIALIST [facility] PULM COPD [id number] 10/11/2017 08:59:00 017 23:59:59 CLS Outpatient KAM, CRYS E CHRONIC SPECIALIST [facility] RAD J44.9 R06.00 J4 3.9 [id number] 10/04/2017 15:00:00 017 23:59:59 CLS Preadmit KAM, CRYS E CHRONIC SPECIALIST [facility] RAD COPD J44.9 [id number] 09/19/2017 08:00:00 017 23:59:59 CLS Outpatient KAM, CRYS E CHRONIC SPECIALIST [facility] RT J44.9 COPD [id number] 09/12/2017 06:58:00 017 23:59:59 CLS Outpatient PRECIOUS ARROYO DO [facility] LAB A-FIB [id number] 09/12/2017 06:55:00 017 23:59:59 CLS Outpatient KAM, CRYS E CHRONIC SPECIALIST [facility] RAD J44.9 R06.00 J4 3.9 [id number] 03/09/2016 11:15:00 016 13:50:00 DIS Outpatient JAVIER CHAVARRIA, DIXIE Ybarra [facility] REHAB BILATERAL LE PAIN/WEAK NESS [id number] 11/03/2015 10:21:00 016 23:59:59 CLS Outpatient LYDIA CHAVARRIA, TANK Lee [facility] CARD CP [id number] 10/24/2015 20:09:00 016 21:12:00 DIS Emergency SANDRA DOMINGUEZ MD [facility] ER POSS REPEAT MINI-STROKE (SAME SYMPTOMS) [id number] 10/09/2015 10:39:00 16:08:00 DIS Emergency MELISSA CHAVARRIA, GERONIMO Reyes [facility] ER NUMBNESS/CHEST PAIN [id number] 10/04/2015 10:44:00 23:59:59 CLS Outpatient DIXIE HERRERA MD [facility] LAB SCHLERODERMA PROGRESSI VE [id number] 05/06/2015 12:38:00 23:59:59 CLS Outpatient YELENA MA MD [facility] CARD SOB,SCLERODERMA [id number] 03/24/2015 12:12:00 23:59:59 CLS Outpatient SILVIANO SHRESTHA DO [facility] RAD SHORTNESS OF BREATH [id number] 01/27/2015 08:51:00 23:59:59 CLS Outpatient MICHAEL BROWN DO [facility] RT SOB,CP [id number] 01/25/2015 13:02:00 23:59:59 CLS Outpatient MICHAEL BROWN DO [facility] CARD SOB, CHEST PAIN , WEAKNESS [id number] 11/24/2014 12:39:00 23:59:59 CLS Outpatient MICHAEL BROWN DO [facility] RAD CLAUDICATION [id number] 05/10/2020 15:38:[address] Inpatient MIMI HERNANDEZ MD [facility] ICU AMS [id number] 12/31/2019 09:30:00 Document Registration [id number] 11/12/2019 01:37:00 Document Registration [id number] 01/08/2015 17:38:00 Document Registration [id number] 11/20/2014 12:40:00 Document Registration [id number] 12/28/2010 07:22:00 Document Registration [id number] 12/23/2010 10:45:00 Document Registration [id number] 09/25/2010 21:45:00 Document Registration [id number] 04/27/2010 07:54:00 Document Registration [id number] 03/17/2020 14:32:00 03/17/2020 23:59 :00 DIS Outpatient DIXIE HERRERA [id number] 03/15/2020 16:53:00 03/15/2020 23:59 :00 DIS Outpatient Delores Fowler [id number] 03/10/2020 13:34:00 03/10/2020 23:59 :00 DIS Outpatient CHRIS HERRERAHEL [id number] 03/10/2020 10:51:00 03/10/2020 23:59 :00 DIS Outpatient CHRIS HERRERAHEL [id number] 12/22/2019 17:24:00 12/22/2019 23:59 :00 DIS Outpatient Delores Fowler [id number] 12/14/2019 10:54:00 12/14/2019 23:59 :00 DIS Outpatient Rodrigo Solis [id number] 12/02/2019 17:34:00 12/02/2019 23:59 :00 DIS Outpatient JAVIERDIXIE [id number] 12/02/2019 16:45:00 12/02/2019 23:59 :00 DIS Outpatient CHRIS HERRERAHEL [id number] 10/13/2019 00:00:00 10/13/2019 23:59 :00 DIS Outpatient HENRIETTA OLIVER [id number] 07/01/2019 10:00:00 07/01/2019 23:59: 00 DIS Outpatient CHRIS HERRERAHEL [id number] 06/18/2019 12:29:00 06/18/2019 23:59: 00 DIS Outpatient HERRERADIXIE [id number] 06/18/2019 12:28:00 06/18/2019 23:59: 00 DIS Outpatient HERRERADIXIE [id number] 06/17/2019 15:00:00 06/17/2019 23:59: 00 DIS Outpatient DIXIE HERRERA [id number] 01/08/2019 12:28:00 01/08/2019 23:59: 00 DIS Outpatient HERRERADIXIE [id number] 01/01/2019 11:44:00 01/01/2019 23:59: 00 DIS Outpatient DIXIE HERRERA [id number] 10/29/2018 08:41:00 10/29/2018 23:59: 00 DIS Outpatient MICHELA CARMICHAEL [id number] 07/04/2018 10:08:00 07/04/2018 23:59: 00 DIS Outpatient Ramesh Pisano Eulalia [id number] 06/06/2018 12:45:00 06/06/2018 23:59: 00 DIS Outpatient DIXIE HERRERA [id number] 04/02/2018 12:13:00 04/02/2018 23:59: 00 DIS Outpatient DIXIE HERRERA [id number] 03/06/2018 09:20:00 03/06/2018 23:59: 00 DIS Outpatient DIXIE HERRERA [id number] 03/05/2018 16:59:00 03/05/2018 23:59: 00 DIS Outpatient DIXIE HERRERA [id number] 08/07/2017 10:32:00 08/07/2017 23:59: 00 DIS Outpatient DIXIE HERRERA [id number] 01/31/2017 15:35:00 01/31/2017 23:59: 00 DIS Outpatient DIXIE HERRERA [id number] 01/01/2019 10:29:00 Document Registration [id number] 07/22/2018 09:30:00 Document Registration [id number] 06/04/2018 13:50:00 Document Registration [id number] 05/08/2018 13:00:00 Document Registration [id number] 04/02/2018 10:00:00 Document Registration [id number] 03/05/2018 14:10:00 Document Registration [id number] 10/31/2017 14:50:00 Document Registration [id number] 08/07/2017 15:00:00 Document Registration [id number] 04/09/2020 09:44:17 04/09/2020 23:59:5 9 CLS Outpatient [id number] 03/05/2018 16:59:00 Document Registration [id number] 03/29/2018 19:20:00 03/29/2018 23:59: 59 CLS Outpatient [facility]
[2020-05-10] MEDS ORDERED: ONDANSETRON 4 MG/2 ML (SDV) Z0FRAN ONE (19:59)
[2020-05-10] MEDS ORDERED: GLYCOPYRROLATE 0.2 MG/ML (ROBINUL) 2 ML VIAL ONE (19:59)
[2020-05-10] MEDS ORDERED: NEOSTIGMINE 3 MG/3 ML VIAL ONE (19:59)
[2020-05-10] MEDS ORDERED: ROCURONIUM 10 MG/ML 5 ML SYRINGE IV ONE (19:59)
--- NOTE | 2020-05-10 20:26 | Progress Note-Post Operative ---
Post-Operative Progess Note Surgeon (s)/Glue Bone Drier (s) Surgeon SHEILA KATE DO Glue Bone Drier: Olivia Pre-Operative Diagnosis Severe abd pain, Anemia Post-Operative Diagnosis Bleeding Colon mass Procedure & Operative Findings Date of Procedure 05/10/20 Procedure Performed/Findings Diag Lap switched to Open right colon resection Anesthesia Type GET Estimated Blood Loss Estimated blood loss (mL): scant Specimens/Packing Specimens Removed cecum, portion of Asc colon, portion of TI and SHEILA Hester DO May 10, 2020 20:26
[2020-05-10] MEDS ORDERED: ISOFLURANE (FORANE) 15 ML/15 MIN INHALATION ONE (20:28)
[2020-05-10] MEDS ORDERED: ONDANSETRON 4 MG/2 ML (SDV) Z0FRAN IVP PRN (20:30)
[2020-05-10] MEDS ORDERED: NS IV 1000 ML 1,000 ML ONE (20:35)
[2020-05-10] MEDS: NOREPINEPHRINE 4 MG/250 ML 250 ML IV SCH (20:58)
[2020-05-10] MEDS ORDERED: fentaNYL INJECTION 1,250 MCG in NS (IVPB) 250 ML IV PRN (21:30)
--- NOTE | 2020-05-10 21:52 | Progress Note-Post Operative ---
Post-Operative Progess Note Surgeon (s)/Paper Bag Making Machinist (s) Surgeon SHEILA KATE DO Paper Bag Making Machinist: none Pre-Operative Diagnosis Hypotension, Venous Insufficiency and need for Pressure support Post-Operative Diagnosis Same Procedure & Operative Findings Date of Procedure 05/10/20 Procedure Performed/Findings PROCEDURE: [Left] internal jugular central line placement using ultrasound guidance. COMPLICATIONS: None. INDICATIONS: The patient is an 79 year old female [with hypotension, venous insufficiency and need for IV access for pressure support]. This was emergent and pt unable to sign. PROCEDURE: The patient was in her bed in the ICU, was prepped and draped in the sterile fashion. A surgical pause was performed. Ultrasound was used to locate the internal jugular vein and once located anesthetic was infiltrated above it. Then advanced 18 gauge finder needle with negative inspiration and watched with US as the right internal vein was accessed. Dark nonpulsatile blood was withdrawn. The wire was inserted. US assured proper placement of the guidewire. The needle was removed. A [#11] blade scalpel was used to make an incision along the guidewire. Then advanced dilator using the seldinger technique and removed it. Next placed triple lumen over guidewire and advanced using the Seldinger technique. The guidewire was removed without difficulty. Locking ports had been placed over all 3 ports; easily aspirated and then flushed with sterile saline in each port. The central line was then sutured in place with 3-0 Silk on a Gerard needle. The area was then washed and dried. Sterile dressing plac ed. Anesthesia Type none, pt sedated on vent Estimated Blood Loss Estimated blood loss (mL): scant Specimens/Packing Specimens Removed none SHEILA KATE DO May 10, 2020 21:52
[2020-05-10] MEDS: LACTATED RINGERS 1,000 ML IV SCH (22:05)
[2020-05-10 22:10] LABS: BASOPHILS % (AUTO) 0 % (0-10); EOSINOPHILS % (AUTO) 0 % (0-10); LYMPHOCYTES # (AUTO) 0.3 X 10^3 (1.0-4.0); LYMPHOCYTES % (AUTO) 3 % (12-44); MEAN CORPUSCULAR HEMOGLOBIN 31 PG (25-34); MEAN CORPUSCULAR HGB CONC 33 G/DL (32-36); MEAN CORPUSCULAR VOLUME 96 FL (80-99); MEAN PLATELET VOLUME 8.4 FL (7.4-10.4); MONOCYTES # (AUTO) 0.4 X 10^3 (0.0-1.0); MONOCYTES % (AUTO) 4 % (0-12); NEUTROPHILS # (AUTO) 10.8 X 10^3 (1.8-7.8); NEUTROPHILS % (AUTO) 93 % (42-75); PLATELET COUNT 395 10^3/uL (130-400); WHITE BLOOD COUNT 11.6 10^3/uL (4.3-11.0)
[2020-05-10 22:14] LABS: ABG BASE EXCESS -6.8 MMOL/L (-2.5-2.5); ABG OXYGEN SATURATION 96 % (94-100); ABG PCO2 69 MMHG (35-45); ABG PO2 100 MMHG (79-93); ABG TCO2 24.1 MMOL/L (21.0-31.0)
[2020-05-10 22:17] LABS: ABG PH 7.11 (7.37-7.43)
[2020-05-10 22:18] LABS: ALLENS TEST ART LINE; INSPIRED O2 50%; VENTILATOR YES
[2020-05-10 22:19] LABS: CHLORIDE 101 MMOL/L (98-107); HEMATOCRIT 17 % (35-52); HEMOGLOBIN 5.4 G/DL (11.5-16.0); POTASSIUM 3.9 MMOL/L (3.6-5.0); SODIUM 131 MMOL/L (135-145)
[2020-05-10 22:21] LABS: CALCIUM 7.1 MG/DL (8.5-10.1); GLUCOSE 144 MG/DL (70-105)
[2020-05-10 22:23] LABS: CARBON DIOXIDE 19 MMOL/L (21-32)
[2020-05-10 22:25] LABS: GFR ESTIMATED > 60; INR 2.4 (0.8-1.4); PHOSPHORUS 5.3 MG/DL (2.3-4.7); PROTHROMBIN TIME PATIENT 26.9 SEC (12.2-14.7)
[2020-05-10 22:26] LABS: BUN/CREATININE RATIO 23
[2020-05-10] MEDS ORDERED: NS IV 500 ML 500 ML IV SCH ×2 (22:26→22:30)
[2020-05-10 22:27] LABS: MAGNESIUM 1.4 MG/DL (1.6-2.4)
[2020-05-10 22:51] LABS: BAND NEUTROPHILS 18 %; LYMPHOCYTES % (MANUAL) 3 %; MONOCYTES % (MANUAL) 1 %; NEUTROPHILS % (MANUAL) 78 %; RBC MORPH NORMAL
[2020-05-10] MEDS ORDERED: NS IV 500 ML 500 ML ONE (22:52)
--- NOTE | 2020-05-10 23:45 | OPERATIVE REPORT ---
DATE OF SERVICE: 05/10/2020 PREOPERATIVE DIAGNOSES: Severe abdominal pain, anemia, hypoxia. POSTOPERATIVE DIAGNOSES: Bleeding colon mass, anemia, abdominal pain. PROCEDURE: Diagnostic laparoscopy switched to open laparotomy with right colon resection. SURGEON: Franklyn Garcia DO DISPLAY MECHANIC: Montana Baker DO ANESTHESIA: General endotracheal tube. SPECIMEN: Portion of cecum, ascending colon, terminal ileum and appendix. BLOOD LOSS: Scant. FLUIDS: Per anesthesia. POSTOPERATIVE CONDITION: Stable. INDICATION FOR PROCEDURE: The patient is an 79-year-old female who was doing fine this morning, but then found down in her bathroom hypoxic, tachypneic, brought to the emergency room. Once she got, they got her oxygenation up. She started complaining of severe abdominal pain, would not stop moaning. She was also found to be anemic, which was 8 and she was 12, 30 days ago. FINDINGS: The patient had a bleeding colonic mass with a lot of blood seen in the rest of the colon, had this removed and sent to pathology. PROCEDURE NOTE: After informed consent was obtained, the patient was brought to the operating room, placed on table in supine position. She was sterilely prepped and draped in normal fashion. I started with a small incision under the umbilicus. First infiltrated the skin with local, then made an incision with #11 blade, carried down through the skin into subcutaneous tissue, then deepened down to subcutaneous tissue with Bovie electrocautery down to fascia. Fascia incised with cautery and then bluntly entered the abdomen, placed limited trocar port under direct visualization. Created pneumoperitoneum and upon entry, noted adhesions above the liver and then some bruising along the cecum, also appeared to be some blood outside of the colon and actually what looked to be like blood throughout the entire colon. We first saw the appendix, was also very dilated, but it looked like it had some blood in it. At this point, then I had placed another 5 mm port suprapubically with #11 blade for stab incision and the VersaStep system all done under direct visualization. Did this to move the intestine around, did not see any obvious ischemic bowel except for this large bruising along the cecum and what looked like blood in the rest of the colon. At this point, elected to go to an open incision, went from the umbilicus to pubic bone . I then connected these incisions connecting the skin using the Bovie electrocautery going through the skin and then down through the subcutaneous tissue to the fascia. I then put my finger into the abdomen and protecting the abdomen and going along the fascia and opening the fascia. Once able to do this and able to deliver the cecum out of the abdominal cavity, there was bruising and felt like a mass, did a colotomy and saw a mass that had been bleeding right in the cecum close to the terminal ileum. At this point, then proceeded with a right colon resection. I made a small defect in the mesentery of the terminal ileum and came into this with a LESA, clamped and fired, thereby transecting this and then went along the white line of Toldt, freeing up the ascending colon and the lateral colonic attachments with the Bovie electrocautery and then the LigaSure to be able to rotate this into the middle to be able to easily bring this up, then elected to do a 2-step anastomosis, made a defect in the colon, in the tenia and then in the antimesenteric border of the small bowel, placed on either side of the LESA, into this LESA-75 was used and then clamped and held for 30 seconds and then fired thereby creating a [id number] functional end-to-end anastomosis, then used another LESA-75 reload to close this enterocolotomy. Once this was closed, then used the LigaSure to start going through the mesentery clamping, coagulating and transecting and in a stepwise fashion, taking off approximately half of the ascending colon, the cecum and about 4 to 5 cm of terminal ileum as well as the appendix. This was then passed off the table to be sent to pathology. Copiously irrigated with 3 liters of warm normal saline. There did not appear to be any bleeding in the abdomen. At this point, there did appear to be what looked like blood in the rest of the large colon. At this point, then brought the omentum down over the small intestine. I elected to close the incision, closed the fascia with a #1 double stranded PDS suture running from superior portion to inferior portion tying to itself, irrigating the midline again with saline and then hemostasis obtained using Bovie electrocautery, then closed the skin with juwan. Dressing was placed as well as then a pressure and abdominal binder. Sponge, instrument and needle count correct at the end of the case. The patient tolerated the procedure and transferred back to the ICU. Dr. Baker assisted in this case helping to make incisions, close incisions, identify anatomy, hold anatomy out of the way. Job ID: [id number] DocumentID: [id number] Dictated Date: 05/10/2020 20:44:49 Hitch Technician Date: 05/10/2020 22:00:00 Dictated By: DO MIKAYLA NEWELL
[2020-05-11] VITALS (36 sets, daily range): BP systolic 75–151; BP diastolic 32–60
[2020-05-11] MEDS: NOREPINEPHRINE 4 MG/250 ML 250 ML IV SCH ×6 (00:19→16:48)
[2020-05-11 00:35] LABS: ABG BASE EXCESS -10.2 MMOL/L (-2.5-2.5); ABG OXYGEN SATURATION 97 % (94-100); ABG PCO2 59 MMHG (35-45); ABG PO2 122 MMHG (79-93); ABG TCO2 20.2 MMOL/L (21.0-31.0)
[2020-05-11 00:41] LABS: ALLENS TEST ART LINE; INSPIRED O2 50%; PATIENT TEMP 35.3; VENTILATOR YES
[2020-05-11] MEDS ORDERED: SODIUM BICARB 8.4% 50 MEQ/50 ML VIAL ONE (01:16)
[2020-05-11] MEDS ORDERED: 1/2 NS IV SOLUTION 1,000 ML IV ONE (01:30)
[2020-05-11] MEDS ORDERED: SODIUM BICARB 8.4% 50 MEQ/50 ML VIAL IV ONE (01:30)
[2020-05-11] MEDS ORDERED: DexMEDEtomidine 250 ML DRIP 250 ML IV SCH (01:30)
[2020-05-11] MEDS: SODIUM BICARBONATE 8.4% VIAL 100 MEQ in 1/2 NS IV SOLUTION 1,000 ML IV SCH ×3 (02:00→23:15)
[2020-05-11 03:26] LABS: ABG BASE EXCESS -8.2 MMOL/L (-2.5-2.5); ABG OXYGEN SATURATION 98 % (94-100); ABG PCO2 58 MMHG (35-45); ABG PO2 124 MMHG (79-93); ABG TCO2 21.5 MMOL/L (21.0-31.0); BASOPHILS % (AUTO) 0 % (0-10); EOSINOPHILS % (AUTO) 0 % (0-10); HEMATOCRIT 30 % (35-52); HEMOGLOBIN 10.2 G/DL (11.5-16.0); LYMPHOCYTES # (AUTO) 0.5 X 10^3 (1.0-4.0); LYMPHOCYTES % (AUTO) 7 % (12-44); MEAN CORPUSCULAR HEMOGLOBIN 30 PG (25-34); MEAN CORPUSCULAR HGB CONC 34 G/DL (32-36); MEAN CORPUSCULAR VOLUME 90 FL (80-99); MEAN PLATELET VOLUME 8.5 FL (7.4-10.4); MONOCYTES # (AUTO) 0.3 X 10^3 (0.0-1.0); MONOCYTES % (AUTO) 5 % (0-12); NEUTROPHILS # (AUTO) 6.6 X 10^3 (1.8-7.8); NEUTROPHILS % (AUTO) 88 % (42-75); PLATELET COUNT 264 10^3/uL (130-400); RED CELL DISTRIBUTION WIDTH 14.8 % (10.0-14.5); WHITE BLOOD COUNT 7.5 10^3/uL (4.3-11.0)
[2020-05-11 03:33] LABS: ABG PH 7.14 (7.37-7.43)
[2020-05-11 03:35] LABS: ALLENS TEST ART LINE; INSPIRED O2 50%; PATIENT TEMP 35.6; VENTILATOR YES
[2020-05-11] MEDS: LACTATED RINGERS 1,000 ML IV SCH ×4 (03:52→23:10)
[2020-05-11 03:55] LABS: ALBUMIN 2.1 GM/DL (3.2-4.5); POTASSIUM 3.9 MMOL/L (3.6-5.0)
[2020-05-11 03:59] LABS: BILIRUBIN,TOTAL 0.5 MG/DL (0.1-1.0)
[2020-05-11 04:01] LABS: CREATININE SERUM 0.93 MG/DL (0.60-1.30)
[2020-05-11 04:24] LABS: PHOSPHORUS 5.7 MG/DL (2.3-4.7)
[2020-05-11 04:26] LABS: MAGNESIUM 1.3 MG/DL (1.6-2.4)
[2020-05-11] MEDS: MAGNESIUM 1 GM/100 ML IVPB 100 ML IV SCH ×4 (04:29→07:01)
[2020-05-11] MEDS: POTASSIUM CL 10MEQ/50ML IVPB 50 ML IV SCH (04:29)
[2020-05-11] MEDS: KCL 20 MEQ TAB (K-DUR) PO SCH (04:29)
--- NOTE | 2020-05-11 06:27 | Pulmonary Consultation ---
History of Present Illness History of Present Illness Date Seen by Provider: May 11, 2020 Time Seen by Provider: 06:22 Date of Admission Allergies and Home Medications Allergies Coded Allergies: pregabalin (Verified Allergy, Unknown, 03/22/20) Home Medications Acetaminophen 325 Mg Tablet, 325-650 MG PO Q6H PRN for PAIN-MODERATE (5-7), (Reported) Amiodarone HCl 200 Mg Tablet, 200 MG PO BID, (Reported) Amlodipine Besylate 10 Mg Tablet, 10 MG PO DAILY Prescribed by: CHYNA DIAMOND on 03/25/20 1432 Aspirin 81 Mg Tablet.dr, 81 MG PO DAILY, (Reported) Gabapentin 800 Mg Tablet, 800 MG PO HS, (Reported) Levothyroxine Sodium 50 Mcg Tablet, 50 MCG PO DAILY, (Reported) Losartan Potassium 100 Mg Tablet, 100 MG PO DAILY, (Reported) Polyethylene Glycol 3350 17 Gm Powd.pack, 17 GM PO DAILY PRN for CONSTIPATION- 2ND LINE, (Reported) Pravastatin Sodium 20 Mg Tablet, 20 MG PO HS, (Reported) Rivaroxaban 20 Mg Tablet, 20 MG PO DAILY, (Reported) Tramadol HCl 50 Mg Tablet, 50 MG PO Q6H PRN for PAIN-MODERATE (5-7), (Reported) Past [id number] Hx Patient Social History Alcohol Use: Denies Use Number of Drinks Today: AA Alcohol Beverage of Choice: Beer Recreational Drug Use: No Smoking Status: Former Smoker Type Used: Cigarettes Former Smoker, Quit: Nov 15, 1979 2nd Hand Smoke Exposure: Yes (1979) Recent Foreign Travel: No Contact w/Someone Who Travel: No Recent Infectious Disease Expo: No Immunizations Up To Date Tetanus Booster (TDap): Unknown Date of Pneumonia Vaccine: Mar 24, 2018 Date of Influenza Vaccine: Jun 26, 2019 Seasonal Allergies Seasonal Allergies: No Past Medical History Surgeries: Yes Eye Surgery, Orthopedic Respiratory: Yes (b/l pleural effusions with hx of thoracentesis) COPD Currently Using CPAP: No Currently Using BIPAP: No Cardiac: Yes Atrial Fibrillation, Hypertension, Peripheral Vascular, Valvular Heart Disease Neurological: Yes Neuropathy, TIA : No 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 Disorders: No 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 0.0oz. 50.669697hm; 23.63 BMI Method:Stated Exam Exam Vital Signs Date Time Temp Pulse Resp B/P (MAP) Pulse Ox O2 Delivery O2 Flow Rate FiO2 05/11/20 06:00 55 18 75/40 (52) 96 Mechanical Ventilator 40.00 05/11/20 06:00 57 97/43 05/11/20 05:05 40 05/11/20 05:00 69 18 106/50 (68) 100 Mechanical Ventilator 40.00 05/11/20 04:07 65 95/50 05/11/20 04:00 65 22 102/50 (67) 99 Mechanical Ventilator 45.00 05/11/20 04:00 Mechanical Ventilator 50 05/11/20 04:00 97 Mechanical Ventilator 50 05/11/20 03:47 Mechanical Ventilator 45.00 05/11/20 03:40 45 05/11/20 03:32 35.4 64 16 106/53 100 Mechanical Ventilator 50 05/11/20 03:05 62 28 99 50 05/11/20 03:00 62 20 84/53 (63) 100 Mechanical Ventilator 50.00 05/11/20 02:15 36.0 62 22 79/41 98 Mechanical Ventilator 50 05/11/20 02:09 62 77/40 05/11/20 02:08 62 77/40 05/11/20 02:00 61 21 76/39 (51) 97 Mechanical Ventilator 50.00 05/11/20 01:56 35.3 62 22 88/46 98 Mechanical Ventilator 50 05/11/20 01:25 35.6 65 21 104/46 99 Mechanical Ventilator 50 05/11/20 01:06 62 05/11/20 01:00 61 23 92/42 (59) 94 Mechanical Ventilator 50.00 05/11/20 00:19 61 80/35 05/11/20 00:14 35.3 61 22 80/35 93 Mechanical Ventilator 50 05/11/20 00:03 35.3 62 22 82/36 98 Mechanical Ventilator 50 05/11/20 00:00 Mechanical Ventilator 50 05/11/20 00:00 63 26 82/36 (51) 98 Mechanical Ventilator 50.00 05/11/20 00:00 97 Mechanical Ventilator 50 05/10/20 23:32 63 22 99 50 05/10/20 23:00 65 30 80/34 (49) 98 Mechanical Ventilator 50.00 05/10/20 22:30 61 21 92/39 (56) 94 Mechanical Ventilator 50.00 05/10/20 22:00 56 22 91/37 (55) 95 Mechanical Ventilator 50.00 05/10/20 21:30 Mechanical Ventilator 10 05/10/20 21:30 56 18 102/41 (61) 96 Mechanical Ventilator 50.00 05/10/20 21:30 97 Mechanical Ventilator 50 05/10/20 21:25 36.1 14 104/45 (64) 97 Mechanical Ventilator 05/10/20 21:15 55 18 113/47 (69) 94 Mechanical Ventilator 50.00 05/10/20 21:15 14 109/49 (69) 95 Mechanical Ventilator 05/10/20 21:08 14 112/45 (67) 93 Mechanical Ventilator 05/10/20 21:05 Mechanical Ventilator 10 05/10/20 21:01 55 05/10/20 21:00 49 18 113/47 (69) 100 Mechanical Ventilator 50.00 05/10/20 21:00 14 98/43 (61) 99 Mechanical Ventilator 05/10/20 20:58 43 88/32 05/10/20 20:55 14 71/33 (46) 100 Mechanical Ventilator 05/10/20 20:50 Mechanical Ventilator 10 05/10/20 20:45 60 14 99 50 05/10/20 20:45 39 7 61/23 (36) 100 Mechanical Ventilator 50.00 05/10/20 20:45 14 62/27 (39) 100 Mechanical Ventilator 05/10/20 20:40 12 69/29 (42) 100 Ambu Bag 10 05/10/20 20:35 Ambu Bag 10 05/10/20 20:35 36.1 12 78/35 (49) 100 Ambu Bag 10 05/10/20 20:30 62/27 (39) Mechanical Ventilator 50.00 05/10/20 20:00 Nasal Cannula 4.00 05/10/20 20:00 Mechanical Ventilator 50 05/10/20 19:00 Nasal Cannula 4.00 05/10/20 17:45 56 22 134/48 (76) 100 Nasal Cannula 4.00 05/10/20 17:30 54 36 123/43 (69) 98 Nasal Cannula 4.00 05/10/20 17:27 98 Nasal Cannula 5.00 05/10/20 17:25 36.5 72 38 153/56 100 10.00 10.00 05/10/20 17:15 57 23 Nasal Cannula 4.00 05/10/20 17:04 59 22 116/45 99 Nasal Cannula 3.00 05/10/20 17:00 131/44 (73) 05/10/20 17:00 55 05/10/20 14:12 36.5 72 38 153/56 (88) 100 Non Rebreather 10.00 I & O 05/11/20 07:00 Intake Total 1510 ml Output Total 420 ml Balance 1090 ml Height & Weight Height: 5'3.00" Weight: 112lbs. 0.0oz. 50.664835ts; 23.63 BMI Method:Stated General Appearance: Chronically ill, Moderate Distress (moaning, tachypneic), Severe Distress HEENT: PERRL/EOMI Neck: Full Range of Motion, Normal Inspection Respiratory: No Accessory Muscle Use, No Respiratory Distress, Crackles Cardiovascular: Regular Rate, Rhythm, Normal Peripheral Pulses Capillary Refill: Less Than 3 Seconds Gastrointestinal: no organomegaly, distended, guarding, rebound, tenderness Extremity: Normal Capillary Refill, Pedal Edema (2+ bilateral lower extremiti es) Results Lab Laboratory Tests 05/10/20 14:20 05/10/20 22:00 05/11/20 03:10 Assessment/Plan Assessment/Plan Acute respiratory failure s/p surgery -Continue vent -Pt is not ready for extubation yet Severe Abd pain with acute GIB s/p ex lap Bleeding cecal mass s/p resection Anemia s/p 2 units of PRBC -Monitor Hypotension -Continue Levophed -Check echo -Give a liter bolus of LR Moderate bilateral pleural effusions -Monitor and await echo Metabolic acidosis -1/2 NS with 2 amps of bicarb at 100cc/hr Hypoxia Hx of Afib and aortic stenosis SILVIANO SHRESTHA DO May 11, 2020 06:27
[2020-05-11] MEDS ORDERED: LACTATED RINGERS 1,000 ML IV SCH (06:30)
--- NOTE | 2020-05-11 07:53 | Progress Note - Surgery ---
Subjective Time Seen by a Provider: 07:33 Subjective/Events-last exam Pt seen and examined, sedated on vent. Review of Systems pt on vent Focused Exam Lactate Level 05/10/20 14:20: Lactic Acid Level 2.33*H 05/10/20 16:37: Lactic Acid Level 1.51 Objective Exam Vital Signs Date Time Temp Pulse Resp B/P (MAP) Pulse Ox O2 Delivery O2 Flow Rate FiO2 05/11/20 06:00 55 18 75/40 (52) 96 Mechanical Ventilator 40.00 05/11/20 06:00 57 97/43 05/11/20 05:05 40 05/11/20 05:00 69 18 106/50 (68) 100 Mechanical Ventilator 40.00 05/11/20 04:07 65 95/50 05/11/20 04:00 65 22 102/50 (67) 99 Mechanical Ventilator 45.00 05/11/20 04:00 Mechanical Ventilator 50 05/11/20 04:00 97 Mechanical Ventilator 50 05/11/20 03:47 Mechanical Ventilator 45.00 05/11/20 03:40 45 05/11/20 03:32 35.4 64 16 106/53 100 Mechanical Ventilator 50 05/11/20 03:05 62 28 99 50 05/11/20 03:00 62 20 84/53 (63) 100 Mechanical Ventilator 50.00 05/11/20 02:15 36.0 62 22 79/41 98 Mechanical Ventilator 50 05/11/20 02:09 62 77/40 05/11/20 02:08 62 77/40 05/11/20 02:00 61 21 76/39 (51) 97 Mechanical Ventilator 50.00 05/11/20 01:56 35.3 62 22 88/46 98 Mechanical Ventilator 50 05/11/20 01:25 35.6 65 21 104/46 99 Mechanical Ventilator 50 05/11/20 01:06 62 05/11/20 01:00 61 23 92/42 (59) 94 Mechanical Ventilator 50.00 05/11/20 00:19 61 80/35 05/11/20 00:14 35.3 61 22 80/35 93 Mechanical Ventilator 50 05/11/20 00:03 35.3 62 22 82/36 98 Mechanical Ventilator 50 05/11/20 00:00 Mechanical Ventilator 50 05/11/20 00:00 63 26 82/36 (51) 98 Mechanical Ventilator 50.00 05/11/20 00:00 97 Mechanical Ventilator 50 05/10/20 23:32 63 22 99 50 05/10/20 23:00 65 30 80/34 (49) 98 Mechanical Ventilator 50.00 05/10/20 22:30 61 21 92/39 (56) 94 Mechanical Ventilator 50.00 05/10/20 22:00 56 22 91/37 (55) 95 Mechanical Ventilator 50.00 05/10/20 21:30 Mechanical Ventilator 10 05/10/20 21:30 56 18 102/41 (61) 96 Mechanical Ventilator 50.00 05/10/20 21:30 97 Mechanical Ventilator 50 05/10/20 21:25 36.1 14 104/45 (64) 97 Mechanical Ventilator 05/10/20 21:15 55 18 113/47 (69) 94 Mechanical Ventilator 50.00 05/10/20 21:15 14 109/49 (69) 95 Mechanical Ventilator 05/10/20 21:08 14 112/45 (67) 93 Mechanical Ventilator 05/10/20 21:05 Mechanical Ventilator 10 05/10/20 21:01 55 05/10/20 21:00 49 18 113/47 (69) 100 Mechanical Ventilator 50.00 05/10/20 21:00 14 98/43 (61) 99 Mechanical Ventilator 05/10/20 20:58 43 88/32 05/10/20 20:55 14 71/33 (46) 100 Mechanical Ventilator 05/10/20 20:50 Mechanical Ventilator 10 05/10/20 20:45 60 14 99 50 05/10/20 20:45 39 7 61/23 (36) 100 Mechanical Ventilator 50.00 05/10/20 20:45 14 62/27 (39) 100 Mechanical Ventilator 05/10/20 20:40 12 69/29 (42) 100 Ambu Bag 10 05/10/20 20:35 Ambu Bag 10 05/10/20 20:35 36.1 12 78/35 (49) 100 Ambu Bag 10 05/10/20 20:30 62/27 (39) Mechanical Ventilator 50.00 05/10/20 20:00 Nasal Cannula 4.00 05/10/20 20:00 Mechanical Ventilator 50 05/10/20 19:00 Nasal Cannula 4.00 05/10/20 17:45 56 22 134/48 (76) 100 Nasal Cannula 4.00 05/10/20 17:30 54 36 123/43 (69) 98 Nasal Cannula 4.00 05/10/20 17:27 98 Nasal Cannula 5.00 05/10/20 17:25 36.5 72 38 153/56 100 10.00 10.00 05/10/20 17:15 57 23 Nasal Cannula 4.00 05/10/20 17:04 59 22 116/45 99 Nasal Cannula 3.00 05/10/20 17:00 131/44 (73) 05/10/20 17:00 55 05/10/20 14:12 36.5 72 38 153/56 (88) 100 Non Rebreather 10.00 I & O 05/11/20 07:00 Intake Total 1510 ml Output Total 520 ml Balance 990 ml Capillary Refill : Less Than 3 Seconds General Appearance: Chronically ill, Severe Distress Respiratory: No Accessory Muscle Use, No Respiratory Distress, Crackles Cardiovascular: Regular Rate, Rhythm Gastrointestinal: other (incision c/d/i) Extremity: Normal Capillary Refill, Pedal Edema (2+ bilateral lower extremities) Results Lab Laboratory Tests 05/10/20 14:20: White Blood Count 12.5H, Red Blood Count 2.63L, Hemoglobin 8.2L, Hematocrit 25L, Mean Corpuscular Volume 94, Mean Corpuscular Hemoglobin 31, Mean Corpuscular Hemoglobin Concent 33, Red Cell Distribution Width 14.1, Platelet Count 545H, M myron Platelet Volume 8.7, Neutrophils (%) (Auto) 74, Lymphocytes (%) (Auto) 14, Monocytes (%) (Auto) 11, Eosinophils (%) (Auto) 1, Basophils (%) (Auto) 0, Neutrophils # (Auto) 9.3H, Lymphocytes # (Auto) 1.7, Monocytes # (Auto) 1.4H, Eosinophils # (Auto) 0.1, Basophils # (Auto) 0.0, Prothrombin Time 29.5H, INR Comment 2.8H, Urine Color YELLOW, Urine Clarity CLEAR, Urine pH 6.0, Urine Specific [place] 1.010L, Urine Protein NEGATIVE, Urine Glucose (UA) NEGATIVE, Urine Ketones NEGATIVE, Urine Nitrite NEGATIVE, Urine Bilirubin NEGATIVE, Urine Urobilinogen 0.2, Urine Leukocyte Esterase TRACEH, Urine RBC (Auto) NEGATIVE, Urine RBC NONE, Urine WBC 0-2, Urine Crystals PRESENTH, Urine Amorphous Sediment FEW DEVIN URATESH, Urine Bacteria TRACE, Urine Casts PRESENT, Urine Hyaline Casts 5-10H, Urine Mucus NEGATIVE, Urine Culture Indicated NO, Sodium Level 128L, Potassium Level 4.1, Chloride Level 96L, Carbon Dioxide Level 18L, Anion Gap 14, Blood Urea Nitrogen 12, Creatinine 0.77, Estimat Glomerular Filtration Rate > 60, BUN/Creatinine Ratio 16, Glucose Level 186H, Lactic Acid Level 2.33*H, Calcium Level 8.2L, Corrected Calcium 8.9, Total Bilirubin 0.5, Aspartate Amino Transf (AST/SGOT) 67H, Alanine Aminotransferase (ALT/SGPT) 37, Alkaline Phosphatase 113, Troponin I < 0.028, B-Type Natriuretic Peptide 186.2H, Total Protein 5.8L, Albumin 3.1L, Procalcitonin 0.05 05/10/20 16:37: Lactic Acid Level 1.51 05/10/20 18:30: 05/10/20 22:00: White Blood Count 11.6H, Red Blood Count 1.73L, Hemoglobin 5.4#*L, Hematocrit 17*L, Mean Corpuscular Volume 96, Mean Corpuscular Hemoglobin 31, Mean Corpuscular Hemoglobin Concent 33, Red Cell Distribution Width 14.0, Platelet Count 395, Mean Platelet Volume 8.4, Neutrophils (%) (Auto) 93H, Lymphocytes (%) (Auto) 3L, Monocytes (%) (Auto) 4, Eosinophils (%) (Auto) 0, Basophils (%) (Auto) 0, Neutrophils # (Auto) 10.8H, Lymphocytes # (Auto) 0.3L, Monocytes # (Auto) 0.4, Eosinophils # (Auto) 0.0, Basophils # (Auto) 0.0, Prothrombin Time 26.9H, INR Comment 2.4H, Sodium Level 131L, Potassium Level 3.9, Chloride Level 101, Carbon Dioxide Level 19L, Anion Gap 11, Blood Urea Nitrogen 16, Creatinine 0.70, Estimat Glomerular Filtration Rate > 60, BUN/Creatinine Ratio 23, Glucose Level 144H, Calcium Level 7.1L, Neutrophils % (Manual) 78, Lymphocytes % (Manual) 3, Monocytes % (Manual) 1, Band Neutrophils 18, Blood Morphology Comment NORMAL, Blood Gas Puncture Site ARTLINE, Blood Gas Patient Temperature 35.0, Arterial Blood pH 7.11*L, Arterial Blood Partial Pressure CO2 69H, Arterial Blood Partial Pressure O2 100H, Arterial Blood HCO3 22L, Arterial Blood Total CO2 24.1, Arterial Blood Oxygen Saturation 96, Arterial Blood Base Excess -6.8L, Dylan Test ART LINE, Blood Gas Ventilator Setting YES, Blood Gas Inspired Oxygen 50%, Phosphorus Level 5.3H, Magnesium Level 1.4L 05/11/20 00:25: Blood Gas Puncture Site ARTLINE, Blood Gas Patient Temperature 35.3, Arterial Blood pH 7.10*L, Arterial Blood Partial Pressure CO2 59H, Arterial Blood Partial Pressure O2 122H, Arterial Blood HCO3 18L, Arterial Blood Total CO2 20.2L, Arterial Blood Oxygen Saturation 97, Arterial Blood Base Excess -10.2L, Dylan Test ART LINE, Blood Gas Ventilator Setting YES, Blood Gas Inspired Oxygen 50% 05/11/20 03:10: Blood Gas Puncture Site ART LINE, Blood Gas Patient Temperature 35.6, Arterial Blood pH 7.14*L, Arterial Blood Partial Pressure CO2 58H, Arterial Blood Partial Pressure O2 124H, Arterial Blood HCO3 20L, Arterial Blood Total CO2 21.5, Arterial Blood Oxygen Saturation 98, Arterial Blood Base Excess -8.2L, Dylan Test ART LINE, Blood Gas Ventilator Setting YES, Blood Gas Inspired Oxygen 50%, White Blood Count 7.5, Red Blood Count 3.35L, Hemoglobin 10.2#L, Hematocrit 30L, Mean Corpuscular Volume 90, Mean Corpuscular Hemoglobin 30, Mean Corpuscular Hemoglobin Concent 34, Red Cell Distribution Width 14.8H, Platelet Count 264, Mean Platelet Volume 8.5, Neutrophils (%) (Auto) 88H, Lymphocytes (%) (Auto) 7L, Monocytes (%) (Auto) 5, Eosinophils (%) (Auto) 0, Basophils (%) (Auto) 0, Neutrophils # (Auto) 6.6, Lymphocytes # (Auto) 0.5L, Monocytes # (Auto) 0.3, Eosinophils # (Auto) 0.0, Basophils # (Auto) 0.0, Sodium Level 128L, Potassium Level 3.9, Chloride Level 99, Carbon Dioxide Level 16L, Anion Gap 13, Blood Urea Nitrogen 18, Creatinine 0.93, Estimat Glomerular Filtration Rate 58, BUN /Creatinine Ratio 19, Glucose Level 246H, Calcium Level 7.0L, Corrected Calcium 8.5, Phosphorus Level 5.7H, Magnesium Level 1.3L, Total Bilirubin 0.5, Aspartate Amino Transf (AST/SGOT) 57H, Alanine Aminotransferase (ALT/SGPT) 29, Alkaline Phosphatase 81, Total Protein 4.0L, Albumin 2.1L Assessment/Plan Assessment/Plan Assessment/Plan S/P Right Colon resection Hx of Afib and aortic stenosis Pt is sedated on vent after surgery last night, still requiring levophed and urine output is poor. Hg up after transfusion of 2 units PRBC. Continue max supportive care, try waking pt up to get weaning parameters. Clinical Quality Measures DVT/VTE Risk/Contraindication: Risk Factor Score Per Nursin RFS Level Per Nursing on Admit: 4+=Very High SHEILA KATE DO May 11, 2020 07:53
--- NOTE | 2020-05-11 08:06 | Diagnostic Imaging Report ---
EXAMINATION: Chest radiograph, portable AP view. DATE: 05/11/2020 2:26 AM hours. INDICATION: 79-year-old female, dyspnea. COMPARISON: May 10, 2020. FINDINGS: The endotracheal tube is approximately 3.9 cm above the kisha. The left internal jugular central venous line overlies the mid SVC. The nasogastric tube is at the level of the distal esophagus just slightly proximal to the gastroesophageal junction. Advancement is recommended. Stable overall appearance of the cardiomediastinal silhouette. There are vascular calcifications. There is no identified pneumothorax. There is nonspecific right mid and lower lung zone opacification with probable right pleural effusion. There are streaky opacities in the right upper lobe which are an interval change. There also are streaky opacities in the left mid and upper lung zones which are an interval change. There are bilateral glenohumeral arthritic changes. There is a redemonstrated healed prior fracture deformity of the middle third left clavicle. There are bilateral carotid vascular calcifications. IMPRESSION: 1. Right-sided pleural effusion with nonspecific right mid and lower lung zone consolidation which is unchanged since comparison exam. 2. New streaky opacities in the right upper lobe and left mid to upper lung zones which may reflect atelectasis and/or infiltrate. 3. Nasogastric tube side port at the level of the very distal esophagus. Recommend advancement. Dictated by: Dictated on workstation # [id number]
--- NOTE | 2020-05-11 08:09 | Progress Note - Hospitalist ---
Subjective HPI/CC On Admission Date Seen by Provider: May 11, 2020 Time Seen by Provider: 07:58 Pt is an 79yoCF with a PMH of aortic stenosis, COPD, CAD with recent stenting, HTN, HLD, hypothyroidism, paroxysmal atrial fibrillation on chronic anticoagulation who presented to the ER due to hypoxia. She is unable to provide much history and onlyanswered a few yes or no questions for me. She told me she was sick and that she was not having pain. Otherwise all history obtained from family and records. She was apparently in her normal state this morning (ambulatory and alert and oriented x4). She spoke to her son and then had lunch. Sometime after lunch they found her in her room minimallyresponsive. There was concern for an episode of apnea as well. EMS was summoned and she was found to have oxygen saturations in the 60%. She was placed on a nonrebreather which brought her oxygen saturations up. She was taken for CT head as she is on Xarelto. Subjective/Events-last exam Pt is sedated and intubated. No ROS possible. Reviewed events from overnight. Went to OR for ex lap and found to have bleeding cecal mass. Developed severe anemia and transfused overnight and necessitated pressors. Focused Exam Lactate Level 05/10/20 14:20: Lactic Acid Level 2.33*H 05/10/20 16:37: Lactic Acid Level 1.51 Objective Exam Vital Signs Vital Signs Date Time Temp Pulse Resp B/P (MAP) Pulse Ox O2 Delivery O2 Flow Rate FiO2 05/11/20 07:48 52 28 95 45 05/11/20 06:00 75/40 (52) Mechanical Ventilator 40.00 05/11/20 03:32 35.4 Capillary Refill : Less Than 3 Seconds General Appearance: Other (ill appearing, sedated on vent) Neck: Other (cental line in place) Respiratory: Decreased Breath Sounds (in cases), Other (on vent) Cardiovascular: Regular Rate, Rhythm, Systolic Murmur Gastrointestinal: Other (abdominal binder in place) Extremity: Swelling (2+ to ankles bilaterally) Neurologic/Psychiatric: Other (sedated, appears comfortable) Results/Procedures Lab Laboratory Tests 05/10/20 14:20 05/10/20 22:00 05/11/20 03:10 Patient resulted labs reviewed. Assessment/Plan Assessment and Plan Assess & Plan/Chief Complaint Hemorrhagic shock bleeding cecal mass Severe anemia Went to ex lap last night and bleeding mass found Transfused 2 units pRBCs overnight Hgb from 5.4-> 10.2 Received multiple doses of ephedrine by anesthesia Currently on levophed, wean as able Acute Hypoxic Respiratory Failure Recently treated pneumonia Maintain on vent Pulm/TeleICU consulted, appreciate recs Mixed metabolic and respiratory acidosis vent setting per pulm Continue bicarb gtt Creatinine up a bit since last night (0.70->0.93), will trend CAD Aortic Stenosis Son reports she recently had a stent placed by Dr Yuen Request records Will have to unfortunately hold DAPT right now due to bleeding and anemia Consult cardiology for assistance COPD Resume home inhalers MAT protocol Critical Care Critically Ill Patient Diagnosis/Problems Diagnosis/Problems (1) Acute respiratory failure Status: Acute Qualifiers: Respiratory failure complication: hypercapnia Qualified Codes: J96.02 - Acute respiratory failure with hypercapnia (2) Hemorrhagic shock Status: Acute (3) Hypomagnesemia Status: Acute (4) Normocytic anemia Status: Acute (5) COPD (chronic obstructive pulmonary disease) Qualifiers: COPD type: unspecified COPD Qualified Codes: J44.9 - Chronic obstructive pulmonary disease, unspecified (6) Hypothyroidism Status: Chronic Qualifiers: Hypothyroidism type: unspecified Qualified Codes: E03.9 - Hypothyroidism, unspecified (7) Metabolic acidosis Status: Acute (8) Respiratory acidosis Status: Acute (9) Aortic stenosis Qualifiers: Cardiac valve disease etiology: etiology unspecified Qualified Codes: I35.0 - Nonrheumatic aortic (valve) stenosis (10) Atrial fibrillation Status: Acute Qualifiers: Atrial fibrillation type: paroxysmal Qualified Codes: I48.0 - Paroxysmal atrial fibrillation (11) CAD (coronary artery disease) Status: Acute Qualifiers: Coronary Disease-Associated Artery/Lesion type: [place] artery [place] vs. transplanted heart: [place] heart Associated angina: without angina Qualified Codes: I25.10 - Atherosclerotic heart disease of [place] coronary artery without angina pectoris Clinical Quality Measures DVT/VTE Risk/Contraindication: Risk Factor Score Per Nursin RFS Level Per Nursing on Admit: 4+=Very High MIMI HERNANDEZ MD May 11, 2020 08:09
--- NOTE | 2020-05-11 09:22 | Anesthesia-General Post-Op ---
General Patient Condition Mental Status/LOC: Same as Preop Cardiovascular: Satisfactory Nausea/Vomiting: Absent Respiratory: Satisfactory Pain: Controlled Complications: Absent Post Op Complications Complications None Follow Up Care/Instructions Patient Instructions None needed. Anesthesia/Patient Condition Patient Condition Patient is doing well, no complaints, stable vital signs, no apparent adverse anesthesia problems. No complications reported per nursing. RUBIA SINGLETARY CRNA May 11, 2020 09:22
[2020-05-11] MEDS: VASOPRESSIN INJECTION 20 UNIT in NS (IVPB) 100 ML IV SCH ×2 (09:23→17:16)
[2020-05-11] MEDS ORDERED: PROPOFOL DRIP (ICU) 100 ML IV ONE (09:45)
[2020-05-11] MEDS: PANTOPRAZOLE 40 MG (PROTONIX) VIAL IVP SCH (09:51)
--- NOTE | 2020-05-11 09:51 | Consultation-Cardiology ---
HPI-Cardiology Cardiology Consultation: Date of Consultation 05/11/20 Time Seen by a Provider: 08:45 Date of Admission 05-10-2020 Attending Physician Elizabeth Marrufo MD Admitting Physician Sadie Maria MD Consulting Physician Cher Metzger MD HPI: Chief Complaint: Respiratory failure Hypovolemic shock OAC CAD Ms. Marquez is an 79 year old female who resides at a local [facility]. She is currently intubated and sedated. Information has been obtained by review of the chart and Dr. Marrufo. Per records she was brought to the ED with c/o abd pain and was found to have altered mental status and hypoxia. She was taken to the OR and found to have a bleeding cecal mass for which she underwent hemicolectomy per Dr. Kate. She was found to be hypovolemic and progressed to resp failure for which she was placed on the vent. She has received transfusions. Per conversation Dr. Marrufo had with her son she has had a recent coronary stent by Dr. Yuen at [facility] after which she was started on Effient and ASA. She has been on Xarelto for stroke prophylaxis d/t PAF. Review of Systems-Cardiology Review of Systems Other comments Unable to obtain d/t intubation and sedation [id number] Hx Patient Social History Alcohol Use: Denies Use Recreational Drug Use: No Smoking Status: Former Smoker Type Used: Cigarettes 2nd Hand Smoke Exposure: Yes (1980 QUITE) Recent Foreign Travel: No Recent Infectious Disease Expo: No Hospitalization with Isolation: Denies Immunizations Up To Date Tetanus Booster (TDap): Unknown Date of Pneumonia Vaccine: Mar 24, 2018 Date of Influenza Vaccine: Jun 26, 2019 Past Medical History PMH As described under Assessment. Family Medical History Family Medical History: She has reported in the past no known fam h/o early CAD or SCD Allergies and Home Medications Allergies Coded Allergies: pregabalin (Verified Allergy, Unknown, 03/22/20) Home Medications Amiodarone HCl 200 Mg Tablet, 200 MG PO BID, (Reported) Fluticasone/Umeclidin/Vilanter 1 Each Blst.w.dev, 1 EACH IH DAILY, (Reported) Furosemide 40 Mg Tablet, 40 MG PO DAILY, (Reported) L. Acidophilus/Pectin, [employer] 1 Each Capsule, 1 EACH PO TID, (Reported) Losartan Potassium 100 Mg Tablet, 100 MG PO DAILY, (Reported) HOLD FOR SBP LOWER THAN 90 OR HR LOWER THAN 55 Pantoprazole Sodium 40 Mg Tablet.dr, 40 MG PO BID, (Reported) Potassium Chloride 20 Meq Tablet.er, 20 MEQ PO DAILY, (Reported) Prasugrel HCl 10 Mg Tablet, 10 MG PO DAILY, (Reported) Pravastatin Sodium 40 Mg Tablet, 40 MG PO HS, (Reported) Rivaroxaban 20 Mg Tablet, 20 MG PO 1800, (Reported) Physical Exam-Cardiology Physical Exam Vital Signs/I&O 05/11/20 05/11/20 05/11/20 05/11/20 21:00 22:00 22:25 23:00 Pulse 56 55 55 56 Resp 28 B/P (MAP) 125/34 (64) 114/32 (59) 146/37 (73) Pulse Ox 100 100 100 100 O2 Delivery Mechanical Ventilator Mechanical Ventilator Mechanical Ventilator O2 Flow Rate 30.00 30.00 30.00 FiO2 30 05/12/20 05/12/20 05/12/20 05/12/20 00:00 00:00 00:00 00:00 Temp 36.0 Pulse 56 Resp 28 B/P (MAP) 138/36 (70) Pulse Ox 95 100 O2 Delivery Mechanical Ventilator Mechanical Ventilator Mechanical Ventilator O2 Flow Rate 30.00 FiO2 30 50 05/12/20 05/12/20 05/12/20 05/12/20 00:36 01:00 01:00 01:03 Pulse 54 56 56 56 Resp 28 B/P (MAP) 103/32 151/40 (77) Pulse Ox 100 98 O2 Delivery Mechanical Ventilator O2 Flow Rate 30.00 FiO2 30 05/12/20 05/12/20 05/12/20 05/12/20 02:00 03:00 03:44 04:00 Temp 35.9 Pulse 55 54 Resp B/P (MAP) 131/34 (66) 139/35 (69) Pulse Ox 99 100 O2 Delivery Mechanical Ventilator Mechanical Ventilator Mechanical Ventilator O2 Flow Rate 30.00 30.00 FiO2 50 05/12/20 05/12/20 05/12/20 05/12/20 04:00 04:00 05:00 05:14 Pulse 55 55 54 Resp 24 22 B/P (MAP) 149/37 (74) 156/36 (76) 154/37 Pulse Ox 95 98 100 O2 Delivery Mechanical Ventilator Mechanical Ventilator Mechanical Ventilator O2 Flow Rate 30.00 30.00 FiO2 30 05/12/20 05/12/20 05/12/20 05/12/20 06:00 07:32 07:48 08:30 Temp 36.3 Pulse 54 49 49 Resp 27 B/P (MAP) 145/36 (72) 119/33 119/33 Pulse Ox 99 O2 Delivery Mechanical Ventilator O2 Flow Rate 30.00 05/12/20 05/12/20 05/12/20 08:31 08:44 08:46 Temp 36.3 36.2 36.2 Pulse 58 56 56 Resp 25 24 B/P (MAP) 140/38 124/34 126/35 Pulse Ox 99 2 30 O2 Delivery Mechanical Ventilator Mechanical Ventilator Mechanical Ventilator FiO2 30 30 05/12/20 00:00 Intake Total 0 ml Output Total 400 ml Balance -400 ml Capillary Refill : Less Than 3 Seconds Constitutional: other (intabated and sedate) Neck: carotid bruit Respiratory: rhonchi (scattered), other (fair air entry, intubated) Cardiovascular: regular rate-rhythm, bradycardia, systolic murmur (2-3/6 MSM) Gastrointestinal: other (s/p abdominal surgery with dressing in place) Extremities: other (bilat pitting LE swelling) Neurologic/Psychiatric: other (intubated and sedated) Lymphatic: no adenopathy (neck, axilla or groin) Data Review Labs Laboratory Tests 05/11/20 10:15: White Blood Count 9.1, Red Blood Count 3.17L, Hemoglobin 9.5L, Hematocrit 28L, Mean Corpuscular Volume 87, Mean Corpuscular Hemoglobin 30, Mean Corpuscular Hemoglobin Concent 34, Red Cell Distribution Width 15.8H, Platelet Count 240, Mean Platelet Volume 8.8, Prothrombin Time 23.9H, INR Comment 2.1H, Sodium Level 126L, Potassium Level 3.2L, Chloride Level 100, Carbon Dioxide Level 17L, Anion Gap 9, Blood Urea Nitrogen 19H, Creatinine 0.87, Estimat Glomerular Filtration Rate > 60, BUN/Creatinine Ratio 22, Glucose Level 177H, Calcium Level 6.1L, Corrected Calcium 7.9L, Magnesium Level 2.2, Total Bilirubin 0.6, Aspartate Amino Transf (AST/SGOT) 72H, Alanine Aminotransferase (ALT/SGPT) 34, Alkaline Phosphatase 64, Total Protein 3.3L, Albumin 1.8L, Triglycerides Level 48 05/11/20 11:48: Lactic Acid Level 3.04*H 05/11/20 13:20: Lactic Acid Level 3.45*H 05/11/20 16:38: Lactic Acid Level 3.41*H 05/11/20 18:50: Blood Gas Puncture Site LEFT RADIAL, Blood Gas Patient Temperature 35.7, Ar terial Blood pH 7.37, Arterial Blood Partial Pressure CO2 39, Arterial Blood Partial Pressure O2 70L, Arterial Blood HCO3 22L, Arterial Blood Total CO2 23.6, Arterial Blood Oxygen Saturation 96, Arterial Blood Base Excess -2.4, Dylan Test YES-POS, Blood Gas Ventilator Setting YES, Blood Gas Inspired Oxygen 30%, Lactic Acid Level 3.40*H 05/11/20 20:55: Lactic Acid Level 3.38*H 05/11/20 22:55: Lactic Acid Level 3.58*H 05/12/20 01:15: Lactic Acid Level 3.80*H 05/12/20 03:30: White Blood Count 16.9H, Red Blood Count 2.49L, Hemoglobin 7.4#L, Hematocrit 21L , Mean Corpuscular Volume 85, Mean Corpuscular Hemoglobin 30, Mean Corpuscular Hemoglobin Concent 35, Red Cell Distribution Width 16.2H, Platelet Count 171, Mean Platelet Volume 9.4, Neutrophils (%) (Auto) 92H, Lymphocytes (%) (Auto) 3L, Monocytes (%) (Auto) 5, Eosinophils (%) (Auto) 0, Basophils (%) (Auto) 0, Neutrophils # (Auto) 15.6H, Lymphocytes # (Auto) 0.5L, Monocytes # (Auto) 0.8, Eosinophils # (Auto) 0.0, Basophils # (Auto) 0.0, Neutrophils % (Manual) 67, Lymphocytes % (Manual) 2, Monocytes % (Manual) 3, Metamyelocytes % 2, Band Neutrophils 26, Helmet Cells RARE, Crenated Cell MODERATE, Blood Gas Puncture Si te ART LINE, Blood Gas Patient Temperature 35.9, Arterial Blood pH 7.45H, Arterial Blood Partial Pressure CO2 36, Arterial Blood Partial Pressure O2 73L, Arterial Blood HCO3 24, Arterial Blood Total CO2 25.5, Arterial Blood Oxygen Saturation 96, Arterial Blood Base Excess 0.5, Dylan Test ART LINE, Blood Gas Ventilator Setting YES, Blood Gas Inspired Oxygen 30%, Sodium Level 128L, Potassium Level 3.8, Chloride Level 95L, Carbon Dioxide Level 20L, Anion Gap 13, Blood Urea Nitrogen 25H, Creatinine 0.85, Estimat Glomerular Filtration Rate > 60, BUN/Creatinine Ratio 29, Glucose Level 119H, Lactic Acid Level 3.80*H, Calcium Level 6.9L, Phosphorus Level 4.6, Magnesium Level 2.1, Procalcitonin 7 .43H 05/12/20 05:25: Lactic Acid Level 3.90*H 05/12/20 06:35: Urine Color YELLOW, Urine Clarity SL CLOUDY, Urine pH 5.5, Urine Specific [place] 1.020, Urine Protein NEGATIVE, Urine Glucose (UA) NEGATIVE, Urine Ketones NEGATIVE, Urine Nitrite NEGATIVE, Urine Bilirubin NEGATIVE, Urine Urobilinogen 0.2, Urine Leukocyte Esterase NEGATIVE, Urine RBC (Auto) 2+H, Urine RBC 10-25H, Urine WBC RARE, Urine Crystals NONE, Urine Bacteria TRACE, Urine Casts NONE, Urine Mucus SMALLH, Urine Yeast LARGEH, Urine Culture Indicated NO Microbiology 05/10/20 MRSA Screen - Final, Complete MRSA not isolated 05/10/20 Blood Culture - Preliminary, Resulted No growth Radiology NAME: DAWSON MARQUEZ [facility] REC#: [id number] PT STATUS: ADM IN : 1940 PHYSICIAN: ADY WIGGINS APRN ADMIT DATE: 05/10/20/ICU Signed Date of Exam:05/10/20 CT CHEST/ABDOMEN/PELVIS W PROCEDURE: CT chest, abdomen, and pelvis with contrast. TECHNIQUE: Multiple contiguous axial images were obtained through the chest, abdomen, and pelvis after the administration of intravenous contrast. Auto Exposure Controls were utilized during the CT exam to meet ALARA standards for radiation dose reduction. INDICATION: Found down, mental status changes, confusion. COMPARISON: None. CT CHEST: Moderate-sized bilateral pleural effusions are present with dependent atelectasis. There is no focal infiltrate. No pneumothorax is identified. The heart is slightly enlarged. There is atherosclerotic disease seen throughout the coronary system. There is advanced calcifications involving the mitral and aortic valves. There is no pericardial effusion. Central airways are grossly normal. Osseous structures are age-appropriate. IMPRESSION: 1. Moderate bilateral pleural effusions with dependent atelectasis 2. Coronary artery, aortic and mitral valve disease. CT ABDOMEN AND PELVIS. Advanced atherosclerosis is seen throughout the abdominal aorta and the origins of the visceral branch vessels. There is no aneurysm. Suspect a degree of stenosis involving the bilateral renal arteries and SMA. No obvious solid organ or bowel ischemia is identified. The gallbladder retroperitoneum is grossly unremarkable. The uterus is intact. Distal ureters and urinary bladder are unremarkable. There is a [place] catheter within the lumen of the bladder. The visualized osseous structures are grossly unremarkable. There are no acute fractures. IMPRESSION: 1. Advanced atherosclerotic disease. Stenosis is suspected involving the origin of the SMA and bilateral renal arteries. Please note, the study is limited due to motion number. 2. No solid organ or bowel ischemia. 3. No CT evidence for acute trauma within the abdomen or pelvis. Dictated by: Dictated on workstation # [id number] Dict: 05/10/20 1647 Trans: 05/10/20 1703 [facility] [id number] Interpreted by: RAFFI DONALDSON Electronically signed by: RAFFI DONALDSON 05/10/20 1703 NAME: DAWSON MARQUEZ [facility] REC#: [id number] PT STATUS: ADM IN : 1940 PHYSICIAN: SHEILA KATE DO ADMIT DATE: 05/10/20/ICU Draft Date of Exam:05/11/20 CHEST 1 VIEW, AP/PA ONLY EXAMINATION: Chest radiograph, portable AP view. DATE: 05/11/2020 2:26 AM hours. INDICATION: 79-year-old female, dyspnea. COMPARISON: May 10, 2020. FINDINGS: The endotracheal tube is approximately 3.9 cm above the kisha. The left internal jugular central venous line overlies the mid SVC. The nasogastric tube is at the level of the distal esophagus just slightly proximal to the gastroesophageal junction. Advancement is recommended. Stable overall appearance of the cardiomediastinal silhouette. There are vascular calcifications. There is no identified pneumothorax. There is nonspecific right mid and lower lung zone opacification with probable right pleural effusion. There are streaky opacities in the right upper lobe which are an interval change. There also are streaky opacities in the left mid and upper lung zones which are an interval change. There are bilateral glenohumeral arthritic changes. There is a redemonstrated healed prior fracture deformity of the middle third left clavicle. There are bilateral carotid vascular calcifications. IMPRESSION: 1. Right-sided pleural effusion with nonspecific right mid and lower lung zone consolidation which is unchanged since comparison exam. 2. New streaky opacities in the right upper lobe and left mid to upper lung zones which may reflect atelectasis and/or infiltrate. 3. Nasogastric tube side port at the level of the very distal esophagus. Recommend advancement. Dictated on workstation # [id number] Dict: 05/11/20 0759 Trans: 05/11/20 0806 [facility] [id number] Interpreted by: LONA ARRIAGA MD Electronically signed by: ECG Impression ECG Initial ECG Rhythm: Normal Sinus A/P-Cardiology Assessment/Admission Diagnosis Hypovolemic shock - received transfusion, requiring pressor support S/P hemicolectomy by Dr. Kate d/t bleeding cecal mass Acute resp failure - intubated and sedated CAD. Card cath of 06/10/19 showed angiographically mild CAD, LVEF 65%, LVEDP at top limit of normal. Per Dr. Marrufo family is reporting recent coronary stenting by Dr. Yuen at [facility], exact details unknown, has been maintained on Effient and ASA. PAF. Recurrent A Fib after elec CV at [facility] by Dr Yuen on 08/16/18 Sinus node dysfunction: document sinus roxana, vent ectopy, and PAF On Xarelto fro stroke prophylaxis Echocardiogram of March 25, [address] Dao showed LVEF 55-65%. Grade 2 diastolic dysfunction. Mild mitral stenosis with mean gradient 2.2mHg, MVA 3.3 cm2. Mod calcified aortic valve with mod-severe stenosis, mean grad 26mmHg GUERO 1.1cm2, mild to mod regurg. Severe TR. PASP 65-70mmHg Mod pulm HTN with PASP 50-55 mmHg on echo of 08/18/18. We advised continuing f/u with her manager residential, Dr Cruz H/o scleroderma and chronic dysphagia, followed and treated by her pcp Stress test with Dr Argueta in [place] was normal in Aug 2018, per patient report Quit smoking in 1979 Borderline low TSH on 08/17/18 (0.33), followed by her pcp Dr Maria Carotid u/s of 06-06-2019 showed 60-79% R ICA stenosis; less than 40% L ICA stenosis. Incidental note of L thyroid nodules seen at time of carotid u/s of Nov 2018 for which f/u with her PCP is advised Discussion and Recomendations Complex management Critically ill Hypovolemic shock requiring pressor support and transfusions - management per medical services/surgical services Acute resp failure - intubated and sedated - management per pulmonary services Family has reported recent coronary stent placement by Dr. Yuen at [facility] - details unknown - records requested - she has been on ASA and Effient - advise continuation of Effient to protect recent stent placement H/O PAF for which she has been maintained on Xarelto - currently SR to SB - hold OAC d/t significant anemia Continue pressor support Monitor lab closely Echocardiogram to re-eval LVEF and valvular status We have spoken with Dr. Marrufo this morning Further recs will be based on her hospital course We would like to thank Dr. Marrufo for this consult Clinical Quality Measures DVT/VTE Risk/Contraindication: Risk Factor Score Per Nursin RFS Level Per Nursing on Admit: 4+=Very High FANTASMA CENTENO May 11, 2020 09:50
[2020-05-11] MEDS: PROPOFOL DRIP (ICU) 100 ML IV SCH ×2 (09:55→19:01)
[2020-05-11] MEDS ORDERED: FLUT1BLS3 IH (10:16)
[2020-05-11] MEDS ORDERED: PRAS10TA10 PO (10:16)
[2020-05-11] MEDS ORDERED: POTA-51 PO (10:16)
[2020-05-11] MEDS ORDERED: FURO-124 PO (10:16)
[2020-05-11] MEDS ORDERED: PANT40TA2 PO (10:16)
[2020-05-11] MEDS ORDERED: PRAV40TA2 PO (10:16)
[2020-05-11] MEDS ORDERED: L. A1CAP11 PO (10:16)
--- NOTE | 2020-05-11 10:26 | NUR ---
Palliative Care RN in to see patient. She is intubated and sedated. Will wait to talk with family until we see the direction this hospitalization takes.
[2020-05-11 10:36] LABS: HEMOGLOBIN 9.5 G/DL (11.5-16.0); MEAN PLATELET VOLUME 8.8 FL (7.4-10.4); RED CELL DISTRIBUTION WIDTH 15.8 % (10.0-14.5); WHITE BLOOD COUNT 9.1 10^3/uL (4.3-11.0)
[2020-05-11 10:41] LABS: ALBUMIN 1.8 GM/DL (3.2-4.5); CHLORIDE 100 MMOL/L (98-107); POTASSIUM 3.2 MMOL/L (3.6-5.0); SODIUM 126 MMOL/L (135-145)
[2020-05-11 10:42] LABS: CALCIUM 6.1 MG/DL (8.5-10.1); INR 2.1 (0.8-1.4); PROTHROMBIN TIME PATIENT 23.9 SEC (12.2-14.7)
[2020-05-11 10:43] LABS: GLUCOSE 177 MG/DL (70-105); TOTAL PROTEIN 3.3 GM/DL (6.4-8.2)
[2020-05-11 10:44] LABS: CARBON DIOXIDE 17 MMOL/L (21-32)
[2020-05-11 10:45] LABS: BILIRUBIN,TOTAL 0.6 MG/DL (0.1-1.0)
[2020-05-11 10:47] LABS: ALKALINE PHOSPHATASE 64 U/L (40-136); CREATININE SERUM 0.87 MG/DL (0.60-1.30); GFR ESTIMATED > 60
--- NOTE | 2020-05-11 10:47 | NUR ---
Pt is [employer]. Forest Technician spoke with son per phone. Grandson will notify surveillance director for sacraments.
[2020-05-11 10:48] LABS: BUN/CREATININE RATIO 22
[2020-05-11 10:50] LABS: ALANINE AMINOTRANSFERASE 34 U/L (0-55); MAGNESIUM 2.2 MG/DL (1.6-2.4)
--- NOTE | 2020-05-11 10:55 | NUR ---
NOTIFIED DR. SHRESTHA OF LOW URINE OUTPUT, RECEIVED ORDER FOR 1L LR BOLUS OVER 2 HOURS.
[2020-05-11] MEDS ORDERED: LACTATED RINGERS 1,000 ML IV ONE (11:00)
[2020-05-11] MEDS ORDERED: ALBUMIN 25% 25 GM/100 ML 100 ML IV ONE (11:25)
--- NOTE | 2020-05-11 11:35 | NUR ---
ENTERED THE MED REC USING THE MAR FROM [facility] AND [facility]
[2020-05-11] MEDS: HYDROCORTISONE 100 MG/2 ML (Solu-CORTEF) VIAL IV SCH ×3 (14:23→23:14)
--- NOTE | 2020-05-11 16:42 | Consultation-Cardiology ---
HPI-Cardiology Cardiology Consultation: Date of Consultation 05/11/20 Time Seen by a Provider: 15:30 Date of Admission Attending Physician Elizabeth Marrufo MD Admitting Physician Sadie Maria MD Consulting Physician SABINO MIN MD, FACP, [facility] HPI: Chief Complaint: Reason for consultation: CAD and recent cor stenting, acute abdomen, s/p hemicolectomy for bleeding cecal mass, GI bleed, respiratory failure, hypov olemic shock HPI Ms. Finley is an 79 year old female who [facility]. She is currently intubated and sedated. Information has been obtained by review of the chart and Dr. Marrufo. Per records she was brought to the ED with c/o abd pain and was found to have altered mental status and hypoxia. She was taken to the OR and found to have a bleeding cecal mass for which she underwent hemicolectomy per Dr. Garcia. She was found to be hypovolemic and progressed to resp failure for which she was placed on the vent. She has received transfusions. Per conversation Dr. Marrufo had with her son she has had a recent coronary stent by Dr. Yuen at [facility] after which she was started on Effient and ASA. She has been on Xarelto for stroke prophylaxis d/t PAF. Review of Systems-Cardiology Review of Systems Constitutional: other (she intubated, on mech vent, non-responsive; cannot provide ROS) UWT-Ptfcki-Egrbbd Hx Patient Social History Alcohol Use: Denies Use Recreational Drug Use: No Smoking Status: Former Smoker Type Used: Cigarettes 2nd Hand Smoke Exposure: Yes (1980 QUITE) Recent Foreign Travel: No Recent Infectious Disease Expo: No Hospitalization with Isolation: Denies Immunizations Up To Date Tetanus Booster (TDap): Unknown Date of Pneumonia Vaccine: Mar 24, 2018 Date of Influenza Vaccine: Jun 26, 2019 Past Medical History PMH As described under Assessment. Family Medical History Family Medical History: She has reported in the past no known fam h/o early CAD or SCD Allergies and Home Medications Allergies Coded Allergies: pregabalin (Verified Allergy, Unknown, 03/22/20) Home Medications Amiodarone HCl 200 Mg Tablet, 200 MG PO BID, (Reported) Fluticasone/Umeclidin/Vilanter 1 Each Blst.w.dev, 1 EACH IH DAILY, (Reported) Furosemide 40 Mg Tablet, 40 MG PO DAILY, (Reported) L. Acidophilus/Pectin, Mcclain 1 Each Capsule, 1 EACH PO TID, (Reported) Losartan Potassium 100 Mg Tablet, 100 MG PO DAILY, (Reported) HOLD FOR SBP LOWER THAN 90 OR HR LOWER THAN 55 Pantoprazole Sodium 40 Mg Tablet.dr, 40 MG PO BID, (Reported) Potassium Chloride 20 Meq Tablet.er, 20 MEQ PO DAILY, (Reported) Prasugrel HCl 10 Mg Tablet, 10 MG PO DAILY, (Reported) Pravastatin Sodium 40 Mg Tablet, 40 MG PO HS, (Reported) Rivaroxaban 20 Mg Tablet, 20 MG PO 1800, (Reported) Patient Home Medication List Home Medication List Reviewed: Yes Physical Exam-Cardiology Physical Exam Vital Signs/I&O 05/11/20 05/11/20 05/11/20 05/11/20 05:00 05:05 06:00 06:00 Pulse 69 57 55 Resp 18 18 B/P (MAP) 106/50 (68) 97/43 75/40 (52) Pulse Ox 100 96 O2 Delivery Mechanical Ventilator Mechanical Ventilator O2 Flow Rate 40.00 40.00 FiO2 40 05/11/20 05/11/20 05/11/20 05/11/20 06:44 07:00 07:48 08:00 Pulse 62 57 52 Resp 19 28 B/P (MAP) 93/40 (57) Pulse Ox 94 95 O2 Delivery Mechanical Ventilator Mechanical Ventilator O2 Flow Rate 40.00 FiO2 45 50 05/11/20 05/11/20 05/11/20 05/11/20 08:00 08:00 09:00 09:20 Temp 35.7 Pulse 54 55 Resp 17 24 B/P (MAP) 112/43 (66) 143/50 (81) Pulse Ox 97 95 95 O2 Delivery Mechanical Ventilator Mechanical Ventilator Mechanical Ventilator O2 Flow Rate 40.00 40.00 FiO2 50 05/11/20 05/11/20 05/11/20 05/11/20 09:23 09:55 10:00 10:49 Pulse 41 46 47 49 Resp 16 B/P (MAP) 70/30 137/40 123/60 (81) 122/44 Pulse Ox 93 O2 Delivery Mechanical Ventilator O2 Flow Rate 40.00 05/11/20 05/11/20 05/11/20 05/11/20 10:56 11:00 12:00 12:00 Temp 34.3 Pulse 48 49 Resp 30 14 B/P (MAP) 151/49 (83) Pulse Ox 93 91 O2 Delivery Mechanical Ventilator Mechanical Ventilator O2 Flow Rate 40.00 FiO2 45 50 05/11/20 05/11/20 05/11/20 05/11/20 12:00 12:41 13:00 13:32 Temp 36.0 Pulse 49 50 50 Resp 13 10 B/P (MAP) 122/47 (72) 126/51 (76) Pulse Ox 99 100 O2 Delivery Mechanical Ventilator Mechanical Ventilator O2 Flow Rate 40.00 40.00 05/11/20 05/11/20 05/11/20 14:00 15:00 15:29 Pulse 51 52 53 Resp 27 24 28 B/P (MAP) 130/49 (76) 132/43 (72) Pulse Ox 100 100 99 O2 Delivery Mechanical Ventilator Mechanical Ventilator O2 Flow Rate 40.00 40.00 FiO2 45 05/11/20 00:00 Intake Total 1010 ml Output Total 420 ml Balance 590 ml Capillary Refill : Less Than 3 Seconds Constitutional: other (intabated and sedate) Neck: carotid bruit Respiratory: rhonchi (scattered), other (fair air entry, intubated) Cardiovascular: regular rate-rhythm, bradycardia, systolic murmur (2-3/6 MSM) Gastrointestinal: other (s/p abdominal surgery with dressing in place) Extremities: other (bilat pitting LE swelling) Neurologic/Psychiatric: other (intubated and sedated) Lymphatic: no adenopathy (neck, axilla or groin) Data Review Labs Laboratory Tests 05/10/20 18:30: 05/10/20 22:00: White Blood Count 11.6H, Red Blood Count 1.73L, Hemoglobin 5.4#*L, Hematocrit 17*L, Mean Corpuscular Volume 96, Mean Corpuscular Hemoglobin 31, Mean Corpuscular Hemoglobin Concent 33, Red Cell Distribution Width 14.0, Platelet Count 395, Mean Platelet Volume 8.4, Neutrophils (%) (Auto) 93H, Lymphocytes (%) (Auto) 3L, Monocytes (%) (Auto) 4, Eosinophils (%) (Auto) 0, Basophils (%) (Auto) 0, Neutrophils # (Auto) 10.8H, Lymphocytes # (Auto) 0.3L, Monocytes # (Auto) 0.4, Eosinophils # (Auto) 0.0, Basophils # (Auto) 0.0, Neutrophils % (Man ual) 78, Lymphocytes % (Manual) 3, Monocytes % (Manual) 1, Band Neutrophils 18, Blood Morphology Comment NORMAL, Prothrombin Time 26.9H, INR Comment 2.4H, Blood Gas Puncture Site ARTLINE, Blood Gas Patient Temperature 35.0, Arterial Blood pH 7.11*L, Arterial Blood Partial Pressure CO2 69H, Arterial Blood Partial Pressure O2 100H, Arterial Blood HCO3 22L, Arterial Blood Total CO2 24.1, Arterial Blood Oxygen Saturation 96, Arterial Blood Base Excess -6.8L, Dylan Test ART LINE, Blood Gas Ventilator Setting YES, Blood Gas Inspired Oxygen 50%, Sodium Level 131L, Potassium Level 3.9, Chloride Level 101, Carbon Dioxide Level 19L, Anion Gap 11, Blood Urea Nitrogen 16, Creatinine 0.70, Estimat Glomerular Filtration Rate > 60, BUN/Creatinine Ratio 23, Glucose Level 144H, Calcium Level 7.1L, Phosphorus Level 5.3H, Magnesium Level 1.4L 05/11/20 00:25: [facility], Blood Gas Patient Temperature 35.3, Arterial Blood pH 7.10*L, Arterial Blood Partial Pressure CO2 59H, Arterial Blood Partial Pressure O2 122H, Arterial Blood HCO3 18L, Arterial Blood Total CO2 20.2L, Arterial Blood Oxygen Saturation 97, Arterial Blood Base Excess -10.2L, Dylan Test ART LINE, Blood Gas Ventilator Setting YES, Blood Gas Inspired Oxygen 50% 05/11/20 03:10: White Blood Count 7.5, Red Blood Count 3.35L, Hemoglobin 10.2#L, Hematocrit 30L, Mean Corpuscular Volume 90, Mean Corpuscular Hemoglobin 30, Mean Corpuscular Hemoglobin Concent 34, Red Cell Distribution Width 14.8H, Platelet Count 264, M myron Platelet Volume 8.5, Neutrophils (%) (Auto) 88H, Lymphocytes (%) (Auto) 7L, Monocytes (%) (Auto) 5, Eosinophils (%) (Auto) 0, Basophils (%) (Auto) 0, Neut rophils # (Auto) 6.6, Lymphocytes # (Auto) 0.5L, Monocytes # (Auto) 0.3, Eosino phils # (Auto) 0.0, Basophils # (Auto) 0.0, Blood Gas Puncture Site ART LINE, Blood Gas Patient Temperature 35.6, Arterial Blood pH 7.14*L, Arterial Blood Partial Pressure CO2 58H, Arterial Blood Partial Pressure O2 124H, Arterial Blood HCO3 20L, Arterial Blood Total CO2 21.5, Arterial Blood Oxygen Saturation 98, Arterial Blood Base Excess -8.2L, Dylan Test ART LINE, Blood Gas Ventilator Setting YES, Blood Gas Inspired Oxygen 50%, Sodium Level 128L, Potassium Level 3.9, Chloride Level 99, Carbon Dioxide Level 16L, Anion Gap 13, Blood Urea Nitrogen 18, Creatinine 0.93, Estimat Glomerular Filtration Rate 58, BUN/Creatinine Ratio 19, Glucose Level 246H, Calcium Level 7.0L, Phosphorus Level 5.7H, Magnesium Level 1.3L, Corrected Calcium 8.5, Total Bilirubin 0.5, Aspartate Amino Transf (AST/SGOT) 57H, Alanine Aminotransferase (ALT/SGPT) 29, A lkaline Phosphatase 81, Total Protein 4.0L, Albumin 2.1L 05/11/20 10:15: White Blood Count 9.1, Red Blood Count 3.17L, Hemoglobin 9.5L, Hematocrit 28L, Mean Corpuscular Volume 87, Mean Corpuscular Hemoglobin 30, Mean Corpuscular Hemoglobin Concent 34, Red Cell Distribution Width 15.8H, Platelet Count 240, Mean Platelet Volume 8.8, Prothrombin Time 23.9H, INR Comment 2.1H, Sodium Level 126L, Potassium Level 3.2L, Chloride Level 100, Carbon Dioxide Level 17L, Anion Gap 9, Blood Urea Nitrogen 19H, Creatinine 0.87, Estimat Glomerular Filtration R ate > 60, BUN/Creatinine Ratio 22, Glucose Level 177H, Calcium Level 6.1L, Corrected Calcium 7.9L, Magnesium Level 2.2, Total Bilirubin 0.6, Aspartate Amino Transf (AST/SGOT) 72H, Alanine Aminotransferase (ALT/SGPT) 34, Alkaline Phosphatase 64, Total Protein 3.3L, Albumin 1.8L, Triglycerides Level 48 05/11/20 11:48: Lactic Acid Level 3.04*H 05/11/20 13:20: Lactic Acid Level 3.45*H Microbiology 05/10/20 Blood Culture - Preliminary, Resulted No growth Laboratory Tests 05/10/20 14:20 05/10/20 22:00 05/11/20 03:10 05/11/20 10:15 A/P-Cardiology Assessment/Admission Diagnosis Hypovolemic (blood loss) shock - received transfusion, requiring pressor support S/P hemicolectomy by Dr. Garcia d/t bleeding cecal mass Acute resp failure - intubated and sedated CAD. Card cath of 06/10/19 showed angiographically mild CAD, LVEF 65%, LVEDP at top limit of normal. Per Dr. Marrufo family is reporting recent coronary stenting by Dr. Yuen at [facility], exact details unknown, has been maintained on Effient and ASA. Sinus node disfunction and PAF. On Xarelto for stroke prophylaxis Echocardiogram of March 25, [address] Dao showed LVEF 55-65%. Grade 2 diastolic dysfunction. Mild mitral stenosis with mean gradient 2.2mHg, MVA 3.3 cm2. Mod calcified aortic valve with mod-severe stenosis, mean grad 26mmHg GUERO 1.1cm2, mild to mod regurg. Severe TR. PASP 65-70mmHg H/o scleroderma and chronic dysphagia, followed and treated by her pcp Quit smoking in 1979 Borderline low TSH on 08/17/18 (0.33), followed by her pcp Dr Maria Carotid u/s of 06-06-2019 showed 60-79% R ICA stenosis; less than 40% L ICA stenosis. Incidental note of L thyroid nodules seen at time of carotid u/s of Nov 2018 for which f/u is with her PCP Discussion and Recomendations * Complex management * Critically ill Hold off on Xarelto and ASA due to bleeding requiring surgery and leading to hypovolemic shock that has required transfusion * Because family reports h/o cor stent in March 2020, she remains at high risk of stent thrombosis w/o any antiplatelet agents. This issue has to be weighed carefully. If bleeding is showing signs of having stabilized, then it may be reasonable to consider Plavix therapy. I discussed this issue with Dr Marrufo on the phone this morning * Monitor lab closely * We would like to thank Dr. Marrufo for this consult Clinical Quality Measures DVT/VTE Risk/Contraindication: Risk Factor Score Per Nursin RFS Level Per Nursing on Admit: 4+=Very High SABINO MIN MD FACP [facility] May 11, 2020 16:42
[2020-05-11] MEDS ORDERED: NS (IVPB) 100 ML ONE (17:12)
[2020-05-11] MEDS ORDERED: VASOPRESSIN INJECTION 20 UNIT/ML VIAL ONE (17:12)
[2020-05-11] MEDS ORDERED: ENOXAPARIN 30 MG/0.3 ML (LOVENOX) SYR SC SCH (18:00)
[2020-05-11 19:01] LABS: ABG BASE EXCESS -2.4 MMOL/L (-2.5-2.5); ABG OXYGEN SATURATION 96 % (94-100); ABG PCO2 39 MMHG (35-45); ABG PH 7.37 (7.37-7.43); ABG PO2 70 MMHG (79-93); ABG TCO2 23.6 MMOL/L (21.0-31.0)
[2020-05-11 19:04] LABS: ALLENS TEST YES-POS; INSPIRED O2 30%; PATIENT TEMP 35.7; VENTILATOR YES
[2020-05-12] VITALS (33 sets, daily range): BP systolic 103–164; BP diastolic 30–48
[2020-05-12] MEDS: VASOPRESSIN INJECTION 20 UNIT in NS (IVPB) 100 ML IV SCH ×2 (00:36→08:30)
[2020-05-12 03:41] LABS: BASOPHILS % (AUTO) 0 % (0-10); EOSINOPHILS % (AUTO) 0 % (0-10); HEMATOCRIT 21 % (35-52); HEMOGLOBIN 7.4 G/DL (11.5-16.0); LYMPHOCYTES # (AUTO) 0.5 X 10^3 (1.0-4.0); LYMPHOCYTES % (AUTO) 3 % (12-44); MEAN CORPUSCULAR HEMOGLOBIN 30 PG (25-34); MEAN CORPUSCULAR HGB CONC 35 G/DL (32-36); MEAN CORPUSCULAR VOLUME 85 FL (80-99); MEAN PLATELET VOLUME 9.4 FL (7.4-10.4); MONOCYTES # (AUTO) 0.8 X 10^3 (0.0-1.0); MONOCYTES % (AUTO) 5 % (0-12); NEUTROPHILS # (AUTO) 15.6 X 10^3 (1.8-7.8); NEUTROPHILS % (AUTO) 92 % (42-75); PLATELET COUNT 171 10^3/uL (130-400); RED CELL DISTRIBUTION WIDTH 16.2 % (10.0-14.5); WHITE BLOOD COUNT 16.9 10^3/uL (4.3-11.0)
[2020-05-12 03:42] LABS: ABG BASE EXCESS 0.5 MMOL/L (-2.5-2.5); ABG OXYGEN SATURATION 96 % (94-100); ABG PCO2 36 MMHG (35-45); ABG PH 7.45 (7.37-7.43); ABG PO2 73 MMHG (79-93); ABG TCO2 25.5 MMOL/L (21.0-31.0)
[2020-05-12 03:43] LABS: ALLENS TEST ART LINE; INSPIRED O2 30%; PATIENT TEMP 35.9; VENTILATOR YES
[2020-05-12 03:51] LABS: CHLORIDE 95 MMOL/L (98-107); POTASSIUM 3.8 MMOL/L (3.6-5.0); SODIUM 128 MMOL/L (135-145)
[2020-05-12 03:52] LABS: CALCIUM 6.9 MG/DL (8.5-10.1)
[2020-05-12 03:53] LABS: GLUCOSE 119 MG/DL (70-105)
[2020-05-12 03:54] LABS: CARBON DIOXIDE 20 MMOL/L (21-32)
[2020-05-12 03:56] LABS: CREATININE SERUM 0.85 MG/DL (0.60-1.30); GFR ESTIMATED > 60; PHOSPHORUS 4.6 MG/DL (2.3-4.7)
[2020-05-12 03:57] LABS: BUN/CREATININE RATIO 29
[2020-05-12 03:59] LABS: MAGNESIUM 2.1 MG/DL (1.6-2.4)
[2020-05-12] MEDS: LACTATED RINGERS 1,000 ML IV SCH ×6 (04:02→19:45)
[2020-05-12] MEDS: POTASSIUM CL 10MEQ/50ML IVPB 50 ML IV SCH (04:03)
[2020-05-12] MEDS: MAGNESIUM 1 GM/100 ML IVPB 100 ML IV SCH (04:03)
[2020-05-12] MEDS: KCL 20 MEQ TAB (K-DUR) PO SCH (04:04)
[2020-05-12 04:07] LABS: BAND NEUTROPHILS 26 %; CRENATED RBC MODERATE; HELMET/BITE CELLS RARE; LYMPHOCYTES % (MANUAL) 2 %; METAMYELOCYTES % 2 %; MONOCYTES % (MANUAL) 3 %; NEUTROPHILS % (MANUAL) 67 %
[2020-05-12] MEDS: NOREPINEPHRINE 4 MG/250 ML 250 ML IV SCH (05:14)
[2020-05-12] MEDS: HYDROCORTISONE 100 MG/2 ML (Solu-CORTEF) VIAL IV SCH ×4 (05:18→23:31)
--- NOTE | 2020-05-12 06:13 | Pulmonary Progress Note ---
Subjective Time Seen by a Provider: 06:08 Sepsis Event Evaluation Height, Weight, BMI Height: 5'3.00" Weight: 112lbs. 0.0oz. [id number]; 23.63 BMI Method:Stated Focused Exam Lactate Level 05/12/20 01:15: Lactic Acid Level 3.80*H 05/12/20 03:30: Lactic Acid Level 3.80*H 05/12/20 05:25: Lactic Acid Level 3.90*H Lactic Acid Level Laboratory Tests Test 05/12/20 03:30 05/12/20 05:25 Lactic Acid Level 3.80 MMOL/L (0.50-2.00) *H 3.90 MMOL/L (0.50-2.00) *H Exam Exam Vital Signs Date Time Temp Pulse Resp B/P (MAP) Pulse Ox O2 Delivery O2 Flow Rate FiO2 05/12/20 05:14 54 154/37 05/12/20 04:00 95 Mechanical Ventilator 30 05/12/20 04:00 Mechanical Ventilator 50 05/12/20 03:44 35.9 05/12/20 03:00 54 27 139/35 (69) 100 Mechanical Ventilator 30.00 05/12/20 02:00 55 27 131/34 (66) 99 Mechanical Ventilator 30.00 05/12/20 01:03 56 28 98 30 05/12/20 01:00 56 05/12/20 01:00 56 151/40 (77) 100 Mechanical Ventilator 30.00 05/12/20 00:36 54 103/32 05/12/20 00:00 36.0 05/12/20 00:00 56 28 138/36 (70) 100 Mechanical Ventilator 30.00 05/12/20 00:00 Mechanical Ventilator 50 05/12/20 00:00 95 Mechanical Ventilator 30 05/11/20 23:00 56 28 146/37 (73) 100 Mechanical Ventilator 30.00 05/11/20 22:25 55 28 100 30 05/11/20 22:00 55 27 114/32 (59) 100 Mechanical Ventilator 30.00 05/11/20 21:00 56 27 125/34 (64) 100 Mechanical Ventilator 30.00 05/11/20 20:00 56 28 141/36 (71) 100 Mechanical Ventilator 30.00 05/11/20 20:00 Mechanical Ventilator 50 05/11/20 20:00 95 Mechanical Ventilator 30 05/11/20 19:28 36.0 05/11/20 19:01 55 124/34 05/11/20 19:00 55 28 124/36 (65) 100 Mechanical Ventilator 40.00 05/11/20 18:49 56 28 100 30 05/11/20 18:36 57 05/11/20 18:00 55 13 115/33 (60) 100 Mechanical Ventilator 40.00 05/11/20 17:45 55 05/11/20 17:16 54 99/33 05/11/20 17:00 54 27 115/36 (62) 100 Mechanical Ventilator 40.00 05/11/20 16:48 54 119/36 05/11/20 16:00 Mechanical Ventilator 30 05/11/20 16:00 35.7 05/11/20 16:00 53 25 115/41 (65) 99 Mechanical Ventilator 40.00 05/11/20 16:00 95 Mechanical Ventilator 30 05/11/20 15:29 53 28 99 45 05/11/20 15:00 52 24 132/43 (72) 100 Mechanical Ventilator 40.00 05/11/20 14:00 51 27 130/49 (76) 100 Mechanical Ventilator 40.00 05/11/20 13:32 36.0 05/11/20 13:00 50 10 126/51 (76) 100 Mechanical Ventilator 40.00 05/11/20 12:41 50 05/11/20 12:00 49 13 122/47 (72) 99 Mechanical Ventilator 40.00 05/11/20 12:00 97 Mechanical Ventilator 50 05/11/20 12:00 Mechanical Ventilator 50 05/11/20 12:00 34.3 05/11/20 11:00 49 14 151/49 (83) 91 Mechanical Ventilator 40.00 05/11/20 10:56 48 30 93 45 05/11/20 10:49 49 122/44 05/11/20 10:00 47 16 123/60 (81) 93 Mechanical Ventilator 40.00 05/11/20 09:55 46 137/40 05/11/20 09:23 41 70/30 05/11/20 09:20 35.7 05/11/20 09:00 55 24 143/50 (81) 95 Mechanical Ventilator 40.00 05/11/20 08:00 54 17 112/43 (66) 95 Mechanical Ventilator 40.00 05/11/20 08:00 97 Mechanical Ventilator 50 05/11/20 08:00 Mechanical Ventilator 50 05/11/20 07:48 52 28 95 45 05/11/20 07:00 57 19 93/40 (57) 94 Mechanical Ventilator 40.00 05/11/20 06:44 62 I & O 05/12/20 07:00 Intake Total 0 ml Output Total 575 ml Balance -575 ml Height & Weight Height: 5'3.00" Weight: 112lbs. 0.0oz. [id number]; 23.63 BMI Method:Stated General Appearance: Other (ill appearing, sedated on vent) Neck: Other (cental line in place) Respiratory: Decreased Breath Sounds (in cases), Other (on vent) Cardiovascular: Regular Rate, Rhythm, Systolic Murmur Capillary Refill: Less Than 3 Seconds Gastrointestinal: other (incision c/d/i) Extremity: Swelling (2+ to ankles bilaterally) Neurologic/Psychiatric: Other (sedated, appears comfortable) Results Lab Laboratory Tests 05/10/20 14:20 05/10/20 22:00 05/11/20 03:10 05/11/20 10:15 05/12/20 03:30 Assessment/Plan Assessment/Plan Acute respiratory failure s/p surgery -Continue vent -Pt is not ready for extubation yet. She is on levophed, and vasopressin. -Decrease RR to 24. Severe Abd pain with acute GIB s/p ex lap Bleeding cecal mass s/p resection Anemia s/p 2 units of PRBC - with persistent hypotension -Transfuse another 1 unit of PRBC -Monitor Hypotension -Continue Levophed, and Vasopressin -Repeat Nye cultures -Add vanco and Zosyn -Give a liter bolus of LR Moderate bilateral pleural effusions -Monitor Metabolic acidosis -1/2 NS with 2 amps of bicarb at 100cc/hr Hypoxia Hx of Afib and aortic stenosis SILVIANO SHRESTHA DO May 12, 2020 06:13
[2020-05-12] MEDS ORDERED: PIPERACILLIN/TAZOBACTAM (BULK) 4.5 GM in NS (IVPB) 100 ML IV SCH (06:15)
[2020-05-12] MEDS ORDERED: PHARMACY TO DOSE IV SCH (06:15)
[2020-05-12] MEDS ORDERED: VANCOMYCIN INJECTION 1,000 MG in NS (IVPB) 250 ML IV SCH (06:15)
[2020-05-12] MEDS ORDERED: PIPERACILLIN/TAZOBACTAM 4.5 GM in NS (IVPB) 100 ML IV NR (07:30)
[2020-05-12] MEDS ORDERED: NS IV 500 ML 500 ML IV SCH (07:30)
[2020-05-12] MEDS ORDERED: VANCOMYCIN 1250 MG/NS 250 ML IVPB IV NR ×2 (07:30)
--- NOTE | 2020-05-12 07:34 | NUR ---
VANCOMYCIN DOSING SCR 0.85 (USED 1.0); CRCL ~ 36; BOLUS VANC 20 MG/KG X 63 KG ~ 1250 MG THEN VANC 15 MG/KG ~ 1 GM Q24H CHECK TROUGH LEVEL 05/14 630 HOLD DOSE AND CONTACT PHARMACY IF LEVEL IS GREATER THAN 20
[2020-05-12] MEDS: PROPOFOL DRIP (ICU) 100 ML IV SCH ×2 (07:48→19:46)
[2020-05-12 07:59] LABS: BILIRUBIN,URINE NEGATIVE (NEGATIVE); CLARITY,URINE SL CLOUDY; COLOR,URINE YELLOW; GLUCOSE, URINE (UA) NEGATIVE (NEGATIVE); KETONES,URINE NEGATIVE (NEGATIVE); LEUKOCYTE ESTERASE ,URINE NEGATIVE (NEGATIVE); NITRITE,URINE NEGATIVE (NEGATIVE); PH,URINE 5.5 (5-9); PROTEIN,URINE NEGATIVE (NEGATIVE)
[2020-05-12 08:10] LABS: BACTERIA,URINE TRACE /HPF; WBC,URINE RARE /HPF
[2020-05-12 08:15] LABS: YEAST,URINE LARGE /HPF
--- NOTE | 2020-05-12 08:27 | Progress Note - Hospitalist ---
Subjective HPI/CC On Admission Date Seen by Provider: May 12, 2020 Time Seen by Provider: 08:02 Pt is an 79yoCF with a PMH of aortic stenosis, COPD, CAD with recent stenting, HTN, HLD, hypothyroidism, paroxysmal atrial fibrillation on chronic anticoagulation who presented to the ER due to hypoxia. She is unable to provide much history and onlyanswered a few yes or no questions for me. She told me she was sick and that she was not having pain. Otherwise all history obtained from family and records. She was apparently in her normal state this morning (ambulatory and alert and oriented x4). She spoke to her son and then had lunch. Sometime after lunch they found her in her room minimallyresponsive. There was concern for an episode of apnea as well. EMS was summoned and she was found to have oxygen saturations in the 60%. She was placed on a nonrebreather which brought her oxygen saturations up. She was taken for CT head as she is on Xarelto. Focused Exam Lactate Level 05/12/20 01:15: Lactic Acid Level 3.80*H 05/12/20 03:30: Lactic Acid Level 3.80*H 05/12/20 05:25: Lactic Acid Level 3.90*H Lactic Acid Level Laboratory Tests Test 05/12/20 05:25 Lactic Acid Level 3.90 MMOL/L (0.50-2.00) *H Objective Exam Vital Signs Vital Signs Date Time Temp Pulse Resp B/P (MAP) Pulse Ox O2 Delivery O2 Flow Rate FiO2 05/12/20 07:48 49 119/33 05/12/20 07:32 36.3 05/12/20 06:00 27 99 Mechanical Ventilator 30.00 05/12/20 04:00 30 Capillary Refill : Less Than 3 Seconds General Appearance: Other (sedated and on vent) Neck: Other (central line) Respiratory: Decreased Breath Sounds; No Wheezing; Other (on vent) Cardiovascular: Regular Rate, Rhythm, No Murmur Gastrointestinal: Other (abdominal binder in place) Genital/Rectal: Other (galarza in place) Extremity: Pedal Edema, Swelling (2+ to just above ankles) Neurologic/Psychiatric: Other (sedated, appears comfortable) Skin: Ecchymosis; No Mottled; Pallor Results/Procedures Lab Laboratory Tests 05/11/20 10:15 05/12/20 03:30 Patient resulted labs reviewed. Assessment/Plan Assessment and Plan Assess & Plan/Chief Complaint Hemorrhagic shock bleeding cecal mass Severe anemia Went to ex lap last night and bleeding mass found Transfused 2 units pRBCs so far Hgb continues to trend down, one more unit of pRBCs ordered Currently on vasopressin and levophed, MAP 67-70 while I was at bedside, attempt to wean pressors as able Leukocytosis Likely due to steroids Check procal Started on abx this AM Acute Hypoxic Respiratory Failure Recently treated pneumonia Maintain on vent Pulm/TeleICU consulted, appreciate recs Mixed metabolic and respiratory acidosis vent setting per pulm Continue bicarb gtt Creatinine up a bit since last night (0.70->0.93), will trend CAD Aortic Stenosis Son reports she recently had a stent placed by Dr Yuen Request records Will have to unfortunately hold DAPT right now due to bleeding and worsening anemia Consult cardiology for assistance COPD Pulm consulted MAT protocol DVT ppx: SCDs Critical Care Critically Ill Patient Diagnosis/Problems Diagnosis/Problems (1) Acute respiratory failure Status: Acute Qualifiers: Respiratory failure complication: hypercapnia Qualified Codes: J96.02 - Acute respiratory failure with hypercapnia (2) Hemorrhagic shock Status: Acute (3) Hypomagnesemia Status: Acute (4) Normocytic anemia Status: Acute (5) COPD (chronic obstructive pulmonary disease) Qualifiers: COPD type: unspecified COPD Qualified Codes: J44.9 - Chronic obstructive pulmonary disease, unspecified (6) Hypothyroidism Status: Chronic Qualifiers: Hypothyroidism type: unspecified Qualified Codes: E03.9 - Hypothyroidism, unspecified (7) Metabolic acidosis Status: Acute (8) Respiratory acidosis Status: Acute (9) Aortic stenosis Qualifiers: Cardiac valve disease etiology: etiology unspecified Qualified Codes: I35.0 - Nonrheumatic aortic (valve) stenosis (10) Atrial fibrillation Status: Acute Qualifiers: Atrial fibrillation type: paroxysmal Qualified Codes: I48.0 - Paroxysmal atrial fibrillation (11) CAD (coronary artery disease) Status: Acute Qualifiers: Coronary Disease-Associated Artery/Lesion type: [place] artery [place] vs. transplanted heart: [place] heart Associated angina: without angina Qualified Codes: I25.10 - Atherosclerotic heart disease of [place] coronary artery without angina pectoris Clinical Quality Measures DVT/VTE Risk/Contraindication: Risk Factor Score Per Nursin RFS Level Per Nursing on Admit: 4+=Very High MIMI HERNANDEZ MD 29, 2020 08:27
--- NOTE | 2020-05-12 08:27 | Diagnostic Imaging Report ---
Portable semierect AP chest at 359 hours. INDICATION: Dyspnea. FINDINGS: The appearance of the chest has worsened since the prior exam of 05/11/2020 as the density along the periphery of the right lung base seen on the prior study has increased. Most likely this is due to greater involvement of the right lower lobe by atelectasis/infiltrate and fluid. Conversely, the right upper lobe and the left lung do seem somewhat better aerated than on the prior exam. The heart is stable in size. The mediastinum is not widened. The osseous structures are intact. The deformity of the left clavicle seen previously is again evident. The ET tube and central venous catheter on the left and the NG line are stable in position. The NG line tip continues to overlie the distal esophagus. It could be advanced another 10 to 15 cm to assure that is well within the stomach. IMPRESSION: 1. There are mixed results. There does appear to be somewhat greater involvement of the right lung base by pneumonia/atelectasis and fluid but the right upper lung and left lung are better aerated. A followup study would be recommended for continued evaluation. Dictated by: Dictated on workstation # [id number]
[2020-05-12] MEDS: PANTOPRAZOLE 40 MG (PROTONIX) VIAL IVP SCH (08:30)
--- NOTE | 2020-05-12 08:52 | Progress Note - Cardiology ---
Cardiology SOAP Progress Note Subjective: Intubated and sedated Objective: I&O/Vital Signs 05/13/20 05/13/20 05/13/20 05/13/20 04:00 04:00 05:00 05:22 Pulse 69 66 66 Resp 24 24 B/P (MAP) 135/41 (72) 131/40 (70) 131/42 Pulse Ox 95 93 93 O2 Delivery Mechanical Ventilator Mechanical Ventilator Mechanical Ventilator O2 Flow Rate 28.00 28.00 FiO2 28 05/13/20 05/13/20 05/13/20 05/13/20 06:00 06:29 07:00 07:00 Pulse 70 80 75 78 Resp 24 24 34 B/P (MAP) 138/43 (74) 147/45 (79) 153/53 (86) Pulse Ox 93 93 95 O2 Delivery Mechanical Ventilator Nasal Cannula Nasal Cannula O2 Flow Rate 28.00 2.00 2.00 05/13/20 05/13/20 05/13/20 05/13/20 07:30 08:00 08:00 08:00 Temp 36.7 Pulse 77 Resp 27 B/P (MAP) 160/52 (88) Pulse Ox 94 93 93 O2 Delivery Nasal Cannula Nasal Cannula Nasal Cannula O2 Flow Rate 3.00 3.00 2.00 05/13/20 05/13/20 05/13/20 05/13/20 09:00 09:57 10:00 10:15 Pulse 76 76 Resp 27 29 B/P (MAP) 135/39 (71) 151/50 (83) Pulse Ox 91 92 93 93 O2 Delivery Nasal Cannula Nasal Cannula Nasal Cannula Nasal Cannula O2 Flow Rate 2.00 5.00 2.00 5.00 05/13/20 05/13/20 05/13/20 05/13/20 11:00 11:37 12:00 12:00 Temp 36.7 Pulse 78 78 Resp 35 35 B/P (MAP) 134/43 (73) 131/42 (71) Pulse Ox 93 93 95 O2 Delivery Nasal Cannula Nasal Cannula Nasal Cannula O2 Flow Rate 5.00 5.00 5.00 05/13/20 05/13/20 05/13/20 05/13/20 12:34 13:10 13:52 14:00 Pulse 81 76 74 Resp 31 34 B/P (MAP) 130/36 (67) 129/44 (72) Pulse Ox 95 95 90 O2 Delivery Nasal Cannula Nasal Cannula Nasal Cannula O2 Flow Rate 3.00 3.00 3.00 05/13/20 05/13/20 14:13 15:00 Pulse 84 Resp 26 B/P (MAP) 139/44 (75) Pulse Ox 91 90 O2 Delivery Nasal Cannula Nasal Cannula O2 Flow Rate 3.00 3.00 05/13/20 00:00 Intake Total 2250 ml Output Total 725 ml Balance 1525 ml Weight (Pounds): 112 Weight (Ounces): 0.0 Weight (Calculated Kilograms): 50.038370 Constitutional: other (intabated and sedate) Respiratory: rhonchi (scattered), other (fair air entry, intubated; coarse breathsounds) Cardiovascular: regular rate-rhythm, systolic murmur (2-3/6 MSM) Gastrointestional: other (s/p abdominal surgery with dressing in place) Extremities: other (bilat pitting LE swelling) Neurologic/Psychiatric: other (intubated and sedated, unable to cooperate with exam) Skin: No rash on exposed areas, No ulcerations on exposed areas Results/Procedures: Labs Laboratory Tests 05/13/20 03:29: White Blood Count 20.9H, Red Blood Count 3.04L, Hemoglobin 9.1#L, Hematocrit 26L , Mean Corpuscular Volume 85, Mean Corpuscular Hemoglobin 30, Mean Corpuscular Hemoglobin Concent 35, Red Cell Distribution Width 15.6H, Platelet Count 157, Mean Platelet Volume 9.8, Neutrophils (%) (Auto) 96H, Lymphocytes (%) (Auto) 1L, Monocytes (%) (Auto) 3, Eosinophils (%) (Auto) 0, Basophils (%) (Auto) 0, Neutrophils # (Auto) 20.1H, Lymphocytes # (Auto) 0.3L, Monocytes # (Auto) 0.5, Eosinophils # (Auto) 0.0, Basophils # (Auto) 0.0, Neutrophils % (Manual) 88, Lymphocytes % (Manual) 2, Monocytes % (Manual) 3, Band Neutrophils 7, [place] Cells SLIGHT, Schistocytes SLIGHT, Blood Gas Puncture Site LEFT BRACH ART, Blood Gas Patient Temperature 36.6, Arterial Blood pH 7.46H, Arterial Blood Partial Pressure CO2 39, Arterial Blood Partial Pressure O2 74L, Arterial Blood HCO3 27, Arterial Blood Total CO2 28.4, Arterial Blood Oxygen Saturation 94, Arterial Blood Base Excess 3.4H, Dylan Test YES-POS, Blood Gas Ventilator Setting YES, Blood Gas Inspired Oxygen 28%, Sodium Level 134L, Potassium Level 3.4L, Chloride Level 101, Carbon Dioxide Level 23, Anion Gap 10, Blood Urea Nitrogen 24H, Creatinine 0.71, Estimat Glomerular Filtration Rate > 60, BUN/Creatinine Ratio 34, Glucose Level 96, Calcium Level 7.4L, Phosphorus Level 3.4, Magnesium Level 2.1, B-Type Natriuretic Peptide 359.8H, Triglycerides Level 85 05/13/20 05:43: Lactic Acid Level 1.42 Microbiology 05/12/20 Gram Stain - Final, Resulted 05/12/20 Sputum Culture, Resulted Pending 05/12/20 Blood Culture - Preliminary, Resulted No growth Procedures NAME: DAWSON MARQUEZ [facility] REC#: [id number] PT STATUS: ADM IN : 1940 PHYSICIAN: SHEILA KATE DO ADMIT DATE: 05/10/20/ICU Draft Date of Exam:05/12/20 CHEST 1 VIEW, AP/PA ONLY Portable semierect AP chest at 359 hours. INDICATION: Dyspnea. FINDINGS: The appearance of the chest has worsened since the prior exam of 05/11/2020 as the density along the periphery of the right lung base seen on the prior study has increased. Most likely this is due to greater involvement of the right lower lobe by atelectasis/infiltrate and fluid. Conversely, the right upper lobe and the left lung do seem somewhat better aerated than on the prior exam. The heart is stable in size. The mediastinum is not widened. The osseous structures are intact. The deformity of the left clavicle seen previously is again evident. The ET tube and central venous catheter on the left and the NG line are stable in position. The NG line tip continues to overlie the distal esophagus. It could be advanced another 10 to 15 cm to assure that is well within the stomach. IMPRESSION: 1. There are mixed results. There does appear to be somewhat greater involvement of the right lung base by pneumonia/atelectasis and fluid but the right upper lung and left lung are better aerated. A followup study would be recommended for continued evaluation. 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 Card cath of 06/10/19 showed angiographically mild CAD, LVEF 65%, LVEDP at top limit of normal. Per Dr. Marrufo family is reporting recent coronary stenting by Dr. Yuen at [facility], exact details unknown, has been maintained on Effient and ASA. Sinus node disfunction and PAF. On Xarelto for stroke prophylaxis Echocardiogram of March 25, [address] Dao showed LVEF 55-65%. Grade 2 diastolic dysfunction. Mild mitral stenosis with mean gradient 2.2mHg, MVA 3.3 cm2. Mod calcified aortic valve with mod-severe stenosis, mean grad 26mmHg GUERO 1.1cm2, mild to mod regurg. Severe TR. PASP 65-70mmHg. Echocardiogram of May 11, 2020 was a technically poor study. LVEF 55-60% H/o scleroderma and chronic dysphagia, followed and treated by her pcp Quit smoking in 1979 Borderline low TSH on 08/17/18 (0.33), followed by her pcp Dr Maria Carotid u/s of 06-06-2019 showed 60-79% R ICA stenosis; less than 40% L ICA stenosis. Incidental note of L thyroid nodules seen at time of carotid u/s of Nov 2018 for which f/u is with her PCP Plan: * Complex management * Critically ill * Sepsis with prob pneumonia - management per pulmonary services Continue to hold off on Xarelto and ASA due to bleeding requiring surgery and leading to hypovolemic shock that has required transfusion - receiving more PRBC's today * Because family reports h/o cor stent in March 2020, she remains at high risk of stent thrombosis w/o any antiplatelet agents. This issue has to be weighed carefully. If bleeding is showing signs of having stabilized, it is reasonable to start Plavix therapy if ok with Dr. Marrufo of medical services * We will again request cardiac cath report from [facility] * Monitor lab closely * Oliguria - continue to monitor Clinical Quality Measures Type of Care: Type of Care: Comfort Measures [facility] May 12, 2020 08:52
[2020-05-12] MEDS ORDERED: ALBUMIN 25% 25 GM/100 ML 100 ML IV ONE (09:30)
--- NOTE | 2020-05-12 10:43 | NUR ---
DR SHRESTHA NOTIFIED OF CRITICAL LACTIC ACID RESULTS, NEW ORDERS RECEIVED TO GIVE 1 LITER BOLUS OF LR OVER 2 HOURS.
[2020-05-12] MEDS ORDERED: LACTATED RINGERS 1,000 ML IV SCH (10:45)
[2020-05-12] MEDS: PIPERACILLIN/TAZOBACTAM (BULK) 4.5 GM in NS (IVPB) 100 ML IV SCH ×2 (13:14→21:35)
--- NOTE | 2020-05-12 13:16 | Progress Note - Cardiology ---
Cardiology SOAP Progress Note Subjective: Intubated and on [facility] vent Not able to provide any history Objective: I&O/Vital Signs 05/12/20 05/12/20 05/12/20 05/12/20 02:00 03:00 03:44 04:00 Temp 35.9 Pulse 55 54 Resp 27 B/P (MAP) 131/34 (66) 139/35 (69) Pulse Ox 99 100 O2 Delivery Mechanical Ventilator Mechanical Ventilator Mechanical Ventilator O2 Flow Rate 30.00 30.00 FiO2 50 05/12/20 05/12/20 05/12/20 05/12/20 04:00 04:00 05:00 05:14 Pulse 55 55 54 Resp 22 B/P (MAP) 149/37 (74) 156/36 (76) 154/37 Pulse Ox 95 98 100 O2 Delivery Mechanical Ventilator Mechanical Ventilator Mechanical Ventilator O2 Flow Rate 30.00 30.00 FiO2 30 05/12/20 05/12/20 05/12/20 05/12/20 06:00 07:00 07:00 07:32 Temp 36.3 Pulse 54 53 53 Resp B/P (MAP) 145/36 (72) 139/36 (70) Pulse Ox 99 100 O2 Delivery Mechanical Ventilator Mechanical Ventilator O2 Flow Rate 30.00 30.00 05/12/20 05/12/20 05/12/20 05/12/20 07:48 08:00 08:00 08:00 Pulse 49 50 Resp 24 B/P (MAP) 119/33 115/30 (58) Pulse Ox 100 97 O2 Delivery Mechanical Ventilator Mechanical Ventilator Mechanical Ventilator O2 Flow Rate 30.00 FiO2 30 30 05/12/20 05/12/20 05/12/20 05/12/20 08:30 08:31 08:44 08:46 Temp 36.3 36.2 36.2 Pulse 49 58 56 56 Resp 25 24 B/P (MAP) 119/33 140/38 124/34 126/35 Pulse Ox 99 2 30 O2 Delivery Mechanical Ventilator Mechanical Ventilator Mechanical Ventilator FiO2 30 30 05/12/20 05/12/20 05/12/20 05/12/20 09:00 10:00 10:33 10:41 Temp 36.1 Pulse 58 50 53 Resp 23 23 24 B/P (MAP) 133/38 (69) 147/41 (76) 163/43 Pulse Ox 75 96 O2 Delivery Mechanical Ventilator Mechanical Ventilator Mechanical Ventilator Mechanical Ventilator O2 Flow Rate 30.00 30.00 28.00 FiO2 28 05/12/20 05/12/20 05/12/20 11:00 11:26 12:00 Temp 36.8 Pulse 53 54 Resp 16 19 B/P (MAP) 158/46 (83) Pulse Ox 93 94 O2 Delivery Mechanical Ventilator Mechanical Ventilator O2 Flow Rate 28.00 28.00 05/12/20 00:00 Intake Total 0 ml Output Total 400 ml Balance -400 ml Weight (Pounds): 112 Weight (Ounces): 0.0 Weight (Calculated Kilograms): 50.608632 Constitutional: other (intabated and sedate) Respiratory: rhonchi (scattered), other (fair air entry, intubated; coarse breathsounds) Cardiovascular: regular rate-rhythm, systolic murmur (2-3/6 MSM) Gastrointestional: other (s/p abdominal surgery with dressing in place) Extremities: other (bilat pitting LE swelling) Neurologic/Psychiatric: other (intubated and sedated, unable to cooperate with exam) Skin: No rash on exposed areas, No ulcerations on exposed areas Results/Procedures: Labs Laboratory Tests 05/11/20 13:20: Lactic Acid Level 3.45*H 05/11/20 16:38: Lactic Acid Level 3.41*H 05/11/20 18:50: Lactic Acid Level 3.40*H, Blood Gas Puncture Site LEFT RADIAL, Blood Gas Patient Temperature 35.7, Arterial Blood pH 7.37, Arterial Blood Partial Pressure CO2 39, Arterial Blood Partial Pressure O2 70L, Arterial Blood HCO3 22L, Arterial Blood Total CO2 23.6, Arterial Blood Oxygen Saturation 96, Arterial Blood Base Excess -2.4, Dylan Test YES-POS, Blood Gas Ventilator Setting YES, Blood Gas Inspired Oxygen 30% 05/11/20 20:55: Lactic Acid Level 3.38*H 05/11/20 22:55: Lactic Acid Level 3.58*H 05/12/20 01:15: Lactic Acid Level 3.80*H 05/12/20 03:30: Lactic Acid Level 3.80*H, White Blood Count 16.9H, Red Blood Count 2.49L, He moglobin 7.4#L, Hematocrit 21L, Mean Corpuscular Volume 85, Mean Corpuscular Hemoglobin 30, Mean Corpuscular Hemoglobin Concent 35, Red Cell Distribution Width 16.2H, Platelet Count 171, Mean Platelet Volume 9.4, Neutrophils (%) (Auto) 92H, Lymphocytes (%) (Auto) 3L, Monocytes (%) (Auto) 5, Eosinophils (%) (Auto) 0, Basophils (%) (Auto) 0, Neutrophils # (Auto) 15.6H, Lymphocytes # (Auto) 0.5L, Monocytes # (Auto) 0.8, Eosinophils # (Auto) 0.0, Basophils # (Auto ) 0.0, Neutrophils % (Manual) 67, Lymphocytes % (Manual) 2, Monocytes % (Manual) 3, Metamyelocytes % 2, Band Neutrophils 26, Helmet Cells RARE, Crenated Cell MODERATE, Blood Gas Puncture Site ART LINE, Blood Gas Patient Temperature 35.9, Arterial Blood pH 7.45H, Arterial Blood Partial Pressure CO2 36, Arterial Blood Partial Pressure O2 73L, Arterial Blood HCO3 24, Arterial Blood Total CO2 25.5, Arterial Blood Oxygen Saturation 96, Arterial Blood Base Excess 0.5, Dylan Test ART LINE, Blood Gas Ventilator Setting YES, Blood Gas Inspired Oxygen 30%, Sodium Level 128L, Potassium Level 3.8, Chloride Level 95L, Carbon Dioxide Level 20L, Anion Gap 13, Blood Urea Nitrogen 25H, Creatinine 0.85, Estimat Glomerular Filtration Rate > 60, BUN/Creatinine Ratio 29, Glucose Level 119H, Calcium Level 6.9L, Phosphorus Level 4.6, Magnesium Level 2.1, Procalcitonin 7.43H 05/12/20 05:25: Lactic Acid Level 3.90*H 05/12/20 06:35: Urine Color YELLOW, Urine Clarity SL CLOUDY, Urine pH 5.5, Urine Specific [place] 1.020, Urine Protein NEGATIVE, Urine Glucose (UA) NEGATIVE, Urine Ketones NEGATIVE, Urine Nitrite NEGATIVE, Urine Bilirubin NEGATIVE, Urine Urobilinogen 0.2, Urine Leukocyte Esterase NEGATIVE, Urine RBC (Auto) 2+H, Urine RBC 10-25H, Urine WBC RARE, Urine Crystals NONE, Urine Bacteria TRACE, Urine Casts NONE, Urine Mucus SMALLH, Urine Yeast LARGEH, Urine Culture Indicated NO 05/12/20 09:50: Lactic Acid Level 4.36*H, Procalcitonin 5.82H Microbiology 05/10/20 MRSA Screen - Final, Complete MRSA not isolated 05/10/20 Blood Culture - Preliminary, Resulted No growth Laboratory Tests 05/10/20 14:20 05/10/20 22:00 05/11/20 03:10 05/11/20 10:15 05/12/20 03:30 A/P: Assessment: Hypovolemic (blood loss) shock - receiving transfusions, requiring pressor support Sepsis - prob pneumonia - management per pulmonary services S/P hemicolectomy by Dr. Garcia d/t bleeding cecal mass Acute resp failure - intubated and sedated CAD. Card cath of 06/10/19 showed angiographically mild CAD, LVEF 65%, LVEDP at top limit of normal. Per Dr. Marrufo family is reporting recent coronary stenting by Dr. Yuen at [facility], exact details unknown, has been maintained on Effient and ASA. Sinus node disfunction and PAF. On Xarelto for stroke prophylaxis Echocardiogram of March 25, [address] Dao showed LVEF 55-65%. Grade 2 diastolic dysfunction. Mild mitral stenosis with mean gradient 2.2mHg, MVA 3.3 cm2. Mod calcified aortic valve with mod-severe stenosis, mean grad 26mmHg GUERO 1.1cm2, mild to mod regurg. Severe TR. PASP 65-70mmHg. Echocardiogram of May 11, 2020 was a technically poor study. LVEF 55-60% H/o scleroderma and chronic dysphagia, followed and treated by her pcp Quit smoking in 1979 Borderline low TSH on 08/17/18 (0.33), followed by her pcp Dr Maria Carotid u/s of 06-06-2019 showed 60-79% R ICA stenosis; less than 40% L ICA stenosis. Incidental note of L thyroid nodules seen at time of carotid u/s of Nov 2018 for which f/u is with her PCP Plan: * Complex management * Critically ill * Sepsis with prob pneumonia - management per pulmonary services * Continue to hold off on Xarelto and ASA due to bleeding requiring surgery and leading to hypovolemic shock that has required transfusion - receiving more PRBC's today * Because family reports h/o cor stent in March 2020, she remains at high risk of stent thrombosis w/o any antiplatelet agents. This issue has to be weighed carefully. If bleeding is showing signs of having stabilized, it is reasonable to start Plavix therapy if ok with Dr. Marrufo of medical services * We will again request cardiac cath report from [facility] * Monitor lab closely * Oliguria - probably related to intravascular vol depletion, continue to monitor Clinical Quality Measures Type of Care: Type of Care: Comfort Measures SABINO MIN MD FACP [facility] May 12, 2020 13:16
--- NOTE | 2020-05-12 13:54 | NUR ---
PT'S ABDOMEN NOTED TO BE HARD, RIGID, NO BOWEL SOUNDS AUSCULTATED, PLACEMENT OF NGT CHECKED BY THIS RN AND Nikki ROCHA RN. NGT ADVANCED APPROXIMATELY 12 CM AFTER READING IMPRESSION OF CXR. AT THIS TIME PT NOTED TO HAVE MINIMAL AMOUNT OF GASTRIC CONTENT. NOTED TO BE REDDISH/BROWN IN COLOR, WILL CONTINUE TO MONITOR.
[2020-05-12] MEDS: morphine INJ 4 MG/ML 1 ML (VIAL/SYRINGE) IVP PRN ×3 (14:20→21:35)
--- NOTE | 2020-05-12 14:30 | NUR ---
PALLIATIVE CARE RN in to see patient. Still intubated but responsive to voice...as noted by eye movement and attempt to move head. No family in the room at this time. Will continue to follow and assist with discharge planning at the direction of Dr. Marrufo.
--- NOTE | 2020-05-12 15:32 | Progress Note - Surgery ---
Subjective Time Seen by a Provider: 14:46 Subjective/Events-last exam Pt seen and examined, still on vent but looks at you when spoken too. Nods yes to pain. Review of Systems pt on vent Focused Exam Lactate Level 05/12/20 05:25: Lactic Acid Level 3.90*H 05/12/20 09:50: Lactic Acid Level 4.36*H 05/12/20 14:45: Lactic Acid Level 4.20*H Lactic Acid Level Laboratory Tests Test 05/12/20 14:45 Lactic Acid Level 4.20 MMOL/L (0.50-2.00) *H Objective Exam Vital Signs Date Time Temp Pulse Resp B/P (MAP) Pulse Ox O2 Delivery O2 Flow Rate FiO2 05/12/20 13:00 56 05/12/20 13:00 62 23 164/48 (86) 94 Mechanical Ventilator 28.00 05/12/20 12:35 Mechanical Ventilator 30 05/12/20 12:35 97 Mechanical Ventilator 30 05/12/20 12:00 54 19 158/46 (83) 94 Mechanical Ventilator 28.00 05/12/20 11:26 36.8 05/12/20 11:00 53 16 93 Mechanical Ventilator 28.00 05/12/20 10:41 36.1 53 24 163/43 Mechanical Ventilator 28 05/12/20 10:33 Mechanical Ventilator 28.00 05/12/20 10:00 50 23 147/41 (76) 96 Mechanical Ventilator 30.00 05/12/20 09:00 58 23 133/38 (69) 75 Mechanical Ventilator 30.00 05/12/20 08:46 36.2 56 126/35 30 Mechanical Ventilator 05/12/20 08:44 36.2 56 24 124/34 2 Mechanical Ventilator 30 05/12/20 08:31 36.3 58 25 140/38 99 Mechanical Ventilator 30 05/12/20 08:30 49 119/33 05/12/20 08:00 97 Mechanical Ventilator 30 05/12/20 08:00 Mechanical Ventilator 30 05/12/20 08:00 50 24 115/30 (58) 100 Mechanical Ventilator 30.00 05/12/20 07:48 49 119/33 05/12/20 07:32 36.3 05/12/20 07:00 53 05/12/20 07:00 53 27 139/36 (70) 100 Mechanical Ventilator 30.00 05/12/20 06:00 54 27 145/36 (72) 99 Mechanical Ventilator 30.00 05/12/20 05:14 54 154/37 05/12/20 05:00 55 22 156/36 (76) 100 Mechanical Ventilator 30.00 05/12/20 04:00 55 24 149/37 (74) 98 Mechanical Ventilator 30.00 05/12/20 04:00 95 Mechanical Ventilator 30 05/12/20 04:00 Mechanical Ventilator 50 05/12/20 03:44 35.9 05/12/20 03:00 54 27 139/35 (69) 100 Mechanical Ventilator 30.00 05/12/20 02:00 55 27 131/34 (66) 99 Mechanical Ventilator 30.00 05/12/20 01:03 56 28 98 30 05/12/20 01:00 56 05/12/20 01:00 56 151/40 (77) 100 Mechanical Ventilator 30.00 05/12/20 00:36 54 103/32 05/12/20 00:00 36.0 05/12/20 00:00 56 28 138/36 (70) 100 Mechanical Ventilator 30.00 05/12/20 00:00 Mechanical Ventilator 50 05/12/20 00:00 95 Mechanical Ventilator 30 05/11/20 23:00 56 28 146/37 (73) 100 Mechanical Ventilator 30.00 05/11/20 22:25 55 28 100 30 05/11/20 22:00 55 27 114/32 (59) 100 Mechanical Ventilator 30.00 05/11/20 21:00 56 27 125/34 (64) 100 Mechanical Ventilator 30.00 05/11/20 20:00 56 28 141/36 (71) 100 Mechanical Ventilator 30.00 05/11/20 20:00 Mechanical Ventilator 50 05/11/20 20:00 95 Mechanical Ventilator 30 05/11/20 19:28 36.0 05/11/20 19:01 55 124/34 05/11/20 19:00 55 28 124/36 (65) 100 Mechanical Ventilator 40.00 05/11/20 18:49 56 28 100 30 05/11/20 18:36 57 05/11/20 18:00 55 13 115/33 (60) 100 Mechanical Ventilator 40.00 05/11/20 17:45 55 05/11/20 17:16 54 99/33 05/11/20 17:00 54 27 115/36 (62) 100 Mechanical Ventilator 40.00 05/11/20 16:48 54 119/36 05/11/20 16:00 Mechanical Ventilator 30 05/11/20 16:00 35.7 05/11/20 16:00 53 25 115/41 (65) 99 Mechanical Ventilator 40.00 05/11/20 16:00 95 Mechanical Ventilator 30 05/11/20 15:29 53 28 99 45 I & O 05/12/20 07:00 Intake Total 0 ml Output Total 575 ml Balance -575 ml Capillary Refill : Less Than 3 Seconds General Appearance: Other (on vent) Neck: Other (central line) Respiratory: Decreased Breath Sounds; No Wheezing; Other (on vent) Cardiovascular: Regular Rate, Rhythm, No Murmur Gastrointestinal: distended (?? slightly firm), other (incision c/d/i) Extremity: Pedal Edema, Swelling (2+ to just above ankles) Neurologic/Psychiatric: Other (sedated, appears comfortable) Skin: Ecchymosis; No Mottled; Pallor Results Lab Laboratory Tests 05/11/20 16:38: Lactic Acid Level 3.41*H 05/11/20 18:50: Lactic Acid Level 3.40*H, Blood Gas Puncture Site LEFT RADIAL, Blood Gas Patient Temperature 35.7, Arterial Blood pH 7.37, Arterial Blood Partial Pressure CO2 39, Arterial Blood Partial Pressure O2 70L, Arterial Blood HCO3 22L, Arterial Blood Total CO2 23.6, Arterial Blood Oxygen Saturation 96, Arterial Blood Base Excess -2.4, Dylan Test YES-POS, Blood Gas Ventilator Setting YES, Blood Gas Inspired Oxygen 30% 05/11/20 20:55: Lactic Acid Level 3.38*H 05/11/20 22:55: Lactic Acid Level 3.58*H 05/12/20 01:15: Lactic Acid Level 3.80*H 05/12/20 03:30: Lactic Acid Level 3.80*H, White Blood Count 16.9H, Red Blood Count 2.49L, Hemoglobin 7.4#L, Hematocrit 21L, Mean Corpuscular Volume 85, Mean Corpuscular Hemoglobin 30, Mean Corpuscular Hemoglobin Concent 35, Red Cell Distribution Width 16.2H, Platelet Count 171, Mean Platelet Volume 9.4, Neutrophils (%) (Auto) 92H, Lymphocytes (%) (Auto) 3L, Monocytes (%) (Auto) 5, Eosinophils (%) (Auto) 0, Basophils (%) (Auto) 0, Neutrophils # (Auto) 15.6H, Lymphocytes # (Auto) 0.5L, Monocytes # (Auto) 0.8, Eosinophils # (Auto) 0.0, Basophils # (Auto) 0.0, Neutrophils % (Manual) 67, Lymphocytes % (Manual) 2, Monocytes % (M anual) 3, Metamyelocytes % 2, Band Neutrophils 26, Helmet Cells RARE, Crenated Cell MODERATE, Blood Gas Puncture Site ART LINE, Blood Gas Patient Temperature 35.9, Arterial Blood pH 7.45H, Arterial Blood Partial Pressure CO2 36, Arterial Blood Partial Pressure O2 73L, Arterial Blood HCO3 24, Arterial Blood Total CO2 25.5, Arterial Blood Oxygen Saturation 96, Arterial Blood Base Excess 0.5, Dylan Test ART LINE, Blood Gas Ventilator Setting YES, Blood Gas Inspired Oxygen 30%, Sodium Level 128L, Potassium Level 3.8, Chloride Level 95L, Carbon Dioxide Level 20L, Anion Gap 13, Blood Urea Nitrogen 25H, Creatinine 0.85, Estimat Glomerular Filtration Rate > 60, BUN/Creatinine Ratio 29, Glucose Level 119H, Calcium Level 6.9L, Phosphorus Level 4.6, Magnesium Level 2.1, Procalcitonin 7.43H 05/12/20 05:25: Lactic Acid Level 3.90*H 05/12/20 06:35: Urine Color YELLOW, Urine Clarity SL CLOUDY, Urine pH 5.5, Urine Specific [place] 1.020, Urine Protein NEGATIVE, Urine Glucose (UA) NEGATIVE, Urine Ketones NEGATIVE, Urine Nitrite NEGATIVE, Urine Bilirubin NEGATIVE, Urine Urobilinogen 0.2, Urine Leukocyte Esterase NEGATIVE, Urine RBC (Auto) 2+H, Urine RBC 10-25H, Urine WBC RARE, Urine Crystals NONE, Urine Bacteria TRACE, Urine Casts NONE, Urine Mucus SMALLH, Urine Yeast LARGEH, Urine Culture Indicated NO 05/12/20 09:50: Lactic Acid Level 4.36*H, Procalcitonin 5.82H 05/12/20 14:10: Lab Scanned Report Transfusion Reaction Form 05/12/20 14:45: Lactic Acid Level 4.20*H Microbiology 05/10/20 MRSA Screen - Final, Complete MRSA not isolated 05/10/20 Blood Culture - Preliminary, Resulted No growth Assessment/Plan Assessment/Plan Assessment/Plan S/P Right Colon resection Hx of Afib and aortic stenosis Pt is having trouble coming off the vent, her lactic acid is elevated and her hemoglobin has fallen. Unsure exactly what is going on, but she did just get off the Levophed; which may have been causing the elevated Lactic Acid. Monitor labs, continue IV fluids and pain control. Clinical Quality Measures DVT/VTE Risk/Contraindication: Risk Factor Score Per Nursin RFS Level Per Nursing on Admit: 4+=Very High SHEILA KATE DO May 12, 2020 15:32
[2020-05-13] VITALS (26 sets, daily range): BP systolic 107–171; BP diastolic 34–82
[2020-05-13] MEDS: LACTATED RINGERS 1,000 ML IV SCH ×2 (00:44→10:59)
[2020-05-13] MEDS: morphine INJ 4 MG/ML 1 ML (VIAL/SYRINGE) IVP PRN ×5 (02:00→23:56)
[2020-05-13] MEDS: NOREPINEPHRINE 4 MG/250 ML 250 ML IV SCH ×2 (02:02→13:48)
[2020-05-13 03:42] LABS: ABG BASE EXCESS 3.4 MMOL/L (-2.5-2.5); ABG OXYGEN SATURATION 94 % (94-100); ABG PCO2 39 MMHG (35-45); ABG PH 7.46 (7.37-7.43); ABG PO2 74 MMHG (79-93); ABG TCO2 28.4 MMOL/L (21.0-31.0)
[2020-05-13 03:44] LABS: ALLENS TEST YES-POS; INSPIRED O2 28%; VENTILATOR YES
[2020-05-13 03:45] LABS: PATIENT TEMP 36.6
[2020-05-13 03:47] LABS: BASOPHILS % (AUTO) 0 % (0-10); EOSINOPHILS % (AUTO) 0 % (0-10); HEMATOCRIT 26 % (35-52); HEMOGLOBIN 9.1 G/DL (11.5-16.0); LYMPHOCYTES # (AUTO) 0.3 X 10^3 (1.0-4.0); LYMPHOCYTES % (AUTO) 1 % (12-44); MEAN CORPUSCULAR HEMOGLOBIN 30 PG (25-34); MEAN CORPUSCULAR HGB CONC 35 G/DL (32-36); MEAN CORPUSCULAR VOLUME 85 FL (80-99); MEAN PLATELET VOLUME 9.8 FL (7.4-10.4); MONOCYTES # (AUTO) 0.5 X 10^3 (0.0-1.0); MONOCYTES % (AUTO) 3 % (0-12); NEUTROPHILS # (AUTO) 20.1 X 10^3 (1.8-7.8); NEUTROPHILS % (AUTO) 96 % (42-75); PLATELET COUNT 157 10^3/uL (130-400); RED CELL DISTRIBUTION WIDTH 15.6 % (10.0-14.5); WHITE BLOOD COUNT 20.9 10^3/uL (4.3-11.0)
[2020-05-13 04:03] LABS: BUN/CREATININE RATIO 34; CALCIUM 7.4 MG/DL (8.5-10.1); CARBON DIOXIDE 23 MMOL/L (21-32); CHLORIDE 101 MMOL/L (98-107); CREATININE SERUM 0.71 MG/DL (0.60-1.30); GFR ESTIMATED > 60; GLUCOSE 96 MG/DL (70-105); MAGNESIUM 2.1 MG/DL (1.6-2.4); PHOSPHORUS 3.4 MG/DL (2.3-4.7); POTASSIUM 3.4 MMOL/L (3.6-5.0); SODIUM 134 MMOL/L (135-145)
[2020-05-13 04:47] LABS: BAND NEUTROPHILS 7 %; BURR CELLS SLIGHT; LYMPHOCYTES % (MANUAL) 2 %; MONOCYTES % (MANUAL) 3 %; NEUTROPHILS % (MANUAL) 88 %
[2020-05-13 04:48] LABS: SCHISTOCYTES SLIGHT
[2020-05-13] MEDS: POTASSIUM CL 10MEQ/50ML IVPB 50 ML IV SCH ×3 (04:52→06:28)
[2020-05-13] MEDS: MAGNESIUM 1 GM/100 ML IVPB 100 ML IV SCH (04:53)
[2020-05-13] MEDS: KCL 20 MEQ TAB (K-DUR) PO SCH (04:53)
--- NOTE | 2020-05-13 05:21 | Pulmonary Progress Note ---
CLEMENTINE CELAYA,MED STUDENT 05/13/20 0521: Subjective Date Seen by a Provider: May 13, 2020 Time Seen by a Provider: 04:15 Subjective/Events-last exam Pt. sedated and on vent. Sepsis Event Evaluation Height, Weight, BMI Height: 5'3.00" Weight: 112lbs. 0.0oz. 50.601615ls; 23.63 BMI Method:Stated Focused Exam Lactate Level 05/12/20 05:25: Lactic Acid Level 3.90*H 05/12/20 09:50: Lactic Acid Level 4.36*H 05/12/20 14:45: Lactic Acid Level 4.20*H Exam Exam Vital Signs Date Time Temp Pulse Resp B/P (MAP) Pulse Ox O2 Delivery O2 Flow Rate FiO2 05/13/20 04:00 95 Mechanical Ventilator 28 05/13/20 03:37 36.6 05/13/20 03:00 66 23 137/42 (73) 93 Mechanical Ventilator 28.00 05/13/20 02:02 69 117/36 05/13/20 02:00 72 14 107/34 (58) 93 Mechanical Ventilator 28.00 05/13/20 01:41 70 24 92 28 05/13/20 01:00 70 13 116/35 (62) 93 Mechanical Ventilator 28.00 05/13/20 01:00 70 05/13/20 00:00 68 24 124/36 (65) 92 Mechanical Ventilator 28.00 05/13/20 00:00 95 Mechanical Ventilator 28 05/12/20 23:38 36.6 05/12/20 23:00 68 24 126/39 (68) 92 Mechanical Ventilator 28.00 05/12/20 22:00 68 24 127/37 (67) 93 Mechanical Ventilator 28.00 05/12/20 21:15 63 24 94 28 05/12/20 21:00 65 24 116/37 (63) 94 Mechanical Ventilator 28.00 05/12/20 20:00 68 24 118/39 (65) 92 Mechanical Ventilator 28.00 05/12/20 20:00 95 Mechanical Ventilator 28 05/12/20 19:46 69 124/40 05/12/20 19:00 64 05/12/20 19:00 64 24 113/38 (63) 92 Mechanical Ventilator 28.00 05/12/20 18:59 63 24 92 28 05/12/20 18:00 62 12 119/40 (66) 92 Mechanical Ventilator 28.00 05/12/20 17:00 68 12 121/42 (68) 92 Mechanical Ventilator 28.00 05/12/20 16:00 95 Mechanical Ventilator 28 05/12/20 16:00 61 9 120/40 (66) Mechanical Ventilator 28.00 05/12/20 16:00 Mechanical Ventilator 28 05/12/20 15:39 36.4 05/12/20 15:00 64 25 133/42 (72) 93 Mechanical Ventilator 28.00 05/12/20 14:10 55 25 93 28 05/12/20 14:00 55 17 126/40 (68) 93 Mechanical Ventilator 28.00 05/12/20 13:00 56 05/12/20 13:00 62 23 164/48 (86) 94 Mechanical Ventilator 28.00 05/12/20 12:35 Mechanical Ventilator 30 05/12/20 12:35 97 Mechanical Ventilator 30 05/12/20 12:00 54 19 158/46 (83) 94 Mechanical Ventilator 28.00 05/12/20 11:26 36.8 05/12/20 11:00 53 16 93 Mechanical Ventilator 28.00 05/12/20 10:41 36.1 53 24 163/43 Mechanical Ventilator 28 05/12/20 10:33 Mechanical Ventilator 28.00 05/12/20 10:18 51 26 96 28 05/12/20 10:00 50 23 147/41 (76) 96 Mechanical Ventilator 30.00 05/12/20 09:00 58 23 133/38 (69) 75 Mechanical Ventilator 30.00 05/12/20 08:46 36.2 56 126/35 30 Mechanical Ventilator 05/12/20 08:44 36.2 56 24 124/34 2 Mechanical Ventilator 30 05/12/20 08:31 36.3 58 25 140/38 99 Mechanical Ventilator 30 05/12/20 08:30 49 119/33 05/12/20 08:00 97 Mechanical Ventilator 30 05/12/20 08:00 Mechanical Ventilator 30 05/12/20 08:00 50 24 115/30 (58) 100 Mechanical Ventilator 30.00 05/12/20 07:48 49 119/33 05/12/20 07:32 36.3 05/12/20 07:00 53 7/29/20 07:00 53 27 139/36 (70) 100 Mechanical Ventilator 30.00 05/12/20 06:40 53 24 100 30 05/12/20 06:00 54 27 145/36 (72) 99 Mechanical Ventilator 30.00 I & O 05/13/20 07:00 Intake Total 3886 ml Output Total 1650 ml Balance 2236 ml Height & Weight Height: 5'3.00" Weight: 112lbs. 0.0oz. 50.351505mc; 23.63 BMI Method:Stated General Appearance: Other (on vent) Neck: Other (central line) Respiratory: Decreased Breath Sounds; No Wheezing; Other (on vent) Cardiovascular: Regular Rate, Rhythm, No Murmur Capillary Refill: Less Than 3 Seconds Peripheral Pulses: 2+ Radial Pulses (R), 2+ Radial Pulses (L) Gastrointestinal: distended (?? slightly firm), other (incision c/d/i) Extremity: Pedal Edema, Swelling (2+ to just above ankles) Neurologic/Psychiatric: Other (sedated, appears comfortable) Skin: Ecchymosis; No Mottled; Pallor Results Lab Laboratory Tests 05/11/20 10:15 05/12/20 03:30 05/13/20 03:29 Assessment/Plan Assessment/Plan Acute respiratory failure s/p surgery -Continue vent -Pt is not ready for extubation yet. She is on levophed, and vasopressin. -Decrease RR to 24. Severe Abd pain with acute GIB s/p ex lap Bleeding cecal mass s/p resection Anemia s/p 2 units of PRBC - with persistent hypotension -Has received 3 units of PRBC -improving -Monitor Hypotension -Continue Levophed, and Vasopressin -Repeat Nye cultures -On vanco and Zosyn -Give a liter bolus of LR Moderate bilateral pleural effusions -Monitor Metabolic acidosis -improving Hypoxia Hx of Afib and aortic stenosis AMADOU CRUZ DO 05/13/20 0546: Subjective Time Seen by a Provider: 05:34 Exam Exam General Appearance: Other (on vent) HEENT: PERRL/EOMI, Pharynx Normal Respiratory: Decreased Breath Sounds Cardiovascular: Regular Rate, Rhythm Gastrointestinal: distended (?? slightly firm), other (incision c/d/i) Extremity: Pedal Edema, Swelling (2+ to just above ankles) Skin: Ecchymosis Assessment/Plan Assessment/Plan Acute respiratory failure s/p surgery -Continue vent -Will attempt ventilator weaning today. -Repeat LA, and BNP -Hold propofol for vent weaning Septic shock -Titrate Levophed for MAP >60 and SBP >90 -Solucortef -Now off Vasopressin Severe Abd pain with acute GIB s/p ex lap Bleeding cecal mass s/p resection Anemia s/p 2 units of PRBC - with persistent hypotension -Has received 3 units of PRBC -improving -Monitor Moderate bilateral pleural effusions -Monitor Metabolic acidosis -improving Hx of Afib and aortic stenosis Supervisory-Addendum Brief Verification & Attestation Participated in pt care: history, MDM, physical Personally performed: exam, history, MDM Care discussed with: Medical Student Procedures: n/a Verification and Attestation of Medical Student E/M Service A medical student performed and documented this service in my presence. I reviewed and verified all information documented by the medical student and made modifications to such information, when appropriate. I personally performed the physical exam and medical decision making. Amadou Cruz, May 13, 2020,05:47 CLEMENTINE CELAYA,MED STUDENT May 13, 2020 05:21 AMADOU CRUZ DO May 13, 2020 05:46
[2020-05-13] MEDS: PIPERACILLIN/TAZOBACTAM (BULK) 4.5 GM in NS (IVPB) 100 ML IV SCH ×3 (05:22→22:24)
[2020-05-13] MEDS: PROPOFOL DRIP (ICU) 100 ML IV SCH (05:22)
[2020-05-13] MEDS: HYDROCORTISONE 100 MG/2 ML (Solu-CORTEF) VIAL IV SCH ×3 (05:22→17:17)
--- NOTE | 2020-05-13 06:26 | NUR ---
06 RT ARRIVED TO EXTUBATE PATIENT PER DR SHRESTHA. 625 PATIENT EXTUBATED, PATIENT TOLERATED WELL, FOLLOWS INSTRUCTIONS PLACED ON NASAL CANULA AT 3LPM. 625 RESTRAINTS REMOVED.
[2020-05-13] MEDS: VANCOMYCIN 1 GM/NS 250 ML IVPB IV SCH ×2 (07:35)
[2020-05-13] MEDS ORDERED: FUROSEMIDE 40 MG/4 ML INJ (LASIX) IVP ONE (07:45)
--- NOTE | 2020-05-13 07:55 | Diagnostic Imaging Report ---
INDICATION: Shortness of breath, intubated COMPARISON: 05/12/2020 FINDINGS: Single view of the chest demonstrates stable support lines. There is no pneumothorax. There is continued atelectasis, effusion, and infiltrate in the right base. Small effusion seen in the left base. The heart is prominent with slight central vascular congestion. IMPRESSION: 1. Stable support devices. 2. Unchanged aeration. Dictated by: Dictated on workstation # [id number]
[2020-05-13] MEDS ORDERED: FUROSEMIDE 40 MG/4 ML INJ (LASIX) ONE (08:12)
[2020-05-13] MEDS: PANTOPRAZOLE 40 MG (PROTONIX) VIAL IVP SCH (08:21)
--- NOTE | 2020-05-13 08:31 | Progress Note - Hospitalist ---
Subjective HPI/CC On Admission Date Seen by Provider: May 13, 2020 Time Seen by Provider: 08:22 Pt is an 79yoCF with a PMH of aortic stenosis, COPD, CAD with recent stenting, HTN, HLD, hypothyroidism, paroxysmal atrial fibrillation on chronic anticoagulation who presented to the ER due to hypoxia. She is unable to provide much history and onlyanswered a few yes or no questions for me. She told me she was sick and that she was not having pain. Otherwise all history obtained from family and records. She was apparently in her normal state this morning (ambulatory and alert and oriented x4). She spoke to her son and then had lunch. Sometime after lunch they found her in her room minimallyresponsive. There was concern for an episode of apnea as well. EMS was summoned and she was found to have oxygen saturations in the 60%. She was placed on a nonrebreather which brought her oxygen saturations up. She was taken for CT head as she is on Xarelto. Subjective/Events-last exam Pt was extubated this morning. Only complaint is about dry mouth. Focused Exam Lactate Level 05/12/20 09:50: Lactic Acid Level 4.36*H 05/12/20 14:45: Lactic Acid Level 4.20*H 05/13/20 05:43: Lactic Acid Level 1.42 Lactic Acid Level Laboratory Tests Test 05/13/20 05:43 Lactic Acid Level 1.42 MMOL/L (0.50-2.00) Objective Exam Vital Signs Vital Signs Date Time Temp Pulse Resp B/P (MAP) Pulse Ox O2 Delivery O2 Flow Rate FiO2 05/13/20 08:00 36.7 05/13/20 07:00 78 05/13/20 06:29 24 147/45 (79) 93 Nasal Cannula 2.00 05/13/20 04:00 28 Capillary Refill : Less Than 3 Seconds General Appearance: No Apparent Distress, Chronically ill Respiratory: Crackles Cardiovascular: Regular Rate, Rhythm, No Murmur Neurologic/Psychiatric: Alert, Other (didn't answer many questions due to dry mouth) Results/Procedures Lab Laboratory Tests 05/13/20 03:29 Patient resulted labs reviewed. Assessment/Plan Assessment and Plan Assess & Plan/Chief Complaint Hemorrhagic shock bleeding cecal mass Severe anemia Went to ex lap on 05/10 and bleeding mass found Transfused 3 units pRBCs total Now off pressors and maintaining her own BP Leukocytosis Likely due to steroids Procal up yesterday Continue abx Blood cultures negative Acute Hypoxic Respiratory Failure Recently treated pneumonia COPD Extubated this AM Pulm/TeleICU consulted, appreciate recs Lasix given this AM Mixed metabolic and respiratory acidosis- resolved CAD Aortic Stenosis Son reports she recently had a stent placed by Dr Yuen Records sent and cath report reveals 04/13/2020 RCA stenting done and valvuloplasty by Dr Yuen Will check H&H this afternoon and if not significantly dropping will resume plavix Consult cardiology, appreciate their help DVT ppx: SCDs Critical Care Critically Ill Patient Diagnosis/Problems Diagnosis/Problems (1) Acute respiratory failure Status: Acute Qualifiers: Respiratory failure complication: hypercapnia Qualified Codes: J96.02 - Acute respiratory failure with hypercapnia (2) Hemorrhagic shock Status: Acute (3) Hypomagnesemia Status: Acute (4) Normocytic anemia Status: Acute (5) COPD (chronic obstructive pulmonary disease) Qualifiers: COPD type: unspecified COPD Qualified Codes: J44.9 - Chronic obstructive pulmonary disease, unspecified (6) Hypothyroidism Status: Chronic Qualifiers: Hypothyroidism type: unspecified Qualified Codes: E03.9 - Hypothyroidism, unspecified (7) Metabolic acidosis Status: Acute (8) Respiratory acidosis Status: Acute (9) Aortic stenosis Qualifiers: Cardiac valve disease etiology: etiology unspecified Qualified Codes: I35.0 - Nonrheumatic aortic (valve) stenosis (10) Atrial fibrillation Status: Acute Qualifiers: Atrial fibrillation type: paroxysmal Qualified Codes: I48.0 - Paroxysmal atrial fibrillation (11) CAD (coronary artery disease) Status: Acute Qualifiers: Coronary Disease-Associated Artery/Lesion type: [place] artery [place] vs. transplanted heart: [place] heart Associated angina: without angina Qualified Codes: I25.10 - Atherosclerotic heart disease of [place] coronary artery without angina pectoris Clinical Quality Measures DVT/VTE Risk/Contraindication: Risk Factor Score Per Nursin RFS Level Per Nursing on Admit: 4+=Very High MIMI HERNANDEZ MD May 13, 2020 08:31
--- NOTE | 2020-05-13 08:49 | Progress Note - Cardiology ---
Cardiology SO Progress Note Objective: I&O/Vital Signs 05/13/20 05/13/20 05/13/20 05/13/20 04:00 04:00 05:00 05:22 Pulse 69 66 66 Resp 24 24 B/P (MAP) 135/41 (72) 131/40 (70) 131/42 Pulse Ox 95 93 93 O2 Delivery Mechanical Ventilator Mechanical Ventilator Mechanical Ventilator O2 Flow Rate 28.00 28.00 FiO2 28 05/13/20 05/13/20 05/13/20 05/13/20 06:00 06:29 07:00 07:00 Pulse 70 80 75 78 Resp 24 24 34 B/P (MAP) 138/43 (74) 147/45 (79) 153/53 (86) Pulse Ox 93 93 95 O2 Delivery Mechanical Ventilator Nasal Cannula Nasal Cannula O2 Flow Rate 28.00 2.00 2.00 05/13/20 05/13/20 05/13/20 05/13/20 07:30 08:00 08:00 08:00 Temp 36.7 Pulse 77 Resp 27 B/P (MAP) 160/52 (88) Pulse Ox 94 93 93 O2 Delivery Nasal Cannula Nasal Cannula Nasal Cannula O2 Flow Rate 3.00 3.00 2.00 05/13/20 05/13/20 05/13/20 05/13/20 09:00 09:57 10:00 10:15 Pulse 76 76 Resp 27 29 B/P (MAP) 135/39 (71) 151/50 (83) Pulse Ox 91 92 93 93 O2 Delivery Nasal Cannula Nasal Cannula Nasal Cannula Nasal Cannula O2 Flow Rate 2.00 5.00 2.00 5.00 05/13/20 05/13/20 05/13/20 05/13/20 11:00 11:37 12:00 12:00 Temp 36.7 Pulse 78 78 Resp 35 35 B/P (MAP) 134/43 (73) 131/42 (71) Pulse Ox 93 93 95 O2 Delivery Nasal Cannula Nasal Cannula Nasal Cannula O2 Flow Rate 5.00 5.00 5.00 05/13/20 05/13/20 05/13/20 05/13/20 12:34 13:10 13:52 14:00 Pulse 81 76 74 Resp 31 34 B/P (MAP) 130/36 (67) 129/44 (72) Pulse Ox 95 95 90 O2 Delivery Nasal Cannula Nasal Cannula Nasal Cannula O2 Flow Rate 3.00 3.00 3.00 05/13/20 05/13/20 14:13 15:00 Pulse 84 Resp 26 B/P (MAP) 139/44 (75) Pulse Ox 91 90 O2 Delivery Nasal Cannula Nasal Cannula O2 Flow Rate 3.00 3.00 05/13/20 00:00 Intake Total 2250 ml Output Total 725 ml Balance 1525 ml Weight (Pounds): 112 Weight (Ounces): 0.0 Weight (Calculated Kilograms): 50.986715 Constitutional: other (frail) Respiratory: rhonchi (scattered), other (fair air entry; coarse breathsounds) Cardiovascular: regular rate-rhythm, systolic murmur (2-3/6 MSM) Gastrointestional: other (s/p abdominal surgery with dressing in place) Extremities: other (bilat pitting LE swelling) Neurologic/Psychiatric: grossly intact (moves extremities) Skin: No rash on exposed areas, No ulcerations on exposed areas Results/Procedures: Labs Laboratory Tests 05/13/20 03:29: White Blood Count 20.9H, Red Blood Count 3.04L, Hemoglobin 9.1#L, Hematocrit 26L , Mean Corpuscular Volume 85, Mean Corpuscular Hemoglobin 30, Mean Corpuscular Hemoglobin Concent 35, Red Cell Distribution Width 15.6H, Platelet Count 157, Mean Platelet Volume 9.8, Neutrophils (%) (Auto) 96H, Lymphocytes (%) (Auto) 1L, Monocytes (%) (Auto) 3, Eosinophils (%) (Auto) 0, Basophils (%) (Auto) 0, Neutrophils # (Auto) 20.1H, Lymphocytes # (Auto) 0.3L, Monocytes # (Auto) 0.5, Eosinophils # (Auto) 0.0, Basophils # (Auto) 0.0, Neutrophils % (Manual) 88, Lymphocytes % (Manual) 2, Monocytes % (Manual) 3, Band Neutrophils 7, Pura Cells SLIGHT, Schistocytes SLIGHT, Blood Gas Puncture Site LEFT BRACH ART, Blood Gas Patient Temperature 36.6, Arterial Blood pH 7.46H, Arterial Blood Partial Pressure CO2 39, Arterial Blood Partial Pressure O2 74L, Arterial Blood HCO3 27, Arterial Blood Total CO2 28.4, Arterial Blood Oxygen Saturation 94, Arterial Blood Base Excess 3.4H, Dylan Test YES-POS, Blood Gas Ventilator Setting YES, Blood Gas Inspired Oxygen 28%, Sodium Level 134L, Potassium Level 3.4L, Chloride Level 101, Carbon Dioxide Level 23, Anion Gap 10, Blood Urea Nitrogen 24H, Creatinine 0.71, Estimat Glomerular Filtration Rate > 60, BUN/Creatinine Ratio 34, Glucose Level 96, Calcium Level 7.4L, Phosphorus Level 3.4, Magnesium Level 2.1, B-Type Natriuretic Peptide 359.8H, Triglycerides Level 85 05/13/20 05:43: Lactic Acid Level 1.42 Microbiology 05/12/20 Gram Stain - Final, Resulted 05/12/20 Sputum Culture, Resulted Pending 05/12/20 Blood Culture - Preliminary, Resulted No growth Procedures NAME: DAWSON MARQUEZ [facility] REC#: [id number] PT STATUS: ADM IN : 1940 PHYSICIAN: SHEILA KATE DO ADMIT DATE: 05/10/20/ICU Draft Date of Exam:05/13/20 CHEST 1 VIEW, AP/PA ONLY INDICATION: Shortness of breath, intubated COMPARISON: 05/12/2020 FINDINGS: Single view of the chest demonstrates stable support lines. There is no pneumothorax. There is continued atelectasis, effusion, and infiltrate in the right base. Small effusion seen in the left base. The heart is prominent with slight central vascular congestion. IMPRESSION: 1. Stable support devices. 2. Unchanged aeration. Dictated on workstation # [id number] Dict: 05/13/20 0740 Trans: 05/13/20 0755 [facility] [id number] Interpreted by: RAFFI DONALDSON Electronically signed by: A/P: Assessment: Hypovolemic (blood loss) shock - receiving transfusions, requiring pressor support Sepsis - prob pneumonia - management per pulmonary services S/P hemicolectomy by Dr. Kate d/t bleeding cecal mass Acute resp failure - extubated on 05-13-2020 CAD. Card cath of April 13, [address] Yuen at [facility] showed 80- 90% lesion in the RCA for which EMMANUEL x1 was placed. Other vessels showed mild to mod CAD. Valvuloplasty to the aortic valve carried out at time of cardiac cath. Has been on Effient and ASA. Sinus node disfunction and PAF. On Xarelto for stroke prophylaxis Echocardiogram of March 25, [address] Dao showed LVEF 55-65%. Grade 2 diastolic dysfunction. Mild mitral stenosis with mean gradient 2.2mHg, MVA 3.3 cm2. Mod calcified aortic valve with mod-severe stenosis, mean grad 26mmHg GUERO 1.1cm2, mild to mod regurg. Severe TR. PASP 65-70mmHg. Echocardiogram of May 11, 2020 was a technically poor study. LVEF 55-60% H/o scleroderma and chronic dysphagia, followed and treated by her pcp Quit smoking in 1979 Borderline low TSH on 08/17/18 (0.33), followed by her pcp Dr Maria Carotid u/s of 06-06-2019 showed 60-79% R ICA stenosis; less than 40% L ICA stenosis. Incidental note of L thyroid nodules seen at time of carotid u/s of Nov 2018 for which f/u is with her PCP Plan: * Complex management * Critically ill * Extubated this morning * Sepsis with prob pneumonia - management per pulmonary services * Continue to hold off on Xarelto and ASA due to bleeding requiring surgery and leading to hypovolemic shock that has required transfusion - receiving more PRBC's today * Cardiac cath report from [facility] has been reviewed showing stent placement on April 13, 2020 to the RCA at which time she also had valvuloplasty to the aortic valve. She was started on Effient and ASA at that time. We do advise antiplatelet tx be initiated with Plavix to protect recent stent from thrombosis once H/H has stabilized * Monitor lab closely * Replace electrolytes * Received Lasix this morning Clinical Quality Measures Type of Care: Type of Care: Comfort Measures FANTASMA CENTENO May 13, 2020 08:49
[2020-05-13] MEDS: RT-ALBUTEROL/IPRATROPIUM 3 ML (DUONEB) VIAL INH SCH ×4 (09:56→21:28)
--- NOTE | 2020-05-13 10:06 | Physical Therapy Progress Note ---
Therapy Progress Note Patient extubated this a.m. and remains lethargic and listless. PT will initiate treatment in a.m. when patient has been off ventilator and deemed medically able to safely participate with skilled therapy. RN is aware. CONNOR KNOX PT May 13, 2020 10:06
--- NOTE | 2020-05-13 10:18 | Occ Therapy Progress Note ---
Therapy Progress Note OT order received, chart reviewed. Pt. just extubated from ventilator this a.m. Spoke with nursing. Nursing reports pt. is still sleeping and very weak. Nursing requests to allow pt. to rest at this time. Will check back as time allows. Hold at this time 0914 MORRIS WHITE OT May 13, 2020 10:18
--- NOTE | 2020-05-13 10:56 | NUR ---
Palliative Care RN in to see patient. Son is in the room but on the phone so did not talk with him on this visit. Patient is sitting up in bed, extubated this morning. She is denying pain this morning, however the NG tube makes it difficult for her. Respirations were even and regular upon entering but with the visit and her desire to communicate they became more tachypneic. She is very edematous due to the amount of fluid she has received. Will continue to monitor for needs at discharge. She still has a ways to go before she is ready for that. She may need IRF consideration once she is more stable.
--- NOTE | 2020-05-13 11:50 | NUR ---
Pt is able to communicated today and seemed to indicated that she is not [employer]ianism although her son wanted her anointed. She was anointed by [facility] when she was intubated.
--- NOTE | 2020-05-13 12:09 | Progress Note - Surgery ---
Subjective Time Seen by a Provider: 09:11 Subjective/Events-last exam Pt seen and examined, she is extubated today. When asked about abdominal pain she states minimal. Son says he thinks he heard a little flatus this am, no BMs yet Review of Systems Pulmonary: No Dyspnea, No Cough Cardiovascular: No: Chest Pain Gastrointestinal: No: Nausea, Vomiting pt on vent Focused Exam Lactate Level 05/12/20 09:50: Lactic Acid Level 4.36*H 05/12/20 14:45: Lactic Acid Level 4.20*H 05/13/20 05:43: Lactic Acid Level 1.42 Objective Exam Vital Signs Date Time Temp Pulse Resp B/P (MAP) Pulse Ox O2 Delivery O2 Flow Rate FiO2 05/13/20 11:37 93 Nasal Cannula 5.00 05/13/20 11:00 78 35 134/43 (73) 93 Nasal Cannula 5.00 05/13/20 10:15 93 Nasal Cannula 5.00 05/13/20 10:00 76 29 151/50 (83) 93 Nasal Cannula 2.00 05/13/20 09:57 92 Nasal Cannula 5.00 05/13/20 09:00 76 27 135/39 (71) 91 Nasal Cannula 2.00 05/13/20 08:00 36.7 05/13/20 08:00 77 27 160/52 (88) 93 Nasal Cannula 2.00 05/13/20 08:00 93 Nasal Cannula 3.00 05/13/20 07:30 94 Nasal Cannula 3.00 05/13/20 07:00 78 05/13/20 07:00 75 34 153/53 (86) 95 Nasal Cannula 2.00 05/13/20 06:29 80 24 147/45 (79) 93 Nasal Cannula 2.00 05/13/20 06:00 70 24 138/43 (74) 93 Mechanical Ventilator 28.00 05/13/20 05:22 66 131/42 05/13/20 05:00 66 24 131/40 (70) 93 Mechanical Ventilator 28.00 05/13/20 04:00 69 24 135/41 (72) 93 Mechanical Ventilator 28.00 05/13/20 04:00 95 Mechanical Ventilator 28 05/13/20 03:37 36.6 05/13/20 03:00 66 24 137/42 (73) 93 Mechanical Ventilator 28.00 05/13/20 02:02 69 117/36 05/13/20 02:00 72 24 107/34 (58) 93 Mechanical Ventilator 28.00 05/13/20 01:41 70 24 92 28 05/13/20 01:00 70 24 116/35 (62) 93 Mechanical Ventilator 28.00 05/13/20 01:00 70 05/13/20 00:00 68 24 124/36 (65) 92 Mechanical Ventilator 28.00 05/13/20 00:00 95 Mechanical Ventilator 28 05/12/20 23:38 36.6 05/12/20 23:00 68 24 126/39 (68) 92 Mechanical Ventilator 28.00 05/12/20 22:00 68 24 127/37 (67) 93 Mechanical Ventilator 28.00 05/12/20 21:15 63 24 94 28 05/12/20 21:00 65 24 116/37 (63) 94 Mechanical Ventilator 28.00 05/12/20 20:00 68 24 118/39 (65) 92 Mechanical Ventilator 28.00 05/12/20 20:00 95 Mechanical Ventilator 28 05/12/20 19:46 69 124/40 05/12/20 19:00 64 05/12/20 19:00 64 24 113/38 (63) 92 Mechanical Ventilator 28.00 05/12/20 18:59 63 24 92 28 05/12/20 18:00 62 12 119/40 (66) 92 Mechanical Ventilator 28.00 05/12/20 17:00 68 12 121/42 (68) 92 Mechanical Ventilator 28.00 05/12/20 16:00 95 Mechanical Ventilator 28 05/12/20 16:00 61 9 120/40 (66) Mechanical Ventilator 28.00 05/12/20 16:00 Mechanical Ventilator 28 05/12/20 15:39 36.4 05/12/20 15:00 64 25 133/42 (72) 93 Mechanical Ventilator 28.00 05/12/20 14:10 55 25 93 28 05/12/20 14:00 55 17 126/40 (68) 93 Mechanical Ventilator 28.00 05/12/20 13:00 56 05/12/20 13:00 62 23 164/48 (86) 94 Mechanical Ventilator 28.00 05/12/20 12:35 Mechanical Ventilator 30 05/12/20 12:35 97 Mechanical Ventilator 30 I & O 05/13/20 07:00 Intake Total 4156 ml Output Total 2060 ml Balance 2096 ml Capillary Refill : Less Than 3 Seconds General Appearance: No Apparent Distress, Chronically ill HEENT: PERRL/EOMI, Pharynx Normal Neck: Other (central line) Respiratory: Crackles Cardiovascular: Regular Rate, Rhythm, No Murmur Peripheral Pulses: 2+ Radial Pulses (R), 2+ Radial Pulses (L) Gastrointestinal: soft, tenderness (at incision), other (incision c/d/i) Extremity: Pedal Edema, Swelling (2+ to just above ankles, severe swelling and ecchymosis in bilateral arms) Neurologic/Psychiatric: Alert Skin: Ecchymosis Results Lab Laboratory Tests 05/12/20 14:10: Lab Scanned Report Transfusion Reaction Form 05/12/20 14:45: Lactic Acid Level 4.20*H 05/13/20 03:29: White Blood Count 20.9H, Red Blood Count 3.04L, Hemoglobin 9.1#L, Hematocrit 26L , Mean Corpuscular Volume 85, Mean Corpuscular Hemoglobin 30, Mean Corpuscular Hemoglobin Concent 35, Red Cell Distribution Width 15.6H, Platelet Count 157, Mean Platelet Volume 9.8, Neutrophils (%) (Auto) 96H, Lymphocytes (%) (Auto) 1L, Monocytes (%) (Auto) 3, Eosinophils (%) (Auto) 0, Basophils (%) (Auto) 0, Neutrophils # (Auto) 20.1H, Lymphocytes # (Auto) 0.3L, Monocytes # (Auto) 0.5, Eosinophils # (Auto) 0.0, Basophils # (Auto) 0.0, Neutrophils % (Manual) 88, Lymphocytes % (Manual) 2, Monocytes % (Manual) 3, Band Neutrophils 7, [place] Cells SLIGHT, Schistocytes SLIGHT, Blood Gas Puncture Site LEFT BRACH ART, Blood Gas Patient Temperature 36.6, Arterial Blood pH 7.46H, Arterial Blood Partial Pressure CO2 39, Arterial Blood Partial Pressure O2 74L, Arterial Blood HCO3 27, Arterial Blood Total CO2 28.4, Arterial Blood Oxygen Saturation 94, Arterial Blood Base Excess 3.4H, Dylan Test YES-POS, Blood Gas Ventilator Setting YES, Blood Gas Inspired Oxygen 28%, Sodium Level 134L, Potassium Level 3.4L, Chloride Level 101, Carbon Dioxide Level 23, Anion Gap 10, Blood Urea Nitrogen 24H, Creatinine 0.71, Estimat Glomerular Filtration Rate > 60, BUN/Creatinine Ratio 34, Glucose Level 96, Calcium Level 7.4L, Phosphorus Level 3.4, Magnesium Level 2.1, B-Type Natriuretic Peptide 359.8H 05/13/20 05:43: Lactic Acid Level 1.42 Microbiology 05/12/20 Gram Stain - Final, Resulted 05/12/20 Sputum Culture, Resulted Pending 05/10/20 Blood Culture - Preliminary, Resulted No growth Assessment/Plan Assessment/Plan Assessment/Plan S/P Right Colon resection Hx of Afib and aortic stenosis Pt is off the vent and seems to be doing better today. Her WBC is up, but she also was started on steroids. Had a long talk with her son, just explaining that this will be a slightly longer process than normal because of her age. He understood. Clinical Quality Measures DVT/VTE Risk/Contraindication: Risk Factor Score Per Nursin RFS Level Per Nursing on Admit: 4+=Very High SHEILA KATE DO May 13, 2020 12:09
--- NOTE | 2020-05-13 12:39 | Progress Note - Cardiology ---
Cardiology SOAP Progress Note Subjective: Extubated, but not verbally responsive. Does not report symptoms Objective: I&O/Vital Signs 05/13/20 05/13/20 05/13/20 05/13/20 01:00 01:00 01:41 02:00 Pulse 70 70 70 72 Resp 24 24 24 B/P (MAP) 116/35 (62) 107/34 (58) Pulse Ox 93 92 93 O2 Delivery Mechanical Ventilator Mechanical Ventilator O2 Flow Rate 28.00 28.00 FiO2 28 05/13/20 05/13/20 05/13/20 05/13/20 02:02 03:00 03:37 04:00 Temp 36.6 Pulse 69 66 Resp 24 B/P (MAP) 117/36 137/42 (73) Pulse Ox 93 95 O2 Delivery Mechanical Ventilator Mechanical Ventilator O2 Flow Rate 28.00 FiO2 28 05/13/20 05/13/20 05/13/20 05/13/20 04:00 05:00 05:22 06:00 Pulse 69 66 66 70 Resp 24 24 24 B/P (MAP) 135/41 (72) 131/40 (70) 131/42 138/43 (74) Pulse Ox 93 93 93 O2 Delivery Mechanical Ventilator Mechanical Ventilator Mechanical Ventilator O2 Flow Rate 28.00 28.00 28.00 05/13/20 05/13/20 05/13/20 05/13/20 06:29 07:00 07:00 07:30 Pulse 80 75 78 Resp 24 34 B/P (MAP) 147/45 (79) 153/53 (86) Pulse Ox 93 95 94 O2 Delivery Nasal Cannula Nasal Cannula Nasal Cannula O2 Flow Rate 2.00 2.00 3.00 05/13/20 05/13/20 05/13/20 05/13/20 08:00 08:00 08:00 09:00 Temp 36.7 Pulse 77 76 Resp 27 27 B/P (MAP) 160/52 (88) 135/39 (71) Pulse Ox 93 93 91 O2 Delivery Nasal Cannula Nasal Cannula Nasal Cannula O2 Flow Rate 3.00 2.00 2.00 05/13/20 05/13/20 05/13/20 05/13/20 09:57 10:00 10:15 11:00 Pulse 76 78 Resp 29 35 B/P (MAP) 151/50 (83) 134/43 (73) Pulse Ox 92 93 93 93 O2 Delivery Nasal Cannula Nasal Cannula Nasal Cannula Nasal Cannula O2 Flow Rate 5.00 2.00 5.00 5.00 05/13/20 05/13/20 05/13/20 11:37 12:00 12:34 Pulse 78 81 Resp 35 B/P (MAP) 131/42 (71) Pulse Ox 93 95 O2 Delivery Nasal Cannula Nasal Cannula O2 Flow Rate 5.00 5.00 05/13/20 00:00 Intake Total 2250 ml Output Total 725 ml Balance 1525 ml Weight (Pounds): 112 Weight (Ounces): 0.0 Weight (Calculated Kilograms): 50.306036 Constitutional: other (frail, extubated but not verbally responsive) Respiratory: rhonchi (scattered), other (fair air entry; coarse breathsounds) Cardiovascular: regular rate-rhythm, systolic murmur (2-3/6 MSM) Gastrointestional: other (s/p abdominal surgery with dressing in place) Extremities: other (bilat pitting LE swelling) Neurologic/Psychiatric: grossly intact (moves extremities) Skin: No rash on exposed areas, No ulcerations on exposed areas Results/Procedures: Labs Laboratory Tests 05/12/20 14:10: Lab Scanned Report Transfusion Reaction Form 05/12/20 14:45: Lactic Acid Level 4.20*H 05/13/20 03:29: White Blood Count 20.9H, Red Blood Count 3.04L, Hemoglobin 9.1#L, Hematocrit 26L , Mean Corpuscular Volume 85, Mean Corpuscular Hemoglobin 30, Mean Corpuscular Hemoglobin Concent 35, Red Cell Distribution Width 15.6H, Platelet Count 157, Mean Platelet Volume 9.8, Neutrophils (%) (Auto) 96H, Lymphocytes (%) (Auto) 1L, Monocytes (%) (Auto) 3, Eosinophils (%) (Auto) 0, Basophils (%) (Auto) 0, Neutrophils # (Auto) 20.1H, Lymphocytes # (Auto) 0.3L, Monocytes # (Auto) 0.5, Eosinophils # (Auto) 0.0, Basophils # (Auto) 0.0, Neutrophils % (Manual) 88, Lymphocytes % (Manual) 2, Monocytes % (Manual) 3, Band Neutrophils 7, Pura Cells SLIGHT, Schistocytes SLIGHT, Blood Gas Puncture Site LEFT BRACH ART, Blood Gas Patient Temperature 36.6, Arterial Blood pH 7.46H, Arterial Blood Partial Pressure CO2 39, Arterial Blood Partial Pressure O2 74L, Arterial Blood HCO3 27, Arterial Blood Total CO2 28.4, Arterial Blood Oxygen Saturation 94, Arterial Blood Base Excess 3.4H, Dylan Test YES-POS, Blood Gas Ventilator Setting YES, Blood Gas Inspired Oxygen 28%, Sodium Level 134L, Potassium Level 3.4L, Chloride Level 101, Carbon Dioxide Level 23, Anion Gap 10, Blood Urea Nitrogen 24H, Creatinine 0.71, Estimat Glomerular Filtration Rate > 60, BUN/Creatinine Ratio 34, Glucose Level 96, Calcium Level 7.4L, Phosphorus Level 3.4, Magnesium Level 2.1, B-Type Natriuretic Peptide 359.8H 05/13/20 05:43: Lactic Acid Level 1.42 Microbiology 05/12/20 Gram Stain - Final, Resulted 05/12/20 Sputum Culture, Resulted Pending 05/10/20 Blood Culture - Preliminary, Resulted No growth Laboratory Tests 05/12/20 03:30 05/13/20 03:29 A/P: Assessment: Hypovolemic (blood loss) shock - receiving transfusions, requiring pressor support Sepsis - prob pneumonia - management per pulmonary services 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 Card cath of April 13, [address] Yuen at [facility] showed 80- 90% lesion in the RCA for which EMMANUEL x1 was placed. Other vessels showed mild to mod CAD. Valvuloplasty to the aortic valve carried out at time of cardiac cath. Has been on Effient and ASA. Sinus node disfunction and PAF. On Xarelto for stroke prophylaxis Echocardiogram of March 25, [address] Dao showed LVEF 55-65%. Grade 2 diast olic dysfunction. Mild mitral stenosis with mean gradient 2.2mHg, MVA 3.3 cm2. Mod calcified aortic valve with mod-severe stenosis, mean grad 26mmHg GUERO 1.1cm2, mild to mod regurg. Severe TR. PASP 65-70mmHg. Echocardiogram of May 11, 2020 was a technically poor study. LVEF 55-60% H/o scleroderma and chronic dysphagia, followed and treated by her pcp Quit smoking in 1979 Borderline low TSH on 08/17/18 (0.33), followed by her pcp Dr Maria Carotid u/s of 06-06-2019 showed 60-79% R ICA stenosis; less than 40% L ICA stenosis. Incidental note of L thyroid nodules seen at time of carotid u/s of Nov 2018 for which f/u is with her PCP Plan: * Complex management * Critically ill * Extubated this morning * Sepsis with prob pneumonia - management per Pulmonary services * Continue to hold off on Xarelto and ASA due to bleeding requiring surgery and leading to hypovolemic shock that has required transfusion - receiving more PRBC's today * Cardiac cath report from [facility] has been reviewed showing stent placement on April 13, 2020 to the RCA at which time she also had valvuloplasty to the aortic valve. She was started on Effient and ASA at that time. We do advise antiplatelet tx be initiated with Plavix to protect recent stent from thrombosis * Monitor lab closely * Replace electrolytes * Received Lasix this morning Clinical Quality Measures Type of Care: Type of Care: Comfort Measures SABINO MIN MD FACP [facility] CCD May 13, 2020 12:39
--- NOTE | 2020-05-13 13:21 | Speech Therapy Progress Note ---
Therapy Progress Note ST attempted to complete Bedside Dysphagia Evaluation. Patient was given 1/2 tsp thin liquids, with a delayed swallow noted. Patient has a lot of audible secretions which are being suctioned. Patient is not deemed a safe oral intake at this time. ST will follow up in the morning with patient's status. GUDELIA CORRAL May 13, 2020 13:21
[2020-05-13 16:46] LABS: HEMOGLOBIN 9.1 G/DL (11.5-16.0)
--- NOTE | 2020-05-13 17:11 | NUR ---
THIS NURSE NOTIFIED DR HERNANDEZ OF H&H RESULTS. DR HERNANDEZ SAID PT CAN BE STARTED ON 75MG OF PLAVIX PO DAILY. PHARMACY NOTIFIED
[2020-05-13] MEDS ORDERED: CLOPIDOGREL 75 MG (PLAVIX) TABLET PO NR (17:13)
[2020-05-13] MEDS: CLOPIDOGREL 75 MG (PLAVIX) TABLET PO SCH (17:23)
[2020-05-13 20:44] LABS: ABG BASE EXCESS 5.6 MMOL/L (-2.5-2.5); ABG OXYGEN SATURATION 96 % (94-100); ABG PCO2 49 MMHG (35-45); ABG PH 7.41 (7.37-7.43); ABG PO2 99 MMHG (79-93); ABG TCO2 31.7 MMOL/L (21.0-31.0)
[2020-05-13 20:45] LABS: ALLENS TEST YES-POS; INSPIRED O2 3L; PATIENT TEMP 36.7; VENTILATOR NO
--- NOTE | 2020-05-13 21:02 | Diagnostic Imaging Report ---
PROCEDURE: CT head without contrast. TECHNIQUE: Multiple contiguous axial images were obtained through the brain without the use of intravenous contrast. Auto Exposure Controls were utilized during the CT exam to meet ALARA standards for radiation dose reduction. INDICATION: Altered mental status. FINDINGS: Ventricles and sulci are within normal limits for size. Parenchymal calcification is again noted in the high left frontal and right parietal white matter as well as in the left basal ganglia region. These findings have not significantly changed. There is no abnormal mass effect or shift of midline structures. The calvarium is intact and visualized paranasal sinuses are clear. IMPRESSION: Stable CT scan of the head without evidence of acute intracranial abnormality detected. Dictated by: Dictated on workstation # [id number]
--- NOTE | 2020-05-13 22:00 | NUR ---
2000 - THIS RN AND LILLIAN RN AT BEDSIDE PREFORMING PHYSICAL ASSESSMENT, PUPILS NOTED TO BE UNEQUAL AT THIS TIME, LEFT PUPIL: 3 AND REACTIVE TO LIGHT, RIGHT PUPIL: 2 AND NONREACTIVE TO LIGHT. PT IS ABLE TO STATE HER NAME BUT SPEECH IS VERY GARBLED AND DIFFICULT TO UNDERSTAND. PT IS ABLE TO FOLLOW COMMANDS, SQUEEZE SENIOR DESIGNER, PRESS AGAINST LILLIAN RN HANDS WITH HER FEET EQUAL BILATERALLY. PT IS ABLE TO OPEN HER MOUTH, STICK OUT TONGUE, NO FACIAL ASYMMETRY, VSS. SEE INTERVENTIONS FOR VS AND OTHER ASSESSMENT FINDINGS. 2019 - EICU NOTIFIED OF UNEQUAL PUPILS AND OTHER ASSESSMENT FINDINGS, ORDERS RECEIVED FOR STAT ABG AND TO ACTIVATE STROKE PROTOCOL. 2029 - REIMBURSEMENT SPECIALIST NOTIFIED OF CODE STROKE, CODE STROKE PAGED OUT. RT AND REIMBURSEMENT SPECIALIST AT BEDSIDE TO EVALUATE PT. ABG COLLECTED AT THIS TIME AND SENT TO LAB. 2044 - PT TAKEN DOWN FOR HEAD CT AT THIS TIME 2099 - PT BACK TO ROOM, BEDSIDE GLUCOSE 95, NIH SCORE OF 19 2129 - EICU NOTIFIED OF HEAD RESULTS, ABG RESULTS, GLUCOSE, AND NIH SCORE. EICU TO CONSULT WITH STROKE TEAM. 2151 - NO FURTHER ACTION REQUIRED PER EICU AND RECOMMENDATIONS OF [facility]. 2199 - ATTEMPTED TO CONTACT PTS SON, VOICEMAIL LEFT. VSS AT THIS TIME, WILL CONTINUE TO MONITOR.
[2020-05-14] VITALS (23 sets, daily range): BP systolic 118–174; BP diastolic 35–54
[2020-05-14] MEDS: HYDROCORTISONE 100 MG/2 ML (Solu-CORTEF) VIAL IV SCH (00:32)
[2020-05-14] MEDS: RT-ALBUTEROL/IPRATROPIUM 3 ML (DUONEB) VIAL INH SCH ×6 (02:16→22:04)
[2020-05-14 03:15] LABS: BASOPHILS % (AUTO) 0 % (0-10); EOSINOPHILS % (AUTO) 0 % (0-10); HEMATOCRIT 26 % (35-52); HEMOGLOBIN 8.9 G/DL (11.5-16.0); LYMPHOCYTES # (AUTO) 0.2 X 10^3 (1.0-4.0); LYMPHOCYTES % (AUTO) 1 % (12-44); MEAN CORPUSCULAR HEMOGLOBIN 30 PG (25-34); MEAN CORPUSCULAR HGB CONC 35 G/DL (32-36); MEAN CORPUSCULAR VOLUME 87 FL (80-99); MEAN PLATELET VOLUME 9.6 FL (7.4-10.4); MONOCYTES % (AUTO) 4 % (0-12); NEUTROPHILS # (AUTO) 24.6 X 10^3 (1.8-7.8); NEUTROPHILS % (AUTO) 95 % (42-75); PLATELET COUNT 104 10^3/uL (130-400); RED CELL DISTRIBUTION WIDTH 16.1 % (10.0-14.5); WHITE BLOOD COUNT 25.8 10^3/uL (4.3-11.0)
[2020-05-14] MEDS: PROPOFOL DRIP (ICU) 100 ML IV SCH (03:15)
[2020-05-14] MEDS: NOREPINEPHRINE 4 MG/250 ML 250 ML IV SCH (03:15)
[2020-05-14 03:31] LABS: CHLORIDE 103 MMOL/L (98-107); POTASSIUM 2.8 MMOL/L (3.6-5.0); SODIUM 140 MMOL/L (135-145)
[2020-05-14 03:32] LABS: CALCIUM 7.6 MG/DL (8.5-10.1)
[2020-05-14 03:33] LABS: GLUCOSE 91 MG/DL (70-105)
[2020-05-14 03:34] LABS: CARBON DIOXIDE 26 MMOL/L (21-32)
[2020-05-14 03:36] LABS: PHOSPHORUS 2.9 MG/DL (2.3-4.7)
[2020-05-14 03:37] LABS: BUN/CREATININE RATIO 35; CREATININE SERUM 0.63 MG/DL (0.60-1.30); GFR ESTIMATED > 60
[2020-05-14] MEDS: KCL 20 MEQ TAB (K-DUR) PO SCH (03:42)
[2020-05-14] MEDS: MAGNESIUM 1 GM/100 ML IVPB 100 ML IV SCH (03:44)
[2020-05-14] MEDS: POTASSIUM CL 10MEQ/50ML IVPB 50 ML IV SCH ×11 (03:55→09:57)
[2020-05-14] MEDS: morphine INJ 4 MG/ML 1 ML (VIAL/SYRINGE) IVP PRN ×2 (03:56→10:57)
[2020-05-14] MEDS ORDERED: FUROSEMIDE 40 MG/4 ML INJ (LASIX) IVP ONE (04:15)
--- NOTE | 2020-05-14 04:15 | Pulmonary Progress Note ---
Subjective Time Seen by a Provider: 04:10 Subjective/Events-last exam Pt is very weak. She failed swallow eval yesterday. Sepsis Event Evaluation Height, Weight, BMI Height: 5'3.00" Weight: 112lbs. 0.0oz. 50.474669tb; 23.63 BMI Method:Stated Focused Exam Lactate Level 05/12/20 09:50: Lactic Acid Level 4.36*H 05/12/20 14:45: Lactic Acid Level 4.20*H 05/13/20 05:43: Lactic Acid Level 1.42 Exam Exam Vital Signs Date Time Temp Pulse Resp B/P (MAP) Pulse Ox O2 Delivery O2 Flow Rate FiO2 05/14/20 03:00 87 19 139/38 (71) 95 Vapotherm 40.00 36.00 05/14/20 02:16 97 Vapotherm 40.00 36 05/14/20 02:00 84 20 148/42 (77) 95 Vapotherm 40.00 36.00 05/14/20 01:00 81 42 136/39 (71) 96 Vapotherm 40.00 36.00 05/14/20 01:00 84 05/14/20 00:31 36.6 05/14/20 00:00 Vapotherm 40.00 36 05/13/20 23:00 82 18 146/40 (75) 95 Vapotherm 40.00 36.00 05/13/20 22:00 86 21 145/39 (74) 95 Vapotherm 40.00 36.00 05/13/20 21:44 Vapotherm 40.00 36.00 05/13/20 21:29 97 Nasal Cannula 4.00 05/13/20 21:00 87 25 118/80 (93) 94 Nasal Cannula 3.00 05/13/20 20:16 36.7 82 29 154/48 (83) 96 Nasal Cannula 3.00 05/13/20 20:00 Nasal Cannula 3.00 05/13/20 19:00 98 28 115/82 (93) 95 Nasal Cannula 4.00 05/13/20 19:00 83 05/13/20 18:43 97 Nasal Cannula 4.00 05/13/20 18:00 81 21 153/43 (79) 96 Nasal Cannula 4.00 05/13/20 17:00 80 18 171/51 (91) 90 Nasal Cannula 4.00 05/13/20 16:57 Nasal Cannula 4.00 05/13/20 16:51 92 Nasal Cannula 3.00 05/13/20 16:00 81 34 144/43 (76) 91 Nasal Cannula 3.00 05/13/20 15:00 84 26 139/44 (75) 90 Nasal Cannula 3.00 05/13/20 14:13 91 Nasal Cannula 3.00 05/13/20 14:00 74 34 129/44 (72) 90 Nasal Cannula 3.00 05/13/20 13:52 76 31 130/36 (67) 95 Nasal Cannula 3.00 05/13/20 13:10 95 Nasal Cannula 3.00 05/13/20 12:34 81 05/13/20 12:00 36.7 05/13/20 12:00 78 35 131/42 (71) 95 Nasal Cannula 5.00 05/13/20 11:37 93 Nasal Cannula 5.00 05/13/20 11:00 78 35 134/43 (73) 93 Nasal Cannula 5.00 05/13/20 10:15 93 Nasal Cannula 5.00 05/13/20 10:00 76 29 151/50 (83) 93 Nasal Cannula 2.00 05/13/20 09:57 92 Nasal Cannula 5.00 05/13/20 09:00 76 27 135/39 (71) 91 Nasal Cannula 2.00 05/13/20 08:00 36.7 05/13/20 08:00 77 27 160/52 (88) 93 Nasal Cannula 2.00 05/13/20 08:00 93 Nasal Cannula 3.00 05/13/20 07:30 94 Nasal Cannula 3.00 05/13/20 07:00 78 05/13/20 07:00 75 34 153/53 (86) 95 Nasal Cannula 2.00 05/13/20 06:29 80 24 147/45 (79) 93 Nasal Cannula 2.00 05/13/20 06:00 70 24 138/43 (74) 93 Mechanical Ventilator 28.00 05/13/20 05:22 66 131/42 05/13/20 05:00 66 24 131/40 (70) 93 Mechanical Ventilator 28.00 I & O 05/14/20 07:00 Intake Total 75 ml Output Total 2825 ml Balance -2750 ml Height & Weight Height: 5'3.00" Weight: 112lbs. 0.0oz. 50.010598tu; 23.63 BMI Method:Stated General Appearance: No Apparent Distress, Chronically ill HEENT: PERRL/EOMI, Pharynx Normal Neck: Other (central line) Respiratory: Crackles Cardiovascular: Regular Rate, Rhythm, No Murmur Capillary Refill: Less Than 3 Seconds Peripheral Pulses: 2+ Radial Pulses (R), 2+ Radial Pulses (L) Gastrointestinal: soft, tenderness (at incision), other (incision c/d/i) Extremity: Pedal Edema, Swelling (2+ to just above ankles, severe swelling and ecchymosis in bilateral arms) Neurologic/Psychiatric: Alert Skin: Ecchymosis Results Lab Laboratory Tests 05/13/20 03:29 05/13/20 16:25 05/14/20 03:04 Assessment/Plan Assessment/Plan Acute respiratory failure s/p surgery -PT was extubated yesterday -Pt failed swallow eval yeasterday. -Aspiration precautions -ABG reviewed -Currently on Vapotherm 36% -Gve 80mg of Lasix x 1. Pt is hypertensive with pulmonary edema and edematous. Repeat BNP Pneumonia with Stenotrophomonas -Pt is not able to take PO meds. will give BTM DS down NG tube -Continue Vanco and Zosyn for now. Hypokalemia -Replace and recheck 2hrs after replacement. Septic shock - resolved -Solucortef -- D/C Severe Abd pain with acute GIB s/p ex lap Bleeding cecal mass s/p resection Anemia s/p 3 units of PRBC - with persistent hypotension -improving -Monitor bilateral pleural effusions -Lasix -Monitor Metabolic acidosis -improving Hx of Afib and aortic stenosis SILVIANO SHRESTHA DO May 14, 2020 04:15
[2020-05-14] MEDS: PIPERACILLIN/TAZOBACTAM (BULK) 4.5 GM in NS (IVPB) 100 ML IV SCH ×3 (04:37→20:50)
[2020-05-14] MEDS ORDERED: TROUGH ORDER-PHARMACY XX NR (06:30)
--- NOTE | 2020-05-14 07:37 | Diagnostic Imaging Report ---
HISTORY: Altered mental status, dyspnea COMPARISON: 05/13/2020 TECHNIQUE: Single frontal view of the chest. FINDINGS: There are small bilateral pleural effusions and stable mild cardiomegaly. Patchy airspace opacities are seen in the lung bases which appear stable. There is significantly increased airspace opacity in the right upper lobe compared to the prior study. No pneumothorax is seen. The left central line tip projects over the SVC. The tip of the enteric tube projects over the stomach with the sidehole at the distal esophagus. Lung volumes are large. The endotracheal tube has been removed. IMPRESSION: 1. Bilateral pulmonary opacities, with significantly increased airspace opacity in the right upper lung. This may represent edema or infection. 2. Small bilateral pleural effusions appear stable. 3. Stable mild cardiomegaly. 4. Extubation. Dictated by: Dictated on workstation # [id number]
--- NOTE | 2020-05-14 08:53 | Progress Note - Cardiology ---
Cardiology SOAP Progress Note Subjective: Does not report symptoms of chest pain or palp or syncope Notes gen weakness Objective: I&O/Vital Signs 05/13/20 05/13/20 05/13/20 05/13/20 21:00 21:29 21:44 22:00 Pulse 87 86 Resp 25 21 B/P (MAP) 118/80 (93) 145/39 (74) Pulse Ox 94 97 95 O2 Delivery Nasal Cannula Nasal Cannula Vapotherm Vapotherm O2 Flow Rate 3.00 4.00 40.00 40.00 36.00 36.00 05/13/20 05/14/20 05/14/20 05/14/20 23:00 00:00 00:31 01:00 Temp 36.6 Pulse 82 84 Resp 18 B/P (MAP) 146/40 (75) Pulse Ox 95 O2 Delivery Vapotherm Vapotherm O2 Flow Rate 40.00 40.00 36.00 FiO2 36 05/14/20 05/14/20 05/14/20 05/14/20 01:00 02:00 02:16 03:00 Pulse 81 84 87 Resp 42 20 19 B/P (MAP) 136/39 (71) 148/42 (77) 139/38 (71) Pulse Ox 96 95 97 95 O2 Delivery Vapotherm Vapotherm Vapotherm Vapotherm O2 Flow Rate 40.00 40.00 40.00 40.00 36.00 36.00 36.00 FiO2 36 05/14/20 05/14/20 05/14/20 05/14/20 04:00 04:00 05:00 06:00 Pulse 85 81 83 Resp 26 15 15 B/P (MAP) 148/40 (76) 151/41 (77) 174/50 (91) Pulse Ox 94 94 95 O2 Delivery Vapotherm Vapotherm Vapotherm Vapotherm O2 Flow Rate 40.00 40.00 40.00 40.00 36.00 36.00 36.00 FiO2 36 05/14/20 05/14/20 05/14/20 05/14/20 06:40 07:00 07:01 08:00 Temp 36.2 Pulse 81 78 Resp 17 B/P (MAP) 143/42 (75) Pulse Ox 93 94 O2 Delivery Vapotherm Vapotherm O2 Flow Rate 40.00 40.00 36.00 FiO2 36 05/14/20 00:00 Intake Total 370 ml Output Total 2150 ml Balance -1780 ml Weight (Pounds): 112 Weight (Ounces): 0.0 Weight (Calculated Kilograms): 50.706001 Constitutional: other (oriented to person and place, frail and weak-appearing) Respiratory: rhonchi (scattered), other (fair air entry; coarse breathsounds) Cardiovascular: regular rate-rhythm, systolic murmur (2-3/6 MSM) Gastrointestional: other (s/p abdominal surgery with dressing in place) Extremities: other (bilat pitting LE swelling) Neurologic/Psychiatric: grossly intact (moves extremities) Skin: No rash on exposed areas, No ulcerations on exposed areas Results/Procedures: Labs Laboratory Tests 05/13/20 16:25: Hemoglobin 9.1L, Hematocrit 26L 05/13/20 20:30: Blood Gas Puncture Site LEFT BRACH ART, Blood Gas Patient Temperature 36.7, Arterial Blood pH 7.41, Arterial Blood Partial Pressure CO2 49H, Arterial Blood Partial Pressure O2 99H, Arterial Blood HCO3 30H, Arterial Blood Total CO2 31.7H , Arterial Blood Oxygen Saturation 96, Arterial Blood Base Excess 5.6H, Dylan Test YES-POS, Blood Gas Ventilator Setting NO, Blood Gas Inspired Oxygen 3L 05/13/20 21:25: Glucometer 95 05/14/20 03:04: Hemoglobin 8.9L, Hematocrit 26L, White Blood Count 25.8H, Red Blood Count 2.95L, Mean Corpuscular Volume 87, Mean Corpuscular Hemoglobin 30, Mean Corpuscular Hemoglobin Concent 35, Red Cell Distribution Width 16.1H, Platelet Count 104L, Mean Platelet Volume 9.6, Neutrophils (%) (Auto) 95H, Lymphocytes (%) (Auto) 1L, Monocytes (%) (Auto) 4, Eosinophils (%) (Auto) 0, Basophils (%) (Auto) 0, Neutro phils # (Auto) 24.6H, Lymphocytes # (Auto) 0.2L, Monocytes # (Auto) 1.0, Eosinophils # (Auto) 0.0, Basophils # (Auto) 0.0, Sodium Level 140, Potassium Level 2.8L, Chloride Level 103, Carbon Dioxide Level 26, Anion Gap 11, Blood Urea Nitrogen 22H, Creatinine 0.63, Estimat Glomerular Filtration Rate > 60, BUN/Creatinine Ratio 35, Glucose Level 91, Calcium Level 7.6L, Phosphorus Level 2.9, Magnesium Level 2.0 05/14/20 06:27: Vancomycin Level Trough 9.8L Microbiology 05/12/20 Gram Stain - Final, Resulted 05/12/20 Sputum Culture - Preliminary, Resulted Stenotrophomonas Maltophilia 05/12/20 Blood Culture - Preliminary, Resulted No growth Laboratory Tests 05/13/20 03:29 05/13/20 16:25 05/14/20 03:04 A/P: Assessment: Hypovolemic (blood loss) shock - receiving transfusions, requiring pressor support Sepsis due to pneumonia - management per Pulm/ICU services 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 Card cath of April 13, [address] Yuen at [facility] showed 80- 90% lesion in the RCA for which EMMANUEL x1 was placed. Other vessels showed mild to mod CAD. Valvuloplasty to the aortic valve carried out at time of cardiac cath. Had been on Effient and ASA. Sinus node disfunction and PAF. On Xarelto for stroke prophylaxis Echocardiogram of March 25, [address] Dao showed LVEF 55-65%. Grade 2 diastolic dysfunction. Mild mitral stenosis with mean gradient 2.2mHg, MVA 3.3 cm2. Mod calcified aortic valve with mod-severe stenosis, mean grad 26mmHg GUERO 1.1cm2, mild to mod regurg. Severe TR. PASP 65-70mmHg. Echocardiogram of May 11, 2020 was a technically poor study. LVEF 55-60% H/o scleroderma and chronic dysphagia, followed and treated by her pcp Quit smoking in 1979 Borderline low TSH on 08/17/18 (0.33), followed by her pcp Dr Maria Carotid u/s of 06-06-2019 showed 60-79% R ICA stenosis; less than 40% L ICA stenosis. Incidental note of L thyroid nodules seen at time of carotid u/s of Nov 2018 for which f/u is with her PCP Plan: * Complex management * Critically ill * Continue to hold off on Xarelto and ASA due to bleeding requiring surgery and leading to hypovolemic shock that has required transfusions * Continue Plavix to reduce risk of stent thrombosis * I reviewed all of the above in detail with her son and answered questions * Monitor lab closely * Replace electrolytes Clinical Quality Measures Type of Care: Type of Care: Comfort Measures SABINO MIN MD [facility] May 14, 2020 08:53
--- NOTE | 2020-05-14 09:01 | Progress Note - Hospitalist ---
Subjective HPI/CC On Admission Date Seen by Provider: May 14, 2020 Time Seen by Provider: 08:56 Pt is an 79yoCF with a PMH of aortic stenosis, COPD, CAD with recent stenting, HTN, HLD, hypothyroidism, paroxysmal atrial fibrillation on chronic anticoagulation who presented to the ER due to hypoxia. She is unable to provide much history and onlyanswered a few yes or no questions for me. She told me she was sick and that she was not having pain. Otherwise all history obtained from family and records. She was apparently in her normal state this morning (ambulatory and alert and oriented x4). She spoke to her son and then had lunch. Sometime after lunch they found her in her room minimallyresponsive. There was concern for an episode of apnea as well. EMS was summoned and she was found to have oxygen saturations in the 60%. She was placed on a nonrebreather which brought her oxygen saturations up. She was taken for CT head as she is on Xarelto. Subjective/Events-last exam Pt awake and alert. Reviewed events from overnight. Code Stroke activated. CT head is negative. [facility] Stroke Neurology contacted and no further interventions recommended. Discussed with patient regarding respiratory status and she agrees to intubation again if need but only short term. Would not want continuous churn buttermaker intubation or trach if needed. Focused Exam Lactate Level 05/12/20 09:50: Lactic Acid Level 4.36*H 05/12/20 14:45: Lactic Acid Level 4.20*H 05/13/20 05:43: Lactic Acid Level 1.42 Objective Exam Vital Signs Vital Signs Date Time Temp Pulse Resp B/P (MAP) Pulse Ox O2 Delivery O2 Flow Rate FiO2 05/14/20 14:00 94 Vapotherm 40.00 36 05/14/20 12:38 98 05/14/20 12:00 26 131/48 (75) 05/14/20 12:00 36.1 Capillary Refill : Less Than 3 Seconds General Appearance: Chronically ill, Other (ill appearing) Respiratory: Crackles; No Wheezing; Other Cardiovascular: Regular Rate, Rhythm, Systolic Murmur Gastrointestinal: Normal Bowel Sounds, Soft Extremity: Swelling (3+ bilaterally) Neurologic/Psychiatric: Alert, Oriented x3 Results/Procedures Lab Laboratory Tests 05/13/20 16:25 05/14/20 03:04 Patient resulted labs reviewed. Assessment/Plan Assessment and Plan Assess & Plan/Chief Complaint New Onset left sided weakness Unequal pupils noticed overnight, code stroke activated CT Head negative, not a candidate for TPA Would ideally like an MRI but discussed with Dr Cruz regarding respiratory status and I don't think she would tolerate laying flat PT/OT Speech to see NGT in place Already on Plavix for antiplatelet Hemorrhagic shock bleeding cecal mass Ischemic colitis Severe anemia- stabilized Went to ex lap on 05/10 and bleeding mass found Transfused 3 units pRBCs total Now off pressors and maintaining her own BP path reveals ischemic colitis Acute Hypoxic Respiratory Failure Leukocytosis Recently treated pneumonia COPD Mixed metabolic and respiratory acidosis- resolved Extubated 05/13, on Vapotherm Pulm/TeleICU consulted, appreciate recs Repeat Lasix this AM Continue abx Blood cultures negative Bactrim added for Stenotrophomonas in sputum CAD Aortic Stenosis Son reports she recently had a stent placed by Dr Yuen Records sent and cath report reveals 04/13/2020 RCA stenting done and valvuloplasty by Dr Yuen Plavix resumed Consult cardiology, appreciate their help DVT ppx: SCDs Critical Care Critically Ill Patient Diagnosis/Problems Diagnosis/Problems (1) Acute respiratory failure Status: Acute Qualifiers: Respiratory failure complication: hypercapnia Qualified Codes: J96.02 - Acute respiratory failure with hypercapnia (2) Hemorrhagic shock Status: Acute (3) Hypomagnesemia Status: Acute (4) Normocytic anemia Status: Acute (5) COPD (chronic obstructive pulmonary disease) Qualifiers: COPD type: unspecified COPD Qualified Codes: J44.9 - Chronic obstructive pulmonary disease, unspecified (6) Hypothyroidism Status: Chronic Qualifiers: Hypothyroidism type: unspecified Qualified Codes: E03.9 - Hypothyroidism, unspecified (7) Metabolic acidosis Status: Acute (8) Respiratory acidosis Status: Acute (9) Aortic stenosis Qualifiers: Cardiac valve disease etiology: etiology unspecified Qualified Codes: I35.0 - Nonrheumatic aortic (valve) stenosis (10) Atrial fibrillation Status: Acute Qualifiers: Atrial fibrillation type: paroxysmal Qualified Codes: I48.0 - Paroxysmal atrial fibrillation (11) CAD (coronary artery disease) Status: Acute Qualifiers: Coronary Disease-Associated Artery/Lesion type: [place] artery [place] vs. transplanted heart: [place] heart Associated angina: without angina Qualified Codes: I25.10 - Atherosclerotic heart disease of [place] coronary artery without angina pectoris Clinical Quality Measures DVT/VTE Risk/Contraindication: Risk Factor Score Per Nursin RFS Level Per Nursing on Admit: 4+=Very High MIMI HERNANDEZ MD May 14, 2020 09:01
[2020-05-14] MEDS: CLOPIDOGREL 75 MG (PLAVIX) TABLET PO SCH (09:56)
[2020-05-14] MEDS: PANTOPRAZOLE 40 MG (PROTONIX) VIAL IVP SCH (09:56)
[2020-05-14] MEDS: TRIM/SULFAMETH 160/800 (SEPTRA DS) TAB PO SCH ×2 (09:57→18:36)
[2020-05-14] MEDS: VANCOMYCIN 1 GM/NS 250 ML IVPB IV SCH ×2 (09:57)
--- NOTE | 2020-05-14 10:01 | NUR ---
CM/SS: Visited with pt's son at the bedside, he is coping at this time based on pt's decline in health status. Plan: Undetermined at this time, pt is from [facility] Summary: Pt is minimally responsive and son Robert is at the bedside talking with pt. Pt is able to ask for ice cream. Pt is unable to have ice cream due to her failing her swallow study. RN indicates that they will do another swallow study for pt to see where she is at. Son verbalizes understanding. Son is very attentive to pt and reminding her of having difficulty in swallowing. Son is from the area. Let him know that I had visited with the doctor and was made aware of his request. He verbalized understanding. Thanked this worker for visiting.
--- NOTE | 2020-05-14 10:08 | Physician Query Clarification ---
PQ-Conflicting Diagnosis Admission/Discharge Admission Date: May 10, 2020 at 15:38 Discharge Date: The medical record reflects the following clinical scenario: Dr. Marrufo, History/Risk Factors: Leukocytosis Steroids Clinical Findings:WBC16.9 on 05/12 rising to 20.9 and 25.8. Band neutrophils 05/12 26. 05/12 vitals: T 35.9, pulse 55, Resp 24, BP 149/37. Treatment:IV Vancomycin HCI 1,000mg and IV Zosyn 4.5 gm and IV Solu Cortef injection. Question: Your progress notes give leukocytosis probably due to steroids. Dr. Metzger and Dr. Cruz indicate dx below. Do you agree with the impression of Sepsis, probable pneumonia per Dr. Metzger and septic shock per Dr. Cruz? Please document a response in Progress Note or Discharge Summary. 1. Yes 2. No 3. Other, with explanation of clinical findings 4. Clinically undetermined, no explanation for clinical findings. PHYSICIAN RESPONSE Do you agree w/Consulting Dx?: No Please remember a lack of response to the above will prompt a phone page by CDI/Coding staff. In responding to this query, please exercise your independent professional judgment. The purpose of this communication is to more accurately reflect the complexity of your patients condition. The fact that a question is asked does not imply that any particular answer is desired or expected. Thank you for your timely response to this clarification. Requestors name: Starla Baca [facility] Phone # ext [phone] or [phone] THIS PHYSICIAN QUERY FORM IS A PERMANENT PART OF THE MEDICAL RECORD STARLA BACA May 14, 2020 10:08 MIMI MARRUFO MD May 14, 2020 13:09
--- NOTE | 2020-05-14 11:03 | Physical Therapy Evaluation ---
PT Evaluation-General Medical Diagnosis Admission Date May 10, 2020 at 15:38 Medical Diagnosis: AMS Onset Date: May 10, 2020 Therapy Diagnosis Therapy Diagnosis: generalized weakness/debility Height/Weight Height (Feet): 5 Height (Inches): 3.00 Weight (Pounds): 112 Weight (Ounces): 0.0 Precautions Precautions/Isolations: Aspiration, Fall Prevention, Standard Precautions, Pressure Ulcer Weight Bear Status Right Lower Extremity: Right Weight Bearing/Tolerated Left Lower Extremity: Left Weight Bearing/Tolerated Referral Physician: Yaron Reason for Referral: Evaluation/Treatment Medical History Pertinent Medical History: Atrial Fib, CAD, COPD, GERD, HTN, Neuropathy, PVD, Rheumatoid Arthritis Additional Medical History TIA Current History EMS from [place] with AMS and hypoxia; extubated 05/13/20, then probable CVA during night of same date. Patient left side is flaccid. Reviewed History: Yes Social History Home: Prison Prior Prior Level of Function SCALE: Activities may be completed with or without assistive devices. 3-Krshumnnym-cajnhrr completes the activity by him/herself with no assistance from a helper. 5-Set-up or Clean-up Assistance-helper sets up or cleans up; patient completes activity. [place] assists only prior to or following the activity. 4-Supervision or Touching Assistance-helper provides verbal cues and/or touching/steadying and/or contact guard assistance as patient completes activity. Assistance may be provided throughout the activity or intermittently. 3-Partial/Moderate Assistance-helper does LESS THAN HALF the effort. [place] lifts, holds or supports trunk or limbs, but provides less than half the effort. 2-Substantial/Maximal Assistance-helper does MORE THAN HALF the effort. [place] lifts or holds trunk or limbs and provides more than half the effort. 7-Ogakwwqwz-sbkset does ALL the effort. Patient does none of the effort to co mplete the activity. Or, the assistance of 2 or more helpers is required for the patient to complete the activity. If activity was not attempted, code reason: 7-Patient Refused. 9-Not Applicable-not attempted and the patient did not perform the activity before the current illness, exacerbation or injury. 10-Not Attempted due to Environmental Limitations-(lack of equipment, weather restraints, etc.). 88-Not Attempted due to Medical Conditions or Safety Concerns. Bed Mobility: 5 Transfers (B,C,W/C): 5 Gait: 5 Indoor Mobility (Ambulation): Independent Prior Devices Use: Walker PT Evaluation-Current Subjective Patient is in bed with multiple attachments. Per physician, no OOB activity due to probable CVA with left sided flaccid. Pain Numeric Pain Scale: 0-No Pain Location: No Pain Reported Objective Patient Orientation: Person Attachments: NG Tube, Oxygen (vapotherm), [place] Catheter, IV ROM/Strength ROM Lower Extremities bilateral LE WFL Strength Lower Extremities right LE 2-/5 grossly left LE flaccid Integumentary/Posture Integumentary refer to nursing notes Bladder Incontinence: Ogden Cath Neuromuscular (Tone, Coordination, Reflexes) flaccid left LE and UE Sensory Vision: Unable to Assess Hearing: Functional Sensation Right Lower Extremit: Impaired Sensation Left Lower Extremity: Impaired Gait Does the Patient Walk?: No and Walking Goal NOT indicated Treatment PROM bilateral LE all planes in supine x 8 min Assessment/Needs 79 y.o. female with probable CVA, will be seen by skilled PT to address functional strength. Due to patient current LOF, nursing will provide ROM during repositioning and bathing and PT will address ROM 3 days/wk and increase as indicated by skilled need. Rehab Potential: Poor PT Mcc Goals Mcc Goals PT Sample Display Preparer Goals Time Frame: May 29, 2020 Roll Left & Right (QC): 2 Sit to Lying (QC): 2 Lying-Sitting on Side/Bed(QC): 2 Sit to Stand (QC): 2 Chair/Ykc-dy-Zzbzl Xfer(QC): 2 PT Plan Problem List Problem List: Activity Tolerance, Functional Strength, Safety, Balance, Gait, Transfer, Bed Mobility Treatment/Plan Treatment Plan: Continue Plan of Care, Modify Plan, see comments Treatment Plan: Bed Mobility, Education, Functional Activity Leon, Functional Strength, Safety, Therapeutic Exercise, Transfers Treatment Duration: May 29, 2020 Frequency: 3 times per week (M-W-F) Estimated Hrs Per Day: .25 hour per day Patient and/or Family Agrees t: Yes Time/GCodes Time In: 1035 Time Out: 1054 Total Billed Treatment Time: 19 Total Billed Treatment 1 visit EVModC 19 min CONNOR KNOX PT May 14, 2020 11:02
--- NOTE | 2020-05-14 11:11 | Occ Therapy Progress Note ---
Therapy Progress Note Order received for OT eval and treat. Chart review completed. Attempted evaluation at 1105. RN states pt just had pain medication and requests to allow pt to rest at this time. Will attempt this afternoon DIXIE GODINEZ OT May 14, 2020 11:11
--- NOTE | 2020-05-14 12:16 | Progress Note - Surgery ---
Subjective Time Seen by a Provider: 09:54 Subjective/Events-last exam Pt seen and examined, events of last night noted. Nursing thinks pt may have had a stroke. She does not appear to be in any distress. Unfortunately, failed swallow study yesterday they were going to try again today. Review of Systems General: Fatigue Pulmonary: Dyspnea Cardiovascular: No: Chest Pain Gastrointestinal: Abdominal Pain; No: Nausea, Vomiting pt on vent Focused Exam Lactate Level 05/12/20 09:50: Lactic Acid Level 4.36*H 05/12/20 14:45: Lactic Acid Level 4.20*H 05/13/20 05:43: Lactic Acid Level 1.42 Objective Exam Vital Signs Date Time Temp Pulse Resp B/P (MAP) Pulse Ox O2 Delivery O2 Flow Rate FiO2 05/14/20 11:00 90 17 123/45 (71) 96 Vapotherm 40.00 36.00 05/14/20 10:42 93 Vapotherm 40.00 36 05/14/20 10:00 86 11 136/40 (72) 95 Vapotherm 40.00 36.00 05/14/20 09:00 93 15 131/42 (71) 86 Vapotherm 40.00 36.00 05/14/20 08:00 Vapotherm 40.00 36 05/14/20 08:00 98 35 142/48 (79) 94 Vapotherm 40.00 36.00 05/14/20 08:00 36.2 05/14/20 07:01 94 Vapotherm 40.00 36 05/14/20 07:00 78 17 143/42 (75) 93 Vapotherm 40.00 36.00 05/14/20 06:40 81 05/14/20 06:00 83 15 174/50 (91) 95 Vapotherm 40.00 36.00 05/14/20 05:00 81 15 151/41 (77) 94 Vapotherm 40.00 36.00 05/14/20 04:00 Vapotherm 40.00 36 05/14/20 04:00 85 26 148/40 (76) 94 Vapotherm 40.00 36.00 05/14/20 03:00 87 19 139/38 (71) 95 Vapotherm 40.00 36.00 05/14/20 02:16 97 Vapotherm 40.00 36 05/14/20 02:00 84 20 148/42 (77) 95 Vapotherm 40.00 36.00 05/14/20 01:00 81 42 136/39 (71) 96 Vapotherm 40.00 36.00 05/14/20 01:00 84 05/14/20 00:31 36.6 05/14/20 00:00 Vapotherm 40.00 36 05/13/20 23:00 82 18 146/40 (75) 95 Vapotherm 40.00 36.00 05/13/20 22:00 86 21 145/39 (74) 95 Vapotherm 40.00 36.00 05/13/20 21:44 Vapotherm 40.00 36.00 05/13/20 21:29 97 Nasal Cannula 4.00 05/13/20 21:00 87 25 118/80 (93) 94 Nasal Cannula 3.00 05/13/20 20:16 36.7 82 29 154/48 (83) 96 Nasal Cannula 3.00 05/13/20 20:00 Nasal Cannula 3.00 05/13/20 19:00 98 28 115/82 (93) 95 Nasal Cannula 4.00 05/13/20 19:00 83 05/13/20 18:43 97 Nasal Cannula 4.00 05/13/20 18:00 81 21 153/43 (79) 96 Nasal Cannula 4.00 05/13/20 17:00 80 18 171/51 (91) 90 Nasal Cannula 4.00 05/13/20 16:57 Nasal Cannula 4.00 05/13/20 16:51 92 Nasal Cannula 3.00 05/13/20 16:00 81 34 144/43 (76) 91 Nasal Cannula 3.00 05/13/20 15:00 84 26 139/44 (75) 90 Nasal Cannula 3.00 05/13/20 14:13 91 Nasal Cannula 3.00 05/13/20 14:00 74 34 129/44 (72) 90 Nasal Cannula 3.00 05/13/20 13:52 76 31 130/36 (67) 95 Nasal Cannula 3.00 05/13/20 13:10 95 Nasal Cannula 3.00 05/13/20 12:34 81 I & O 05/14/20 07:00 Intake Total 765 ml Output Total 3525 ml Balance -2760 ml Capillary Refill : Less Than 3 Seconds General Appearance: Chronically ill, Cachetic HEENT: Other (right pupil looks fixed, mucous membranes slightly dry) Neck: Other (central line) Respiratory: No Respiratory Distress, Accessory Muscle Use, Crackles; No Wheezing Cardiovascular: Regular Rate, Rhythm, Systolic Murmur Peripheral Pulses: 2+ Radial Pulses (R), 2+ Radial Pulses (L) Gastrointestinal: soft, tenderness (at incision), other (incision c/d/i) Extremity: Swelling (3+ bilaterally) Neurologic/Psychiatric: Depressed Affect, Motor Weakness Skin: Ecchymosis, Other (weeping edema in her arms) Results Lab Laboratory Tests 05/13/20 16:25: Hemoglobin 9.1L, Hematocrit 26L 05/13/20 20:30: Blood Gas Puncture Site LEFT BRACH ART, Blood Gas Patient Temperature 36.7, Arterial Blood pH 7.41, Arterial Blood Partial Pressure CO2 49H, Arterial Blood Partial Pressure O2 99H, Arterial Blood HCO3 30H, Arterial Blood Total CO2 31.7H , Arterial Blood Oxygen Saturation 96, Arterial Blood Base Excess 5.6H, Dylan Test YES-POS, Blood Gas Ventilator Setting NO, Blood Gas Inspired Oxygen 3L 05/13/20 21:25: Glucometer 95 05/14/20 03:04: Hemoglobin 8.9L, Hematocrit 26L, White Blood Count 25.8H, Red Blood Count 2.95L, Mean Corpuscular Volume 87, Mean Corpuscular Hemoglobin 30, Mean Corpuscular Hemoglobin Concent 35, Red Cell Distribution Width 16.1H, Platelet Count 104L, Mean Platelet Volume 9.6, Neutrophils (%) (Auto) 95H, Lymphocytes (%) (Auto) 1L, Monocytes (%) (Auto) 4, Eosinophils (%) (Auto) 0, Basophils (%) (Auto) 0, Neutrophils # (Auto) 24.6H, Lymphocytes # (Auto) 0.2L, Monocytes # (Auto) 1.0, Eosinophils # (Auto) 0.0, Basophils # (Auto) 0.0, Sodium Level 140, Potassium Level 2.8L, Chloride Level 103, Carbon Dioxide Level 26, Anion Gap 11, Blood Urea Nitrogen 22H, Creatinine 0.63, Estimat Glomerular Filtration Rate > 60, BUN/Creatinine Ratio 35, Glucose Level 91, Calcium Level 7.6L, Phosphorus Level 2.9, Magnesium Level 2.0 05/14/20 06:27: Vancomycin Level Trough 9.8L Microbiology 05/12/20 Gram Stain - Final, Resulted 05/12/20 Sputum Culture - Preliminary, Resulted Stenotrophomonas Maltophilia 05/12/20 Blood Culture - Preliminary, Resulted No growth Assessment/Plan Assessment/Plan Assessment/Plan S/P Right Colon resection Hx of Afib and aortic stenosis ?? Stroke Pt seems stable but had a bad night and talk with her son; he does not want MRI for CVA work-up. Will continue supportive care and re-attempt swallow evaluation; she may need PEG if she can't eat and long-term rehab if family wants that. Clinical Quality Measures DVT/VTE Risk/Contraindication: Risk Factor Score Per Nursin RFS Level Per Nursing on Admit: 4+=Very High SHEILA KATE DO May 14, 2020 12:16
[2020-05-14] MEDS ORDERED: BISACODYL 10 MG SUPP (DULCOLAX) PR NR (13:45)
--- NOTE | 2020-05-14 13:57 | Speech Therapy Progress Note ---
Therapy Progress Note ST attempted to completed Bedside Dysphagia Evaluation, however patient exhibits moderate delay in swallow with 1/4 tsp thickened liquids. Patient is recommended to continue NPO status at this time. ST will follow up on Sunday. GUDELIA CORRAL May 14, 2020 13:57
--- NOTE | 2020-05-14 14:26 | NUR ---
PALLIATIVE CARE RN in to see patient. She is just finishing a bed bath and appears tired. Trying to cough but is weak. Still edematous in upper and lower extremity and is receiving her oxygen via Vapotherm. Will check in on her on Sunday.
--- NOTE | 2020-05-14 14:31 | Occupational Therapy Eval ---
OT Evaluation-General/PLF Medical Diagnosis Admission Date May 10, 2020 at 15:38 Medical Diagnosis: AMS Onset Date: May 10, 2020 Therapy Diagnosis Therapy Diagnosis: impaired self care skills Height/Weight Height (Feet): 5 Height (Inches): 3.00 Weight (Pounds): 112 Weight (Ounces): 0.0 Precautions Precautions/Isolations: Aspiration, Fall Prevention, Standard Precautions, Pressure Ulcer Referral Physician: Yaron Medical History Pertinent Medical History: Atrial Fib, CAD, COPD, GERD, HTN, Neuropathy, PVD, Rheumatoid Arthritis Additional Medical History aortic stenosis, HLD, hypothyroidism, Current History admitted with hypoxia. Pt had right colon resection and was intubated. Extubated 05/13. Social History Home: Intermediate ADL-Prior Level of Function SCALE: Activities may be completed with or without assistive devices. 6-Mstqiwprki-gzyvvzw completes the activity by him/herself with no assistance from a helper. 5-Set-up or Clean-up Assistance-helper sets up or cleans up; patient completes activity. Soquel assists only prior to or following the activity. 4-Supervision or Touching Assistance-helper provides verbal cues and/or touching/steadying and/or contact guard assistance as patient completes activity. Assistance may be provided throughout the activity or intermittently. 3-Partial/Moderate Assistance-helper does LESS THAN HALF the effort. Soquel lifts, holds or supports trunk or limbs, but provides less than half the effort. 2-Substantial/Maximal Assistance-helper does MORE THAN HALF the effort. Soquel lifts or holds trunk or limbs and provides more than half the effort. 4-Xprqphdct-kfjrxk does ALL the effort. Patient does none of the effort to complete the activity. Or, the assistance of 2 or more helpers is required for the patient to complete the activity. If activity was not attempted, code reason: 7-Patient Refused. 9-Not Applicable-not attempted and the patient did not perform the activity before the current illness, exacerbation or injury. 10-Not Attempted due to Environmental Limitations-(lack of equipment, weather restraints, etc.). 88-Not Attempted due to Medical Conditions or Safety Concerns. ADL PLOF Comments Pt unable to provide PLOF. OT Current Status Subjective RN okays eval, but no OOB activity. Pt resting in bed with eyes open. Mental Status/Objective Patient Orientation: Unable to Assess Attachments: [place] Catheter, IV, NG Tube, Oxygen (vapotherm) Current Upper Extremity ROM grossly WFL Upper Extremity Coordination impaired Upper Extremity Sensation unable to assess Upper Extremity Strength left UE: no active movement noted ADL-Treatment ADL-Current UE assessment completed with pt in supine. Pt's head is turned to right, able to turn to midline. Pt is able to follow simple commands with right UE. No active movement left UE. AAROM completed right UE. PROM completed left UE. Pt does not indicate pain during ROM. Pt resting in bed with needs met after session. Education OT Patient Education: Rehab process Teaching Recipient: Patient Teaching Methods: Discussion Response to Teaching: Unable to Comprehend OT Spearer Goals Spearer Goals Time Frame: May 28, 2020 Oral Hygiene (QC): 2 Pt will wash face with min assist Additional Goals: 2-Verbalize Understanding, 3-ImproveStrength/Leon 1=Demonstrate adherence to instructed precautions during ADL tasks. 2=Patient will verbalize/demonstrate understanding of assistive devices/modifications for ADL. 3=Patient will improve strength/tolerance for activity to enable patient to perform ADL's. OT Education/Plan Problem List/Assessment Assessment: Decreased Activ Tolerance, Decreased Safety Aware, Decreased UE Strength, Dependent Transfers, Impaired Bed Mobility, Impaired Coordination, Impaired Funct Balance, Impaired I ADL's, Impaired Self-Care Skills, Restricted Funct UE ROM Discharge Recommendations Plan/Recommendations: Continue POC Treatment Plan/Plan of Care Treatment,Training & Education: Yes Patient would benefit from OT for education, treatment and training to promote independence in ADL's, mobility, safety and/or upper extremity function for ADL's. Plan of Care: ADL Retraining, Functional Mobility, UE Funct Exercise/Act, UE Neuromus Re-Ed/Coord Treatment Duration: May 28, 2020 Frequency: 5 times per week Estimated Hrs Per Day: .25 hour per day Rehab Potential: Poor Time/GCodes Start Time: 13:38 Stop Time: 13:48 Total Time Billed (hr/min): 10 Billed Treatment Time 1 visit, EVM(10minutes) DIXIE GODINEZ OT May 14, 2020 14:31
[2020-05-14] MEDS ORDERED: SCOPOLAMINE 1.5 MG (TRANSDERM-SCOP) PATCH TD ONE (14:45)
[2020-05-14] MEDS: LACTATED RINGERS 1,000 ML IV SCH (18:52)
[2020-05-15] VITALS (24 sets, daily range): BP systolic 104–177; BP diastolic 38–60
[2020-05-15] MEDS: RT-ALBUTEROL/IPRATROPIUM 3 ML (DUONEB) VIAL INH SCH ×6 (02:52→22:10)
[2020-05-15 04:35] LABS: BASOPHILS % (AUTO) 0 % (0-10); EOSINOPHILS % (AUTO) 0 % (0-10); HEMATOCRIT 25 % (35-52); HEMOGLOBIN 8.2 G/DL (11.5-16.0); LYMPHOCYTES # (AUTO) 0.2 X 10^3 (1.0-4.0); LYMPHOCYTES % (AUTO) 1 % (12-44); MEAN CORPUSCULAR HEMOGLOBIN 30 PG (25-34); MEAN CORPUSCULAR HGB CONC 34 G/DL (32-36); MEAN CORPUSCULAR VOLUME 90 FL (80-99); MEAN PLATELET VOLUME 10.5 FL (7.4-10.4); MONOCYTES # (AUTO) 1.1 X 10^3 (0.0-1.0); MONOCYTES % (AUTO) 4 % (0-12); NEUTROPHILS # (AUTO) 25.6 X 10^3 (1.8-7.8); NEUTROPHILS % (AUTO) 95 % (42-75); PLATELET COUNT 87 10^3/uL (130-400); RED CELL DISTRIBUTION WIDTH 16.5 % (10.0-14.5)
[2020-05-15 04:41] LABS: CHLORIDE 112 MMOL/L (98-107); POTASSIUM 2.7 MMOL/L (3.6-5.0); SODIUM 145 MMOL/L (135-145)
[2020-05-15 04:42] LABS: CALCIUM 6.4 MG/DL (8.5-10.1)
[2020-05-15 04:43] LABS: GLUCOSE 90 MG/DL (70-105)
[2020-05-15 04:44] LABS: CARBON DIOXIDE 21 MMOL/L (21-32)
[2020-05-15 04:47] LABS: CREATININE SERUM 0.54 MG/DL (0.60-1.30); GFR ESTIMATED > 60
[2020-05-15 04:48] LABS: BUN/CREATININE RATIO 31
[2020-05-15 04:49] LABS: MAGNESIUM 1.7 MG/DL (1.6-2.4)
[2020-05-15] MEDS: POTASSIUM CL 10MEQ/50ML IVPB 50 ML IV SCH ×5 (04:50→16:21)
[2020-05-15] MEDS: KCL 20 MEQ TAB (K-DUR) PO SCH (04:51)
[2020-05-15] MEDS: MAGNESIUM 1 GM/100 ML IVPB 100 ML IV SCH ×3 (04:52→05:04)
[2020-05-15] MEDS ORDERED: POTASSIUM CL 10MEQ/50ML IVPB 50 ML IV ONE (05:00)
[2020-05-15] MEDS: PIPERACILLIN/TAZOBACTAM (BULK) 4.5 GM in NS (IVPB) 100 ML IV SCH ×3 (05:03→19:48)
[2020-05-15] MEDS ORDERED: TROUGH ORDER-PHARMACY XX NR (06:30)
[2020-05-15] MEDS: TRIM/SULFAMETH 160/800 (SEPTRA DS) TAB PO SCH ×2 (08:01→17:29)
[2020-05-15] MEDS: CLOPIDOGREL 75 MG (PLAVIX) TABLET PO SCH (08:01)
[2020-05-15] MEDS: PANTOPRAZOLE 40 MG (PROTONIX) VIAL IVP SCH (08:01)
[2020-05-15] MEDS: VANCOMYCIN 1 GM/NS 250 ML IVPB IV SCH ×4 (08:01→18:43)
--- NOTE | 2020-05-15 08:36 | Diagnostic Imaging Report ---
EXAMINATION: Chest 1 view HISTORY: Shortness of breath, altered metal status COMPARISON: 05/14/2020 FINDINGS: Gastric tube is retracted and is in the distal esophagus. Left internal jugular central venous catheter tip terminates in the superior vena cava. There has been an increase in right upper zone airspace opacity concerning for pneumonia. Small pleural effusions are stable. No pneumothorax is seen. Aortic arch is calcified. IMPRESSION: 1. Increase in right upper zone airspace opacity concerning for pneumonia. Stable small bilateral pleural effusions. 2. Retraction of the gastric tube which is now in the distal esophagus. Dictated by: Dictated on workstation # [id number]
--- NOTE | 2020-05-15 10:11 | Progress Note - Hospitalist ---
Subjective HPI/CC On Admission Date Seen by Provider: May 15, 2020 Time Seen by Provider: 10:07 Pt is an 79yoCF with a PMH of aortic stenosis, COPD, CAD with recent stenting, HTN, HLD, hypothyroidism, paroxysmal atrial fibrillation on chronic anticoagulation who presented to the ER due to hypoxia. She is unable to provide much history and onlyanswered a few yes or no questions for me. She told me she was sick and that she was not having pain. Otherwise all history obtained from family and records. She was apparently in her normal state this morning (ambulatory and alert and oriented x4). She spoke to her son and then had lunch. Sometime after lunch they found her in her room minimallyresponsive. There was concern for an episode of apnea as well. EMS was summoned and she was found to have oxygen saturations in the 60%. She was placed on a nonrebreather which brought her oxygen saturations up. She was taken for CT head as she is on Xarelto. Subjective/Events-last exam Pt is minimally unresponsive. She was unable to follow any commands. Focused Exam Lactate Level 05/12/20 14:45: Lactic Acid Level 4.20*H 05/13/20 05:43: Lactic Acid Level 1.42 Objective Exam Vital Signs Vital Signs Date Time Temp Pulse Resp B/P (MAP) Pulse Ox O2 Delivery O2 Flow Rate FiO2 05/15/20 09:50 36.8 05/15/20 08:00 Vapotherm 40.00 40 05/15/20 08:00 113 19 144/57 (86) 93 Capillary Refill : Less Than 3 Seconds General Appearance: Chronically ill, Other (ill appearing) Respiratory: Rhonci, Other (on vapotherm) Cardiovascular: Regular Rate, Rhythm, Systolic Murmur Gastrointestinal: Normal Bowel Sounds, Soft Neurologic/Psychiatric: Other (does not follow commands, only opened eyes once to physical stimuli when I touched her forehead) Results/Procedures Lab Laboratory Tests 05/15/20 04:15 Patient resulted labs reviewed. Assessment/Plan Assessment and Plan Assess & Plan/Chief Complaint New Onset left sided weakness- presumed stroke CT Head negative, not a candidate for TPA Would ideally like an MRI but discussed with Dr Cruz regarding respiratory status and I don't think she would tolerate laying flat- family also declined MRI PT/OT/CARD GRINDER NGT in place- start trophic feeds today Already on Plavix for antiplatelet Hemorrhagic shock bleeding cecal mass Ischemic colitis Severe anemia- stabilized Went to ex lap on 05/10 and bleeding mass found Transfused 3 units pRBCs total Now off pressors and maintaining her own BP path reveals ischemic colitis Acute Hypoxic Respiratory Failure Leukocytosis Recently treated pneumonia COPD Mixed metabolic and respiratory acidosis- resolved Extubated 05/13, on Vapotherm Pulm/TeleICU consulted, appreciate recs Discussed with son about current status and if she worsens and need a ventilator it would be very unlikely for her to ever come off, he agrees she w ould not want that (as she confirmed yesterday to me) so will make DNR. I updated eICU to this Continue abx, Vanc/Zosyn/Bactrim or Stenotrophomonas in sputum Blood cultures negative CAD Aortic Stenosis A-fib Son reports she recently had a stent placed by Dr Yuen Records sent and cath report reveals 04/13/2020 RCA stenting done and valvuloplasty by Dr Yuen Plavix resumed Consult cardiology, appreciate their help Went in to a-fib overnight Started on home amiodarone via NGT Unfortunately very complex patient with multiple acute issues. Still being treated as aggressively as possible but continues to worsen. Very poor prognosis. Discussed with son who expresses understanding of this and that she may not survive this. Critical Care Critically Ill Patient Diagnosis/Problems Diagnosis/Problems (1) Acute respiratory failure Status: Acute Qualifiers: Respiratory failure complication: hypercapnia Qualified Codes: J96.02 - Acute respiratory failure with hypercapnia (2) Hemorrhagic shock Status: Acute (3) Hypomagnesemia Status: Acute (4) Normocytic anemia Status: Acute (5) COPD (chronic obstructive pulmonary disease) Qualifiers: COPD type: unspecified COPD Qualified Codes: J44.9 - Chronic obstructive pulmonary disease, unspecified (6) Hypothyroidism Status: Chronic Qualifiers: Hypothyroidism type: unspecified Qualified Codes: E03.9 - Hypothyroidism, unspecified (7) Metabolic acidosis Status: Acute (8) Respiratory acidosis Status: Acute (9) Aortic stenosis Qualifiers: Cardiac valve disease etiology: etiology unspecified Qualified Codes: I35.0 - Nonrheumatic aortic (valve) stenosis (10) Atrial fibrillation Status: Acute Qualifiers: Atrial fibrillation type: paroxysmal Qualified Codes: I48.0 - Paroxysmal atrial fibrillation (11) CAD (coronary artery disease) Status: Acute Qualifiers: Coronary Disease-Associated Artery/Lesion type: [place] artery [place] vs. transplanted heart: [place] heart Associated angina: without angina Qualified Codes: I25.10 - Atherosclerotic heart disease of [place] coronary artery without angina pectoris Clinical Quality Measures DVT/VTE Risk/Contraindication: Risk Factor Score Per Nursin RFS Level Per Nursing on Admit: 4+=Very High MIMI HERNANDEZ MD May 15, 2020 10:11
[2020-05-15 10:56] LABS: ABG BASE EXCESS 5.6 MMOL/L (-2.5-2.5); ABG OXYGEN SATURATION 92 % (94-100); ABG PCO2 43 MMHG (35-45); ABG PH 7.45 (7.37-7.43); ABG PO2 71 MMHG (79-93); ABG TCO2 30.8 MMOL/L (21.0-31.0)
[2020-05-15 10:57] LABS: ALLENS TEST ARTLINE; INSPIRED O2 40; PATIENT TEMP 37.1; VENTILATOR NO
[2020-05-15] MEDS ORDERED: ANIDULAFUNGIN INJECTION 200 MG in NS (IVPB) 250 ML IV ONE (11:00)
--- NOTE | 2020-05-15 11:26 | NUR ---
THIS NURSE NOTIFIED DR GREENE WITH EICU OF ABG RESULTS. NO NEW ORDERS AT THIS TIME. DR Hawkins ALSO SAID NGT WAS GOOD TO USE PER CXR.
--- NOTE | 2020-05-15 11:27 | Diagnostic Imaging Report ---
EXAMINATION: Chest 1 view HISTORY: Nasogastric tube placement COMPARISON: 05/15/2020 FINDINGS: Nasogastric tube is been advanced with the tip now in the body of the stomach and the side-port at the gastroesophageal junction. Persistent right upper lobe airspace opacity is present with stable small pleural effusions and no pneumothorax. Heart size is unchanged. Left internal jugular central venous catheter tip terminates in the superior vena cava. IMPRESSION: 1. Nasogastric tube tip is now in the body of the stomach. 2. Stable right upper lobe airspace opacity concerning for pneumonia with stable pleural effusions. Dictated by: Dictated on workstation # [id number]
[2020-05-15] MEDS: AMIODARONE INJECTION 450 MG in D5W IV SOLUTION (EXCEL) 250 ML IV SCH ×2 (12:37→20:15)
--- NOTE | 2020-05-15 13:12 | Progress Note ---
Subjective Date Seen by a Provider: May 15, 2020 Time Seen by a Provider: 10:00 Subjective/Events-last exam patient non-verbal. no spontaneous movements. on vapotherm 40%. tolerating TF's at 20cc/hr. patient a DNI and poor prognosis. Focused Exam Lactate Level 05/12/20 14:45: Lactic Acid Level 4.20*H 05/13/20 05:43: Lactic Acid Level 1.42 Objective Exam Vital Signs Date Time Temp Pulse Resp B/P (MAP) Pulse Ox O2 Delivery O2 Flow Rate FiO2 05/15/20 11:34 94 Vapotherm 40.00 40 05/15/20 11:00 101 18 104/43 (63) 95 Vapotherm 40.00 40.00 05/15/20 10:00 110 18 135/54 (81) 95 Vapotherm 40.00 40.00 05/15/20 09:50 36.8 05/15/20 09:00 106 31 150/57 (88) 88 Vapotherm 40.00 40.00 05/15/20 08:00 Vapotherm 40.00 40 05/15/20 08:00 113 19 144/57 (86) 93 Vapotherm 40.00 40.00 05/15/20 07:07 91 Vapotherm 40.00 40 05/15/20 07:00 118 19 149/60 (89) 92 Vapotherm 40.00 40.00 05/15/20 07:00 118 05/15/20 06:00 110 18 165/57 (93) 91 Vapotherm 40.00 36.00 05/15/20 05:00 114 17 128/38 (68) 92 Vapotherm 40.00 36.00 05/15/20 04:25 36.7 05/15/20 04:00 Vapotherm 40.00 40 05/15/20 04:00 90 17 142/41 (74) 93 Vapotherm 40.00 36.00 05/15/20 03:00 90 31 152/47 (82) 93 Vapotherm 40.00 36.00 05/15/20 02:53 92 Vapotherm 40.00 30 05/15/20 02:00 87 37 166/51 (89) 94 Vapotherm 40.00 36.00 05/15/20 01:00 75 16 131/38 (69) 94 Vapotherm 40.00 36.00 05/15/20 01:00 83 05/15/20 00:00 82 22 132/41 (71) 91 Vapotherm 40.00 36.00 05/14/20 23:50 36.7 05/14/20 23:48 Vapotherm 40.00 40 05/14/20 23:00 92 26 146/42 (76) 92 Vapotherm 40.00 36.00 05/14/20 22:04 94 Vapotherm 40.00 36 05/14/20 22:00 93 22 165/54 (91) 94 Vapotherm 40.00 36.00 05/14/20 21:00 87 35 132/38 (69) 94 Vapotherm 40.00 36.00 05/14/20 20:30 Vapotherm 40.00 36 05/14/20 20:30 36.8 Vapotherm 40.00 36.00 05/14/20 20:00 93 18 152/47 (82) 93 Vapotherm 40.00 36.00 05/14/20 19:00 100 05/14/20 19:00 96 18 146/47 (80) 93 Vapotherm 40.00 36.00 05/14/20 18:20 93 Vapotherm 40.00 36 05/14/20 18:00 89 24 149/47 (81) 95 Vapotherm 40.00 36.00 05/14/20 17:00 96 17 144/45 (78) 95 Vapotherm 40.00 36.00 05/14/20 16:27 36.3 05/14/20 16:00 Vapotherm 40.00 36 05/14/20 16:00 93 14 147/42 (77) 94 Vapotherm 40.00 36.00 05/14/20 15:00 95 9 140/43 (75) 93 Vapotherm 40.00 36.00 05/14/20 14:00 85 27 120/36 (64) Vapotherm 40.00 36.00 05/14/20 14:00 94 Vapotherm 40.00 36 I & O 05/15/20 07:00 Intake Total 1250 ml Output Total 2550 ml Balance -1300 ml Capillary Refill : Less Than 3 Seconds General Appearance: Chronically ill HEENT: Other (no ocular movements.) Neck: Full Range of Motion Respiratory: Decreased Breath Sounds, Rhonci Cardiovascular: Tachycardia Gastrointestinal: normal bowel sounds, soft Extremity: Normal Capillary Refill Neurologic/Psychiatric: Abnormal Cerebellar Tests, Sensory Deficit Skin: Normal Color Lymphatic: No Adenopathy Results Lab Laboratory Tests 05/15/20 04:15: White Blood Count 27.0H, Red Blood Count 2.73L, Hemoglobin 8.2L, Hematocrit 25L, Mean Corpuscular Volume 90, Mean Corpuscular Hemoglobin 30, Mean Corpuscular Hemoglobin Concent 34, Red Cell Distribution Width 16.5H, Platelet Count 87L, Mean Platelet Volume 10.5H, Neutrophils (%) (Auto) 95H, Lymphocytes (%) (Auto) 1L, Monocytes (%) (Auto) 4, Eosinophils (%) (Auto) 0, Basophils (%) (Auto) 0, Neutrophils # (Auto) 25.6H, Lymphocytes # (Auto) 0.2L, Monocytes # (Auto) 1.1H, Eosinophils # (Auto) 0.0, Basophils # (Auto) 0.0, Sodium Level 145, Potassium Level 2.7L, Chloride Level 112H, Carbon Dioxide Level 21, Anion Gap 12, Blood Urea Nitrogen 17, Creatinine 0.54L, Estimat Glomerular Filtration Rate > 60, BUN/Creatinine Ratio 31, Glucose Level 90, Calcium Level 6.4L, Phosphorus Level 2.0L, Magnesium Level 1.7 05/15/20 06:25: Vancomycin Level Trough 10.0 05/15/20 10:37: Blood Gas Puncture Site LT RADIAL, Blood Gas Patient Temperature 37.1, Arterial Blood pH 7.45H, Arterial Blood Partial Pressure CO2 43, Arterial Blood Partial Pressure O2 71L, Arterial Blood HCO3 30H, Arterial Blood Total CO2 30.8, Arterial Blood Oxygen Saturation 92L, Arterial Blood Base Excess 5.6H, Dylan Test ARTLINE, Blood Gas Ventilator Setting NO, Blood Gas Inspired Oxygen 40 05/15/20 11:47: Potassium Level 3.6 Microbiology 05/12/20 Gram Stain - Final, Resulted 05/12/20 Sputum Culture - Preliminary, Resulted Stenotrophomonas Maltophilia Enterobacter cloacae complex 05/12/20 Blood Culture - Preliminary, Resulted No growth Assessment/Plan Assessment/Plan Assess & Plan/Chief Complaint s/p ileocecal resection for bleeding with likely stroke and significant neurologic deficit. patient DNI. cont current care. Clinical Quality Measures DVT/VTE Risk/Contraindication: Risk Factor Score Per Nursin RFS Level Per Nursing on Admit: 4+=Very High ZORAIDA ROYAL MD May 15, 2020 13:12
--- NOTE | 2020-05-15 13:32 | Progress Note - Cardiology ---
Cardiology SOAP Progress Note Subjective: Does not report any symptoms Appears sluggish Son by bedside Objective: I&O/Vital Signs 05/15/20 05/15/20 05/15/20 05/15/20 02:00 02:53 03:00 04:00 Pulse 87 90 90 Resp 37 31 17 B/P (MAP) 166/51 (89) 152/47 (82) 142/41 (74) Pulse Ox 94 92 93 93 O2 Delivery Vapotherm Vapotherm Vapotherm Vapotherm O2 Flow Rate 40.00 40.00 40.00 40.00 36.00 36.00 36.00 FiO2 30 05/15/20 05/15/20 05/15/20 05/15/20 04:00 04:25 05:00 06:00 Temp 36.7 Pulse 114 110 Resp 17 18 B/P (MAP) 128/38 (68) 165/57 (93) Pulse Ox 92 91 O2 Delivery Vapotherm Vapotherm Vapotherm O2 Flow Rate 40.00 40.00 40.00 36.00 36.00 FiO2 40 05/15/20 05/15/20 05/15/20 05/15/20 07:00 07:00 07:07 08:00 Pulse 118 118 113 Resp 19 19 B/P (MAP) 149/60 (89) 144/57 (86) Pulse Ox 92 91 93 O2 Delivery Vapotherm Vapotherm Vapotherm O2 Flow Rate 40.00 40.00 40.00 40.00 40.00 FiO2 40 05/15/20 05/15/20 05/15/20 05/15/20 08:00 09:00 09:50 10:00 Temp 36.8 Pulse 106 110 Resp 31 18 B/P (MAP) 150/57 (88) 135/54 (81) Pulse Ox 88 95 O2 Delivery Vapotherm Vapotherm Vapotherm O2 Flow Rate 40.00 40.00 40.00 40.00 40.00 FiO2 40 05/15/20 05/15/20 05/15/20 05/15/20 11:00 11:34 12:00 12:00 Temp 37.1 Pulse 101 Resp 18 B/P (MAP) 104/43 (63) Pulse Ox 95 94 95 O2 Delivery Vapotherm Vapotherm Vapotherm O2 Flow Rate 40.00 40.00 40.00 40.00 FiO2 40 40 7/31/20 23:59 Intake Total 120 ml Output Total 1150 ml Balance -1030 ml Weight (Pounds): 112 Weight (Ounces): 0.0 Weight (Calculated Kilograms): [id number] Constitutional: other (oriented to person and place, frail and weak-appearing) Respiratory: rhonchi (scattered), other (fair air entry; coarse breathsounds) Cardiovascular: regular rate-rhythm, systolic murmur (2-3/6 MSM) Gastrointestional: other (s/p abdominal surgery with dressing in place) Extremities: other (bilat pitting LE swelling) Neurologic/Psychiatric: grossly intact (moves extremities) Skin: No rash on exposed areas, No ulcerations on exposed areas Results/Procedures: Labs Laboratory Tests 05/15/20 04:15: White Blood Count 27.0H, Red Blood Count 2.73L, Hemoglobin 8.2L, Hematocrit 25L, Mean Corpuscular Volume 90, Mean Corpuscular Hemoglobin 30, Mean Corpuscular Hemoglobin Concent 34, Red Cell Distribution Width 16.5H, Platelet Count 87L, Mean Platelet Volume 10.5H, Neutrophils (%) (Auto) 95H, Lymphocytes (%) (Auto) 1L, Monocytes (%) (Auto) 4, Eosinophils (%) (Auto) 0, Basophils (%) (Auto) 0, Neutrophils # (Auto) 25.6H, Lymphocytes # (Auto) 0.2L, Monocytes # (Auto) 1.1H, Eosinophils # (Auto) 0.0, Basophils # (Auto) 0.0, Sodium Level 145, Potassium Level 2.7L, Chloride Level 112H, Carbon Dioxide Level 21, Anion Gap 12, Blood Urea Nitrogen 17, Creatinine 0.54L, Estimat Glomerular Filtration Rate > 60, BUN/Creatinine Ratio 31, Glucose Level 90, Calcium Level 6.4L, Phosphorus Level 2.0L, Magnesium Level 1.7 05/15/20 06:25: Vancomycin Level Trough 10.0 05/15/20 10:37: Blood Gas Puncture Site LT RADIAL, Blood Gas Patient Temperature 37.1, Arterial Blood pH 7.45H, Arterial Blood Partial Pressure CO2 43, Arterial Blood Partial Pressure O2 71L, Arterial Blood HCO3 30H, Arterial Blood Total CO2 30.8, Arterial Blood Oxygen Saturation 92L, Arterial Blood Base Excess 5.6H, Dylan Test ARTLINE, Blood Gas Ventilator Setting NO, Blood Gas Inspired Oxygen 40 05/15/20 11:47: Potassium Level 3.6 Microbiology 05/12/20 Gram Stain - Final, Resulted 05/12/20 Sputum Culture - Preliminary, Resulted Stenotrophomonas Maltophilia Enterobacter cloacae complex 05/12/20 Blood Culture - Preliminary, Resulted No growth Laboratory Tests 05/13/20 16:25 05/14/20 03:04 05/15/20 04:15 05/15/20 11:47 A/P: Assessment: Hypovolemic (blood loss) shock - receiving transfusions, requiring pressor support Sepsis due to pneumonia - management per Pulm/ICU services 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 Card cath of April 13, [address] Yuen at [facility] showed 80- 90% lesion in the RCA for which EMMANUEL x1 was placed. Other vessels showed mild to mod CAD. Valvuloplasty to the aortic valve carried out at time of cardiac cath. Had been on Effient and ASA. Sinus node disfunction and PAF. On Xarelto for stroke prophylaxis Echocardiogram of March 25, [address] Dao showed LVEF 55-65%. Grade 2 diastolic dysfunction. Mild mitral stenosis with mean gradient 2.2mHg, MVA 3.3 cm2. Mod calcified aortic valve with mod-severe stenosis, mean grad 26mmHg GUERO 1.1cm2, mild to mod regurg. Severe TR. PASP 65-70mmHg. Echocardiogram of May 11, 2020 was a technically poor study. LVEF 55-60% H/o scleroderma and chronic dysphagia, followed and treated by her pcp Quit smoking in 1979 Borderline low TSH on 08/17/18 (0.33), followed by her pcp Dr Maria Carotid u/s of 06-06-2019 showed 60-79% R ICA stenosis; less than 40% L ICA stenosis. Incidental note of L thyroid nodules seen at time of carotid u/s of Nov 2018 for which f/u is with her PCP Plan: * Complex management * Critically ill * In A Fib (started this am). Son reports that she is chronically on oral amio that controls A Fib well. Will start amio because within 24 hr frame of onset of this episode of A Fib * Cannot give Xarelto and ASA due to bleeding requiring surgery and leading to hypovolemic shock that has required transfusions * Continue Plavix to reduce risk of stent thrombosis * I reviewed all of the above in detail with her son and answered questions * Monitor lab closely * Replace electrolytes Clinical Quality Measures Type of Care: Type of Care: Comfort Measures SABINO MIN MD [facility] May 15, 2020 13:32
[2020-05-15] MEDS: morphine INJ 4 MG/ML 1 ML (VIAL/SYRINGE) IVP PRN (16:35)
[2020-05-15] MEDS: AMIODARONE 200 MG (CORDARONE) TAB PO SCH ×2 (19:48→21:09)
--- NOTE | 2020-05-15 21:10 | NUR ---
Spoke to Dr. Metzger for order clarification. IV amiodarone to continue. Hold PO amiodarone until IV amiodarone complete.
--- NOTE | 2020-05-15 22:06 | NUR ---
Spoke with Dr. davis and informed her that pt is rapidly declining. Lung sounds very wet/coarse, pt having difficulty breathing, pt not following any commands at this time. Telephone orders received for lasix 80mg IV x1 dose.
[2020-05-15] MEDS ORDERED: FUROSEMIDE 40 MG/4 ML INJ (LASIX) IVP ONE (22:15)
[2020-05-16] VITALS (18 sets, daily range): BP systolic 122–155; BP diastolic 40–65
[2020-05-16] MEDS: RT-ALBUTEROL/IPRATROPIUM 3 ML (DUONEB) VIAL INH SCH ×6 (02:12→21:38)
[2020-05-16 04:13] LABS: BASOPHILS % (AUTO) 0 % (0-10); EOSINOPHILS % (AUTO) 0 % (0-10); HEMATOCRIT 28 % (35-52); HEMOGLOBIN 9.4 G/DL (11.5-16.0); LYMPHOCYTES # (AUTO) 0.4 X 10^3 (1.0-4.0); LYMPHOCYTES % (AUTO) 1 % (12-44); MEAN CORPUSCULAR HEMOGLOBIN 30 PG (25-34); MEAN CORPUSCULAR HGB CONC 33 G/DL (32-36); MEAN CORPUSCULAR VOLUME 90 FL (80-99); MEAN PLATELET VOLUME 10.8 FL (7.4-10.4); MONOCYTES # (AUTO) 1.1 X 10^3 (0.0-1.0); MONOCYTES % (AUTO) 4 % (0-12); NEUTROPHILS # (AUTO) 26.4 X 10^3 (1.8-7.8); NEUTROPHILS % (AUTO) 95 % (42-75); PLATELET COUNT 76 10^3/uL (130-400); RED CELL DISTRIBUTION WIDTH 16.6 % (10.0-14.5); WHITE BLOOD COUNT 27.9 10^3/uL (4.3-11.0)
[2020-05-16 04:24] LABS: CHLORIDE 108 MMOL/L (98-107); POTASSIUM 3.2 MMOL/L (3.6-5.0); SODIUM 145 MMOL/L (135-145)
[2020-05-16 04:25] LABS: CALCIUM 7.2 MG/DL (8.5-10.1)
[2020-05-16 04:26] LABS: GLUCOSE 187 MG/DL (70-105)
[2020-05-16 04:27] LABS: CARBON DIOXIDE 27 MMOL/L (21-32)
[2020-05-16 04:29] LABS: GFR ESTIMATED > 60; PHOSPHORUS 1.5 MG/DL (2.3-4.7)
[2020-05-16 04:30] LABS: BUN/CREATININE RATIO 30
[2020-05-16] MEDS: LACTATED RINGERS 1,000 ML IV SCH (04:34)
[2020-05-16] MEDS: MAGNESIUM 1 GM/100 ML IVPB 100 ML IV SCH (04:37)
[2020-05-16] MEDS: KCL 20 MEQ TAB (K-DUR) PO SCH (04:38)
[2020-05-16] MEDS: POTASSIUM CL 10MEQ/50ML IVPB 50 ML IV SCH ×3 (04:38→05:12)
[2020-05-16] MEDS: PIPERACILLIN/TAZOBACTAM (BULK) 4.5 GM in NS (IVPB) 100 ML IV SCH ×3 (05:11→20:33)
[2020-05-16] MEDS: morphine INJ 4 MG/ML 1 ML (VIAL/SYRINGE) IVP PRN ×4 (05:39→23:51)
[2020-05-16] MEDS ORDERED: TROUGH ORDER-PHARMACY XX NR (06:30)
--- NOTE | 2020-05-16 07:00 | NUR ---
SPOKE WITH DR. HERNANDEZ INFORMED HER THAT PT CONDITION RAPIDLY DECLINING-ORDERS RECEIVED TO MAKE PT 4TH FLOOR STATUS AND CONTINUE TO MONITOR.
[2020-05-16] MEDS: PANTOPRAZOLE 40 MG (PROTONIX) VIAL IVP SCH (08:13)
[2020-05-16] MEDS: VANCOMYCIN 1 GM/NS 250 ML IVPB IV SCH ×4 (08:14→18:18)
[2020-05-16] MEDS: CLOPIDOGREL 75 MG (PLAVIX) TABLET PO SCH (08:14)
[2020-05-16] MEDS: TRIM/SULFAMETH 160/800 (SEPTRA DS) TAB PO SCH ×2 (08:14→17:50)
[2020-05-16] MEDS: AMIODARONE 200 MG (CORDARONE) TAB PO SCH ×2 (08:14→20:17)
--- NOTE | 2020-05-16 09:07 | Progress Note - Hospitalist ---
Subjective HPI/CC On Admission Date Seen by Provider: May 16, 2020 Time Seen by Provider: 08:58 Pt is an 79yoCF with a PMH of aortic stenosis, COPD, CAD with recent stenting, HTN, HLD, hypothyroidism, paroxysmal atrial fibrillation on chronic anticoagulation who presented to the ER due to hypoxia. She is unable to provide much history and onlyanswered a few yes or no questions for me. She told me she was sick and that she was not having pain. Otherwise all history obtained from family and records. She was apparently in her normal state this morning (ambulatory and alert and oriented x4). She spoke to her son and then had lunch. Sometime after lunch they found her in her room minimallyresponsive. There was concern for an episode of apnea as well. EMS was summoned and she was found to have oxygen saturations in the 60%. She was placed on a nonrebreather which brought her oxygen saturations up. She was taken for CT head as she is on Xarelto. Subjective/Events-last exam Pt more alert today. Mumbles but doesn't respond consistently. This is much improved from yesterday though. Son and daughter in law at bedside and had discussed comfort measures only last night but now that she is more alert want to wait and see. We discussed that while this is encouraging and a continued time trial is reasonable she still has a very long road ahead and prognosis remains poor fpc. They expressed understanding of this. Objective Exam Vital Signs Vital Signs Date Time Temp Pulse Resp B/P (MAP) Pulse Ox O2 Delivery O2 Flow Rate FiO2 05/16/20 08:00 107 22 144/47 (79) 94 Vapotherm 40.00 40.00 05/16/20 07:24 40 05/16/20 07:18 36.4 Capillary Refill : Less Than 3 Seconds General Appearance: Chronically ill HEENT: Other (NGT in place) Respiratory: Rhonci; No Wheezing; Other (on Vapotherm) Cardiovascular: Systolic Murmur, Irregularly Irregular Gastrointestinal: Abnormal Bowel Sounds (quiet bowel sounds) Extremity: Pedal Edema, Swelling Neurologic/Psychiatric: Other (arouses and more alert then yesterday, did not follow commands still) Results/Procedures Lab Laboratory Tests 05/15/20 11:47 05/16/20 04:05 Patient resulted labs reviewed. 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 NGT in place- tolerating feeds well Already on Plavix for antiplatelet Hemorrhagic shock bleeding cecal mass Ischemic colitis Severe anemia- stabilized Went to ex lap on 05/10 and bleeding mass found Transfused 3 units pRBCs total path reveals ischemic colitis Eraxis added by Surgery Acute Hypoxic Respiratory Failure Leukocytosis- stable Recently treated pneumonia COPD Mixed metabolic and respiratory acidosis- resolved Extubated 05/13, on Vapotherm Pulm/TeleICU consulted, appreciate recs Continue abx, Eraxis/Vanc/Zosyn/Bactrim or Stenotrophomonas in sputum Blood cultures negative CAD Aortic Stenosis A-fib Son reports she recently had a stent placed by Dr Yuen Records sent and cath report reveals 04/13/2020 RCA stenting done and valvuloplasty by Dr Yuen Plavix as above Consult cardiology, appreciate their help Continue on amiodarone Unfortunately very complex patient with multiple acute issues. Slightly better today with mentation and otherwise not much change in status or labs. Family would like to continue a time trial over the next 24-48 hours and see if she continues to improve. They are realistic that she may not and that this improvement may be transient. Will continue current measures. Critical Care Critically Ill Patient Diagnosis/Problems Diagnosis/Problems (1) Acute respiratory failure Status: Acute Qualifiers: Respiratory failure complication: hypercapnia Qualified Codes: J96.02 - Acute respiratory failure with hypercapnia (2) Hemorrhagic shock Status: Acute (3) Hypomagnesemia Status: Acute (4) Normocytic anemia Status: Acute (5) COPD (chronic obstructive pulmonary disease) Qualifiers: COPD type: unspecified COPD Qualified Codes: J44.9 - Chronic obstructive pulmonary disease, unspecified (6) Hypothyroidism Status: Chronic Qualifiers: Hypothyroidism type: unspecified Qualified Codes: E03.9 - Hypothyroidism, unspecified (7) Metabolic acidosis Status: Acute (8) Respiratory acidosis Status: Acute (9) Aortic stenosis Qualifiers: Cardiac valve disease etiology: etiology unspecified Qualified Codes: I35.0 - Nonrheumatic aortic (valve) stenosis (10) Atrial fibrillation Status: Acute Qualifiers: Atrial fibrillation type: paroxysmal Qualified Codes: I48.0 - Paroxysmal atrial fibrillation (11) CAD (coronary artery disease) Status: Acute Qualifiers: Coronary Disease-Associated Artery/Lesion type: knik artery [place] vs. transplanted heart: knik heart Associated angina: without angina Qualified Codes: I25.10 - Atherosclerotic heart disease of knik coronary artery without angina pectoris Clinical Quality Measures DVT/VTE Risk/Contraindication: Risk Factor Score Per Nursin RFS Level Per Nursing on Admit: 4+=Very High MIMI HERNANDEZ MD May 16, 2020 09:07
[2020-05-16] MEDS ORDERED: FUROSEMIDE 40 MG/4 ML INJ (LASIX) IVP NR (09:15)
[2020-05-16] MEDS: ANIDULAFUNGIN INJECTION 100 MG in NS (IVPB) 100 ML IV SCH (09:15)
--- NOTE | 2020-05-16 09:28 | Diagnostic Imaging Report ---
INDICATION: Altered mental status and dyspnea. Comparison made with prior examination from 05/15/2020. FINDINGS: Heart size is normal. There are bilateral pulmonary infiltrates right greater than left. There are bilateral pleural effusions. Some venous congestion. There is no pneumothorax. Lines and tubes are in satisfactory position. IMPRESSION: Bilateral pulmonary infiltrates and bilateral pleural effusions. Infiltrates are somewhat more consolidated in the right upper lobe. Findings are suspect for underlying pneumonia. Moderate central pulmonary venous congestion. Dictated by: Dictated on workstation # [id number]
--- NOTE | 2020-05-16 10:44 | Progress Note ---
Subjective Date Seen by a Provider: May 16, 2020 Time Seen by a Provider: 10:15 Subjective/Events-last exam Patient seen with Dr. Goodwin. Patient non-verbal and does not respond to commands. Patient is DNI and poor prognosis. Objective Exam Vital Signs Date Time Temp Pulse Resp B/P (MAP) Pulse Ox O2 Delivery O2 Flow Rate FiO2 05/16/20 08:00 93 Vapotherm 40.00 40 05/16/20 08:00 107 22 144/47 (79) 94 Vapotherm 40.00 40.00 05/16/20 07:24 95 Vapotherm 40.00 40 05/16/20 07:18 36.4 05/16/20 07:00 98 17 127/41 (69) 95 Vapotherm 40.00 40.00 05/16/20 06:39 103 05/16/20 06:00 101 17 131/43 (72) 94 Vapotherm 40.00 40.00 05/16/20 05:00 106 17 140/51 (80) 95 Vapotherm 40.00 40.00 05/16/20 04:31 36.3 05/16/20 04:00 105 20 155/50 (85) 95 Vapotherm 40.00 40.00 05/16/20 04:00 Vapotherm 40.00 40 05/16/20 03:00 101 18 134/46 (75) 95 Vapotherm 40.00 40.00 05/16/20 02:11 95 Vapotherm 40.00 40 05/16/20 02:00 104 18 134/43 (73) 95 Vapotherm 40.00 40.00 05/16/20 01:00 106 17 133/43 (73) 95 Vapotherm 40.00 40.00 05/16/20 01:00 106 05/16/20 00:15 Vapotherm 40.00 40 05/16/20 00:09 36.5 05/16/20 00:00 113 21 144/45 (78) 94 Vapotherm 40.00 40.00 05/15/20 23:00 115 22 158/53 (88) 94 Vapotherm 40.00 40.00 05/15/20 22:10 94 Vapotherm 40.00 40 05/15/20 22:00 116 28 149/51 (83) 95 Vapotherm 40.00 40.00 05/15/20 21:00 114 19 146/48 (80) 95 Vapotherm 40.00 40.00 05/15/20 20:00 36.4 Vapotherm 40.00 40.00 05/15/20 20:00 106 21 147/49 (81) Vapotherm 40.00 40.00 05/15/20 20:00 Vapotherm 40.00 40 05/15/20 19:00 105 05/15/20 19:00 105 27 155/52 (86) Vapotherm 40.00 40.00 05/15/20 18:34 96 Vapotherm 40.00 40 05/15/20 18:00 118 17 144/52 (82) 95 Vapotherm 40.00 40.00 05/15/20 17:00 121 15 141/46 (77) 96 Vapotherm 40.00 40.00 05/15/20 16:37 36.4 05/15/20 16:23 96 Vapotherm 40.00 40 05/15/20 16:00 111 20 155/51 (85) 96 Vapotherm 40.00 40.00 05/15/20 15:00 118 18 136/49 (78) 95 Vapotherm 40.00 40.00 05/15/20 14:36 95 Vapotherm 40.00 40 05/15/20 14:00 111 21 177/59 (98) 97 Vapotherm 40.00 40.00 05/15/20 13:00 113 05/15/20 13:00 113 27 161/55 (90) 95 Vapotherm 40.00 40.00 05/15/20 12:00 37.1 05/15/20 12:00 95 Vapotherm 40.00 40 05/15/20 12:00 111 17 122/45 (70) 94 Vapotherm 40.00 40.00 05/15/20 11:34 94 Vapotherm 40.00 40 05/15/20 11:00 101 18 104/43 (63) 95 Vapotherm 40.00 40.00 I & O 05/16/20 07:00 Intake Total 3208 ml Output Total 2280 ml Balance 928 ml Capillary Refill : Less Than 3 Seconds General Appearance: Chronically ill Respiratory: No Accessory Muscle Use, No Respiratory Distress, Decreased Breath Sounds Cardiovascular: Regular Rate, Rhythm, No Murmur Gastrointestinal: normal bowel sounds, soft Extremity: Swelling (3+) Skin: Normal Color, Warm/Dry Results Lab Laboratory Tests 05/15/20 11:47: Potassium Level 3.6 05/16/20 04:05: Potassium Level 3.2L, White Blood Count 27.9H, Red Blood Count 3.14L, Hemoglobin 9.4L, Hematocrit 28L, Mean Corpuscular Volume 90, Mean Corpuscular Hemoglobin 30, Mean Corpuscular Hemoglobin Concent 33, Red Cell Distribution Width 16.6H, P latelet Count 76L, Mean Platelet Volume 10.8H, Neutrophils (%) (Auto) 95H, Lymphocytes (%) (Auto) 1L, Monocytes (%) (Auto) 4, Eosinophils (%) (Auto) 0, Basophils (%) (Auto) 0, Neutrophils # (Auto) 26.4H, Lymphocytes # (Auto) 0.4L, Monocytes # (Auto) 1.1H, Eosinophils # (Auto) 0.0, Basophils # (Auto) 0.0, Sodium Level 145, Chloride Level 108H, Carbon Dioxide Level 27, Anion Gap 10, Blood Urea Nitrogen 18, Creatinine 0.60, Estimat Glomerular Filtration Rate > 60, BUN/Creatinine Ratio 30, Glucose Level 187H, Calcium Level 7.2L, Phosphorus Level 1.5L, Magnesium Level 2.0 05/16/20 06:50: Vancomycin Level Trough 17.8 Microbiology 05/12/20 Gram Stain - Final, Resulted 05/12/20 Sputum Culture - Preliminary, Resulted Stenotrophomonas Maltophilia Enterobacter cloacae complex 05/12/20 Blood Culture - Preliminary, Resulted No growth Assessment/Plan Assessment/Plan Assess & Plan/Chief Complaint s/p ileocecal resection for bleeding with likely stroke and significant neurologic deficit. patient DNI. cont current care. Clinical Quality Measures DVT/VTE Risk/Contraindication: Risk Factor Score Per Nursin RFS Level Per Nursing on Admit: 4+=Very High LESLIE CHRISTIANSON COMMUNICATIONS ADVISOR May 16, 2020 10:44
--- NOTE | 2020-05-16 14:51 | Progress Note - Cardiology ---
Cardiology SOAP Progress Note Subjective: Verbally unresponsive Does not report any symptoms Objective: I&O/Vital Signs 05/16/20 05/16/20 05/16/20 05/16/20 03:00 04:00 04:00 04:31 Temp 36.3 Pulse 101 105 Resp 18 20 B/P (MAP) 134/46 (75) 155/50 (85) Pulse Ox 95 95 O2 Delivery Vapotherm Vapotherm Vapotherm O2 Flow Rate 40.00 40.00 40.00 40.00 40.00 FiO2 40 05/16/20 05/16/20 05/16/20 05/16/20 05:00 06:00 06:39 07:00 Pulse 106 101 103 98 Resp 17 17 17 B/P (MAP) 140/51 (80) 131/43 (72) 127/41 (69) Pulse Ox 95 94 95 O2 Delivery Vapotherm Vapotherm Vapotherm O2 Flow Rate 40.00 40.00 40.00 40.00 40.00 40.00 05/16/20 05/16/20 05/16/20 05/16/20 07:18 07:24 08:00 08:00 Temp 36.4 Pulse 107 Resp 22 B/P (MAP) 144/47 (79) Pulse Ox 95 94 93 O2 Delivery Vapotherm Vapotherm Vapotherm O2 Flow Rate 40.00 40.00 40.00 40.00 FiO2 40 40 05/16/20 05/16/20 05/16/20 05/16/20 09:00 10:00 10:44 11:00 Pulse 100 100 107 Resp 20 20 19 B/P (MAP) 129/40 (69) 122/40 (67) 124/63 (83) Pulse Ox 93 93 93 94 O2 Delivery Vapotherm Vapotherm Vapotherm Vapotherm O2 Flow Rate 40.00 40.00 40.00 40.00 40.00 40.00 40.00 FiO2 40 05/16/20 05/16/20 05/16/20 11:13 12:00 12:43 Temp 36.3 Pulse 102 Pulse Ox 95 O2 Delivery Vapotherm O2 Flow Rate 40.00 FiO2 40 05/16/20 00:00 Intake Total 1468 ml Output Total 430 ml Balance 1038 ml Weight (Pounds): 112 Weight (Ounces): 0.0 Weight (Calculated Kilograms): 50.890194 Constitutional: other (verbally unresponsive at the time of this exam) Respiratory: rhonchi (scattered), other (scattered rhonchi over large airways; crackles at lung bases) Cardiovascular: regular rate-rhythm, systolic murmur (2-3/6 MSM) Gastrointestional: other (s/p abdominal surgery with dressing in place) Extremities: other (bilat pitting LE swelling) Neurologic/Psychiatric: grossly intact (not able to cooperate with any neuro exam at the time of this exam) Skin: No rash on exposed areas, No ulcerations on exposed areas Results/Procedures: Labs Laboratory Tests 05/16/20 04:05: White Blood Count 27.9H, Red Blood Count 3.14L, Hemoglobin 9.4L, Hematocrit 28L, Mean Corpuscular Volume 90, Mean Corpuscular Hemoglobin 30, Mean Corpuscular Hemoglobin Concent 33, Red Cell Distribution Width 16.6H, Platelet Count 76L, Mean Platelet Volume 10.8H, Neutrophils (%) (Auto) 95H, Lymphocytes (%) (Auto) 1L, Monocytes (%) (Auto) 4, Eosinophils (%) (Auto) 0, Basophils (%) (Auto) 0, Neutrophils # (Auto) 26.4H, Lymphocytes # (Auto) 0.4L, Monocytes # (Auto) 1.1H, Eosinophils # (Auto) 0.0, Basophils # (Auto) 0.0, Sodium Level 145, Potassium Level 3.2L, Chloride Level 108H, Carbon Dioxide Level 27, Anion Gap 10, Blood Urea Nitrogen 18, Creatinine 0.60, Estimat Glomerular Filtration Rate > 60, BUN/Creatinine Ratio 30, Glucose Level 187H, Calcium Level 7.2L, Phosphorus Level 1.5L, Magnesium Level 2.0 05/16/20 06:50: Vancomycin Level Trough 17.8 Microbiology 05/12/20 Gram Stain - Final, Complete 05/12/20 Sputum Culture - Final, Complete Stenotrophomonas Maltophilia Enterobacter cloacae complex 05/12/20 Blood Culture - Preliminary, Resulted No growth A/P: Assessment: Suspected stroke (L-sided weakness reported, but no CT finding of ac stroke) Hypovolemic (blood loss) shock - receiving transfusions, requiring pressor support Sepsis due to pneumonia - management per Pulm/ICU services 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 Card cath of April 13, [address] Yuen at [facility] showed 80- 90% lesion in the RCA for which EMMANUEL x1 was placed. Other vessels showed mild to mod CAD. Valvuloplasty to the aortic valve carried out at time of cardiac cath. Had been on Effient and ASA. Sinus node disfunction and PAF. On Xarelto for stroke prophylaxis Echocardiogram of March 25, [address] Dao showed LVEF 55-65%. Grade 2 diastolic dysfunction. Mild mitral stenosis with mean gradient 2.2mHg, MVA 3.3 cm2. Mod calcified aortic valve with mod-severe stenosis, mean grad 26mmHg GUERO 1.1cm2, mild to mod regurg. Severe TR. PASP 65-70mmHg. Echocardiogram of May 11, 2020 was a technically poor study. LVEF 55-60% H/o scleroderma and chronic dysphagia, followed and treated by her pcp Quit smoking in 1979 Borderline low TSH on 08/17/18 (0.33), followed by her pcp Dr Maria Carotid u/s of 06-06-2019 showed 60-79% R ICA stenosis; less than 40% L ICA stenosis. Incidental note of L thyroid nodules seen at time of carotid u/s of Nov 2018 for which f/u is with her PCP Plan: * Complex management * Appears to have taken a turn for the worse. Currently verbally unresponsive * Cannot give Xarelto and ASA due to bleeding requiring surgery and leading to hypovolemic shock that has required transfusions * Continue Plavix to reduce risk of stent thrombosis * Appears volume overloaded today. Give iv furosemide * Monitor lab closely * Replace electrolytes Clinical Quality Measures Type of Care: Type of Care: Comfort Measures SABINO MIN MD FACP [facility] May 16, 2020 14:51
[2020-05-17] VITALS: BP 122/56
[2020-05-17] MEDS: morphine INJ 4 MG/ML 1 ML (VIAL/SYRINGE) IVP PRN ×2 (01:42→09:39)
[2020-05-17] MEDS: RT-ALBUTEROL/IPRATROPIUM 3 ML (DUONEB) VIAL INH SCH ×3 (02:53→09:53)
[2020-05-17 03:31] LABS: BASOPHILS # (AUTO) 0.1 10^3/uL (0.0-0.1); BASOPHILS % (AUTO) 0 % (0-10); EOSINOPHILS % (AUTO) 0 % (0-10); HEMATOCRIT 29 % (35-52); HEMOGLOBIN 9.2 G/DL (11.5-16.0); LYMPHOCYTES # (AUTO) 0.5 X 10^3 (1.0-4.0); LYMPHOCYTES % (AUTO) 2 % (12-44); MEAN CORPUSCULAR HEMOGLOBIN 30 PG (25-34); MEAN CORPUSCULAR HGB CONC 32 G/DL (32-36); MEAN CORPUSCULAR VOLUME 94 FL (80-99); MEAN PLATELET VOLUME 11.6 FL (7.4-10.4); MONOCYTES % (AUTO) 3 % (0-12); NEUTROPHILS # (AUTO) 33.5 X 10^3 (1.8-7.8); NEUTROPHILS % (AUTO) 96 % (42-75); PLATELET COUNT 60 10^3/uL (130-400); RED CELL DISTRIBUTION WIDTH 16.9 % (10.0-14.5)
[2020-05-17 03:40] LABS: CHLORIDE 109 MMOL/L (98-107); POTASSIUM 4.2 MMOL/L (3.6-5.0); SODIUM 147 MMOL/L (135-145); WHITE BLOOD COUNT 35.1 10^3/uL (4.3-11.0)
[2020-05-17 03:41] LABS: CALCIUM 7.2 MG/DL (8.5-10.1)
[2020-05-17 03:42] LABS: GLUCOSE 147 MG/DL (70-105)
[2020-05-17 03:43] LABS: CARBON DIOXIDE 30 MMOL/L (21-32)
[2020-05-17 03:46] LABS: CREATININE SERUM 0.65 MG/DL (0.60-1.30); GFR ESTIMATED > 60; PHOSPHORUS 2.3 MG/DL (2.3-4.7)
[2020-05-17 03:47] LABS: BUN/CREATININE RATIO 42
[2020-05-17] MEDS: MAGNESIUM 1 GM/100 ML IVPB 100 ML IV SCH (03:47)
[2020-05-17] MEDS: POTASSIUM CL 10MEQ/50ML IVPB 50 ML IV SCH (03:47)
[2020-05-17] MEDS: KCL 20 MEQ TAB (K-DUR) PO SCH (03:47)
[2020-05-17 04:00] VITALS: BP 111/54
[2020-05-17 06:00] VITALS: BP 114/57
--- NOTE | 2020-05-17 07:30 | Diagnostic Imaging Report ---
REASON FOR EXAMINATION: Shortness of breath. Upright AP portable chest was obtained and compared to yesterday. Central line remains in place as well as the NG tube. The heart size is unchanged and there is no mediastinal widening. Interstitial and alveolar infiltrates are again noted bilaterally with bilateral pleural effusions. No significant change. No pneumothorax. IMPRESSION: 1. Mixed infiltrates bilaterally with bilateral pleural effusions. Findings could represent edema versus infectious/inflammatory infiltrate or combination of both. No significant change. Dictated by: Dictated on workstation # [id number]
[2020-05-17 08:00] VITALS: BP 122/60
[2020-05-17] MEDS: TRIM/SULFAMETH 160/800 (SEPTRA DS) TAB PO SCH (08:05)
[2020-05-17] MEDS: AMIODARONE 200 MG (CORDARONE) TAB PO SCH (08:05)
[2020-05-17] MEDS: CLOPIDOGREL 75 MG (PLAVIX) TABLET PO SCH (08:05)
[2020-05-17] MEDS: PANTOPRAZOLE 40 MG (PROTONIX) VIAL IVP SCH (08:05)
--- NOTE | 2020-05-17 08:30 | NUR ---
THIS NURSE TALKED EXTENSIVELY TO SON OF PT, MARILIN, ABOUT PT CONDITION AND PLAN OF CARE. PT STATES HE FEARS TO MAKE THE WRONG CHOICE BUT DOES NOT WANT HER TO SUFFER. MARILIN STATES HE WOULD LIKE TO TALK TO THE DOCTOR AND HIS SISTER BEFORE HE MAKES ANY DECISIONS. THIS NURSE AT BEDSIDE. MARILIN STATES HE DOES NOT NEED A PHILLIP AT THIS TIME.
--- NOTE | 2020-05-17 09:20 | NUR ---
THIS NURSE NOTIFIED QUANG WITH PALLIATIVE CARE OF PT CONDITION.
[2020-05-17] MEDS ORDERED: FUROSEMIDE 40 MG/4 ML INJ (LASIX) IVP ONE (09:30)
[2020-05-17] MEDS: ANIDULAFUNGIN INJECTION 100 MG in NS (IVPB) 100 ML IV SCH (09:42)
--- NOTE | 2020-05-17 10:33 | NUR ---
Palliative Care RN in to see patient and speak with her son regarding the difficult decision to make her CCMO. He reports he is waiting on his sister to call and speak to patient. He is inquiring of whether others can see her before ..I explained the visitation for CCMO patient's being 1 visitor at a time but that it could be more than one in a day. He is to make phone calls and then let us know when he is ready to remove the life sustaining interventions. By appearance, it appears that patient will likely quickly. Evidenced by the changes seen since last I saw her on Sunday afternoon. She has lost a significant amount of fluid in her face and is appearing more gaunt. Her ears a thin and curling. Minimal mottling noted on her feet, that have 2 plus pitting edema. She is being supplied oxygen via Vapotherm and her RR is in the upper 30s, by the time I had left the visit they were low 20s with apnea.
--- NOTE | 2020-05-17 10:57 | Physical Therapy Progress Note ---
Therapy Progress Note Per physician documentation, pt verbally unresponsive. Per nursing, pt is likely going comfort care; asked this therapist to hold off on therapy at this time. Will follow. OMARI RANDALL PT May 17, 2020 10:57
[2020-05-17 12:00] VITALS: BP 131/61
--- NOTE | 2020-05-17 12:20 | NUR ---
THIS NURSE NOTIFIED DR DIAMOND THAT THE SON,MARILIN, WOULD LIKE COMFORT CARE FOR THE PT. THE SON WOULD LIKE TO KEEP VAPOTHERM ON. ORDERS GIVEN FOR COMFORT CARE. SEE ORDER HX.
[2020-05-17] MEDS ORDERED: BISACODYL 10 MG SUPP (DULCOLAX) PR PRN (12:45)
[2020-05-17] MEDS ORDERED: ACETAMINOPHEN 650 MG SUPP (TYLENOL) PR PRN (12:45)
[2020-05-17] MEDS ORDERED: ONDANSETRON 4 MG/2 ML (SDV) Z0FRAN IVP PRN (12:45)
[2020-05-17] MEDS ORDERED: GLYCOPYRROLATE 0.2 MG/ML (ROBINUL) 2 ML VIAL IV PRN (12:45)
[2020-05-17] MEDS ORDERED: SALIVA STIMULANT MOUTH SPRAY (BIOTENE) 1.5 OZ MM PRN (12:45)
[2020-05-17] MEDS ORDERED: PROMETHAZINE INJ 25 MG/ML (PHENERGAN) AMP IVP PRN (12:45)
[2020-05-17] MEDS ORDERED: ARTIFICAL TEARS 0.4 ML UNIT DOSE (REFRESH PLUS) OU PRN (12:45)
[2020-05-17] MEDS ORDERED: RT-ALBUTEROL/IPRATROPIUM 3 ML (DUONEB) VIAL INH PRN (12:45)
--- NOTE | 2020-05-17 12:53 | Progress Note - Surgery ---
Subjective Time Seen by a Provider: 12:34 Subjective/Events-last exam Pt seen, family has decided to make pt comfort care....hoping daughter can make it by tomorrow to see her. Review of Systems Non-communicative Objective Exam Vital Signs Date Time Temp Pulse Resp B/P (MAP) Pulse Ox O2 Delivery O2 Flow Rate FiO2 05/17/20 09:53 96 Vapotherm 40.00 60 05/17/20 08:00 36.4 108 22 122/60 (80) 96 Vapotherm 40.00 60.00 05/17/20 08:00 96 Vapotherm 40.00 60 05/17/20 07:00 113 05/17/20 06:22 95 Vapotherm 40.00 60 05/17/20 06:12 Vapotherm 40.00 60.00 05/17/20 06:00 105 22 114/57 (76) 93 Vapotherm 40.00 60.00 05/17/20 04:00 92 Vapotherm 40.00 40 05/17/20 04:00 36.0 05/17/20 04:00 108 111/54 (73) 93 Vapotherm 40.00 40.00 05/17/20 02:53 91 Vapotherm 40.00 40 05/17/20 01:00 108 05/17/20 00:00 109 21 122/56 (78) 93 Vapotherm 40.00 40.00 05/17/20 00:00 36.6 05/17/20 00:00 94 Vapotherm 40.00 40 05/16/20 21:38 95 Vapotherm 40.00 40 05/16/20 20:00 93 Vapotherm 40.00 40 05/16/20 20:00 36.9 05/16/20 20:00 112 24 123/58 (79) 94 Vapotherm 40.00 40.00 05/16/20 19:00 110 05/16/20 19:00 110 24 129/56 (80) 94 Vapotherm 40.00 40.00 05/16/20 18:41 94 Vapotherm 40.00 40 05/16/20 18:00 110 25 132/59 (83) 93 Vapotherm 40.00 40.00 05/16/20 17:00 116 22 126/62 (83) 92 Vapotherm 40.00 40.00 05/16/20 16:00 37.1 05/16/20 16:00 117 33 126/65 (85) 94 Vapotherm 40.00 40.00 05/16/20 15:27 94 Vapotherm 40.00 40 05/16/20 14:55 93 Vapotherm 40.00 40 I & O 05/17/20 07:00 Intake Total 1380 ml Output Total 1450 ml Balance -70 ml Capillary Refill : Less Than 3 Seconds General Appearance: Chronically ill Respiratory: Decreased Breath Sounds, Other (pt appears to have apneic breathing) Peripheral Pulses: 2+ Radial Pulses (R), 2+ Radial Pulses (L) Gastrointestinal: soft Extremity: Swelling (3+) Neurologic/Psychiatric: Other Results Lab Laboratory Tests 05/17/20 03:15: White Blood Count 35.1*H, Red Blood Count 3.10L, Hemoglobin 9.2L, Hematocrit 29L , Mean Corpuscular Volume 94, Mean Corpuscular Hemoglobin 30, Mean Corpuscular Hemoglobin Concent 32, Red Cell Distribution Width 16.9H, Platelet Count 60L, Mean Platelet Volume 11.6H, Neutrophils (%) (Auto) 96H, Lymphocytes (%) (Auto) 2L, Monocytes (%) (Auto) 3, Eosinophils (%) (Auto) 0, Basophils (%) (Auto) 0, Neutrophils # (Auto) 33.5H, Lymphocytes # (Auto) 0.5L, Monocytes # (Auto) 1.0, Eosinophils # (Auto) 0.0, Basophils # (Auto) 0.1, Sodium Level 147H, Potassium Level 4.2, Chloride Level 109H, Carbon Dioxide Level 30, Anion Gap 8, Blood Urea Nitrogen 27H, Creatinine 0.65, Estimat Glomerular Filtration Rate > 60, BUN/Creatinine Ratio 42, Glucose Level 147H, Calcium Level 7.2L, Phosphorus Level 2.3, Magnesium Level 2.0 Microbiology 05/12/20 Gram Stain - Final, Complete 05/12/20 Sputum Culture - Final, Complete Stenotrophomonas Maltophilia Enterobacter cloacae complex 05/12/20 Blood Culture - Final, Complete No growth Assessment/Plan Assessment/Plan Assessment/Plan s/p ileocecal resection for bleeding with likely stroke and significant neuro logic deficit. Pt is being made comfort care. Clinical Quality Measures DVT/VTE Risk/Contraindication: Risk Factor Score Per Nursin RFS Level Per Nursing on Admit: 4+=Very High SHEILA KATE DO May 17, 2020 12:53
[2020-05-17] MEDS: LORazepam INJ 2 MG/ML (ATIVAN) VIAL IVP PRN ×3 (13:21→18:09)
--- NOTE | 2020-05-17 13:37 | NUR ---
PLACED A CALL TO [facility] [employer] WITH NO REFERRAL NUMBER GIVEN. PER THEIR STAFF, PT WILL NOT BE A CANDIDATE FOR [employer]. ADVISED TO CALL WITH [facility] FOR TISSUE REFERRAL NUMBER.
--- NOTE | 2020-05-17 14:15 | NUR ---
THIS NURSE AT BEDSIDE. FAMILY AND FRIENDS AT BEDSIDE. PT APPEARS COMFORTABLE ON VAPOTHERM. WILL CONTINUE TO MONITOR.
--- NOTE | 2020-05-17 14:34 | NUR ---
PC RN in to see patient. There is relatively no change in her condition. Continues to have Vapotherm on but all other medications not related to comfort have been discontinued. Plan is for Vapotherm to remin until her daughter can visit hopefully tomorrow.
[2020-05-17] MEDS: morphine INJ 4 MG/ML 1 ML (VIAL/SYRINGE) IV PRN ×3 (14:53→20:31)
--- NOTE | 2020-05-17 15:15 | Progress Note - Cardiology ---
Cardiology SOAP Progress Note Subjective: Not verbally responsive Does not provide any history or report any symptoms Objective: I&O/Vital Signs 05/17/20 05/17/20 05/17/20 05/17/20 04:00 04:00 04:00 06:00 Temp 36.0 Pulse 108 105 Resp 22 B/P (MAP) 111/54 (73) 114/57 (76) Pulse Ox 93 92 93 O2 Delivery Vapotherm Vapotherm Vapotherm O2 Flow Rate 40.00 40.00 40.00 40.00 60.00 FiO2 40 05/17/20 05/17/20 05/17/20 05/17/20 06:12 06:22 07:00 08:00 Pulse 113 Pulse Ox 95 96 O2 Delivery Vapotherm Vapotherm Vapotherm O2 Flow Rate 40.00 40.00 40.00 60.00 FiO2 60 60 05/17/20 05/17/20 05/17/20 05/17/20 08:00 09:53 12:00 12:00 Temp 36.4 36.3 Pulse 108 117 Resp 22 21 B/P (MAP) 122/60 (80) 131/61 (84) Pulse Ox 96 96 96 O2 Delivery Vapotherm Vapotherm Vapotherm Vapotherm O2 Flow Rate 40.00 40.00 40.00 40.00 60.00 60.00 FiO2 60 60 05/17/20 12:54 Pulse 120 05/17/20 00:00 Intake Total 840 ml Output Total 950 ml Balance -110 ml Weight (Pounds): 112 Weight (Ounces): 0.0 Weight (Calculated Kilograms): 50.982035 Constitutional: other (verbally unresponsive at the time of this exam) Respiratory: rhonchi (scattered), other (scattered rhonchi over large airways; crackles at lung bases; labored breathing) Cardiovascular: regular rate-rhythm, systolic murmur (2-3/6 MSM) Gastrointestional: other (s/p abdominal surgery with dressing in place) Extremities: other (bilat pitting LE swelling) Neurologic/Psychiatric: other (not able to cooperate with any neuro exam) Skin: No rash on exposed areas, No ulcerations on exposed areas Results/Procedures: Labs Laboratory Tests 05/17/20 03:15: White Blood Count 35.1*H, Red Blood Count 3.10L, Hemoglobin 9.2L, Hematocrit 29L , Mean Corpuscular Volume 94, Mean Corpuscular Hemoglobin 30, Mean Corpuscular Hemoglobin Concent 32, Red Cell Distribution Width 16.9H, Platelet Count 60L, Mean Platelet Volume 11.6H, Neutrophils (%) (Auto) 96H, Lymphocytes (%) (Auto) 2L, Monocytes (%) (Auto) 3, Eosinophils (%) (Auto) 0, Basophils (%) (Auto) 0, Neutrophils # (Auto) 33.5H, Lymphocytes # (Auto) 0.5L, Monocytes # (Auto) 1.0, Eosinophils # (Auto) 0.0, Basophils # (Auto) 0.1, Sodium Level 147H, Potassium Level 4.2, Chloride Level 109H, Carbon Dioxide Level 30, Anion Gap 8, Blood Urea Nitrogen 27H, Creatinine 0.65, Estimat Glomerular Filtration Rate > 60, BUN/Creatinine Ratio 42, Glucose Level 147H, Calcium Level 7.2L, Phosphorus Level 2.3, Magnesium Level 2.0 Microbiology 05/12/20 Gram Stain - Final, Complete 05/12/20 Sputum Culture - Final, Complete Stenotrophomonas Maltophilia Enterobacter cloacae complex 05/12/20 Blood Culture - Final, Complete No growth Laboratory Tests 05/16/20 04:05 05/17/20 03:15 A/P: Assessment: Sepsis Pneumonia Shock: septic and h'hagic Suspected stroke (L-sided weakness reported, but no CT finding of ac stroke) 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 Card cath of April 13, [address] Yuen at [facility] showed 80- 90% lesion in the RCA for which EMMANUEL x1 was placed. Other vessels showed mild to mod CAD. Valvuloplasty to the aortic valve carried out at time of cardiac cath. Had been on Effient and ASA. Sinus node disfunction and PAF. On Xarelto for stroke prophylaxis Echocardiogram of March 25, [address] Dao showed LVEF 55-65%. Grade 2 diastolic dysfunction. Mild mitral stenosis with mean gradient 2.2mHg, MVA 3.3 cm2. Mod calcified aortic valve with mod-severe stenosis, mean grad 26mmHg GUERO 1.1cm2, mild to mod regurg. Severe TR. PASP 65-70mmHg. Echocardiogram of May 11, 2020 was a technically poor study. LVEF 55-60% H/o scleroderma and chronic dysphagia, followed and treated by her pcp Quit smoking in 1979 Borderline low TSH on 08/17/18 (0.33), followed by her pcp Dr Maria Carotid u/s of 06-06-2019 showed 60-79% R ICA stenosis; less than 40% L ICA stenosis. Incidentally seen L thyroid nodules seen at time of carotid u/s of Nov 2018 for which f/u is with her PCP Plan: * Complex management. Guarded/poor prognosis * Appears to have taken a turn for the worse. Currently verbally unresponsive * Cannot give Xarelto and ASA due to bleeding requiring surgery and leading to hypovolemic shock that has required transfusions * Continue Plavix to reduce risk of stent thrombosis * Appears volume overloaded today. Give iv furosemide * Monitor lab closely * Replace electrolytes as needed Clinical Quality Measures Type of Care: Type of Care: Comfort Measures SABINO MIN MD FACP [facility] May 17, 2020 15:15
--- NOTE | 2020-05-17 15:53 | Occ Therapy Progress Note ---
Therapy Progress Note Pt's nurse states pt will likely be put on comfort care. Hold on this date and OT to continue to monitor pt status. GALO MCKINNON OTR May 17, 2020 15:53
--- NOTE | 2020-05-17 16:40 | NUR ---
THIS NURSE SPOKE WITH FAMILY ABOUT SWITCHING PT TO NC. THIS NURSE EDUCATED THE FAMILY THAT THE PT MIGHT BE MORE COMFORTABLE ON NC. MARILIN THE SON INSISTED PT STAY ON VAPOTHERM. MARILIN AND FAMILY LEAVING FOR THE NIGHT. THE NURSE WILL KEEP SON UPDATED ON PT CONDITION.
--- NOTE | 2020-05-17 20:25 | Progress Note - Hospitalist ---
Subjective HPI/CC On Admission Date Seen by Provider: May 17, 2020 Time Seen by Provider: 10:00 Pt is an 79yoCF with a PMH of aortic stenosis, COPD, CAD with recent stenting, HTN, HLD, hypothyroidism, paroxysmal atrial fibrillation on chronic anticoagulation who presented to the ER due to hypoxia. She is unable to provide much history and onlyanswered a few yes or no questions for me. She told me she was sick and that she was not having pain. Otherwise all history obtained from family and records. She was apparently in her normal state this morning (ambulatory and alert and oriented x4). She spoke to her son and then had lunch. Sometime after lunch they found her in her room minimallyresponsive. There was concern for an episode of apnea as well. EMS was summoned and she was found to have oxygen saturations in the 60%. She was placed on a nonrebreather which brought her oxygen saturations up. She was taken for CT head as she is on Xarelto. Subjective/Events-last exam She is unresponsive. Her son is at the bedside. Objective Exam Vital Signs Vital Signs Date Time Temp Pulse Resp B/P (MAP) Pulse Ox O2 Delivery O2 Flow Rate FiO2 05/17/20 16:01 Vapotherm 40.00 60 05/17/20 12:54 120 05/17/20 12:00 36.3 21 131/61 (84) 96 Capillary Refill : Less Than 3 Seconds General Appearance: Chronically ill, Moderate Distress HEENT: Other (NG tube in place, high-flow nasal cannula) Respiratory: Decreased Breath Sounds, Respiratory Distress (tachypnea), Other (coarse breath sounds) Cardiovascular: No Murmur, Tachycardia (regular rhythm) Gastrointestinal: Soft, Abnormal Bowel Sounds (hypoactive) Extremity: Pedal Edema Neurologic/Psychiatric: Other (obtunded, unresponsive) Skin: Warm/Dry, Pallor Results/Procedures Lab Laboratory Tests 05/17/20 03:15 Patient resulted labs reviewed. Assessment/Plan Assessment and Plan Assess & Plan/Chief Complaint Comfort measures only status Poor prognosis Likely acute ischemic stroke Hemorrhagic shock Bleeding cecal mass Ischemic colitis Severe anemia Acute Hypoxic Respiratory Failure Leukocytosis Pneumonia COPD CAD Aortic Stenosis A-fib -Patient nearing end of life -Palliative care consulted -Discussed transition to comfort -Son would like to transition to comfort, but continue high-flow oxygen Critical Care Critically Ill Patient Diagnosis/Problems Diagnosis/Problems (1) Comfort measures only status Status: Acute Clinical Quality Measures DVT/VTE Risk/Contraindication: Risk Factor Score Per Nursin RFS Level Per Nursing on Admit: 4+=Very High CHYNA DIAMOND MD May 17, 2020 20:24
[2020-05-18] MEDS: LORazepam INJ 2 MG/ML (ATIVAN) VIAL IVP PRN ×2 (00:04→02:27)
[2020-05-18] MEDS: morphine INJ 4 MG/ML 1 ML (VIAL/SYRINGE) IV PRN ×2 (05:40→08:21)
--- NOTE | 2020-05-18 09:10 | NUR ---
Pt passed at this time. Son, Alexsander, called and informed of pt passing. Son stated he was right down stairs and would be up to be with her. Dr. Tinsley notified of pt passing as well.
--- NOTE | 2020-05-18 10:03 | NUR ---
CM/SS: [facility] ([facility]) [phone] - is notified that pt has this morning.
== END 2020-05-18 10:30 | disposition expired | DRG 329 ==
LOC: EDUNIT# 14:10 → ER 14:11 → ICU 15:38
PROVIDERS: ADMIT Family Medicine; ATTEND Internal Medicine
PROC: 0DTJ0ZZ Resection of Appendix, Open Approach (ICD-10-PCS; 2020-05-10)
PROC: 0DBK0ZZ Excision of Ascending Colon, Open Approach (ICD-10-PCS; 2020-05-10)
PROC: 0DBB0ZZ Excision of Ileum, Open Approach (ICD-10-PCS; 2020-05-10)
PROC: 5A1945Z Respiratory Ventilation, 24-96 Consecutive Hours (ICD-10-PCS; 2020-05-10)
PROC: 0DBH0ZZ Excision of Cecum, Open Approach (ICD-10-PCS; principal; 2020-05-10 18:54)
DX: K55.9 Vascular disorder of intestine, unspecified (principal); J96.01 Acute respiratory failure with hypoxia; J15.6 Pneumonia due to other Gram-negative bacteria; I50.31 Acute diastolic (congestive) heart failure; I63.9 Cerebral infarction, unspecified; J90 Pleural effusion, not elsewhere classified; D62 Acute posthemorrhagic anemia; E87.4 Mixed disorder of acid-base balance; G81.94 Hemiplegia, unspecified affecting left nondominant side; Z66 Do not resuscitate; Z51.5 Encounter for palliative care; I11.0 Hypertensive heart disease with heart failure; R57.8 Other shock; J44.9 Chronic obstructive pulmonary disease, unspecified; I25.10 Atherosclerotic heart disease of native coronary artery without angina pectoris; D64.9 Anemia, unspecified; I08.3 Combined rheumatic disorders of mitral, aortic and tricuspid valves; I48.0 Paroxysmal atrial fibrillation; I65.23 Occlusion and stenosis of bilateral carotid arteries; R00.1 Bradycardia, unspecified; I73.9 Peripheral vascular disease, unspecified; G62.9 Polyneuropathy, unspecified; R13.10 Dysphagia, unspecified; K21.9 Gastro-esophageal reflux disease without esophagitis; M06.9 Rheumatoid arthritis, unspecified; M34.9 Systemic sclerosis, unspecified; E03.9 Hypothyroidism, unspecified; E78.5 Hyperlipidemia, unspecified; E83.42 Hypomagnesemia; E87.6 Hypokalemia; Z53.31 Laparoscopic surgical procedure converted to open procedure; Z95.5 Presence of coronary angioplasty implant and graft; Z86.73 Personal history of transient ischemic attack (TIA), and cerebral infarction without residual deficits; Z87.891 Personal history of nicotine dependence; Z79.01 Long term (current) use of anticoagulants
CPT/HCPCS: 36415; 51702; 70450; 71045; 71260; 74177; 80048; 80053; 80202; 81000; 82805; 82962; 83605; 83735; 83880; 84100; 84132; 84145; 84478; 84484; 85007; 85014; 85018; 85025; 85027; 85610; 86850; 86900; 86901; 86920; 87040; 87070; 87077; 87081; 87186; 87205; 87635; 88307; 93005; 93306; 94002; 94003; 94640; 94664; 94799; 96374; 96375; 96376